=== PATIENT | female | born 1985 | race Caucasian/White ===

== ENCOUNTER 2016-11-29 19:03 | Emergency (ER) | payer BC ==
[2016-11-29] MEDS ORDERED: KETOROLAC TROMETHAMINE INJ/PF 30 MG/1 ML SDV IV ONE (20:01)
[2016-11-29] MEDS ORDERED: NORMAL SALINE 1000 ML 1,000 ML IV PRN (20:01)
[2016-11-29] MEDS ORDERED: ONDANSETRON HCL INJ/PF 4 MG/2 ML SDV IV ONE (20:01)
--- NOTE | 2016-11-29 20:02 | ER Document Report ---
ED Medical Screen (RME) - General Chief Complaint: Possible Kidney Stone Stated Complaint: BACK PAIN Time Seen by Provider: 11/29/16 20:00 Mode of Arrival: Ambulatory Information source: Patient TRAVEL OUTSIDE OF THE [place] IN LAST 30 DAYS: No - HPI Patient complains to provider of: Left flank pain Onset: Yesterday Notes: 11/29/16 20:02 Patient is a 31-year-old female who presents to the emergency room complaining of left-sided flank pain with nausea that started yesterday evening, she denies vomiting or diarrhea, she does report hematuria but no dysuria, symptoms are consistent with kidney stones which patient has had in the past - Related Data Allergies/Adverse Reactions: morphine [Morphine] Allergy (Severe, Verified 08/10/14 18:15) Hives Penicillins Allergy (Severe, Verified 08/10/14 18:15) Anaphylaxis latex [Latex] Allergy (Intermediate, Verified 08/10/14 18:15) blistering w/contact aspirin [Aspirin] Adverse Reaction (Mild, Verified 08/10/14 18:15) epigastric burning Past Medical History - Social History Family history: Reviewed & Not Pertinent - Past Medical History Cardiac Medical History: Reports: Hx Hypercholesterolemia, Hx Hypertension Denies: Hx Coronary Artery Disease, Hx Heart Attack Pulmonary Medical History: Denies: Hx Asthma, Hx Bronchitis, Hx COPD, Hx Pneumonia Neurological Medical History: Denies: Hx Cerebrovascular Accident, Hx Seizures Renal/ Medical History: Reports: Hx Kidney Stones, Hx Ovarian Cysts. Denies: Hx Peritoneal Dialysis Musculoskeltal Medical History: Reports Hx Arthritis Traumatic Medical History: Reports: Hx Fractures Infectious Medical History: Reports: Hx C-Diff Past Surgical History: Reports: Hx Kidney (Renal Surgery) - L sided stent at 4 y /o, Hx Orthopedic Surgery - Immunizations Immunizations up to date: No Hx Diphtheria, Pertussis, Tetanus Vaccination: No Physical Exam - Vital signs Vitals: Temp Pulse Resp BP Pulse Ox 98.4 F 138 H 20 149/93 H 99 11/29/16 19:27 11/29/16 19:27 11/29/16 19:27 11/29/16 19:27 11/29/16 19:27 Course - Vital Signs Vital signs: Temp Pulse Resp BP Pulse Ox 98.4 F 138 H 20 149/93 H 99 11/29/16 19:27 11/29/16 19:27 11/29/16 19:27 11/29/16 19:27 11/29/16 19:27
[2016-11-29 20:59] LABS: APPEARANCE,URINE SLIGHTLY-CLOUDY; BILIRUBIN,URINE NEGATIVE (NEGATIVE); CALCIUM OXALATE CRYSTALS,URINE TOO NUMEROUS TO CNT /HPF; GLUCOSE, URINE NEGATIVE (NEGATIVE); KETONES,URINE NEGATIVE (NEGATIVE); LEUKOCYTE ESTERASE,URINE TRACE (NEGATIVE); NITRITE,URINE NEGATIVE (NEGATIVE); PROTEIN,URINE NEGATIVE (NEGATIVE); URINE SPECIFIC GRAVITY 1.024; UROBILINOGEN,URINE NEGATIVE mg/dL (<2.0)
[2016-11-29 21:05] LABS: ABSOLUTE BASOPHILS # (AUTO) 0.1 10^3/uL (0.0-0.2); ABSOLUTE EOSINOPHILS # (AUTO) 0.2 10^3/uL (0.0-0.6); ABSOLUTE LYMPHOCYTES (AUTO) 2.4 10^3/uL (0.5-4.7); ABSOLUTE MONOCYTES (AUTO) 0.4 10^3/uL (0.1-1.4); ABSOLUTE NEUT (AUTO) 4.7 10^3/uL (1.7-8.2); BASOPHILS % (AUTO) 0.8 % (0-2); EOSINOPHILS % (AUTO) 2.6 % (0-6); HEMATOCRIT 42.1 % (36.0-47.0); HGB HCT DIFFERENCE -0.1; LYMPHOCYTES % (AUTO) 30.3 % (13-45); MEAN CORPUSCULAR HEMOGLOBIN 30.3 pg (27.0-33.4); MEAN CORPUSCULAR HGB CONC 33.2 g/dL (32.0-36.0); MEAN CORPUSCULAR VOLUME 91 fl (80-97); MONOCYTES % (AUTO) 5.7 % (3-13); RED BLOOD COUNT 4.62 10^6/uL (3.72-5.28); RED CELL DISTRIBUTION WIDTH 12.8 % (11.5-14.0); SEGMENTED NEUTROPHILS % (AUTO) 60.6 % (42-78); WHITE BLOOD COUNT 7.8 10^3/uL (4.0-10.5)
[2016-11-29 21:23] LABS: ALANINE AMINOTRANSFERASE 66 U/L (9-52); ALBUMIN 4.7 g/dL (3.5-5.0); ALKALINE PHOSPHATASE 79 U/L (38-126); ANION GAP 14 (5-19); ASPARTATE AMINO TRANSFERASE 48 U/L (14-36); BILIRUBIN,DIRECT 0.4 mg/dL (0.0-0.4); BILIRUBIN,TOTAL 0.5 mg/dL (0.2-1.3); BLOOD UREA NITROGEN 12 mg/dL (7-20); CALCIUM 10.1 mg/dL (8.4-10.2); CARBON DIOXIDE 23 mmol/L (22-30); CHLORIDE 106 mmol/L (98-107); CREATININE RESULT 0.77 mg/dL (0.52-1.25); GLUCOSE 88 mg/dL (75-110); LIPASE 57.3 U/L (23-300); POTASSIUM 4.3 mmol/L (3.6-5.0); SODIUM 142.8 mmol/L (137-145); TOTAL PROTEIN 8.7 g/dL (6.3-8.2)
[2016-11-29] MEDS ORDERED: HYDROMORPHONE HCL INJ/PF 2 MG/ML AMPULE IV ONE (22:00)
[2016-11-29] MEDS ORDERED: NORMAL SALINE 1000 ML 1,000 ML IV ONE ×2 (22:00→22:01)
--- NOTE | 2016-11-29 22:03 | ER Document Report ---
ED GI/ - General Chief Complaint: Possible Kidney Stone Stated Complaint: BACK PAIN Time Seen by Provider: 11/29/16 20:00 Mode of Arrival: Ambulatory Notes: Patient is a 31-year-old female who comes emergency department for chief complaint of left flank pain with nausea that started yesterday evening, she denies vomiting, she denies fever, she denies diarrhea. She does report some pinkish bloody urine but no pain with urination. She states that she has had kidney stones in the past, she actually had a stent previously as well. Patient denies any current daily medications. Also has a past medical history of C. difficile. TRAVEL OUTSIDE OF THE [place] IN LAST 30 DAYS: No - Related Data Allergies/Adverse Reactions: morphine [Morphine] Allergy (Severe, Verified 08/10/14 18:15) Hives Penicillins Allergy (Severe, Verified 08/10/14 18:15) Anaphylaxis latex [Latex] Allergy (Intermediate, Verified 08/10/14 18:15) blistering w/contact aspirin [Aspirin] Adverse Reaction (Mild, Verified 08/10/14 18:15) epigastric burning Past Medical History - General Information source: Patient - Social History Smoking Status: Never Smoker Frequency of alcohol use: Occasional Drug Abuse: None Lives with: Family Family History: Reviewed & Not Pertinent, Malignancy, Other - Past Medical History Cardiac Medical History: Reports: Hx Hypercholesterolemia, Hx Hypertension Denies: Hx Coronary Artery Disease, Hx Heart Attack Pulmonary Medical History: Denies: Hx Asthma, Hx Bronchitis, Hx COPD, Hx Pneumonia Neurological Medical History: Denies: Hx Cerebrovascular Accident, Hx Seizures Renal/ Medical History: Reports: Hx Kidney Stones, Hx Ovarian Cysts. Denies: Hx Peritoneal Dialysis Musculoskeltal Medical History: Reports Hx Arthritis Traumatic Medical History: Reports: Hx Fractures Infectious Medical History: Reports: Hx C-Diff Past Surgical History: Reports: Hx Kidney (Renal Surgery) - L sided stent at 4 y /o, Hx Orthopedic Surgery - Immunizations Immunizations up to date: No Hx Diphtheria, Pertussis, Tetanus Vaccination: No Review of Systems - Review of Systems Constitutional: No symptoms reported EENT: No symptoms reported Cardiovascular: No symptoms reported Respiratory: No symptoms reported Gastrointestinal: See HPI Genitourinary: See HPI Female Genitourinary: No symptoms reported Musculoskeletal: See HPI Skin: No symptoms reported Hematologic/Lymphatic: No symptoms reported Neurological/Psychological: No symptoms reported Physical Exam - Vital signs Vitals: Temp Pulse Resp BP Pulse Ox 98.4 F 138 H 20 149/93 H 99 11/29/16 19:27 11/29/16 19:27 11/29/16 19:27 11/29/16 19:27 11/29/16 19:27 Interpretation: Normal - General General appearance: Appears well, Alert In distress: None - Patient sitting on the bed, does not appear to have any distress - HEENT Head: Normocephalic, Atraumatic Eyes: Normal Conjunctiva: Normal Extraocular movements intact: Yes Eyelashes: Normal Pupils: PERRL Mouth/Lips: Normal Mucous membranes: Normal Pharynx: Normal Neck: Normal - Respiratory Respiratory status: No respiratory distress Chest status: Nontender Breath sounds: Normal. No: Decreased air movement, Wheezing Chest palpation: Normal - Cardiovascular Rhythm: Regular, Tachycardia Heart sounds: Normal auscultation, S1 appreciated, S2 appreciated Murmur: No - Abdominal Inspection: Normal Distension: No distension Bowel sounds: Normal Tenderness: Nontender. No: Tender, Guarding Organomegaly: No organomegaly - Back Back: Tender - There is tenderness in the left mid to lower flank, some paraspinal tenderness on the left, no midline tenderness, no saddle anesthesia, normal upper and lower extremity range of motion, normal distal neurovascular exam. No: Vertebra tenderness - Extremities General upper extremity: Normal inspection, Nontender, Normal color, Normal ROM , Normal temperature General lower extremity: Normal inspection, Nontender, Normal color, Normal ROM , Normal temperature, Normal weight bearing. No: Jonh's sign - Neurological Neuro grossly intact: Yes Cognition: Normal Orientation: AAOx4 [place] Coma Scale Eye Opening: Spontaneous Lee Coma Scale Verbal: Oriented [place] Coma Scale Motor: Obeys Commands Lee Coma Scale Total: 15 Speech: Normal Motor strength normal: LUE, RUE, LLE, RLE Sensory: Normal - Psychological Associated symptoms: Normal affect, Normal mood - Skin Skin Temperature: Warm Skin Moisture: Dry Skin Color: Normal Course - Re-evaluation Re-evalutation: Patient with flank and paraspinal tenderness in the left mid back, no midline tenderness, no neurovascular deficits. Abdomen soft. Reviewed CBC, chemistry, urinalysis, CAT scan from triage. No acute abnormalities. There are calcium oxalate crystals in the urine but there is no stone either in the kidney or passing. Suspect patient has musculoskeletal pain. Patient was given medications, IV fluids, after this tachycardia resolved. 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 Discussed return precautions, discussed follow-up, patient states understanding and agreement. - Vital Signs Vital signs: Temp Pulse Resp BP Pulse Ox 98.4 F 94 15 110/62 99 11/29/16 19:27 11/30/16 00:57 11/30/16 00:57 11/30/16 00:57 11/30/16 00:57 - Laboratory Result Diagrams: 11/29/16 20:35 11/29/16 20:35 Laboratory results interpreted by me: 11/29/16 11/29/16 19:38 20:35 AST 48 H ALT 66 H Total Protein 8.7 H Ur Leukocyte Esterase TRACE H Discharge - Discharge Clinical Impression: Flank pain Condition: Stable Disposition: HOME, SELF-CARE Additional Instructions: Your workup does not indicate a kidney stone. The pain you are having is most likely muscular. Continue to avoid foods with oxalate to prevent forming new stones. Take the muscle relaxer, rest, apply heat to the area. Follow up with primary care. Return to the ED for any concerning or worsening symptoms - fever, vomiting, etc. Prescriptions: Cyclobenzaprine HCl [Flexeril 5 mg Tablet] 1 - 2 tab PO TID PRN #20 tablet PRN Reason: Referrals: SOMMER SCHRADER PA-C [Primary Care Provider] - Follow up as needed
[2016-11-29 22:30] LABS: URINE BARBITURATES SCREEN NEGATIVE; URINE METHADONE SCREEN NEGATIVE; URINE OPIATES LOW NEGATIVE; URINE PHENCYCLIDINE SCREEN NEGATIVE
--- NOTE | 2016-11-29 22:53 | RADIOLOGY REPORT (SQ) ---
EXAM DESCRIPTION: CT LTD RENAL STONE PROTOCOL ON COMPLETED DATE/TIME: 11/29/2016 10:10 pm REASON FOR STUDY: flank pain COMPARISON: CT abdomen pelvis 01/12/2016, 03/26/2013, 06/14/2011 TECHNIQUE: CT scan of the abdomen and pelvis performed without intravenous or oral contrast. Images reviewed with lung, soft tissue, and bone windows. Reconstructed coronal and sagittal MPR images revi ewed. All images stored on PACS. All CT scanners at this facility use dose modulation, iterative reconstruction, and/or weight based d osing when appropriate to reduce radiation dose to as low as reasonably achievable (ALARA). [facility]: Dose Right [facility]: CareDose [facility]: Dose Right [facility]: Teradose 4D [facility]: [employer] RADIATION DOSE: Up-to-date CT equipment and radiation dose reduction techniques were employed. CTDIv ol: 17.7 mGy. DLP: 957 mGy-cm.mGy. LIMITATIONS: None. FINDINGS: LOWER CHEST: No significant findings. No nodules or infiltrates. NON-CONTRASTED LIVER, SPLEEN, ADRENALS: Hepatomegaly with diffuse fatty infiltration of the liver. S pleen, adrenal glands unremarkable PANCREAS: No masses. No peripancreatic inflammatory changes. GALLBLADDER: No identified stones by CT criteria. No inflammatory changes to suggest cholecystitis. RIGHT KIDNEY AND URETER: No suspicious masses. Assessment limited by lack of IV contrast. No signif icant calcifications. No hydronephrosis or hydroureter. LEFT KIDNEY AND URETER: No suspicious masses. Assessment limited by lack of IV contrast. No signifi cant calcifications. No hydronephrosis or hydroureter. AORTA AND RETROPERITONEUM: No aneurysm. No retroperitoneal masses or adenopathy. BOWEL AND PERITONEAL CAVITY: No obvious masses or inflammatory changes. No free fluid. APPENDIX: Normal. PELVIS, BLADDER, AND ABDOMINAL WALL:No abnormal masses. No free fluid. Bladder normal. BONES: No significant findings. OTHER: No other significant finding. IMPRESSION: NO SIGNIFICANT OR ACUTE PROCESS IN THE ABDOMEN OR PELVIS. TECHNICAL DOCUMENTATION: JOB ID: [id number] Quality ID # [id number]: Final reports with documentation of one or more dose reduction techniques (e.g., Au tomated exposure control, adjustment of the mA and/or kV according to patient size, use of iterative reconstruction technique) 2010 [email or web address] Rights Reserved
[2016-11-30 00:59] VITALS: BP 110/62
== END 2016-11-30 00:44 | disposition home or self-care (01) ==
LOC: ER 19:03
DX: M54.9 Dorsalgia, unspecified (principal); R11.0 Nausea; R31.0 Gross hematuria; R82.99 Other abnormal findings in urine; I10 Essential (primary) hypertension; Z87.442 Personal history of urinary calculi; Z98.890 Other specified postprocedural states; Z88.5 Allergy status to narcotic agent; Z91.040 Latex allergy status; Z88.6 Allergy status to analgesic agent; Z87.892 Personal history of anaphylaxis; Z88.0 Allergy status to penicillin; Z87.42 Personal history of other diseases of the female genital tract; Z86.19 Personal history of other infectious and parasitic diseases
CPT/HCPCS: 99284; 96361; 96374; 96375; 36415; 87086; 83690; 85025; 80053; 81001; 80307; 76380; J1885; J1170; J2405; J7030

== ENCOUNTER 2016-12-28 15:14 | Observation (INO) | payer BC ==
--- NOTE | 2016-12-28 16:33 | ER Document Report ---
ED Cardiac - General Mode of Arrival: Ambulatory Information source: Patient TRAVEL OUTSIDE OF THE [place] IN LAST 30 DAYS: No - HPI Patient complains to provider of: Chest pain, Palpitations Was the onset of pain: Gradual Is the pain a: New problem Chest pain location: Substernal Quality of pain: Achy, Dull Severity now: Mild Severity at worst: Moderate Chest pain precipitating factors: At Rest Cardiac risk factors: Hypertension Associated symptoms: Diaphoresis, Nausea/vomiting Exacerbated by: Denies Relieved by: Nothing <AGUILA BATES - Last Filed: 12/28/16 20:19> <PAULA TONY - Last Filed: 01/01/17 23:39> - General Chief Complaint: Chest Wall Pain Stated Complaint: CHEST PAIN Time Seen by Provider: 12/28/16 16:09 - HPI Notes: Patient is a 31-year-old female who presents to the emergency room complaining of chest pain with diaphoresis and nausea 3-4 days, she denies any abdominal pain, no vomiting or diarrhea, no fever or chills, no cough, cold or congestion , no recent long distance travel or periods of immobilization, patient denies being , she denies any calf pain or tenderness (AGUILA BATES) - Related Data Allergies/Adverse Reactions: morphine [Morphine] Allergy (Severe, Verified 12/29/16 00:45) Hives Penicillins Allergy (Severe, Verified 12/28/16 15:34) Anaphylaxis latex [Latex] Allergy (Intermediate, Verified 12/28/16 15:34) blistering w/contact aspirin [Aspirin] Adverse Reaction (Mild, Verified 12/28/16 15:34) epigastric burning Home Medications: Current Home Medications Cyclobenzaprine HCl [Flexeril 5 mg Tablet] 5 mg PO TID 12/29/16 [History] Metoprolol Succinate [Toprol Xl 25 mg Tab.sr] 25 mg PO DAILY 12/29/16 [History] Past Medical History - General Information source: Patient - Social History Smoking Status: Never Smoker Family History: Reviewed & Not Pertinent, Malignancy, Other Patient has suicidal ideation: No Patient has homicidal ideation: No - Past Medical History Cardiac Medical History: Reports: Hx Hypercholesterolemia, Hx Hypertension Denies: Hx Coronary Artery Disease, Hx Heart Attack Pulmonary Medical History: Denies: Hx Asthma, Hx Bronchitis, Hx COPD, Hx Pneumonia Neurological Medical History: Denies: Hx Cerebrovascular Accident, Hx Seizures Renal/ Medical History: Reports: Hx Kidney Stones, Hx Ovarian Cysts. Denies: Hx Peritoneal Dialysis Musculoskeltal Medical History: Reports Hx Arthritis Traumatic Medical History: Reports: Hx Fractures Infectious Medical History: Reports: Hx C-Diff Past Surgical History: Reports: Hx Kidney (Renal Surgery) - L sided stent at 4 y /o, Hx Orthopedic Surgery - Immunizations Immunizations up to date: No Hx Diphtheria, Pertussis, Tetanus Vaccination: No <AGUILA BATES - Last Filed: 12/28/16 20:19> Review of Systems - Review of Systems Constitutional: No symptoms reported. denies: Fever EENT: No symptoms reported Cardiovascular: See HPI Respiratory: No symptoms reported Gastrointestinal: See HPI Genitourinary: No symptoms reported Female Genitourinary: No symptoms reported Musculoskeletal: No symptoms reported Skin: No symptoms reported Hematologic/Lymphatic: No symptoms reported Neurological/Psychological: No symptoms reported -: Yes All other systems reviewed and negative <AGUILA BATES - Last Filed: 12/28/16 20:19> Physical Exam - Vital signs Interpretation: Tachycardic - General General appearance: Appears well, Alert - HEENT Head: Normocephalic, Atraumatic Eyes: Normal Pupils: PERRL - Respiratory Respiratory status: No respiratory distress Chest status: Nontender Breath sounds: Normal Chest palpation: Normal - Cardiovascular Rhythm: Regular Heart sounds: Normal auscultation Murmur: No - Abdominal Inspection: Normal Distension: No distension Bowel sounds: Normal Tenderness: Nontender Organomegaly: No organomegaly - Back Back: Normal, Nontender - Extremities General upper extremity: Normal inspection, Nontender, Normal color, Normal ROM , Normal temperature General lower extremity: Normal inspection, Nontender, Normal color, Normal ROM , Normal temperature, Normal weight bearing. No: Jonh's sign - Neurological Neuro grossly intact: Yes Cognition: Normal Orientation: AAOx4 [place] Coma Scale Eye Opening: Spontaneous [place] Coma Scale Verbal: Oriented Lee Coma Scale Motor: Obeys Commands [place] Coma Scale Total: 15 Speech: Normal Motor strength normal: LUE, RUE, LLE, RLE Sensory: Normal - Psychological Associated symptoms: Normal affect, Normal mood - Skin Skin Temperature: Warm Skin Moisture: Dry Skin Color: Normal <AGUILA BATES - Last Filed: 12/28/16 20:19> Course - Laboratory Result Diagrams: 12/28/16 16:25 12/28/16 16:25 - Diagnostic Test Radiology reviewed: Image reviewed, Reports reviewed - EKG Interpretation by Me EKG shows normal: Sinus rhythm Rate: Tachycardia - Transfer of Care Care transferred to following provider: Dr Tony <AGUILA BATES - Last Filed: 12/28/16 20:19> - Laboratory Result Diagrams: 12/28/16 16:25 12/28/16 16:25 <PAULA TONY - Last Filed: 01/01/17 23:39> - Re-evaluation Re-evalutation: 12/28/16 20:03 Was discussed with the hospitalist who requested a second troponin and urine drug screen prior to accepting for admission 12/28/16 20:19 Urine drug screen and repeat troponin have been ordered, this plan was discussed with patient who is resting comfortably, eating dinner at this time, patient was also discussed with Dr. Paula Tony, emergency physician who accepts patient for spinal, she will continue to follow and dispo accordingly (AGUILA BATES) - Vital Signs Vital signs: Temp Pulse Resp BP Pulse Ox 98.3 F 108 H 18 118/73 97 12/29/16 15:35 12/29/16 15:35 12/29/16 15:35 12/29/16 15:35 12/29/16 15:35 - Laboratory Laboratory results interpreted by me: 12/28/16 12/28/16 16:25 17:00 AST 58 H ALT 76 H Creatine Kinase 136 H Total Protein 8.5 H Urine Blood SMALL H Ur Leukocyte Esterase TRACE H Discharge <AGUILA BATES - Last Filed: 12/28/16 20:19> - Discharge Admitting Provider: Hospitalist Unit Admitted: Telemetry <PAULA TONY - Last Filed: 01/01/17 23:39> - Discharge Clinical Impression: chest wall pain, Sinus tachycardia Condition: Good Disposition: HOME, SELF-CARE
[2016-12-28 16:46] LABS: ABSOLUTE EOSINOPHILS # (AUTO) 0.1 10^3/uL (0.0-0.6); ABSOLUTE LYMPHOCYTES (AUTO) 1.7 10^3/uL (0.5-4.7); ABSOLUTE MONOCYTES (AUTO) 0.4 10^3/uL (0.1-1.4); ABSOLUTE NEUT (AUTO) 5.1 10^3/uL (1.7-8.2); BASOPHILS % (AUTO) 0.5 % (0-2); EOSINOPHILS % (AUTO) 1.5 % (0-6); HEMATOCRIT 42.3 % (36.0-47.0); HEMOGLOBIN 14.2 g/dL (12.0-15.5); HGB HCT DIFFERENCE 0.3; LYMPHOCYTES % (AUTO) 23.6 % (13-45); MEAN CORPUSCULAR HGB CONC 33.6 g/dL (32.0-36.0); MEAN CORPUSCULAR VOLUME 89 fl (80-97); MONOCYTES % (AUTO) 5.2 % (3-13); RED BLOOD COUNT 4.73 10^6/uL (3.72-5.28); RED CELL DISTRIBUTION WIDTH 12.8 % (11.5-14.0); SEGMENTED NEUTROPHILS % (AUTO) 69.2 % (42-78); WHITE BLOOD COUNT 7.4 10^3/uL (4.0-10.5)
[2016-12-28 17:01] LABS: ALANINE AMINOTRANSFERASE 76 U/L (9-52); ALBUMIN 4.8 g/dL (3.5-5.0); ALKALINE PHOSPHATASE 84 U/L (38-126); ANION GAP 11 (5-19); ASPARTATE AMINO TRANSFERASE 58 U/L (14-36); BILIRUBIN,DIRECT 0.4 mg/dL (0.0-0.4); BILIRUBIN,TOTAL 0.5 mg/dL (0.2-1.3); BLOOD UREA NITROGEN 10 mg/dL (7-20); CALCIUM 9.9 mg/dL (8.4-10.2); CARBON DIOXIDE 26 mmol/L (22-30); CHLORIDE 104 mmol/L (98-107); CREATINE KINASE 136 U/L (30-135); CREATININE RESULT 0.66 mg/dL (0.52-1.25); GLUCOSE 91 mg/dL (75-110); POTASSIUM 4.1 mmol/L (3.6-5.0); SODIUM 141.1 mmol/L (137-145); TOTAL PROTEIN 8.5 g/dL (6.3-8.2)
--- NOTE | 2016-12-28 17:02 | RADIOLOGY REPORT (SQ) ---
EXAM DESCRIPTION: CHEST PA/LAT COMPLETED DATE/TIME: 12/28/2016 4:53 pm REASON FOR STUDY: cp COMPARISON: 11/02/2014 EXAM PARAMETERS: NUMBER OF VIEWS: two views TECHNIQUE: Digital Frontal and Lateral radiographic views of the chest acquired. RADIATION DOSE: NA LIMITATIONS: none FINDINGS: LUNGS AND PLEURA: No opacities, masses or pneumothorax. No pleural effusion. MEDIASTINUM AND HILAR STRUCTURES: No masses or contour abnormalities. HEART AND VASCULAR STRUCTURES: Heart normal size. No evidence for failure. BONES: No acute findings. HARDWARE: None in the chest. OTHER: No other significant finding. IMPRESSION: NO SIGNIFICANT RADIOGRAPHIC FINDING IN THE CHEST. TECHNICAL DOCUMENTATION: JOB ID: [id number] [employer]- All Rights Reserved
[2016-12-28 17:14] LABS: CREATINE KINASE MB 0.77 ng/mL (<4.55)
[2016-12-28 17:16] LABS: TROPONIN I < 0.012 ng/mL
[2016-12-28] MEDS ORDERED: NORMAL SALINE 1000 ML 1,000 ML IV PRN ×2 (17:32→17:47)
[2016-12-28] MEDS ORDERED: LORAZEPAM INJ 2 MG/1 ML VIAL IV ONE (17:47)
[2016-12-28 18:17] LABS: APPEARANCE,URINE SLIGHTLY-CLOUDY; BILIRUBIN,URINE NEGATIVE (NEGATIVE); GLUCOSE, URINE NEGATIVE (NEGATIVE); KETONES,URINE NEGATIVE (NEGATIVE); LEUKOCYTE ESTERASE,URINE TRACE (NEGATIVE); NITRITE,URINE NEGATIVE (NEGATIVE); PROTEIN,URINE NEGATIVE (NEGATIVE); URINE SPECIFIC GRAVITY 1.009; UROBILINOGEN,URINE NEGATIVE mg/dL (<2.0)
--- NOTE | 2016-12-28 19:17 | RADIOLOGY REPORT (SQ) ---
EXAM DESCRIPTION: CTA CHEST COMPLETED DATE/TIME: 12/28/2016 7:07 pm REASON FOR STUDY: cp, tachy COMPARISON: None. TECHNIQUE: CT scan of the chest performed using helical scanning technique with dynamic intravenous contrast injection. Images reviewed with lung, soft tissue and bone windows. Reconstructed coronal and sagittal MPR images reviewed. Additional 3 dimensional post-processing performed to develop Maximal Intensity Projection images (DE P). All images stored on PACS. All CT scanners at this facility use dose modulation, iterative reconstruction, and/or weight based d osing when appropriate to reduce radiation dose to as low as reasonably achievable (ALARA). [facility]: Dose Right [facility]: CareDose [facility]: Dose Right [facility]: Teradose 4D [facility]: [employer] CONTRAST TYPE AND DOSE: contrast/concentration: Isovue 370.00 mg/ml; Total Contrast Delivered: 80.0 ml; Total Saline Delivered: 100.0 ml RENAL FUNCTION: None required. The patient is less than 50 years old. RADIATION DOSE: Up-to-date CT equipment and radiation dose reduction techniques were employed. CTDIv ol: 24.8 - 26.6 mGy. DLP: 932 mGy-cm. . LIMITATIONS: None. FINDINGS: LUNGS AND PLEURA: No masses, infiltrates, pneumothorax. No pleural effusions, calcificati ons. AORTA AND GREAT VESSELS: No aneurysm or dissection. HEART: No pericardial effusion. PULMONARY ARTERIES: No emboli visualized in the main pulmonary arteries or the segmental branches. HILAR AND MEDIASTINAL STRUCTURES: No identified masses or abnormal nodes. HARDWARE: None in the chest. UPPER ABDOMEN: Fatty liver. THYROID AND OTHER SOFT TISSUES: No masses. No adenopathy. BONES: No acute or significant finding. 3D MIPS: Confirm above findings. OTHER: No other significant finding. IMPRESSION: NORMAL CTA OF THE CHEST. NO PULMONARY EMBOLI. Fatty liver. TECHNICAL DOCUMENTATION: JOB ID: [id number] Quality ID # [id number]: Final reports with documentation of one or more dose reduction techniques (e.g., Au tomated exposure control, adjustment of the mA and/or kV according to patient size, use of iterative reconstruction technique) 2010 [employer]- All Rights Reserved
[2016-12-28] MEDS ORDERED: HYDROMORPHONE HCL INJ/PF 2 MG/ML AMPULE IV ONE (19:40)
[2016-12-28] MEDS ORDERED: ONDANSETRON HCL INJ/PF 4 MG/2 ML SDV ONE (21:05)
[2016-12-28 21:39] LABS: URINE BARBITURATES SCREEN NEGATIVE; URINE OPIATES LOW NEGATIVE; URINE PHENCYCLIDINE SCREEN NEGATIVE
[2016-12-28 21:47] LABS: URINE METHADONE SCREEN NEGATIVE
--- NOTE | 2016-12-28 22:50 | EKG REPORT ---
SEVERITY:- OTHERWISE NORMAL ECG - SINUS TACHYCARDIA : Confirmed by: Kameron Haq 28-Dec-2016 22:48:54
[2016-12-28] MEDS ORDERED: NORMAL SALINE 1000 ML 2,000 ML IV ONE (23:45)
[2016-12-29] MEDS ORDERED: ACETAMINOPHEN 325 MG TABLET PO PRN (00:44)
[2016-12-29] MEDS ORDERED: METOPROLOL TARTRATE PF/INJ 5 MG/5 ML SDV IV PRN (00:45)
[2016-12-29] MEDS ORDERED: MAG HYDROX/AL HYDROX/SIMETH SUSP 30 ML UDCUP PO PRN (00:49)
[2016-12-29] MEDS ORDERED: PROMETHAZINE HCL 25 MG TABLET PO PRN (00:50)
[2016-12-29] MEDS ORDERED: MAG HYDROX/AL HYDROX/SIMETH SUSP 30 ML UDCUP PO ONE (00:54)
[2016-12-29] MEDS ORDERED: CLOPIDOGREL BISULFATE 75 MG TABLET PO ONE (01:15)
--- NOTE | 2016-12-29 01:42 | PDOC H&P ---
History of Present Illness Admission Date/PCP: 12/28/16 23:21 SOMMER SCHRADER PA-C Cardiology Dr. Santos Patient complains of: Chest pain History of Present Illness: PEGGY BROWN is a 31 year old obese female with underlying hypertension, known chronic tachycardia, a "leaking valve" by transesophageal echocardiogram last year at [place], but otherwise with an unremarkable cardiac history, including negative exercise treadmill study earlier this year who presents to the emergency room for evaluation of 3-4 day history of intermittent episodes of substernal and epigastric discomfort, with associated nausea but no vomiting. No fever or chills, diarrhea or dysuria or cough. Chest discomfort decreases when she sits up. Earlier on the , she was having some mild associated shortness of breath and diaphoresis, along with radiation of the discomfort to her left upper extremity. Has had previous such episodes of the discomfort; her graphic engineer is aware of same. Has been on Toprol-XL 25 mg a day for approximately a year. No recent change in medications. She is compliant with same. Took her evening dose actually the morning of the . Received 2 L bolus of normal saline in the emergency room, with little change in her pulse rate. Receiving third and fourth liter bolus now. No previous myocardial infarction congestive heart failure atrial fibrillation or atrial flutter. No history of pulmonary embolus or DVT. No prior upper endoscopy or upper GI series. Negative colonoscopy more than 5 years ago. No use of alcohol tobacco or illicit drugs. Family history is remarkable for her mother who in her 30s of a pulmonary embolus. Patient has been discussed with emergency room physician who evaluated the patient. . Laboratory results are listed in [facility] and are reviewed. X-ray summary results are listed below, with full report(s) reviewed. . EKG's reviewed. Social history/personal habits: . 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 Personal habits as noted above. Allergies/adverse reactions are listed in [employer] and are reviewed. Home medications consist only of Toprol-XL 25 mg a day. REVIEW OF SYSTEMS: Constitutional: No fever or chills. Eyes: No vision complaints. ENT: No swallowing problems or complaints. Denies hearing loss. Pulmonary: See history and present illness. Cardiovascular: See history and present illness. Gastrointestinal: See history and present illness. Skin: No current complaints, including rashes. Hematologic: Easy bruising. Neurologic: No current complaints, including numbness or tingling. Musculoskeletal: Back pain from arthritis. Psychiatric: Denies anxiety or depression. Endocrine: No current complaints, including polyuria. Genitourinary: No current complaints, including dysuria. PHYSICAL EXAMINATION: 5 feet 4 inches tall. 99.2 kg. BMI 37.5 kg/m. Temperature 98.6. Blood pressure 113/70. Pulse 139 and regular. 97% saturation on room air. Respirations are 20 and unlabored. Obese otherwise well-developed female appearing approximately her stated age. Pleasant awake alert and cooperative. No obvious distress other than somewhat anxious. Female emergency room nurse Melyssa is present. Skin is warm and dry. No grossly obvious evidence of rash in areas of skin examined. No subcutaneous nodules palpated. ENT: Hearing grossly normal to normal conversation. Tongue midline on protrusion pink and moist. Eyes: No scleral icterus. Pupils equal and reactive to light at 4 mm. [place] conjunctivae. Neck is supple and nontender to gentle active range of motion and palpation. Midline trachea. No palpable thyroid nodule mass enlargement or tenderness. Lymphatic: No palpable cervical or clavicular nodes. Neck and lymphatic exams limited by patient body habitus. Psychiatric: Reasonable insight into acute and chronic medical issues. Oriented to time location and why here. Lungs: Auscultation reveals clear and equal breath sounds bilaterally. No use of accessory respiratory muscles. Cardiovascular: Heart regular rate and rhythm, without gallop murmur or rub. No carotid or abdominal aortic bruits. No ankle or pedal edema. Faintly palpable dorsalis pedis pulses. Abdomen:soft somewhat obese nontender with positive bowel sounds. Unable to adequately evaluate abdomen for masses or organomegaly due to body habitus. Compression of both her upper epigastrium and mid sternum increases her current chest discomfort. Extremities: Feet are warm and dry. No calf tenderness to compression. No grossly obvious visual evidence of calf swelling. Gentle manipulation of lower extremities fails to reveal any obvious evidence of injury or instability to knees hips or ankles. Neurologic: Moves upper extremities grossly normally. Patellar reflexes absent. Absent Babinski. Light touch is intact at feet. Dorsiflexion and plantarflexion of feet 5 / 5 and symmetric. Past Medical History Cardiac Medical History: Reports: Hypertension, Other - Chronic tachycardia; "leaking valve" by transesophageal echocardiogram, 2016 Denies: Atrial Fibrillation, Congestive Heart Failure, Coronary Artery Disease, DVT, Myocardial Infarction, Hyperlipidema, Pulmonary Embolism Pulmonary Medical History: Denies: Asthma, Bronchitis, Chronic Obstructive Pulmonary Disease (COPD), Pneumonia, Sleep Apnea EENT Medical History: Denies: Eyes, Ears, Throat Neurological Medical History: Denies: Hemorrhagic CVA, Ischemic CVA, Seizures Endocrine Medical History: Denies: Diabetes Mellitus Type 1, Diabetes Mellitus Type 2, Hyperthyroidism, Hypothyroidism Renal/ Medical History: Reports: Other - 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 History of C. difficile infection. Denies: Cirrhosis, Gastroesophageal Reflux Disease, Hepatitis, Peptic Ulcer Disease Musculoskeltal Medical History: Reports: Arthritis - Affecting her back primarily Skin Medical History: Reports: None Psychiatric Medical History: Denies: Alcohol Dependency, Depression, General Anxiety Disorder, Substance Abuse, Tobacco Dependency Hematology: Reports: Other - Easy bruising Denies: Anemia Infectious Medical History: Reports: Clostridium Difficile Denies: Hepatitis B, Hepatitis C, Methicillin-Resistant Staph Aureus Past Surgical History Past Surgical History: Reports: Orthopedic Surgery, Other - Left ureteral stent and other corrective surgery. Social History Information Source: Patient, Emergency Med Personnel, [facility] Records Lives with: Spouse/Significant other Smoking Status: Never Smoker Frequency of Alcohol Use: None Hx Recreational Drug Use: No Drugs: None Hx Prescription Drug Abuse: No - Advance Directive Resuscitation Status: Full Code Surrogate healthcare decision maker:: Family History Family History: Reviewed & Not Pertinent, Malignancy, Other Parental Family History Reviewed: Yes - Mother of pulmonary embolus. Father alive with heart failure Children Family History Reviewed: Yes - Healthy Sibling(s) Family History Reviewed.: Yes - Healthy Medication/Allergy Home Medications: Acetaminophen [Tylenol 325 mg Tablet] 650 mg PO Q8HP PRN tablet 12/29/16 Cyclobenzaprine HCl [Flexeril 5 mg Tablet] 5 mg PO TID 12/29/16 Esomeprazole Magnesium [Nexium] 40 mg PO DAILY #30 capsule. 12/29/16 Metoprolol Succinate [Toprol Xl 25 mg Tab.sr] 25 mg PO DAILY 12/29/16 Metoprolol Succinate [Toprol Xl 25 mg Tab.sr] 25 mg PO QHS tab.sr.24h 12/29/16 Allergies/Adverse Reactions: morphine [Morphine] Allergy (Severe, Verified 12/29/16 00:45) Hives Penicillins Allergy (Severe, Verified 12/28/16 15:34) Anaphylaxis latex [Latex] Allergy (Intermediate, Verified 12/28/16 15:34) blistering w/contact aspirin [Aspirin] Adverse Reaction (Mild, Verified 12/28/16 15:34) epigastric burning Physical Exam Vital Signs: Temp Pulse Resp BP Pulse Ox 98.6 F 128 H 23 H 109/70 96 12/28/16 15:34 12/28/16 15:34 12/29/16 01:01 12/29/16 01:01 12/29/16 01:01 Results Impressions: Chest X-Ray 12/28/16 16:30 IMPRESSION: NO SIGNIFICANT RADIOGRAPHIC FINDING IN THE CHEST. Chest/Abdomen CTA 12/28/16 18:20 IMPRESSION: NORMAL CTA OF THE CHEST. NO PULMONARY EMBOLI. Fatty liver. Assessment & Plan - Diagnosis (1) Abnormal urinalysis Is this a current diagnosis for this admission?: YesPlan: Urine culture. We will forego antibiotics at this point in time. (2) Precordial chest pain Is this a current diagnosis for this admission?: YesPlan: Unlikely this is cardiac in nature, but Patient will be placed in observation bed under chest pain protocol. Patient understands to notify staff should chest pain change in character or location. Serial troponin . Repeat EKG. lipid panel. Cardiology consult. I have strongly encouraged patient to be careful getting out of bed without notifying staff, to avoid a fall with injury. Knee high SCDs for DVT prophylaxis. Due to her young age, along with the fact that she will likely be discharged later today, we will forego Lovenox or heparin at this point in time. Impression and plans were discussed with patient who concurs. Time spent in evaluation and management of patient: 65 minutes. (3) Elevated LFTs Is this a current diagnosis for this admission?: YesPlan: Probably due to underlying fatty liver disease. Chronic mild elevation of liver functions. Denies any other underlying biliary disease. (4) Tachycardia Is this a current diagnosis for this admission?: YesPlan: As needed IV beta-ruth. (5) Fatty liver Is this a current diagnosis for this admission?: Yes (6) HTN (hypertension) Qualifiers: Hypertension type: essential hypertension Qualified Code(s): I10 - Essential (primary) hypertension Is this a current diagnosis for this admission?: Yes
[2016-12-29] MEDS: OXYCODONE HCL IR 5 MG TABLET PO PRN ×3 (01:45→16:04)
--- NOTE | 2016-12-29 07:48 | EKG REPORT ---
SEVERITY:- OTHERWISE NORMAL ECG - SINUS TACHYCARDIA : Confirmed by: Kameron Haq 29-Dec-2016 07:47:25
[2016-12-29 08:48] LABS: CHOLESTEROL 219.29 mg/dL (0-200); Direct HDL 29 mg/dL (>40); TRIGLYCERIDES 377 mg/dL (<150)
[2016-12-29 08:58] LABS: DIRECT LDL 95 mg/dL (<100)
[2016-12-29 09:02] LABS: VLDL CHOLESTEROL 75.4 mg/dL (10-31)
[2016-12-29] MEDS ORDERED: DOCUSATE SODIUM 100 MG CAPSULE PO SCH (10:00)
[2016-12-29] MEDS ORDERED: CLOPIDOGREL BISULFATE 75 MG TABLET PO SCH ×2 (10:00)
--- NOTE | 2016-12-29 12:22 | RADIOLOGY REPORT (SQ) ---
EXAM DESCRIPTION: U/S ABDOMEN LIMITED W/O DOP COMPLETED DATE/TIME: 12/29/2016 11:50 am REASON FOR STUDY: Right upper quadrant pain, elevated liver enzymes COMPARISON: CT angio chest 12/28/2016 CT abdomen pelvis 11/29/2016 Abdominal ultrasound 11/02/2014 TECHNIQUE: Dynamic and static grayscale images acquired of the abdomen and recorded on PACS. Additio nal selected color Doppler and spectral images recorded. LIMITATIONS: Midline bowel gas FINDINGS: PANCREAS: Midline pancreas unremarkable LIVER: Enlarged, 22 cm in greatest length. Liver is echogenic and difficult to penetrate with the ul trasound energy from fatty infiltration. No gross masses. LIVER VASCULATURE: Normal directional flow of the main portal vein and hepatic veins. GALLBLADDER: No stones. Normal wall thickness. No pericholecystic fluid. ULTRASOUND-DETECTED LAWRENCE'S SIGN: Negative. INTRAHEPATIC DUCTS AND COMMON DUCT: CBD and intrahepatic ducts normal caliber. No filling defects. INFERIOR VENA CAVA: Not well seen AORTA: No aneurysm. RIGHT KIDNEY: Normal size. Normal echogenicity. No solid or suspicious masses. No hydronephrosis. No calcifications. PERITONEAL AND RIGHT PLEURAL SPACE: No ascites or effusions. OTHER: No other significant findings. IMPRESSION: Enlarged fatty liver. No gallstones. TECHNICAL DOCUMENTATION: JOB ID: [id number] [employer]- All Rights Reserved
[2016-12-29] MEDS ORDERED: CYCLOBENZAPRINE HCL 10 MG TABLET PO SCH (14:00)
[2016-12-29] MEDS ORDERED: (PENDING PHARMACY ID) (Cyclobenzaprine Hcl [Flexeril 5 Mg Tablet] 5 MG) PO SCH (14:00)
[2016-12-29 15:33] VITALS: BP 118/73
--- NOTE | 2016-12-29 16:30 | PDOC DISCHARGE SUMMARY ---
General - Admit/Disc Date/PCP Admission Date/Primary Care Provider: 12/29/16 00:49 SOMMER SCHRADER PA-C Discharge Date: 12/29/16 - Discharge Diagnosis (1) Precordial chest pain Is this a current diagnosis for this admission?: YesSummary: Troponins were all negative. 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 Her pain is atypical for cardiac origin. Most likely related to GI source such as GERD. (2) Elevated LFTs Is this a current diagnosis for this admission?: YesSummary: Patient was found to have fatty liver on ultrasound of abdomen. (3) Tachycardia Is this a current diagnosis for this admission?: YesSummary: Patient has sinus tachycardia with HR no greater than 120's. Will continue toprol XL. No room with blood pressure to increase (4) DVT prophylaxis Is this a current diagnosis for this admission?: Yes (5) Fatty liver Is this a current diagnosis for this admission?: YesSummary: Patient was counseled (6) HTN (hypertension) Is this a current diagnosis for this admission?: YesSummary: Continue home medications she is normotensive - Additional Information Resuscitation Status: Full Code Discharge Diet: Regular, Other (Comments) - low fat Discharge Activity: Activity As Tolerated, Balance Activity w/Rest Home Medications: Acetaminophen [Tylenol 325 mg Tablet] 650 mg PO Q8HP PRN tablet 12/29/16 Cyclobenzaprine HCl [Flexeril 5 mg Tablet] 5 mg PO TID 12/29/16 Esomeprazole Magnesium [Nexium] 40 mg PO DAILY #30 capsule. 12/29/16 Metoprolol Succinate [Toprol Xl 25 mg Tab.sr] 25 mg PO DAILY 12/29/16 Metoprolol Succinate [Toprol Xl 25 mg Tab.sr] 25 mg PO QHS tab.sr.24h 12/29/16 History of Present Illness Patient complains of: Precordial chest pain and tachycardia History of Present Illness: PEGGY BROWN is a 31 year old obese female with underlying hypertension, known chronic tachycardia, a "leaking valve" by transesophageal echocardiogram last year it [place], but otherwise with an unremarkable cardiac history, including negative exercise treadmill study earlier this year who presents to the emergency room for evaluation of 3-4 day history of intermittent episodes of substernal and epigastric discomfort, with associated nausea but no vomiting. No fever or chills, diarrhea or dysuria or cough. Chest discomfort decreases when she sits up. Earlier on the , she was having some mild associated shortness of breath and diaphoresis, along with radiation of the discomfort to her left upper extremity. Hospital Course Hospital Course: She had serial troponins which were all negative. She had patient was admitted to the hospitalist service on IMCU. She had a stress test done which was negative. The pain is atypical for cardiac in origin. Most likely GERD. Dr. Parada, cardiology, was consulted by nocturnalist who felt she did not need a cardiology consult. Patient did have mild right upper quadrant pain as well as mildly elevated LFTs. Nam sign was negative. She underwent ultrasound of gallbladder which was negative for gallbladder disease did show fatty liver Physical Exam Vital Signs: Temp Pulse Resp BP Pulse Ox 98.3 F 108 H 18 118/73 97 12/29/16 15:35 12/29/16 15:35 12/29/16 15:35 12/29/16 15:35 12/29/16 15:35 Intake & Output 12/28/16 12/29/16 12/30/16 06:59 06:59 06:59 Intake Total 10 618 Output Total 800 Balance 10 -182 Weight 101.5 kg General appearance: PRESENT: no acute distress, morbidly obese, well-developed, well-nourished Head exam: PRESENT: atraumatic, normocephalic Eye exam: PRESENT: conjunctiva pink, EOMI, PERRLA. ABSENT: scleral icterus Ear exam: PRESENT: normal external ear exam Mouth exam: PRESENT: moist, tongue midline Neck exam: ABSENT: carotid bruit, JVD, lymphadenopathy, thyromegaly Respiratory exam: PRESENT: clear to auscultation [place]. ABSENT: rales, rhonchi, wheezes Cardiovascular exam: PRESENT: RRR. ABSENT: diastolic murmur, rubs, systolic murmur Pulses: PRESENT: normal dorsalis pedis pul Vascular exam: PRESENT: normal capillary refill GI/Abdominal exam: PRESENT: normal bowel sounds, soft. ABSENT: distended, guarding, mass, organolmegaly, rebound, tenderness Rectal exam: PRESENT: deferred Neurological exam: PRESENT: alert, awake, oriented to person, oriented to place , oriented to time, oriented to situation, CN II-XII grossly intact. ABSENT: motor sensory deficit Psychiatric exam: PRESENT: appropriate affect, normal mood. ABSENT: homicidal ideation, suicidal ideation Skin exam: PRESENT: dry, intact, warm. ABSENT: cyanosis, rash Results Laboratory Results: 12/29/16 08:18 Triglycerides 377 H Cholesterol 219.29 H LDL Cholesterol Direct 95 VLDL Cholesterol 75.4 H HDL Cholesterol 29 L 12/29/16 12/29/16 02:27 08:18 Troponin I < 0.012 < 0.012 Impressions: Chest X-Ray 12/28/16 16:30 IMPRESSION: NO SIGNIFICANT RADIOGRAPHIC FINDING IN THE CHEST. Chest/Abdomen CTA 12/28/16 18:20 IMPRESSION: NORMAL CTA OF THE CHEST. NO PULMONARY EMBOLI. Fatty liver. Abdomen Ultrasound 12/29/16 00:00 IMPRESSION: Enlarged fatty liver. No gallstones. Qualifiers PATEINT BEING DISCHARGED WITH ANY OF THE FOLLOWING DIAGNOSIS?: No Plan Discharge Plan: Home with family Time Spent: Less than 30 Minutes
[2016-12-29] MEDS ORDERED: METOPROLOL SUCCINATE 25 MG TAB.SR.24H PO SCH (22:00)
[2016-12-30] MEDS ORDERED: METOPROLOL SUCCINATE 25 MG TAB.SR.24H PO SCH (10:00)
== END 2016-12-29 16:08 | disposition home or self-care (01) ==
LOC: ER 15:14 → EH 23:21 → UNDOADMOB 23:21 → EH 12-29 00:49 → 3S 12-29 02:13 → EH 12-29 02:13
PROVIDERS: ADMIT Family Medicine; ATTEND Family Medicine
DX: R07.2 Precordial pain (principal); R79.89 Other specified abnormal findings of blood chemistry; K76.0 Fatty (change of) liver, not elsewhere classified; R00.0 Tachycardia, unspecified; I10 Essential (primary) hypertension; E66.01 Morbid (severe) obesity due to excess calories; R10.11 Right upper quadrant pain; R06.02 Shortness of breath; R61 Generalized hyperhidrosis; R82.90 Unspecified abnormal findings in urine; R11.2 Nausea with vomiting, unspecified; Z79.899 Other long term (current) drug therapy; Z82.49 Family history of ischemic heart disease and other diseases of the circulatory system; Z86.79 Personal history of other diseases of the circulatory system; Z96.0 Presence of urogenital implants; Z86.19 Personal history of other infectious and parasitic diseases; Z68.38 Body mass index [BMI] 38.0-38.9, adult
CPT/HCPCS: 93005 ×2; 99285; 96361; 96374; 36415 ×2; 87086; 82553; 82550; 84703; 85025; 87088; 80053; 81001; 84484 ×2; 80307; 85379; 80061; 71020; 76705; 71275; 93010; G0378 ×2; J1170; J2060; J3490; J7030

== ENCOUNTER 2017-08-02 15:38 | Emergency (ER) | payer BC ==
--- NOTE | 2017-08-02 17:55 | ER Document Report ---
ED Medical Screen (RME) - General Chief Complaint: Blood Pressure Problem Stated Complaint: BLOOD PRESSURE ISSUE, DIZZY, NAUSEA Time Seen by Provider: 08/02/17 17:54 Notes: pt has rlq abd pain TRAVEL OUTSIDE OF THE [place] IN LAST 30 DAYS: No - Related Data Allergies/Adverse Reactions: morphine [Morphine] Allergy (Severe, Verified 08/02/17 17:46) Hives Penicillins Allergy (Severe, Verified 08/02/17 17:46) Anaphylaxis Past Medical History - Social History Frequency of alcohol use: None Drug Abuse: None Family history: Reviewed & Not Pertinent - Past Medical History Cardiac Medical History: Reports: Hx Hypertension Denies: Hx Atrial Fibrillation, Hx Congestive Heart Failure, Hx Coronary Artery Disease, Hx DVT, Hx Heart Attack, Hx Hypercholesterolemia, Hx Pulmonary Embolism Pulmonary Medical History: Denies: Hx Asthma, Hx Bronchitis, Hx COPD, Hx Pneumonia, Hx Sleep Apnea Neurological Medical History: Denies: Hx Cerebrovascular Accident, Hx Seizures Endocrine Medical History: Denies: Hx Diabetes Mellitus Type 1, Hx Diabetes Mellitus Type 2, Hx Hyperthyroidism, Hx Hypothyroidism Renal/ Medical History: Reports: Hx Kidney Stones, Hx Ovarian Cysts. Denies: Hx Peritoneal Dialysis GI Medical History: Denies: Hx Cirrhosis, Hx Gastroesophageal Reflux Disease, Hx Hepatitis Musculoskeltal Medical History: Reports Hx Arthritis - Affecting her back primarily Psychiatric Medical History: Denies: Hx Depression Traumatic Medical History: Reports: Hx Fractures Infectious Medical History: Reports: Hx C-Diff. Denies: Hx Hepatitis, Hx MRSA Past Surgical History: Reports: Hx Kidney (Renal Surgery) - when child, Hx Orthopedic Surgery - left ankle, Other - Left ureteral stent and other corrective surgery. - Immunizations Immunizations up to date: No Hx Diphtheria, Pertussis, Tetanus Vaccination: No Physical Exam - Vital signs Vitals: Temp Pulse Resp BP Pulse Ox 98.7 F 120 H 19 138/76 H 97 08/02/17 15:48 08/02/17 15:48 08/02/17 15:48 08/02/17 15:48 08/02/17 15:48 Course - Vital Signs Vital signs: Temp Pulse Resp BP Pulse Ox 98.7 F 120 H 19 138/76 H 97 08/02/17 15:48 08/02/17 15:48 08/02/17 15:48 08/02/17 15:48 08/02/17 15:48
[2017-08-02 18:22] LABS: ABSOLUTE BASOPHILS # (AUTO) 0.1 10^3/uL (0.0-0.2); ABSOLUTE EOSINOPHILS # (AUTO) 0.2 10^3/uL (0.0-0.6); ABSOLUTE LYMPHOCYTES (AUTO) 2.2 10^3/uL (0.5-4.7); ABSOLUTE MONOCYTES (AUTO) 0.4 10^3/uL (0.1-1.4); ABSOLUTE NEUT (AUTO) 4.6 10^3/uL (1.7-8.2); BASOPHILS % (AUTO) 0.7 % (0-2); EOSINOPHILS % (AUTO) 2.3 % (0-6); HEMATOCRIT 40.5 % (36.0-47.0); HEMOGLOBIN 13.5 g/dL (12.0-15.5); MEAN CORPUSCULAR HEMOGLOBIN 29.9 pg (27.0-33.4); MEAN CORPUSCULAR HGB CONC 33.4 g/dL (32.0-36.0); MEAN CORPUSCULAR VOLUME 89 fl (80-97); PLATELET COUNT 333 10^3/uL (150-450); RED BLOOD COUNT 4.53 10^6/uL (3.72-5.28); RED CELL DISTRIBUTION WIDTH 12.7 % (11.5-14.0); TOTAL CELLS COUNTED % (AUTO) 100 %; WHITE BLOOD COUNT 7.4 10^3/uL (4.0-10.5)
[2017-08-02 18:29] LABS: APPEARANCE,URINE SLIGHTLY-CLOUDY; BILIRUBIN,URINE NEGATIVE (NEGATIVE); COLOR,URINE YELLOW; GLUCOSE, URINE NEGATIVE (NEGATIVE); KETONES,URINE NEGATIVE (NEGATIVE); LEUKOCYTE ESTERASE,URINE NEGATIVE (NEGATIVE); NITRITE,URINE NEGATIVE (NEGATIVE); PROTEIN,URINE NEGATIVE (NEGATIVE); UROBILINOGEN,URINE NEGATIVE mg/dL (<2.0)
[2017-08-02 18:39] LABS: ALANINE AMINOTRANSFERASE 63 U/L (9-52); ALBUMIN 4.9 g/dL (3.5-5.0); ALKALINE PHOSPHATASE 78 U/L (38-126); ANION GAP 14 (5-19); BILIRUBIN,DIRECT 0.2 mg/dL (0.0-0.4); BILIRUBIN,TOTAL 0.2 mg/dL (0.2-1.3); BLOOD UREA NITROGEN 12 mg/dL (7-20); CARBON DIOXIDE 25 mmol/L (22-30); CHLORIDE 106 mmol/L (98-107); GLUCOSE 97 mg/dL (75-110); SODIUM 144.9 mmol/L (137-145); TOTAL PROTEIN 7.6 g/dL (6.3-8.2)
[2017-08-02 18:40] LABS: ASPARTATE AMINO TRANSFERASE 44 U/L (14-36)
[2017-08-02] MEDS ORDERED: NORMAL SALINE 1000 ML 1,000 ML IV ONE (18:42)
[2017-08-02] MEDS ORDERED: HYDROMORPHONE HCL INJ/PF 2 MG/ML AMPULE IV ONE (18:44)
[2017-08-02] MEDS ORDERED: ONDANSETRON HCL INJ/PF 4 MG/2 ML SDV IV ONE (18:45)
--- NOTE | 2017-08-02 19:06 | ER Document Report ---
ED General - General Chief Complaint: Blood Pressure Problem Stated Complaint: BLOOD PRESSURE ISSUE, DIZZY, NAUSEA Time Seen by Provider: 08/02/17 17:54 Mode of Arrival: Ambulatory Information source: Patient TRAVEL OUTSIDE OF THE [place] IN LAST 30 DAYS: No - HPI Notes: 32-year-old lady with unknown past medical history who presented today for evaluation of lower abdominal pain associated with nausea for the past 3 days. Her pain is localized in the right lower quadrant, mild radiation towards the back, episodic, achy, severity of symptoms is 4 out of 10. Patient denies any hematuria or dysuria, no fevers but patient reported chills. Patient had nausea associated with his symptoms but no vomiting, no diarrhea, no vaginal bleeding. Patient also has mild dizziness associated with her symptoms. Patient is actively taken minocycline for treatment of acne at present time. - Related Data Allergies/Adverse Reactions: morphine [Morphine] Allergy (Severe, Verified 08/02/17 17:46) Hives Penicillins Allergy (Severe, Verified 08/02/17 17:46) Anaphylaxis Past Medical History - Social History Smoking Status: Never Smoker Frequency of alcohol use: None Drug Abuse: None Family History: Reviewed & Not Pertinent, Malignancy, Other Patient has suicidal ideation: No Patient has homicidal ideation: No - Past Medical History Cardiac Medical History: Reports: Hx Hypertension Denies: Hx Atrial Fibrillation, Hx Congestive Heart Failure, Hx Coronary Artery Disease, Hx DVT, Hx Heart Attack, Hx Hypercholesterolemia, Hx Pulmonary Embolism Pulmonary Medical History: Denies: Hx Asthma, Hx Bronchitis, Hx COPD, Hx Pneumonia, Hx Sleep Apnea Neurological Medical History: Denies: Hx Cerebrovascular Accident, Hx Seizures Endocrine Medical History: Denies: Hx Diabetes Mellitus Type 1, Hx Diabetes Mellitus Type 2, Hx Hyperthyroidism, Hx Hypothyroidism Renal/ Medical History: Reports: Hx Kidney Stones, Hx Ovarian Cysts. Denies: Hx Peritoneal Dialysis GI Medical History: Denies: Hx Cirrhosis, Hx Gastroesophageal Reflux Disease, Hx Hepatitis Musculoskeltal Medical History: Reports Hx Arthritis - Affecting her back primarily Psychiatric Medical History: Denies: Hx Depression Traumatic Medical History: Reports: Hx Fractures Infectious Medical History: Reports: Hx C-Diff. Denies: Hx Hepatitis, Hx MRSA Past Surgical History: Reports: Hx Kidney (Renal Surgery) - when child, Hx Orthopedic Surgery - left ankle, Other - Left ureteral stent and other corrective surgery. - Immunizations Immunizations up to date: No Hx Diphtheria, Pertussis, Tetanus Vaccination: No Review of Systems - Review of Systems Notes: REVIEW OF SYSTEMS: CONSTITUTIONAL: -fevers, +chills, + dizziness EENT: -eye pain, -difficulty swallowing, -nasal congestion CARDIOVASCULAR: -chest pain, -syncope. RESPIRATORY: -cough, -SOB GASTROINTESTINAL: +abdominal pain, +nausea, -vomiting, -diarrhea GENITOURINARY: -dysuria, -hematuria MUSCULOSKELETAL: -back pain, -neck pain SKIN: -rash or skin lesions. HEMATOLOGIC: -easy bruising or bleeding. LYMPHATIC: -swollen, enlarged glands. NEUROLOGICAL: -altered mental status or loss of consciousness, -headache, - neurologic symptoms PSYCHIATRIC: -anxiety, -depression. ALL OTHER SYSTEMS REVIEWED AND NEGATIVE. Physical Exam - Vital signs Vitals: Temp Pulse Resp BP Pulse Ox 98.7 F 120 H 19 138/76 H 97 08/02/17 15:48 08/02/17 15:48 08/02/17 15:48 08/02/17 15:48 08/02/17 15:48 - Notes Notes: Reviewed vital signs and nursing note as charted by RN. CONSTITUTIONAL: Alert and oriented and responds appropriately to questions HEAD: Normocephalic; atraumatic EYES: PERRL; Conjunctivae clear, sclerae non-icteric ENT: normal nose; no rhinorrhea; moist mucous membranes; pharynx without lesions noted NECK: Supple without meningismus; non-tender; no cervical lymphadenopathy, no masses CARD: Tachycardia no murmurs, no clicks, no rubs, no gallops; symmetric distal pulses RESP: Normal chest excursion without splinting or tachypnea; breath sounds clear and equal bilaterally ABD/GI: Normal bowel sounds; non-distended; soft, patient has tenderness to palpation localized to right lower quadrant as well as mild tenderness in the left lower quadrant BACK: The back appears normal and is non-tender to palpation EXT: Normal ROM in all joints; non-tender to palpation; no cyanosis, no effusions, no edema SKIN: Normal color for age and race; warm; dry; good turgor; capillary refill < 2 seconds; no acute lesions noted NEURO: .Cranial nerves 3-12 intact. Motor strength 5/5 bilaterally PSYCH: The patient's mood and manner are appropriate. Grooming and personal hygiene are appropriate. Course - Re-evaluation Re-evalutation: 08/02/17 19:05 32-year-old here with lower abdominal pain as well as nausea and dizziness Differential diagnoses includes acute appendicitis, colitis, intra-abdominal infection, kidney stone, acute cystitis, We will obtain basic lab work including CBC, CMP, urinalysis We will give patient IV fluids as well as IV hydromorphone for pain IV Zofran for nausea Will obtain CT scan of her abdomen and pelvis to rule out acute appendicitis as well as any other abdominal pathology mentioned above Reassess patient 08/02/17 21:04 Patient is feeling better after pain control as well as nausea medication control CT scan with no acute intra-abdominal infection, no evidence of acute appendicitis Her lab work also normal, patient has mild transaminitis, recommend follow-up with primary care physician for repeat of lab work No concern for acute cholecystitis given that patient has no right upper quadrant pain or elevation of her bilirubin discussed results of lab work, agree with disposition today, close follow-up with primary care physician or come back to emergency department if her symptoms are not improving or getting worse - Vital Signs Vital signs: Temp Pulse Resp BP Pulse Ox 98.7 F 120 H 22 H 127/87 H 97 08/02/17 15:48 08/02/17 15:48 08/02/17 18:31 08/02/17 18:31 08/02/17 18:31 - Laboratory Result Diagrams: 08/02/17 18:03 08/02/17 18:03 Laboratory results interpreted by me: 08/02/17 18:03 AST 44 H ALT 63 H - Diagnostic Test Radiology reviewed: Image reviewed - Diagnostic report text EXAM DESCRIPTION: CT ABD/PELVIS WITH IV ONLY COMPLETED DATE/TIME: 08/02/2017 8:03 pm REASON FOR STUDY: RLQ pain, r/o appy COMPARISON: None. TECHNIQUE: CT scan of the abdomen and pelvis performed using helical scanning technique with dynamic intravenous contrast injection. No oral contrast. Images reviewed with lung, soft tissue, and bone windows. Reconstructed coronal and sagittal MPR images reviewed. Delayed images for evaluation of the urinary system also acquired. All images stored on PACS. All CT scanners at this facility use dose modulation, iterative reconstruction, and/or weight based dosing when appropriate to reduce radiation dose to as low as reasonably achievable (ALARA) . [facility]: Dose Right [facility]: CareDose [facility]: Dose Right [facility]: Teradose 4D [facility]: [employer] CONTRAST TYPE AND DOSE: contrast/concentration: Isovue 370.00 mg/ ml; Total Contrast Delivered: 100.0 ml; Total Saline Delivered: 72.0 ml RENAL FUNCTION: GFR > 60. RADIATION DOSE: CT Rad equipment meets quality standard of care and radiation dose reduction techniques were employed. CTDIvol : 18.2 - 19.9 mGy. DLP: 2132 mGy-cm.. LIMITATIONS: None. FINDINGS: LOWER CHEST: No significant findings. No nodules or infiltrates. LIVER: Fatty infiltration. Normal size. No masses. No dilated ducts. SPLEEN: Normal size. No focal lesions. PANCREAS: No masses. No significant calcifications. No adjacent inflammation or peripancreatic fluid collections. Pancreatic duct not dilated. GALLBLADDER: No identified stones by CT criteria. No inflammatory changes to suggest cholecystitis. ADRENAL GLANDS: No significant masses or asymmetry. RIGHT KIDNEY AND URETER: No solid masses. No significant calcifications. No hydronephrosis or hydroureter. LEFT KIDNEY AND URETER: No solid masses. No significant calcifications. No hydronephrosis or hydroureter. AORTA AND VESSELS: No aneurysm. No dissection. Renal arteries, SMA, celiac without stenosis. RETROPERITONEUM: No retroperitoneal adenopathy, hemorrhage or masses. BOWEL AND PERITONEAL CAVITY: No masses or inflammatory changes. No free fluid or peritoneal masses. APPENDIX: Normal. PELVIS: No mass. No free fluid. Normal bladder. ABDOMINAL WALL: No masses. No hernias. BONES: No acute findings. OTHER: No other significant finding. IMPRESSION: NO ACUTE FINDING IN THE ABDOMEN OR PELVIS ON CT SCAN WITH IV CONTRAST. TECHNICAL DOCUMENTATION : JOB ID: [id number] [place]-72 Quality ID # 436: Final reports with documentation of one or more dose reduction techniques (e.g., Automated exposure control, adjustment of the mA and/or kV according to patient size, use of iterative reconstruction technique) 2010 [employer]- All Rights Reserved Dictated by: CHRISTIANNE ERAZO MD 21 CC: MADDISON NELSON MD Discharge - Discharge Clinical Impression: Abdominal pain Condition: Stable Disposition: HOME, SELF-CARE Instructions: Abdominal Pain ([facility]) Additional Instructions: Please come back if there worsening fevers, chills, abdominal pain, nausea vomiting Please take Tylenol Motrin for pain as needed I have noted that your liver enzymes were slightly elevated, please ask your doctor to repeat lab work Referrals: SOMMER SCHRADER PA-C [Primary Care Provider] - Follow up as needed
--- NOTE | 2017-08-02 20:30 | RADIOLOGY REPORT (SQ) ---
EXAM DESCRIPTION: CT ABD/PELVIS WITH IV ONLY COMPLETED DATE/TIME: 08/02/2017 8:03 pm REASON FOR STUDY: RLQ pain, r/o appy COMPARISON: None. TECHNIQUE: CT scan of the abdomen and pelvis performed using helical scanning technique with dynamic intravenous contrast injection. No oral contrast. Images reviewed with lung, soft tissue, and bone windows. Reconstructed coronal and sagittal MPR images reviewed. Delayed images for evaluation of the urinary system also acquired. All images stored on PACS. All CT scanners at this facility use dose modulation, iterative reconstruction, and/or weight based d osing when appropriate to reduce radiation dose to as low as reasonably achievable (ALARA). [facility]: Dose Right [facility]: CareDose [facility]: Dose Right [facility]: Teradose 4D [facility]: [employer] CONTRAST TYPE AND DOSE: contrast/concentration: Isovue 370.00 mg/ml; Total Contrast Delivered: 100.0 ml; Total Saline Delivered: 72.0 ml RENAL FUNCTION: GFR > 60. RADIATION DOSE: CT Rad equipment meets quality standard of care and radiation dose reduction techniq ues were employed. CTDIvol: 18.2 - 19.9 mGy. DLP: 2132 mGy-cm.. LIMITATIONS: None. FINDINGS: LOWER CHEST: No significant findings. No nodules or infiltrates. LIVER: Fatty infiltration. Normal size. No masses. No dilated ducts. SPLEEN: Normal size. No focal lesions. PANCREAS: No masses. No significant calcifications. No adjacent inflammation or peripancreatic fluid collections. Pancreatic duct not dilated. GALLBLADDER: No identified stones by CT criteria. No inflammatory changes to suggest cholecystitis. ADRENAL GLANDS: No significant masses or asymmetry. RIGHT KIDNEY AND URETER: No solid masses. No significant calcifications. No hydronephrosis or hyd roureter. LEFT KIDNEY AND URETER: No solid masses. No significant calcifications. No hydronephrosis or hydr oureter. AORTA AND VESSELS: No aneurysm. No dissection. Renal arteries, SMA, celiac without stenosis. RETROPERITONEUM: No retroperitoneal adenopathy, hemorrhage or masses. BOWEL AND PERITONEAL CAVITY: No masses or inflammatory changes. No free fluid or peritoneal masses. APPENDIX: Normal. PELVIS: No mass. No free fluid. Normal bladder. ABDOMINAL WALL: No masses. No hernias. BONES: No acute findings. OTHER: No other significant finding. IMPRESSION: NO ACUTE FINDING IN THE ABDOMEN OR PELVIS ON CT SCAN WITH IV CONTRAST. TECHNICAL DOCUMENTATION: JOB ID: [id number] [place]-72 Quality ID # 436: Final reports with documentation of one or more dose reduction techniques (e.g., Au tomated exposure control, adjustment of the mA and/or kV according to patient size, use of iterative reconstruction technique) 2010 [employer]- All Rights Reserved
[2017-08-02 22:55] VITALS: BP 129/88
== END 2017-08-02 22:55 | disposition home or self-care (01) ==
LOC: ER 15:38
DX: R10.30 Lower abdominal pain, unspecified (principal); R42 Dizziness and giddiness; R11.0 Nausea; I10 Essential (primary) hypertension; Z88.6 Allergy status to analgesic agent; Z88.0 Allergy status to penicillin
CPT/HCPCS: 99284; 96361; 96374; 96375; 36415; 85025; 81025; 80053; 81001; 74177; J1170; J2405; J7030

== ENCOUNTER 2017-08-11 00:14 | Inpatient (IN) | payer BC ==
[2017-08-11 01:03] LABS: ABSOLUTE EOSINOPHILS # (AUTO) 0.2 10^3/uL (0.0-0.6); ABSOLUTE LYMPHOCYTES (AUTO) 2.5 10^3/uL (0.5-4.7); ABSOLUTE MONOCYTES (AUTO) 0.4 10^3/uL (0.1-1.4); ABSOLUTE NEUT (AUTO) 4.7 10^3/uL (1.7-8.2); BASOPHILS % (AUTO) 0.6 % (0-2); EOSINOPHILS % (AUTO) 2.2 % (0-6); HEMATOCRIT 39.3 % (36.0-47.0); HEMOGLOBIN 13.4 g/dL (12.0-15.5); LYMPHOCYTES % (AUTO) 31.4 % (13-45); MEAN CORPUSCULAR HEMOGLOBIN 30.1 pg (27.0-33.4); MEAN CORPUSCULAR HGB CONC 34.1 g/dL (32.0-36.0); MEAN CORPUSCULAR VOLUME 88 fl (80-97); PLATELET COUNT 306 10^3/uL (150-450); RED BLOOD COUNT 4.45 10^6/uL (3.72-5.28); SEGMENTED NEUTROPHILS % (AUTO) 60.8 % (42-78); TOTAL CELLS COUNTED % (AUTO) 100 %; WHITE BLOOD COUNT 7.8 10^3/uL (4.0-10.5)
[2017-08-11 01:16] LABS: ALANINE AMINOTRANSFERASE 57 U/L (9-52); ALBUMIN 4.7 g/dL (3.5-5.0); ALKALINE PHOSPHATASE 72 U/L (38-126); ANION GAP 12 (5-19); ASPARTATE AMINO TRANSFERASE 33 U/L (14-36); BILIRUBIN,DIRECT 0.4 mg/dL (0.0-0.4); BILIRUBIN,TOTAL 0.4 mg/dL (0.2-1.3); BLOOD UREA NITROGEN 9 mg/dL (7-20); CALCIUM 9.4 mg/dL (8.4-10.2); CARBON DIOXIDE 24 mmol/L (22-30); CHLORIDE 108 mmol/L (98-107); GLUCOSE 100 mg/dL (75-110); SODIUM 143.7 mmol/L (137-145)
[2017-08-11 01:17] LABS: APPEARANCE,URINE SLIGHTLY-CLOUDY; BILIRUBIN,URINE NEGATIVE (NEGATIVE); COLOR,URINE YELLOW; GLUCOSE, URINE NEGATIVE (NEGATIVE); KETONES,URINE NEGATIVE (NEGATIVE); LEUKOCYTE ESTERASE,URINE NEGATIVE (NEGATIVE); NITRITE,URINE NEGATIVE (NEGATIVE); PROTEIN,URINE NEGATIVE (NEGATIVE); URINE SPECIFIC GRAVITY 1.016; UROBILINOGEN,URINE NEGATIVE mg/dL (<2.0)
[2017-08-11] MEDS ORDERED: LIDOCAINE 2% VISCOUS SOLN 20 ML UDCUP PO ONE (01:30)
[2017-08-11] MEDS ORDERED: ONDANSETRON 4 MG TAB.RAPDIS PO ONE (01:30)
[2017-08-11] MEDS ORDERED: FAMOTIDINE 20 MG TABLET PO ONE (01:30)
[2017-08-11] MEDS ORDERED: METOCLOPRAMIDE HCL ORAL SOLN 10 MG/10 ML UDCUP PO ONE (01:30)
[2017-08-11] MEDS ORDERED: MAG HYDROX/AL HYDROX/SIMETH SUSP 30 ML UDCUP PO ONE (01:30)
--- NOTE | 2017-08-11 01:31 | ER Document Report ---
ED General - General Chief Complaint: Epigastric Pain Stated Complaint: ABDOMINAL PAIN Time Seen by Provider: 08/11/17 00:44 Notes: Patient is a 32-year-old female with past medical history of hypertension, currently treated with metoprolol only who presents with 5 days of intermittent epigastric abdominal pain, nausea and vomiting. Patient states that she had a significant worsening of her upper abdominal pain this evening which became so severe she returned to the emergency department. She does describe it as a severe, constant, cramping, stabbing pain to her upper central and right upper abdomen. She is unable to identify anything that seems to improve or worsen her symptoms. She denies any history of similar symptoms in the past. She did see her primary care doctor regarding these concerns yesterday and scheduled for an outpatient ultrasound of her liver and gallbladder. She has had 2 episodes of vomiting today and states she has not been able to tolerate oral intake since the onset of the vomiting. She denies any alcohol use. No abdominal trauma. She has had one exploratory laparoscopy when there was concern of a possible ectopic but denies any additional abdominal surgeries in the past. TRAVEL OUTSIDE OF THE [place] IN LAST 30 DAYS: No - Related Data Allergies/Adverse Reactions: morphine [Morphine] Allergy (Severe, Verified 08/02/17 17:46) Hives Penicillins Allergy (Severe, Verified 08/02/17 17:46) Anaphylaxis Past Medical History - General Information source: Patient - Social History Smoking Status: Never Smoker Frequency of alcohol use: None Drug Abuse: None Lives with: Spouse/Significant other Family History: Reviewed & Not Pertinent, Malignancy, Other Patient has suicidal ideation: No Patient has homicidal ideation: No - Past Medical History Cardiac Medical History: Reports: Hx Hypertension Denies: Hx Atrial Fibrillation, Hx Congestive Heart Failure, Hx Coronary Artery Disease, Hx DVT, Hx Heart Attack, Hx Hypercholesterolemia, Hx Pulmonary Embolism Pulmonary Medical History: Denies: Hx Asthma, Hx Bronchitis, Hx COPD, Hx Pneumonia, Hx Sleep Apnea Neurological Medical History: Denies: Hx Cerebrovascular Accident, Hx Seizures Endocrine Medical History: Denies: Hx Diabetes Mellitus Type 1, Hx Diabetes Mellitus Type 2, Hx Hyperthyroidism, Hx Hypothyroidism Renal/ Medical History: Reports: Hx Kidney Stones, Hx Ovarian Cysts. Denies: Hx Peritoneal Dialysis GI Medical History: Denies: Hx Cirrhosis, Hx Gastroesophageal Reflux Disease, Hx Hepatitis Musculoskeltal Medical History: Reports Hx Arthritis - Affecting her back primarily Psychiatric Medical History: Denies: Hx Depression Traumatic Medical History: Reports: Hx Fractures Infectious Medical History: Reports: Hx C-Diff. Denies: Hx Hepatitis, Hx MRSA Past Surgical History: Reports: Hx Kidney (Renal Surgery) - when child, Hx Orthopedic Surgery - left ankle, Other - Left ureteral stent and other corrective surgery. - Immunizations Immunizations up to date: No Hx Diphtheria, Pertussis, Tetanus Vaccination: No Review of Systems - Review of Systems Notes: Constitutional: Negative for fever. HENT: Negative for sore throat. Eyes: Negative for visual changes. Cardiovascular: Negative for chest pain. Respiratory: Negative for shortness of breath. Gastrointestinal: Positive for abdominal pain and vomiting Genitourinary: Negative for dysuria. Musculoskeletal: Negative for back pain. Skin: Negative for rash. Neurological: Negative for headaches, weakness or numbness. 10 point ROS negative except as marked above and in HPI. Physical Exam - Vital signs Vitals: Temp Pulse Resp BP Pulse Ox 98.3 F 116 H 18 149/100 H 100 08/11/17 00:21 08/11/17 00:21 08/11/17 00:21 08/11/17 00:21 08/11/17 00:21 Interpretation: Tachycardic Notes: PHYSICAL EXAMINATION: GENERAL: Appears uncomfortable but in no acute distress HEAD: Atraumatic, normocephalic. EYES: Pupils equal round and reactive to light, extraocular movements intact, sclera anicteric, conjunctiva are normal. ENT: nares patent, oropharynx clear without exudates. Dry mucous membranes. NECK: Normal range of motion, supple without lymphadenopathy LUNGS: Breath sounds clear to auscultation bilaterally and equal. No wheezes rales or rhonchi. HEART: Regular rate and rhythm without murmurs ABDOMEN: Soft, focal tenderness on palpation of the epigastrium and right upper quadrant otherwise no other localized areas of tenderness, normoactive bowel sounds. No guarding, no rebound. No masses appreciated. EXTREMITIES: Normal range of motion, no pitting or edema. No cyanosis. NEUROLOGICAL: No focal neurological deficits. Moves all extremities spontaneously and on command. PSYCH: Normal mood, normal affect. SKIN: Warm, Dry, normal turgor, no rashes or lesions noted. Course - Re-evaluation Re-evalutation: 08/11/17 01:31 Patient presents with 5 days of epigastric and right upper quadrant abdominal pain with associated nausea and vomiting over the last 24 hours. Patient states that she had been doing okay on or off but the pain became much worse again today and now has become unbearable. On assessment of the patient she has focal tenderness the epigastric and right upper quadrant without rebound or guarding. She does appear clinically dehydrated. Her vitals showed tachycardia but otherwise unremarkable. Laboratory assessment does show findings consistent with an acute pancreatitis. Her lipase is greater than 3000. CT scan that was obtained 6 days ago did not demonstrate any evidence of gallstones or pericholecystic fluid to suggest a gallbladder etiology of her symptoms. She denies alcohol use in the her only medication is metoprolol. Given her ongoing pain and nausea as well as vomiting she will be hospitalized on IV fluids and pain control. I have discussed with Dr. Galeana who is accepted this patient for admission. - Vital Signs Vital signs: Temp Pulse Resp BP Pulse Ox 98.3 F 116 H 18 149/100 H 100 08/11/17 00:21 08/11/17 00:21 08/11/17 00:21 08/11/17 00:21 08/11/17 00:21 - Laboratory Result Diagrams: 08/11/17 00:55 08/11/17 00:55 Laboratory results interpreted by me: 08/11/17 00:55 Chloride 108 H ALT 57 H Lipase 3352.8 H - Diagnostic Test Radiology reviewed: Reports reviewed Discharge - Discharge Clinical Impression: Acute pancreatitis Qualifiers: Pancreatitis type: idiopathic Acute pancreatitis complication: no infection or necrosis Qualified Code(s): K85.00 - Idiopathic acute pancreatitis without necrosis or infection Nausea and vomiting Qualifiers: Vomiting type: unspecified Vomiting Intractability: non-intractable Qualified Code(s): R11.2 - Nausea with vomiting, unspecified Condition: Fair Disposition: ADMITTED OBSERVATION Admitting Provider: Abe Galeana Unit Admitted: Medical Floor
[2017-08-11 01:36] LABS: LIPASE 3352.8 U/L (23-300)
[2017-08-11] MEDS ORDERED: NORMAL SALINE 1000 ML 1,000 ML IV ONE ×2 (02:02→02:03)
[2017-08-11] MEDS ORDERED: HYDROMORPHONE HCL INJ/PF 2 MG/ML AMPULE IV PRN (02:02)
[2017-08-11] MEDS ORDERED: ONDANSETRON HCL INJ/PF 4 MG/2 ML SDV IV ONE (02:03)
[2017-08-11] MEDS ORDERED: ACETAMINOPHEN 325 MG TABLET PO PRN (02:26)
--- NOTE | 2017-08-11 02:41 | RADIOLOGY REPORT (SQ) ---
EXAM DESCRIPTION: U/S ABDOMEN LIMITED W/O DOP CLINICAL HISTORY: 32 years, Female, ruq pain COMPARISON: November 03, 2014. CT, August 02, 2017. LIMITATIONS: Body habitus. FINDINGS: Moderate hepatic steatosis. Gallbladder, negative sonographic Nam's test, 13.5 cm right kidney are otherwise unremarkable. No evidence of intrahepatic ductal dilation. Common bile duct is obscured. Pancreas and aorta are partially obscured. No significant free fluid. IMPRESSION: No acute findings. Moderate hepatic steatosis. Limitation.
[2017-08-11 03:02] LABS: CHOLESTEROL 292.51 mg/dL (0-200); TRIGLYCERIDES 353 mg/dL (<150)
[2017-08-11 03:14] LABS: DIRECT LDL 139 mg/dL (<100)
[2017-08-11 03:17] LABS: VLDL CHOLESTEROL 70.6 mg/dL (10-31)
[2017-08-11] MEDS ORDERED: PROMETHAZINE HCL 25 MG SUPP.RECT PR PRN (04:06)
[2017-08-11] MEDS: HEPARIN SOD (PORCINE) 5,000 UNIT/ML 1 ML SYRINGE SUBCUT SCH ×3 (04:33→21:33)
[2017-08-11] MEDS: NORMAL SALINE 1000 ML 1,000 ML IV SCH ×3 (04:35→12:02)
[2017-08-11] MEDS: KETOROLAC TROMETHAMINE INJ/PF 30 MG/1 ML SDV IV PRN ×2 (04:36→14:34)
[2017-08-11] MEDS: PROMETHAZINE HCL 25 MG TABLET PO PRN (04:36)
--- NOTE | 2017-08-11 06:39 | PDOC H&P ---
History of Present Illness Admission Date/PCP: 08/11/17 02:21 ELEANOR SCHRADER PA-C Patient complains of: Epigastric pain and nausea History of Present Illness: PEGGY BROWN is a 32 year old female with a past medical history of obesity, Cordero and hypertension. She presents with 2 weeks of epigastric pain worsened by p.o. intake associated with nausea and loose stools. She denies previous episode, new medication, alcohol, recent viral prodrome, fever, shortness of breath or chest pain. In the emergency room she is found to have a lipase of 3200 with unremarkable LFTs, she is referred to the hospitalist for observation. Past Medical History Cardiac Medical History: Reports: Hypertension Denies: Atrial Fibrillation, Congestive Heart Failure, Coronary Artery Disease, DVT, Myocardial Infarction, Hyperlipidema, Pulmonary Embolism Pulmonary Medical History: Denies: Asthma, Bronchitis, Chronic Obstructive Pulmonary Disease (COPD), Pneumonia, Sleep Apnea Neurological Medical History: Denies: Seizures Endocrine Medical History: Reports: Obesity Denies: Diabetes Mellitus Type 1, Diabetes Mellitus Type 2, Hyperthyroidism, Hypothyroidism GI Medical History: Reports: Other - CORDERO Denies: Cirrhosis, Gastroesophageal Reflux Disease, Hepatitis Musculoskeltal Medical History: Reports: Arthritis - Affecting her back primarily Psychiatric Medical History: Denies: Depression Hematology: Denies: Anemia Infectious Medical History: Reports: Clostridium Difficile Denies: Methicillin-Resistant Staph Aureus Past Surgical History Past Surgical History: Reports: Orthopedic Surgery - left ankle, Other - Left ureteral stent and other corrective surgery. Social History Information Source: Patient Lives with: Spouse/Significant other Smoking Status: Never Smoker Frequency of Alcohol Use: None Hx Recreational Drug Use: No Drugs: None Hx Prescription Drug Abuse: No - Advance Directive Resuscitation Status: Full Code Family History Family History: Malignancy, Other - Pulmonary emboli Parental Family History Reviewed: Yes Children Family History Reviewed: Yes Sibling(s) Family History Reviewed.: Yes Medication/Allergy Home Medications: Acetaminophen [Tylenol 325 mg Tablet] 650 mg PO Q8HP PRN tablet 12/29/16 Cyclobenzaprine HCl [Flexeril 5 mg Tablet] 5 mg PO TID 12/29/16 Esomeprazole Magnesium [Nexium] 40 mg PO DAILY #30 capsule. 12/29/16 Metoprolol Succinate [Toprol Xl 25 mg Tab.sr] 25 mg PO DAILY 12/29/16 Metoprolol Succinate [Toprol Xl 25 mg Tab.sr] 25 mg PO QHS tab.sr.24h 12/29/16 Allergies/Adverse Reactions: morphine [Morphine] Allergy (Severe, Verified 08/02/17 17:46) Hives Penicillins Allergy (Severe, Verified 08/02/17 17:46) Anaphylaxis Review of Systems Constitutional: ABSENT: chills, fever(s), headache(s), weight gain, weight loss Eyes: ABSENT: visual disturbances Ears: ABSENT: hearing changes Cardiovascular: ABSENT: chest pain, dyspnea on exertion, edema, orthropnea, palpitations Respiratory: ABSENT: cough, hemoptysis Gastrointestinal: ABSENT: abdominal pain, constipation, diarrhea, hematemesis, hematochezia, nausea, vomiting Genitourinary: ABSENT: dysuria, hematuria Musculoskeletal: ABSENT: joint swelling Integumentary: ABSENT: rash, wounds Neurological: ABSENT: abnormal gait, abnormal speech, confusion, dizziness, focal weakness, syncope Psychiatric: ABSENT: anxiety, depression, homidical ideation, suicidal ideation Endocrine: ABSENT: cold intolerance, heat intolerance, polydipsia, polyuria Hematologic/Lymphatic: ABSENT: easy bleeding, easy bruising Physical Exam Vital Signs: Temp Pulse Resp BP Pulse Ox 98.4 F 114 H 18 131/94 H 99 08/11/17 03:13 08/11/17 03:13 08/11/17 03:13 08/11/17 03:13 08/11/17 03:13 Intake & Output 08/09/17 08/10/17 08/11/17 11:59 11:59 11:59 Weight 99.5 kg General appearance: PRESENT: cooperative, mild distress, morbidly obese, well- developed, well-nourished Head exam: PRESENT: atraumatic, normocephalic Eye exam: PRESENT: conjunctiva pink, EOMI, PERRLA. ABSENT: scleral icterus Ear exam: PRESENT: normal external ear exam Mouth exam: PRESENT: moist, tongue midline Neck exam: ABSENT: carotid bruit, JVD, lymphadenopathy, thyromegaly Respiratory exam: PRESENT: clear to auscultation [place]. ABSENT: rales, rhonchi, wheezes Cardiovascular exam: PRESENT: RRR. ABSENT: diastolic murmur, rubs, systolic murmur Pulses: PRESENT: normal dorsalis pedis pul Vascular exam: PRESENT: normal capillary refill GI/Abdominal exam: PRESENT: hyperactive bowel sounds, normal bowel sounds, soft , tenderness - Epigastric tenderness without guarding. ABSENT: ascites, distended, guarding, mass, organolmegaly, rebound Rectal exam: PRESENT: deferred Extremities exam: PRESENT: full ROM. ABSENT: calf tenderness, clubbing, pedal edema Neurological exam: PRESENT: alert, awake, oriented to person, oriented to place , oriented to time, oriented to situation, CN II-XII grossly intact. ABSENT: motor sensory deficit Psychiatric exam: PRESENT: appropriate affect, normal mood. ABSENT: homicidal ideation, suicidal ideation Skin exam: PRESENT: dry, intact, warm. ABSENT: cyanosis, rash Results Laboratory Results: 08/11/17 08/11/17 02:30 02:30 Triglycerides 353 H Cholesterol 292.51 H LDL Cholesterol Direct 139 H VLDL Cholesterol 70.6 H HDL Cholesterol 39 L TSH 4.59 Impressions: Abdomen Ultrasound 08/11/17 01:04 IMPRESSION: No acute findings. Moderate hepatic steatosis. Limitation. Assessment & Plan - Diagnosis (1) Acute pancreatitis Qualifiers: Pancreatitis type: idiopathic Acute pancreatitis complication: no infection or necrosis Qualified Code(s): K85.00 - Idiopathic acute pancreatitis without necrosis or infection Is this a current diagnosis for this admission?: Yes Plan: Likely secondary to hypertriglyceridemia, follow-up lipid profile, A1c, LFTs, IV fluid, bowel rest and symptomatic management. Gemfibrozil and statin following control of nausea. (2) Nausea and vomiting Qualifiers: Vomiting type: unspecified Vomiting Intractability: non-intractable Qualified Code(s): R11.2 - Nausea with vomiting, unspecified Is this a current diagnosis for this admission?: Yes Plan: Phenergan and Zofran as needed (3) Fatty liver Is this a current diagnosis for this admission?: Yes Plan: Initiate low-dose statin and gemfibrozil with consideration of outpatient endocrinology and GI follow-up per primary care provider Eleanor Bundle - Time Time Spent: 30 to 50 Minutes
[2017-08-11 08:41] LABS: ALANINE AMINOTRANSFERASE 62 U/L (9-52); ALBUMIN 4.9 g/dL (3.5-5.0); ALKALINE PHOSPHATASE 77 U/L (38-126); ANION GAP 15 (5-19); ASPARTATE AMINO TRANSFERASE 39 U/L (14-36); BILIRUBIN,DIRECT 0.5 mg/dL (0.0-0.4); BILIRUBIN,TOTAL 0.5 mg/dL (0.2-1.3); BLOOD UREA NITROGEN 9 mg/dL (7-20); CALCIUM 10.2 mg/dL (8.4-10.2); CARBON DIOXIDE 21 mmol/L (22-30); CHLORIDE 110 mmol/L (98-107); GLUCOSE 107 mg/dL (75-110); POTASSIUM 4.1 mmol/L (3.6-5.0); SODIUM 145.6 mmol/L (137-145); TOTAL PROTEIN 8.5 g/dL (6.3-8.2)
[2017-08-11] MEDS: METOPROLOL SUCCINATE 25 MG TAB.SR.24H PO SCH (10:35)
[2017-08-11] MEDS: FENTANYL CITRATE INJ/PF 100 MCG/2 ML AMPUL IV PRN ×3 (10:35→20:04)
--- NOTE | 2017-08-11 13:13 | PDOC PROGRESS REPORT ---
Subjective Progress Note for:: 08/11/17 Subjective:: Patient seen on rounds. She is resting comfortably in bed. She denies any nausea, vomiting or abdominal pain at the present time. She denies any fevers or chills overnight. She denies any cough, chest pain or dyspnea. She denies any significant arthralgias or myalgias. Remaining review of systems are negative. Reason For Visit: ACUTE PANCREATITIS ABD PAIN Physical Exam Vital Signs: Temp Pulse Resp BP Pulse Ox 98.3 F 106 H 16 103/59 L 99 08/11/17 08:00 08/11/17 08:00 08/11/17 08:00 08/11/17 08:00 08/11/17 08:00 Intake & Output 08/10/17 08/11/17 08/12/17 06:59 06:59 06:59 Intake Total 90 Balance 90 Weight 99.5 kg General appearance: PRESENT: no acute distress, obese, well-developed, well- nourished Head exam: PRESENT: atraumatic, normocephalic Eye exam: PRESENT: conjunctiva pink, EOMI, PERRLA. ABSENT: scleral icterus Ear exam: PRESENT: normal external ear exam Mouth exam: PRESENT: moist, tongue midline Neck exam: ABSENT: carotid bruit, JVD, lymphadenopathy, thyromegaly Respiratory exam: PRESENT: clear to auscultation [place]. ABSENT: rales, rhonchi, wheezes Cardiovascular exam: PRESENT: RRR. ABSENT: diastolic murmur, rubs, systolic murmur Pulses: PRESENT: normal dorsalis pedis pul Vascular exam: PRESENT: normal capillary refill GI/Abdominal exam: PRESENT: normal bowel sounds - epigastric area to deep palpation, soft, tenderness Rectal exam: PRESENT: deferred Extremities exam: PRESENT: full ROM. ABSENT: calf tenderness, clubbing, pedal edema Musculoskeletal exam: PRESENT: ambulatory, full ROM Neurological exam: PRESENT: alert, awake, oriented to person, oriented to place , oriented to time, oriented to situation, CN II-XII grossly intact. ABSENT: motor sensory deficit Psychiatric exam: PRESENT: appropriate affect, normal mood. ABSENT: homicidal ideation, suicidal ideation Skin exam: PRESENT: dry, intact, warm. ABSENT: cyanosis, rash Results Laboratory Results: 08/11/17 02:30 08/11/17 08/11/17 08/11/17 02:30 02:30 02:30 Sodium 145.6 H Potassium 4.1 Chloride 110 H Carbon Dioxide 21 L Anion Gap 15 BUN 9 Creatinine 0.60 Est GFR ( Amer) > 60 Est GFR (Non-Af Amer) > 60 Glucose 107 Calcium 10.2 Total Bilirubin 0.5 AST 39 H ALT 62 H Alkaline Phosphatase 77 Total Protein 8.5 H Albumin 4.9 Triglycerides 353 H Cholesterol 292.51 H LDL Cholesterol Direct 139 H VLDL Cholesterol 70.6 H HDL Cholesterol 39 L TSH 4.59 Impressions: Abdomen Ultrasound 08/11/17 01:04 IMPRESSION: No acute findings. Moderate hepatic steatosis. Limitation. Assessment & Plan - Diagnosis (1) Acute pancreatitis Qualifiers: Pancreatitis type: idiopathic Acute pancreatitis complication: no infection or necrosis Qualified Code(s): K85.00 - Idiopathic acute pancreatitis without necrosis or infection Is this a current diagnosis for this admission?: Yes Plan: Continue with bowel rest and IV hydration. Add famotidine 20 mg IV every 12 epigastric discomfort. As needed fentanyl was added. She states she is feeling better than when she came in. Will recheck lipase in the morning. (2) Nausea and vomiting Qualifiers: Vomiting type: unspecified Vomiting Intractability: non-intractable Qualified Code(s): R11.2 - Nausea with vomiting, unspecified Is this a current diagnosis for this admission?: Yes (3) Elevated LFTs Is this a current diagnosis for this admission?: Yes Plan: Likely secondary to fatty liver disease (4) Fatty liver Is this a current diagnosis for this admission?: Yes Plan: Secondary to fatty liver disease (5) HTN (hypertension) Qualifiers: Hypertension type: essential hypertension Qualified Code(s): I10 - Essential (primary) hypertension Is this a current diagnosis for this admission?: Yes Plan: Continue current medications she is normotensive - Time Time Spent with patient: 25-34 minutes Total Critical Time (Minutes): 15 Medications reviewed and adjusted accordingly: Yes Anticipated discharge: Home
[2017-08-11] MEDS: ONDANSETRON HCL INJ/PF 4 MG/2 ML SDV IV PRN ×2 (16:08→20:04)
[2017-08-11] MEDS ORDERED: MINOCYCLINE HCL 100 MG PO SCH (18:00)
[2017-08-11] MEDS: FAMOTIDINE INJ/PF 20 MG/2 ML SDV IV SCH (21:33)
[2017-08-12] MEDS: FENTANYL CITRATE INJ/PF 100 MCG/2 ML AMPUL IV PRN ×4 (03:56→23:21)
[2017-08-12] MEDS: ONDANSETRON HCL INJ/PF 4 MG/2 ML SDV IV PRN (03:57)
[2017-08-12] MEDS: HEPARIN SOD (PORCINE) 5,000 UNIT/ML 1 ML SYRINGE SUBCUT SCH ×3 (05:04→20:45)
[2017-08-12 07:21] LABS: ABSOLUTE EOSINOPHILS # (AUTO) 0.1 10^3/uL (0.0-0.6); ABSOLUTE LYMPHOCYTES (AUTO) 1.8 10^3/uL (0.5-4.7); ABSOLUTE MONOCYTES (AUTO) 0.3 10^3/uL (0.1-1.4); ABSOLUTE NEUT (AUTO) 3.1 10^3/uL (1.7-8.2); BASOPHILS % (AUTO) 0.5 % (0-2); EOSINOPHILS % (AUTO) 2.6 % (0-6); HEMATOCRIT 36.5 % (36.0-47.0); HEMOGLOBIN 12.7 g/dL (12.0-15.5); LYMPHOCYTES % (AUTO) 32.8 % (13-45); MEAN CORPUSCULAR HEMOGLOBIN 30.6 pg (27.0-33.4); MEAN CORPUSCULAR HGB CONC 34.7 g/dL (32.0-36.0); MEAN CORPUSCULAR VOLUME 88 fl (80-97); MONOCYTES % (AUTO) 6.4 % (3-13); PLATELET COUNT 262 10^3/uL (150-450); RED BLOOD COUNT 4.14 10^6/uL (3.72-5.28); RED CELL DISTRIBUTION WIDTH 12.9 % (11.5-14.0); SEGMENTED NEUTROPHILS % (AUTO) 57.7 % (42-78); TOTAL CELLS COUNTED % (AUTO) 100 %; WHITE BLOOD COUNT 5.4 10^3/uL (4.0-10.5)
[2017-08-12 07:40] LABS: ALANINE AMINOTRANSFERASE 60 U/L (9-52); ALKALINE PHOSPHATASE 71 U/L (38-126); ANION GAP 13 (5-19); ASPARTATE AMINO TRANSFERASE 43 U/L (14-36); BILIRUBIN,DIRECT 0.1 mg/dL (0.0-0.4); BILIRUBIN,TOTAL 0.4 mg/dL (0.2-1.3); BLOOD UREA NITROGEN 8 mg/dL (7-20); CARBON DIOXIDE 22 mmol/L (22-30); CHLORIDE 106 mmol/L (98-107); GLUCOSE 70 mg/dL (75-110); LIPASE 88.1 U/L (23-300); POTASSIUM 4.1 mmol/L (3.6-5.0); SODIUM 141.1 mmol/L (137-145); TOTAL PROTEIN 6.4 g/dL (6.3-8.2)
[2017-08-12] MEDS: KETOROLAC TROMETHAMINE INJ/PF 30 MG/1 ML SDV IV PRN ×2 (08:37→20:45)
[2017-08-12] MEDS: TAMSULOSIN HCL 0.4 MG CAP.SR.24H PO SCH (10:06)
[2017-08-12] MEDS: FAMOTIDINE INJ/PF 20 MG/2 ML SDV IV SCH ×2 (10:06→20:44)
[2017-08-12] MEDS: METOPROLOL SUCCINATE 25 MG TAB.SR.24H PO SCH (10:06)
--- NOTE | 2017-08-12 16:20 | PDOC PROGRESS REPORT ---
Subjective Progress Note for:: 08/12/17 Subjective:: The patient is resting in her bed. She states she continues to have some abdominal pain but it is located more in the middle of her abdomen and over to the right. She has had no fever chills overnight. No nausea or vomiting. No chest pain or heart palpitations. She has not had a bowel movement today. She states she has had a bowel movement during this hospitalization and it was normal. No black or bloody stools noted. No dysuria, frequency or hematuria Reason For Visit: ACUTE PANCREATITIS ABD PAIN Physical Exam Vital Signs: Temp Pulse Resp BP Pulse Ox 97.4 F 94 20 101/89 H 100 08/12/17 12:00 08/12/17 12:00 08/12/17 12:00 08/12/17 12:00 08/12/17 12:00 Intake & Output 08/11/17 08/12/17 08/13/17 06:59 06:59 06:59 Intake Total 90 115 Balance 90 115 Weight 99.5 kg 99.5 kg General appearance: PRESENT: no acute distress, obese, well-developed, well- nourished Head exam: PRESENT: atraumatic, normocephalic Mouth exam: PRESENT: moist, tongue midline Respiratory exam: PRESENT: clear to auscultation [place]. ABSENT: rales, rhonchi, wheezes Cardiovascular exam: PRESENT: RRR. ABSENT: diastolic murmur, rubs, systolic murmur GI/Abdominal exam: PRESENT: tenderness - She is tender to palpation across the upper abdomen and in the right flank. She has positive bowel sounds. No rebound guarding or rigidity. Rectal exam: PRESENT: deferred Extremities exam: PRESENT: full ROM. ABSENT: calf tenderness, clubbing, pedal edema Musculoskeletal exam: PRESENT: ambulatory Neurological exam: PRESENT: alert, awake, oriented to person, oriented to place , oriented to time, oriented to situation, CN II-XII grossly intact. ABSENT: motor sensory deficit Skin exam: PRESENT: dry, intact, warm. ABSENT: cyanosis, rash Results Laboratory Results: 08/12/17 06:40 08/12/17 06:40 08/12/17 08/12/17 06:40 06:40 WBC 5.4 RBC 4.14 Hgb 12.7 Hct 36.5 MCV 88 MCH 30.6 MCHC 34.7 RDW 12.9 Plt Count 262 Seg Neutrophils % 57.7 Lymphocytes % 32.8 Monocytes % 6.4 Eosinophils % 2.6 Basophils % 0.5 Absolute Neutrophils 3.1 Absolute Lymphocytes 1.8 Absolute Monocytes 0.3 Absolute Eosinophils 0.1 Absolute Basophils 0.0 Sodium 141.1 Potassium 4.1 Chloride 106 Carbon Dioxide 22 Anion Gap 13 BUN 8 Creatinine 0.67 Est GFR ( Amer) > 60 Est GFR (Non-Af Amer) > 60 Glucose 70 L Calcium 9.0 Total Bilirubin 0.4 AST 43 H ALT 60 H Alkaline Phosphatase 71 Total Protein 6.4 Albumin 4.0 Lipase 88.1 Impressions: Abdomen Ultrasound 08/11/17 01:04 IMPRESSION: No acute findings. Moderate hepatic steatosis. Limitation. Assessment & Plan - Diagnosis (1) Acute pancreatitis Qualifiers: Pancreatitis type: idiopathic Acute pancreatitis complication: no infection or necrosis Qualified Code(s): K85.00 - Idiopathic acute pancreatitis without necrosis or infection Is this a current diagnosis for this admission?: Yes Plan: Her lipase level is totally normalized. Abdominal ultrasound did not reveal any definitive evidence. Now her pain is more located on the right side of the abdomen in the middle of her abdomen. I am going to get a CT scan of the abdomen and pelvis for further evaluation. We will get this with IV and oral contrast. (2) Nausea and vomiting Qualifiers: Vomiting type: unspecified Vomiting Intractability: non-intractable Qualified Code(s): R11.2 - Nausea with vomiting, unspecified Is this a current diagnosis for this admission?: Yes Plan: Resolved at this point (3) Fatty liver Is this a current diagnosis for this admission?: Yes Plan: Her elevated liver function test are due to fatty liver noted on abdominal ultrasound. We will get a CT scan of the abdomen and pelvis for further evaluation. This will give us a better look at the liver. (4) Elevated LFTs Is this a current diagnosis for this admission?: Yes Plan: Likely due to fatty liver disease. (5) HTN (hypertension) Qualifiers: Hypertension type: essential hypertension Qualified Code(s): I10 - Essential (primary) hypertension Is this a current diagnosis for this admission?: Yes Plan: Stable (6) Obesity (BMI 30-39.9) Is this a current diagnosis for this admission?: Yes Plan: Overall dietary discretion is advised. We are going to place her back on a clear liquid diet tonight. (7) Full code status Is this a current diagnosis for this admission?: Yes - Time Time Spent with patient: 25-34 minutes - Inpatient Certification Medical Necessity: Need For IV Fluids, Other - Inpatient hospitalization remains necessary. The patient is still having a significant amount of abdominal pain in spite of the fact that her lipase is normalized. I believe she needs a CT scan of the abdomen and pelvis for further evaluation. I am going to start her back on a clear liquid diet and we will advance as tolerated. Timing of disposition will be determined by her clinical course
--- NOTE | 2017-08-12 19:44 | RADIOLOGY REPORT (SQ) ---
EXAM DESCRIPTION: CT ABD/PELVIS WITH IV ORAL COMPLETED DATE/TIME: 08/12/2017 7:24 pm REASON FOR STUDY: abdominal pain, ? pancreatitis or other issues COMPARISON: 05/10/2013 TECHNIQUE: CT scan of the abdomen and pelvis performed using helical scanning technique with dynamic intravenous contrast injection. No oral contrast. Images reviewed with lung, soft tissue, and bone windows. Reconstructed coronal and sagittal MPR images reviewed. Delayed images for evaluation of the urinary system also acquired. All images stored on PACS. All CT scanners at this facility use dose modulation, iterative reconstruction, and/or weight based d osing when appropriate to reduce radiation dose to as low as reasonably achievable (ALARA). [facility]: Dose Right [facility]: CareDose [facility]: Dose Right [facility]: Teradose 4D [facility]: RazorGator CONTRAST TYPE AND DOSE: contrast/concentration: Isovue 370.00 mg/ml; Total Contrast Delivered: 100.0 ml; Total Saline Delivered: 19.2 ml RENAL FUNCTION: GFR > 60. RADIATION DOSE: CT Rad equipment meets quality standard of care and radiation dose reduction techniq ues were employed. CTDIvol: 18.1 - 19.5 mGy. DLP: 2804 mGy-cm.. LIMITATIONS: None. FINDINGS: LOWER CHEST: There are two new right lower lobe 4 mm nodules. LIVER: Diffuse fatty infiltration. Normal size. No masses. No dilated ducts. SPLEEN: Normal size. No focal lesions. PANCREAS: No masses. No significant calcifications. No adjacent inflammation or peripancreatic fluid collections. Pancreatic duct not dilated. GALLBLADDER: No identified stones by CT criteria. No inflammatory changes to suggest cholecystitis. ADRENAL GLANDS: No significant masses or asymmetry. RIGHT KIDNEY AND URETER: No solid masses. No significant calcifications. No hydronephrosis or hyd roureter. LEFT KIDNEY AND URETER: No solid masses. No significant calcifications. No hydronephrosis or hydr oureter. AORTA AND VESSELS: No aneurysm. No dissection. Renal arteries, SMA, celiac without stenosis. RETROPERITONEUM: No retroperitoneal adenopathy, hemorrhage or masses. BOWEL AND PERITONEAL CAVITY: No masses or inflammatory changes. No free fluid or peritoneal masses. APPENDIX: Normal. PELVIS: No mass. No free fluid. Normal bladder. ABDOMINAL WALL: No masses. No hernias. BONES: No significant or acute findings. OTHER: No other significant finding. IMPRESSION: NO ACUTE FINDING IN THE ABDOMEN OR PELVIS ON CT SCAN WITH IV CONTRAST. Diffuse fatty in filtration of the liver. There are two new right lower lobe 4 mm nodules. TECHNICAL DOCUMENTATION: JOB ID: [id number] [place]-72 Quality ID # [id number]: Final reports with documentation of one or more dose reduction techniques (e.g., Au tomated exposure control, adjustment of the mA and/or kV according to patient size, use of iterative reconstruction technique) 2010 [employer]- All Rights Reserved Reading location - IP/workstation name: [email or web address]
[2017-08-13 04:46] LABS: ABSOLUTE EOSINOPHILS # (AUTO) 0.1 10^3/uL (0.0-0.6); ABSOLUTE LYMPHOCYTES (AUTO) 1.7 10^3/uL (0.5-4.7); ABSOLUTE MONOCYTES (AUTO) 0.4 10^3/uL (0.1-1.4); ABSOLUTE NEUT (AUTO) 4.2 10^3/uL (1.7-8.2); BASOPHILS % (AUTO) 0.4 % (0-2); EOSINOPHILS % (AUTO) 2.2 % (0-6); HEMATOCRIT 36.4 % (36.0-47.0); HEMOGLOBIN 12.5 g/dL (12.0-15.5); LYMPHOCYTES % (AUTO) 26.5 % (13-45); MEAN CORPUSCULAR HEMOGLOBIN 30.3 pg (27.0-33.4); MEAN CORPUSCULAR HGB CONC 34.3 g/dL (32.0-36.0); MEAN CORPUSCULAR VOLUME 88 fl (80-97); MONOCYTES % (AUTO) 5.9 % (3-13); PLATELET COUNT 265 10^3/uL (150-450); RED BLOOD COUNT 4.13 10^6/uL (3.72-5.28); RED CELL DISTRIBUTION WIDTH 12.5 % (11.5-14.0); TOTAL CELLS COUNTED % (AUTO) 100 %; WHITE BLOOD COUNT 6.5 10^3/uL (4.0-10.5)
[2017-08-13 05:22] LABS: ALANINE AMINOTRANSFERASE 65 U/L (9-52); ALBUMIN 4.2 g/dL (3.5-5.0); ALKALINE PHOSPHATASE 67 U/L (38-126); ANION GAP 12 (5-19); ASPARTATE AMINO TRANSFERASE 45 U/L (14-36); BILIRUBIN,DIRECT 0.2 mg/dL (0.0-0.4); BILIRUBIN,TOTAL 0.4 mg/dL (0.2-1.3); BLOOD UREA NITROGEN 9 mg/dL (7-20); CALCIUM 9.4 mg/dL (8.4-10.2); CARBON DIOXIDE 23 mmol/L (22-30); CHLORIDE 105 mmol/L (98-107); GLUCOSE 84 mg/dL (75-110); LIPASE 92.9 U/L (23-300); SODIUM 139.5 mmol/L (137-145); TOTAL PROTEIN 6.7 g/dL (6.3-8.2)
[2017-08-13] MEDS: HEPARIN SOD (PORCINE) 5,000 UNIT/ML 1 ML SYRINGE SUBCUT SCH ×3 (05:56→21:49)
[2017-08-13] MEDS: KETOROLAC TROMETHAMINE INJ/PF 30 MG/1 ML SDV IV PRN (06:49)
[2017-08-13] MEDS: FENTANYL CITRATE INJ/PF 100 MCG/2 ML AMPUL IV PRN ×2 (08:21→11:42)
[2017-08-13] MEDS: ONDANSETRON HCL INJ/PF 4 MG/2 ML SDV IV PRN (08:21)
[2017-08-13] MEDS ORDERED: NORMAL SALINE 1000 ML 1,000 ML IV PRN (09:06)
[2017-08-13] MEDS: METOPROLOL SUCCINATE 25 MG TAB.SR.24H PO SCH (09:20)
[2017-08-13] MEDS: TAMSULOSIN HCL 0.4 MG CAP.SR.24H PO SCH (09:21)
[2017-08-13] MEDS: FAMOTIDINE INJ/PF 20 MG/2 ML SDV IV SCH (09:21)
[2017-08-13] MEDS: PROMETHAZINE HCL 25 MG TABLET PO PRN ×2 (11:41→18:38)
[2017-08-13] MEDS ORDERED: TRAMADOL HCL 50 MG TABLET PO PRN (15:43)
[2017-08-13] MEDS ORDERED: HYOSCYAMINE SULFATE 0.125 MG TABLET PO PRN (15:47)
--- NOTE | 2017-08-13 15:52 | PDOC PROGRESS REPORT ---
Subjective Progress Note for:: 08/13/17 Subjective:: The patient is a 32-year-old female with a past medical history significant for obesity, hypertension and fatty liver disease. She presented to the emergency room with a 2 week history of epigastric pain worsened by p.o. intake. She had been having nausea and loose stools. In the emergency room she was found to have an elevated lipase of 3200 with unremarkable liver function tests. She was referred for admission. She underwent an abdominal ultrasound which really did not reveal any evidence of pancreatitis. She was made n.p.o. and started on IV fluids. Over the next couple of days the patient' s abdominal pain improved. When I saw the patient yesterday the pain that she had had in the left upper quadrant had resolved however she was having crampy abdominal pain located in the periumbilical area and right flank. She was quite tender on exam. She subsequently underwent a CT scan of the abdomen and pelvis which revealed evidence of fatty liver disease but otherwise was unremarkable. Her lab work is totally normalized. Her diet has been advanced to a low residue diet. Initially this morning the patient was having diffuse diarrhea. She tested negative for Clostridium difficile and at this point it is felt that her diarrhea was due to her oral contrast yesterday. She continues to have some crampy abdominal pain. She has been reluctant to advance her diet today because of the abdominal pain. She denies fever or chills. No chest pain, shortness of breath or cough. She has had no further episodes of nausea. No vomiting. She continues to have some crampy abdominal pain but states her diarrhea is improving. No dysuria, frequency or hematuria. Reason For Visit: ACUTE PANCREATITIS ABD PAIN Physical Exam Vital Signs: Temp Pulse Resp BP Pulse Ox 98.4 F 98 17 120/79 96 08/13/17 12:04 08/13/17 12:04 08/13/17 12:04 08/13/17 12:04 08/13/17 12:04 Intake & Output 08/12/17 08/13/17 08/14/17 06:59 06:59 06:59 Intake Total 725 848 5344 Balance 078 123 5398 Weight 99.5 kg 97.2 kg General appearance: PRESENT: no acute distress, obese, well-developed, well- nourished Head exam: PRESENT: atraumatic, normocephalic Mouth exam: PRESENT: moist, tongue midline Respiratory exam: PRESENT: clear to auscultation [place]. ABSENT: rales, rhonchi, wheezes Cardiovascular exam: PRESENT: RRR. ABSENT: diastolic murmur, rubs, systolic murmur GI/Abdominal exam: PRESENT: hyperactive bowel sounds, soft, tenderness - Mildly tender to palpation across the right. ABSENT: guarding, rebound, rigid Rectal exam: PRESENT: deferred Extremities exam: PRESENT: full ROM. ABSENT: calf tenderness, clubbing, pedal edema Musculoskeletal exam: PRESENT: ambulatory Neurological exam: PRESENT: alert, awake, oriented to person, oriented to place , oriented to time, oriented to situation, CN II-XII grossly intact. ABSENT: motor sensory deficit Psychiatric exam: PRESENT: appropriate affect, normal mood. ABSENT: homicidal ideation, suicidal ideation Skin exam: PRESENT: dry, intact, warm. ABSENT: cyanosis, rash Results Laboratory Results: 08/13/17 04:21 08/13/17 04:21 08/13/17 08/13/17 04:21 04:21 WBC 6.5 RBC 4.13 Hgb 12.5 Hct 36.4 MCV 88 MCH 30.3 MCHC 34.3 RDW 12.5 Plt Count 265 Seg Neutrophils % 65.0 Lymphocytes % 26.5 Monocytes % 5.9 Eosinophils % 2.2 Basophils % 0.4 Absolute Neutrophils 4.2 Absolute Lymphocytes 1.7 Absolute Monocytes 0.4 Absolute Eosinophils 0.1 Absolute Basophils 0.0 Sodium 139.5 Potassium 4.0 Chloride 105 Carbon Dioxide 23 Anion Gap 12 BUN 9 Creatinine 0.67 Est GFR ( Amer) > 60 Est GFR (Non-Af Amer) > 60 Glucose 84 Calcium 9.4 Magnesium 2.2 Total Bilirubin 0.4 AST 45 H ALT 65 H Alkaline Phosphatase 67 Total Protein 6.7 Albumin 4.2 Lipase 92.9 Impressions: Abdomen Ultrasound 08/11/17 01:04 IMPRESSION: No acute findings. Moderate hepatic steatosis. Limitation. Abdomen/Pelvis CT 08/12/17 00:00 IMPRESSION: NO ACUTE FINDING IN THE ABDOMEN OR PELVIS ON CT SCAN WITH IV CONTRAST. Diffuse fatty infiltration of the liver. There are two new right lower lobe 4 mm nodules. Assessment & Plan - Diagnosis (1) Acute pancreatitis Qualifiers: Pancreatitis type: idiopathic Acute pancreatitis complication: no infection or necrosis Qualified Code(s): K85.00 - Idiopathic acute pancreatitis without necrosis or infection Is this a current diagnosis for this admission?: Yes Plan: Her lipase level is totally normalized. Abdominal ultrasound did not reveal any definitive evidence. She is no longer having left upper quadrant abdominal pain. Continue to advance diet as tolerated. (2) Nausea and vomiting Qualifiers: Vomiting type: unspecified Vomiting Intractability: non-intractable Qualified Code(s): R11.2 - Nausea with vomiting, unspecified Is this a current diagnosis for this admission?: Yes Plan: Resolved at this point. She may have had some mild pancreatitis or even a viral gastroenteritis. (3) Fatty liver Is this a current diagnosis for this admission?: Yes Plan: Her elevated liver function test are due to fatty liver noted on abdominal ultrasound. CT scan of the liver just revealed evidence of her fatty liver disease. No other acute abnormalities noted. (4) Elevated LFTs Is this a current diagnosis for this admission?: Yes Plan: Likely due to fatty liver disease. (5) Dyslipidemia Is this a current diagnosis for this admission?: Yes Plan: I am going to start the patient on Lipitor. (6) HTN (hypertension) Qualifiers: Hypertension type: essential hypertension Qualified Code(s): I10 - Essential (primary) hypertension Is this a current diagnosis for this admission?: Yes Plan: Stable. Continue metoprolol (7) Diarrhea Is this a current diagnosis for this admission?: Yes Plan: The patient developed diarrhea this morning likely due to her oral contrast yesterday. She tested negative for Clostridium difficile. She continues to have crampy abdominal pain and states that she has this often at home. I have started her on some Levsin as needed to see if this will help. She also is going to keep a food diary at home to see what triggers her abdominal discomfort. She will need to follow-up with her outpatient provider and may require a GI referral as an outpatient. (8) Obesity (BMI 30-39.9) Is this a current diagnosis for this admission?: Yes Plan: Overall dietary discretion is advised. I did spend quite some time discussing her diet with her. She very well may have some issues with lactose or gluten. I have discussed with her keeping a diary to see what triggers for abdominal pain. She is going to do this and follow-up with her primary care provider. (9) Full code status Is this a current diagnosis for this admission?: Yes - Time Time Spent with patient: 25-34 minutes - Inpatient Certification Medical Necessity: Other - Inpatient hospitalization remains necessary. I am stopping all of the patient's IV medications today. We will place her on an oral regimen and make sure that she can tolerate her diet. She likely can be discharged in the morning.
[2017-08-13] MEDS: LANSOPRAZOLE 30 MG TAB.RAP.DR PO SCH (16:20)
[2017-08-13] MEDS: ATORVASTATIN CALCIUM 40 MG TABLET PO SCH (21:49)
[2017-08-14] MEDS: HEPARIN SOD (PORCINE) 5,000 UNIT/ML 1 ML SYRINGE SUBCUT SCH ×3 (06:00→21:45)
[2017-08-14] MEDS: LANSOPRAZOLE 30 MG TAB.RAP.DR PO SCH ×2 (06:00→16:57)
[2017-08-14] MEDS: METOPROLOL SUCCINATE 25 MG TAB.SR.24H PO SCH (11:22)
[2017-08-14] MEDS: TAMSULOSIN HCL 0.4 MG CAP.SR.24H PO SCH (11:23)
--- NOTE | 2017-08-14 15:53 | PDOC PROGRESS REPORT ---
Subjective Progress Note for:: 08/14/17 Subjective:: 32-year-old female admitted for suspected acute pancreatitis. Still with abdominal pain but mostly epigastric to right upper quadrant. She reports slowly improving. Reported vomiting last night, still with mild nausea, but no current vomiting. Tolerates her food this morning. No fever or chills, no chest pain or shortness of breath or palpitations. Reason For Visit: ACUTE PANCREATITIS ABD PAIN Physical Exam Vital Signs: Temp Pulse Resp BP Pulse Ox 98.4 F 125 15 108/61 98 08/13/17 23:27 08/13/17 23:27 08/13/17 23:27 08/13/17 23:27 08/13/17 23:27 Intake & Output 08/13/17 08/14/17 08/15/17 06:59 06:59 06:59 Intake Total 756 1706 570 Balance 756 1706 570 Weight 97.2 kg 98.6 kg GEN: NAD, well-developed, well-nourished, obese HEENT: Normocephalic/atraumatic, sclerae anicteric, oral mucosa clear CV: Tachycardic, NL S1S2 LUNGS: CTA bilaterally ABDOMEN Soft, mild epigastric tenderness, no rebound no guarding, +BS EXTERMITIES: No e/c/c NEURO: Alert, oriented 3, nonfocal Results Laboratory Results: 08/13/17 04:21 08/13/17 04:21 Impressions: Abdomen Ultrasound 08/11/17 01:04 IMPRESSION: No acute findings. Moderate hepatic steatosis. Limitation. Abdomen/Pelvis CT 08/12/17 00:00 IMPRESSION: NO ACUTE FINDING IN THE ABDOMEN OR PELVIS ON CT SCAN WITH IV CONTRAST. Diffuse fatty infiltration of the liver. There are two new right lower lobe 4 mm nodules. Assessment & Plan - Diagnosis (1) Abdominal pain Qualifiers: Abdominal location: epigastric Qualified Code(s): R10.13 - Epigastric pain Is this a current diagnosis for this admission?: Yes Plan: Patient may very well have a viral gastroenteritis. She is slowly improving. She is currently no longer on IV fluids, but is tachycardic. Will resume IV fluid at 100 mL/h for 1.3 L. -Zofran as needed, Tylenol as needed for pain. (2) Acute pancreatitis Qualifiers: Pancreatitis type: idiopathic Acute pancreatitis complication: no infection or necrosis Qualified Code(s): K85.00 - Idiopathic acute pancreatitis without necrosis or infection Is this a current diagnosis for this admission?: Yes Plan: Suspected, in the setting of increased lipids when admitted. However, abdominal CT did not reveal pancreatitis except for fatty liver. Abdominal ultrasound have also not been unremarkable except for steatosis. -Continue IV fluids and symptomatic care for now. -N.p.o. if patient worsens again or if recurrent nausea or vomiting. (3) Diarrhea Is this a current diagnosis for this admission?: Yes Plan: Improved. There have been secondary to viral gastroenteritis. (4) Dyslipidemia Is this a current diagnosis for this admission?: Yes Plan: Continue on Lipitor. (5) Nausea and vomiting Qualifiers: Vomiting type: unspecified Vomiting Intractability: non-intractable Qualified Code(s): R11.2 - Nausea with vomiting, unspecified Is this a current diagnosis for this admission?: Yes Plan: Zofran as needed. (6) Obesity (BMI 30-39.9) Is this a current diagnosis for this admission?: Yes Plan: Dietary and weight loss education given. (7) Fatty liver Is this a current diagnosis for this admission?: Yes Plan: Weight loss, follow-up with PCP. PCP to consider GI referral. (8) Tachycardia Is this a current diagnosis for this admission?: Yes Plan: IV fluids, patient on metoprolol XL 25 mg daily, will continue dose for now.
[2017-08-14] MEDS ORDERED: NORMAL SALINE 1000 ML 1,000 ML IV PRN (15:59)
[2017-08-14] MEDS: ATORVASTATIN CALCIUM 40 MG TABLET PO SCH (21:45)
[2017-08-15 04:37] LABS: ABSOLUTE EOSINOPHILS # (AUTO) 0.2 10^3/uL (0.0-0.6); ABSOLUTE LYMPHOCYTES (AUTO) 2.9 10^3/uL (0.5-4.7); ABSOLUTE MONOCYTES (AUTO) 0.4 10^3/uL (0.1-1.4); ABSOLUTE NEUT (AUTO) 3.1 10^3/uL (1.7-8.2); BASOPHILS % (AUTO) 0.5 % (0-2); EOSINOPHILS % (AUTO) 3.6 % (0-6); HEMATOCRIT 39.1 % (36.0-47.0); HEMOGLOBIN 13.5 g/dL (12.0-15.5); LYMPHOCYTES % (AUTO) 43.5 % (13-45); MEAN CORPUSCULAR HEMOGLOBIN 30.7 pg (27.0-33.4); MEAN CORPUSCULAR HGB CONC 34.6 g/dL (32.0-36.0); MEAN CORPUSCULAR VOLUME 89 fl (80-97); MONOCYTES % (AUTO) 6.3 % (3-13); PLATELET COUNT 317 10^3/uL (150-450); RED CELL DISTRIBUTION WIDTH 13.1 % (11.5-14.0); SEGMENTED NEUTROPHILS % (AUTO) 46.1 % (42-78); TOTAL CELLS COUNTED % (AUTO) 100 %; WHITE BLOOD COUNT 6.8 10^3/uL (4.0-10.5)
[2017-08-15 05:11] LABS: ANION GAP 13 (5-19); BLOOD UREA NITROGEN 8 mg/dL (7-20); CALCIUM 9.8 mg/dL (8.4-10.2); CARBON DIOXIDE 23 mmol/L (22-30); CHLORIDE 107 mmol/L (98-107); GLUCOSE 105 mg/dL (75-110); POTASSIUM 3.8 mmol/L (3.6-5.0); SODIUM 142.5 mmol/L (137-145)
[2017-08-15] MEDS: LANSOPRAZOLE 30 MG TAB.RAP.DR PO SCH (05:43)
[2017-08-15] MEDS: HEPARIN SOD (PORCINE) 5,000 UNIT/ML 1 ML SYRINGE SUBCUT SCH (05:44)
[2017-08-15] MEDS: METOPROLOL SUCCINATE 25 MG TAB.SR.24H PO SCH (09:57)
[2017-08-15] MEDS: TAMSULOSIN HCL 0.4 MG CAP.SR.24H PO SCH (09:58)
--- NOTE | 2017-08-15 13:07 | PDOC DISCHARGE SUMMARY ---
General - Admit/Disc Date/PCP Admission Date/Primary Care Provider: 08/15/17 10:08 ELEANOR DALY PA-C Discharge Date: 08/15/17 - Discharge Diagnosis (1) Abdominal pain Is this a current diagnosis for this admission?: Yes (2) Acute pancreatitis Is this a current diagnosis for this admission?: Yes (3) Dyslipidemia Is this a current diagnosis for this admission?: Yes (4) Full code status Is this a current diagnosis for this admission?: Yes (5) Nausea and vomiting Is this a current diagnosis for this admission?: Yes (6) Obesity (BMI 30-39.9) Is this a current diagnosis for this admission?: Yes - Additional Information Resuscitation Status: Full Code Prescriptions: Rosuvastatin Calcium [Crestor] 40 mg PO QHS 30 Days #30 tablet Daisy-3 Fatty Acids/Fish Oil [Daisy 3 Fish Oil Softgel] 1 each PO BID 30 Days # 60 capsule. [place] Medications: Metoprolol Succinate [Toprol Xl 25 mg Tab.sr] 25 mg PO DAILY 08/11/17 Tamsulosin HCl [Flomax 0.4 mg Cap.sr] 0.4 mg PO DAILY 08/11/17 Metoprolol Succinate [Toprol Xl 25 mg Tab.sr] 25 mg PO DAILY tab.sr.24h Daisy-3 Fatty Acids/Fish Oil [Daisy 3 Fish Oil Softgel] 1 each PO BID 30 Days # 60 capsule. 08/15/17 Rosuvastatin Calcium [Crestor] 40 mg PO QHS 30 Days #30 tablet 08/15/17 History of Present Illness Patient complains of: abdominal pain History of Present Illness: PEGGY BROWN is a 32 year old female with a past medical history of obesity, Live and hypertension. She presents with 2 weeks of epigastric pain worsened by p.o. intake associated with nausea and loose stools. She denies previous episode, new medication, alcohol, recent viral prodrome, fever, shortness of breath or chest pain. In the emergency room she is found to have a lipase of 3200 with unremarkable LFTs, she is referred to the hospitalist for observation. Hospital Course Hospital Course: 1) Abdominal pain secondary to acute pancreatitis resolved (2) Acute pancreatitis Pancreatitis was uncomplicated Likely secondary to hyperlipidemia Patient did not have gallbladder disease 3) Dyslipidemia Lipids are extremely elevated with triglycerides of 315 and cholesterol of 292 We will switch to Crestor 40 mg p.o. daily and added omega-3 fatty acid (4) Fatty liver With mildly elevated LFTs Recommended low-fat diet and weight loss 5 chest pain Patient had EKG and troponins that were essentially normal Pain likely secondary to anxiety Physical Exam Vital Signs: Temp Pulse Resp BP Pulse Ox 98.4 F 101 H 12 110/66 97 08/15/17 11:25 08/15/17 11:25 08/15/17 11:25 08/15/17 11:25 08/15/17 11:25 General appearance: PRESENT: no acute distress, cooperative Head exam: PRESENT: atraumatic, normocephalic Eye exam: PRESENT: conjunctiva pink, EOMI, PERRLA. ABSENT: scleral icterus Respiratory exam: PRESENT: clear to auscultation [place]. ABSENT: rales, rhonchi, wheezes Cardiovascular exam: PRESENT: RRR, tachycardia. ABSENT: diastolic murmur, rubs , systolic murmur Vascular exam: PRESENT: normal capillary refill GI/Abdominal exam: PRESENT: normal bowel sounds, soft. ABSENT: distended, guarding, mass, organolmegaly, rebound, tenderness Musculoskeletal exam: PRESENT: ambulatory, full ROM Neurological exam: PRESENT: alert, awake, oriented to person, oriented to place , oriented to time, oriented to situation, CN II-XII grossly intact. ABSENT: motor sensory deficit Psychiatric exam: PRESENT: appropriate affect, normal mood. ABSENT: homicidal ideation, suicidal ideation Results Laboratory Results: 08/15/17 12:02 Troponin I < 0.012 Impressions: Abdomen Ultrasound 08/11/17 01:04 IMPRESSION: No acute findings. Moderate hepatic steatosis. Limitation. Abdomen/Pelvis CT 08/12/17 00:00 IMPRESSION: NO ACUTE FINDING IN THE ABDOMEN OR PELVIS ON CT SCAN WITH IV CONTRAST. Diffuse fatty infiltration of the liver. There are two new right lower lobe 4 mm nodules. Qualifiers - * PATEINT BEING DISCHARGED WITH ANY OF THE FOLLOWING DIAGNOSIS?: No Plan Discharge Plan: Follow-up with Dr. Eleanor daly in a week time Discontinue minocycline Strict low-fat diet Time Spent: Greater than 30 Minutes
[2017-08-15 14:01] VITALS: BP 110/55
--- NOTE | 2017-08-15 15:37 | EKG REPORT ---
SEVERITY:- BORDERLINE ECG - SINUS TACHYCARDIA BORDERLINE T ABNORMALITIES, INFERIOR LEADS BORDERLINE PROLONGED QT INTERVAL : Confirmed by: Carlos Finley MD 15-Aug-2017 15:37:11
== END 2017-08-15 14:21 | disposition home or self-care (01) | DRG 440 ==
LOC: ER 00:14 → EH 02:21 → 5 03:15 → OBSVTOIN 08-15 10:08
PROVIDERS: ADMIT Internal Medicine; ATTEND Internal Medicine
DX: K85.00 Idiopathic acute pancreatitis without necrosis or infection (principal); I10 Essential (primary) hypertension; F41.9 Anxiety disorder, unspecified; K76.0 Fatty (change of) liver, not elsewhere classified; E66.9 Obesity, unspecified; Z68.36 Body mass index [BMI] 36.0-36.9, adult; M19.90 Unspecified osteoarthritis, unspecified site; Z88.0 Allergy status to penicillin; Z88.6 Allergy status to analgesic agent; E78.5 Hyperlipidemia, unspecified; T50.8X5A Adverse effect of diagnostic agents, initial encounter; R00.0 Tachycardia, unspecified
CPT/HCPCS: 36415; 74177; 76705; 80048; 80053; 80061; 81001; 83036; 83690; 83735; 84443; 84484; 84703; 85025; 87493; 93005; 93010; 96361; 96374; 96375; 99285; G0378; G0379; J1170; J1644; J1885; J2405; J3010; J3490; J7030; S0028; S0119

== ENCOUNTER 2017-08-31 11:13 | Emergency (ER) | payer BC ==
[2017-08-31] MEDS ORDERED: RINGERS SOLUTION,LACTATED 1,000 ML IV ONE (11:40)
[2017-08-31] MEDS ORDERED: ONDANSETRON HCL INJ/PF 4 MG/2 ML SDV IV ONE (11:40)
[2017-08-31 12:17] LABS: ABSOLUTE EOSINOPHILS # (AUTO) 0.1 10^3/uL (0.0-0.6); ABSOLUTE LYMPHOCYTES (AUTO) 1.7 10^3/uL (0.5-4.7); ABSOLUTE MONOCYTES (AUTO) 0.3 10^3/uL (0.1-1.4); ABSOLUTE NEUT (AUTO) 4.8 10^3/uL (1.7-8.2); BASOPHILS % (AUTO) 0.3 % (0-2); EOSINOPHILS % (AUTO) 1.7 % (0-6); HEMATOCRIT 41.2 % (36.0-47.0); HEMOGLOBIN 14.2 g/dL (12.0-15.5); LYMPHOCYTES % (AUTO) 24.1 % (13-45); MEAN CORPUSCULAR HEMOGLOBIN 30.9 pg (27.0-33.4); MEAN CORPUSCULAR HGB CONC 34.6 g/dL (32.0-36.0); MEAN CORPUSCULAR VOLUME 89 fl (80-97); MONOCYTES % (AUTO) 4.1 % (3-13); PLATELET COUNT 352 10^3/uL (150-450); RED BLOOD COUNT 4.61 10^6/uL (3.72-5.28); SEGMENTED NEUTROPHILS % (AUTO) 69.8 % (42-78); TOTAL CELLS COUNTED % (AUTO) 100 %; WHITE BLOOD COUNT 6.9 10^3/uL (4.0-10.5)
[2017-08-31 12:38] LABS: ALANINE AMINOTRANSFERASE 57 U/L (9-52); ALKALINE PHOSPHATASE 81 U/L (38-126); ANION GAP 14 (5-19); ASPARTATE AMINO TRANSFERASE 33 U/L (14-36); BILIRUBIN,DIRECT 0.2 mg/dL (0.0-0.4); BILIRUBIN,TOTAL 0.3 mg/dL (0.2-1.3); BLOOD UREA NITROGEN 12 mg/dL (7-20); CALCIUM 10.4 mg/dL (8.4-10.2); CARBON DIOXIDE 25 mmol/L (22-30); CHLORIDE 105 mmol/L (98-107); GLUCOSE 93 mg/dL (75-110); LIPASE 69.3 U/L (23-300); POTASSIUM 4.7 mmol/L (3.6-5.0); SODIUM 144.2 mmol/L (137-145)
[2017-08-31] MEDS ORDERED: HYDROMORPHONE HCL INJ/PF 2 MG/ML AMPULE IV ONE ×2 (14:06→18:47)
--- NOTE | 2017-08-31 14:07 | ER Document Report ---
ED General - General Chief Complaint: Abdominal Pain Stated Complaint: ABDOMINAL PAIN Time Seen by Provider: 08/31/17 11:39 Mode of Arrival: Ambulatory Information source: Patient TRAVEL OUTSIDE OF THE [place] IN LAST 30 DAYS: No - HPI Notes: 32-year-old female with a history of pancreatiti, hypertension is currently being treated with metoprolol presents today with complaints of epigastric, right upper quadrant and left upper quadrant pain that woke her out of sleep 4 hours ago. Denies any new medications. Denies any new foods or travel. Patient denies any alcohol use. Denies any abdominal trauma, denies . Patient has not been seen by sequins slinger for her previous episode of pancreatitis as well as steatohepatitis. Reports nausea denies any vomiting or diarrhea. Not tried any [id number] medications for this pain. Denies fevers, chills, chest pain,palpitations, shortness of breath, dyspnea, nausea , vomiting, diarrhea, abdominal pain, hematuria,blurred vision, double vision, loss of vision, speech changes, LH, dizziness, syncope, headaches, wheezing, ST , URI, neck pain, weakness, bowel or bladder dysfunction, saddle anesthesia, numbness or tingling in bilateral upper or lower extremities equally, muscle paralysis, weakness in bilateral upper or lower extremities equally or rash. Denies IV drug use. - Related Data Allergies/Adverse Reactions: morphine [Morphine] Allergy (Severe, Verified 08/31/17 11:16) Hives Penicillins Allergy (Severe, Verified 08/31/17 11:16) Anaphylaxis Past Medical History - General Information source: Patient - Social History Smoking Status: Never Smoker Frequency of alcohol use: None Drug Abuse: None Family History: Malignancy, Other - Pulmonary emboli Patient has suicidal ideation: No Patient has homicidal ideation: No - Past Medical History Cardiac Medical History: Reports: Hx Hypertension Denies: Hx Atrial Fibrillation, Hx Congestive Heart Failure, Hx Coronary Artery Disease, Hx DVT, Hx Heart Attack, Hx Hypercholesterolemia, Hx Pulmonary Embolism Pulmonary Medical History: Denies: Hx Asthma, Hx Bronchitis, Hx COPD, Hx Pneumonia, Hx Sleep Apnea Neurological Medical History: Denies: Hx Cerebrovascular Accident, Hx Seizures Endocrine Medical History: Denies: Hx Diabetes Mellitus Type 1, Hx Diabetes Mellitus Type 2, Hx Hyperthyroidism, Hx Hypothyroidism Renal/ Medical History: Reports: Hx Kidney Stones, Hx Ovarian Cysts. Denies: Hx Peritoneal Dialysis GI Medical History: Denies: Hx Cirrhosis, Hx Gastroesophageal Reflux Disease, Hx Hepatitis Musculoskeltal Medical History: Reports Hx Arthritis - Affecting her back primarily Psychiatric Medical History: Denies: Hx Depression Traumatic Medical History: Reports: Hx Fractures Infectious Medical History: Reports: Hx C-Diff. Denies: Hx Hepatitis, Hx MRSA Past Surgical History: Reports: Hx Kidney (Renal Surgery) - when child, Hx Orthopedic Surgery - left ankle, Other - Left ureteral stent and other corrective surgery. - Immunizations Immunizations up to date: No Hx Diphtheria, Pertussis, Tetanus Vaccination: No Review of Systems - Review of Systems Notes: REVIEW OF SYSTEMS: CONSTITUTIONAL : Denies fever, chills, or sweats. Denies recent illness. EENT: Denies eye, ear, throat, or mouth pain or symptoms. Denies nasal or sinus congestion or discharge. Denies throat, tongue, or mouth swelling or difficulty swallowing. CARDIOVASCULAR: Denies chest pain. Denies palpitations or racing or irregular heart beat. Denies ankle edema. RESPIRATORY: Denies cough, cold, or chest congestion. Denies shortness of breath, difficulty breathing, or wheezing. GASTROINTESTINAL: reports abdominal pain. Denies abdominal distention. reports nausea. Denies vomiting, or diarrhea. Denies blood in vomitus, stools, or per rectum. Denies black, tarry stools. Denies constipation. GENITOURINARY: Denies difficulty urinating, painful urination, burning, frequency, blood in urine, or discharge. FEMALE GENITOURINARY: Denies vaginal bleeding, heavy or abnormal periods, irregular periods. Denies vaginal discharge or odor. MUSCULOSKELETAL: Denies back or neck pain or stiffness. Denies joint pain or swelling. SKIN: Denies rash, lesions or sores. HEMATOLOGIC : Denies easy bruising or bleeding. LYMPHATIC: Denies swollen, enlarged glands. NEUROLOGICAL: Denies confusion or altered mental status. Denies passing out or loss of consciousness. Denies dizziness or lightheadedness. Denies headache. Denies weakness or paralysis or loss of use of either side. Denies problems with gait or speech. Denies sensory loss, numbness, or tingling. Denies seizures. PSYCHIATRIC: Denies anxiety or stress. Denies depression, suicidal ideation, or homicidal ideation. ALL OTHER SYSTEMS REVIEWED AND NEGATIVE. PHYSICAL EXAMINATION: GENERAL: Well-appearing, well-nourished and in no acute distress. HEAD: Atraumatic, normocephalic. EYES: Pupils equal round and reactive to light, extraocular movements intact, conjunctiva are normal. ENT: Nares patent, oropharynx clear without exudates. Moist mucous membranes. NECK: Normal range of motion, supple without lymphadenopathy LUNGS: Breath sounds clear to auscultation bilaterally and equal. No wheezes rales or rhonchi. HEART: Regular rate and rhythm without murmurs ABDOMEN: Soft, nondistended abdomen. Right upper quadrant, epigastric and left upper quadrant pain on palpation. No rebound tenderness noted. No guarding, no rebound. No masses appreciated. No CVA tenderness bilaterally Female : deferred Musculoskeletal: Normal range of motion, no pitting or edema. No cyanosis. NEUROLOGICAL: Cranial nerves grossly intact. Normal speech, normal gait. Normal sensory, motor exams PSYCH: Normal mood, normal affect. SKIN: Warm, Dry, normal turgor, no rashes or lesions noted. Dictation was performed using [employer] voice recognition software Physical Exam - Vital signs Vitals: Temp Pulse Resp BP Pulse Ox 98.7 F 132 H 14 136/74 H 99 08/31/17 11:17 08/31/17 11:17 08/31/17 11:17 08/31/17 11:17 08/31/17 11:17 Course - Re-evaluation Re-evalutation: 08/31/17 18:58 Healthy 32-year-old female with a history of pancreatitis and hypertension presents today with sudden onset epigastric, right upper quadrant left upper quadrant pain on palpation. Lipase negative for any acute pancreatitis, CBC negative for leukocytosis or anemia. cmp shows slightly elevated ALT, electrolyte dysfunction. CT abdomen pelvis with oral and IV contrast shows that patient has steatohepatitis. Urine hCG negative. Patient's pain remained 8 out of 10, will give another milligram of Dilaudid. Discussed with patient that she should follow-up with a sequins slinger, take a PPI to reduce gastric protection. Patient given Zofran as well for antiemetic discussed with patient to return to the emergency room pain becomes worse, she experiences any worsening nausea, vomiting, diarrhea fever chills, etc. patient verbalized understanding this plan of care and agreed with plan of care. Patient discharged home. 08/31/17 19:14 After performing a Medical Screening Examination, I estimate there is LOW risk for ACUTE APPENDICITIS, BOWEL OBSTRUCTION, ACUTE CHOLECYSTITIS, PERFORATED DIVERTICULITIS, INCARCERATED HERNIA, PANCREATITIS, PELVIC INFLAMMATORY DISEASE, PERFORATED ULCER, ECTOPIC , or TUBO-OVARIAN ABSCESS, thus I consider the discharge disposition reasonable. Also, there is no evidence or peritonitis , sepsis, or toxicity. I have reevaluated this patient multiple times and no significant life threatening changes are noted. The patient and I have discussed the diagnosis and risks, and we agree with discharging home with close follow-up with the understanding that symptoms and presentations can change. We also discussed returning to the Emergency Department immediately if new or worsening symptoms occur. We have discussed the symptoms which are most concerning (e.g., bloody stool, fever, changing or worsening pain, vomiting) that necessitate immediate return. - Vital Signs Vital signs: Temp Pulse Resp BP Pulse Ox 98.4 F 108 H 18 108/61 98 08/31/17 15:35 08/31/17 15:35 08/31/17 15:35 08/31/17 15:35 08/31/17 15:35 - Laboratory Result Diagrams: 08/31/17 11:53 08/31/17 11:53 Laboratory results interpreted by me: 08/31/17 11:53 Calcium 10.4 H ALT 57 H Discharge - Discharge Clinical Impression: Steatohepatitis, nonalcoholic Abdominal pain Qualifiers: Abdominal location: upper abdomen, unspecified Qualified Code(s): R10.10 - Upper abdominal pain, unspecified Disposition: HOME, SELF-CARE Instructions: Abdominal Pain ([facility]), Pain Medication Injection ([facility]), Low-Fat Diet ([facility]), Antinausea Medication ([facility]) Additional Instructions: Abdominal Pain There are many causes of abdominal pain. Pain can mean a serious problem requiring surgery (such as appendicitis). It can also be an innocent problem that goes away on its own (such as a viral infection). Often, time must pass to determine the cause of pain. The physician does not feel that hospitalization is necessary, at present. Things may change within the next 24 hours. Call the doctor or come back for re- examination if any problems occur, such as: (1) Pain that becomes more severe, steady, or becomes concentrated in one specific area. Also, pain that is more severe with movement or coughing. (2) Vomiting that persists or becomes more frequent. (3) Blood in the vomitus, urine, or bowel movements. Blood in the stool may have a tarry or black appearance. (4) Shaking chills or fever greater than 100 degrees F. (5) The abdomen becomes more distended or swollen. (6) Bowel movements cease. (7) Failure to improve as expected. ABDOMINAL PAIN: There are many causes of abdominal pain. Pain can mean a serious problem requiring surgery (such as appendicitis). It can also be an innocent problem that goes away on its own (such as a viral infection). Often, time must pass to determine the cause of pain. The physician does not feel that hospitalization is necessary, at present. Things may change within the next 24 hours. Call the doctor or come back for re- examination if any problems occur, such as: (1) Pain that becomes more severe, steady, or becomes concentrated in one specific area. Also, pain that is more severe with movement or coughing. (2) Vomiting that persists or becomes more frequent. (3) Blood in the vomitus, urine, or bowel movements. Blood in the stool may have a tarry or black appearance. (4) Shaking chills or fever greater than 100 degrees F. (5) The abdomen becomes more distended or swollen. (6) Bowel movements cease. (7) Failure to improve as expected. NORMAL EXAM AND WORKUP: At this time, your examination and workup show no significant abnormality. No significant abnormal physical findings are noted. All laboratory, EKG, and imaging (x-ray, CT scans, ultrasound) studies that were ordered show no significant abnormality. Although your examination and all studies that were ordered showed no significant abnormal finding, there are no examinations and no studies that are 100% accurate. There is always the possibility that some abnormality could exist and not be detected with physical examination or within the limits and capabilities of laboratory and other studies. You should return or follow up as you were instructed on your visit today for further evaluation if your symptoms do not resolve. PAIN MEDICATION INJECTION: You have received an injection of a pain medication. You should experience significant pain relief within 45 minutes. This drug is a narcotic - - it will impair your judgement, slow your reaction time and make you sleepy ( as well as relieve your pain). Narcotics also can cause nausea. You should not drive, work with machinery, or perform any task requiring mental alertness until all effects of the medication are gone -- six to eight hours. Do not take any alcohol, or sedatives, and do not take any other medication without checking with your physician. ANTINAUSEA MEDICATION: You have been given a medication to suppress nausea and vomiting. This type of medication can be given as a shot, pill, or suppository. It will usually last for many hours. Pills and shots usually last six to eight hours, suppositories last about 12 hours. For the typical illness, only one or two doses of the medication may be necessary. Mild lightheadedness may occur. This type of medicine can cause drowsiness. Do not drive or operate dangerous machinery while under its influence. Do not mix with alcohol. See your doctor at once if you have muscle spasms or tightness, or uncontrollable motions (particularly of the neck, mouth, or jaw). Persistent vomiting or severe lightheadedness should also be evaluated by the physician. ANTISPASMODICS: You have been given a prescription for an antispasmodic medicine. This type of drug is used to decrease cramping and pain in the intestines. It is also used to decrease secretion of internal fluids (such as stomach acid in ulcer disease or pancreatic juice in pancreas disease). This medicine may cause drowsiness, especially with the first dose. Do not operate machinery or drive until all side effects have resolved. Do not combine with alcohol. Other common side effects include dry mouth and eyes. In older persons, antispasmodics can occasionally cause urinary retention, constipation, or trouble focusing the eyes. Glaucoma may be worsened by this medicine. ORAL NARCOTIC MEDICATION: You have been given a prescription for pain control. This medication is a narcotic. It's best taken with food, as nausea can result if taken on an empty stomach. Don't operate machinery or drive within six hours of taking this medication. Do not combine this medicine with alcohol, or with any medication which can cause sedation (such as cold tablets or sleeping pills) unless you get permission from the physician. Narcotics tend to cause constipation. If possible, drink plenty of fluids and eat a diet high in fiber and fruits. Please be aware that prescription narcotics also have the potential for abuse. People become addicted to these medications because of the general sense of wellbeing that they induce. This feeling along with a significant reduction in tension, anxiety, and aggression provides a stimulating seductive quality to these drugs. Once your pain is under control, we encourage you to discard your unused narcotics. FOLLOW-UP CARE: If you have been referred to a physician for follow-up care, call the physician s office for an appointment as you were instructed or within the next two days. If you experience worsening or a significant change in your symptoms, notify the physician immediately or return to the Emergency Department at any time for re-evaluation. FOLLOW-UP CARE: You should return for re-evaluation in 12 hours. This follow-up visit is important. If you are unable to return, or feel that the return visit is unnecessary, please call us. A sequins slinger within 2-3 days. Follow-up with PCP within 2-3 days. Take omeprazole as directed daily. Take Zofran as needed. Laboratory findings show that he did not have pancreatitis. Forms: Return to Work Referrals: CHAPINCITO WILKERSON MD [ACTIVE STAFF] - Follow up in 3-5 days GABRIELLE SERNA MD [ACTIVE STAFF] - Follow up in 3-5 days
--- NOTE | 2017-08-31 17:10 | RADIOLOGY REPORT (SQ) ---
EXAM DESCRIPTION: CT ABD/PELVIS WITH IV ORAL COMPLETED DATE/TIME: 08/31/2017 4:54 pm REASON FOR STUDY: severe RUQ, LUQ, epigastric pain, +nausea COMPARISON: 08/12/2017 TECHNIQUE: CT scan of the abdomen and pelvis performed using helical scanning technique with dynamic intravenous contrast injection and oral contrast. Images reviewed with lung, soft tissue, and bone w indows. Reconstructed coronal and sagittal MPR images reviewed. Delayed images for evaluation of the urinary system also acquired. All images stored on PACS. All CT scanners at this facility use dose modulation, iterative reconstruction, and/or weight based d osing when appropriate to reduce radiation dose to as low as reasonably achievable (ALARA). [facility]: Dose Right [facility]: CareDose [facility]: Dose Right [facility]: Teradose 4D [facility]: [place] CONTRAST TYPE AND DOSE: contrast/concentration: Isovue 370.00 mg/ml; Total Contrast Delivered: 99.0 ml; Total Saline Delivered: 67.0 ml RENAL FUNCTION: None required. The patient is less than 50 years old. RADIATION DOSE: CT Rad equipment meets quality standard of care and radiation dose reduction techniq ues were employed. CTDIvol: 17.9 - 19.6 mGy. DLP: 2021 mGy-cm.. LIMITATIONS: None. FINDINGS: LOWER CHEST: No significant findings. No nodules or infiltrates. LIVER: Normal size. No masses. No dilated ducts. There is diffuse fatty infiltration of the liver w hich was present on the previous study. SPLEEN: Normal size. No focal lesions. PANCREAS: No masses. No significant calcifications. No adjacent inflammation or peripancreatic fluid collections. Pancreatic duct not dilated. GALLBLADDER: No identified stones by CT criteria. No inflammatory changes to suggest cholecystitis. ADRENAL GLANDS: No significant masses or asymmetry. RIGHT KIDNEY AND URETER: No solid masses. No significant calcifications. No hydronephrosis or hyd roureter. LEFT KIDNEY AND URETER: No solid masses. No significant calcifications. No hydronephrosis or hydr oureter. AORTA AND VESSELS: No aneurysm. No dissection. Renal arteries, SMA, celiac without stenosis. RETROPERITONEUM: No retroperitoneal adenopathy, hemorrhage or masses. BOWEL AND PERITONEAL CAVITY: No masses or inflammatory changes. No free fluid or peritoneal masses. APPENDIX: Normal. PELVIS: No mass. No free fluid. Normal bladder. ABDOMINAL WALL: No masses. No hernias. BONES: No significant or acute findings. OTHER: There are couple subcutaneous nodules in the right abdomen which may represent injection sites . IMPRESSION: No significant interval changes compared to the previous study. Again there is diffuse fatty infiltration of the liver. No other significant intra-abdominopelvic abnormalities were identi fied. Other findings as noted above TECHNICAL DOCUMENTATION: JOB ID: [id number] Quality ID # [id number]: Final reports with documentation of one or more dose reduction techniques (e.g., Au tomated exposure control, adjustment of the mA and/or kV according to patient size, use of iterative reconstruction technique) 2010 [employer]- All Rights Reserved Reading location - IP/workstation name: [email or web address]
[2017-08-31 19:33] VITALS: BP 114/63
== END 2017-08-31 19:33 | disposition home or self-care (01) ==
LOC: ER 11:13
DX: K75.81 Nonalcoholic steatohepatitis (NASH) (principal); R10.13 Epigastric pain; R10.11 Right upper quadrant pain; R10.12 Left upper quadrant pain; R74.0 Nonspecific elevation of levels of transaminase and lactic acid dehydrogenase [LDH]; I10 Essential (primary) hypertension; Z79.899 Other long term (current) drug therapy; Z87.19 Personal history of other diseases of the digestive system; Z88.5 Allergy status to narcotic agent; Z87.892 Personal history of anaphylaxis; Z88.0 Allergy status to penicillin
CPT/HCPCS: 96376; 99284; 96361; 96374; 96375; 36415; 83690; 84703; 85025; 80053; 74177; J1170; J2405; J7120

== ENCOUNTER 2017-09-03 12:34 | Emergency (ER) | payer BC ==
--- NOTE | 2017-09-03 13:50 | ER Document Report ---
ED Medical Screen (RME) - General Chief Complaint: Abdominal Pain Stated Complaint: ABDOMINAL PAIN, NAUSEA, VOMITING Time Seen by Provider: 09/03/17 13:33 Mode of Arrival: Ambulatory Information source: Patient Notes: 32-year-old female history of pancreatitis due to triglyceride elevation presents with complaints of abdominal pain nausea vomiting I have greeted and performed a rapid initial assessment of this patient. A comprehensive ED assessment and evaluation of the patient, analysis of test results and completion of the medical decision making process will be conducted by additional ED providers. PHYSICAL EXAMINATION: GENERAL: Obese female HEAD: Atraumatic, normocephalic. EYES: Pupils equal round extraocular movements intact, conjunctiva are normal. ENT: Nares patent NECK: Normal range of motion LUNGS: No respiratory distress Musculoskeletal: Normal range of motion NEUROLOGICAL: Normal speech, normal gait. PSYCH: Normal mood, normal affect. SKIN: Warm, Dry, normal turgor, no rashes or lesions noted. TRAVEL OUTSIDE OF THE [place] IN LAST 30 DAYS: No - Related Data Allergies/Adverse Reactions: morphine [Morphine] Allergy (Severe, Verified 08/31/17 11:16) Hives Penicillins Allergy (Severe, Verified 08/31/17 11:16) Anaphylaxis Past Medical History - Social History Chew tobacco use (# tins/day): No Frequency of alcohol use: None Drug Abuse: None Family history: Reviewed & Not Pertinent - Past Medical History Cardiac Medical History: Reports: Hx Hypertension Denies: Hx Atrial Fibrillation, Hx Congestive Heart Failure, Hx Coronary Artery Disease, Hx DVT, Hx Heart Attack, Hx Hypercholesterolemia, Hx Pulmonary Embolism Pulmonary Medical History: Denies: Hx Asthma, Hx Bronchitis, Hx COPD, Hx Pneumonia, Hx Sleep Apnea Neurological Medical History: Denies: Hx Cerebrovascular Accident, Hx Seizures Endocrine Medical History: Denies: Hx Diabetes Mellitus Type 1, Hx Diabetes Mellitus Type 2, Hx Hyperthyroidism, Hx Hypothyroidism Renal/ Medical History: Reports: Hx Kidney Stones, Hx Ovarian Cysts. Denies: Hx Peritoneal Dialysis GI Medical History: Denies: Hx Cirrhosis, Hx Gastroesophageal Reflux Disease, Hx Hepatitis Musculoskeltal Medical History: Reports Hx Arthritis - Affecting her back primarily Psychiatric Medical History: Denies: Hx Depression Traumatic Medical History: Reports: Hx Fractures Infectious Medical History: Reports: Hx C-Diff. Denies: Hx Hepatitis, Hx MRSA Past Surgical History: Reports: Hx Kidney (Renal Surgery) - when child, Hx Orthopedic Surgery - left ankle, Other - Left ureteral stent and other corrective surgery. - Immunizations Immunizations up to date: No Hx Diphtheria, Pertussis, Tetanus Vaccination: No History of Influenza Vaccine for 03/2017 - 08/2017 Season: Refused Physical Exam - Vital signs Vitals: Temp Pulse Resp BP Pulse Ox 98.1 F 100 14 129/67 H 97 09/03/17 12:46 09/03/17 12:46 09/03/17 12:46 09/03/17 12:46 09/03/17 12:46 Course - Vital Signs Vital signs: Temp Pulse Resp BP Pulse Ox 98.1 F 100 14 129/67 H 97 09/03/17 12:46 09/03/17 12:46 09/03/17 12:46 09/03/17 12:46 09/03/17 12:46
[2017-09-03] MEDS ORDERED: FENTANYL CITRATE INJ/PF 100 MCG/2 ML AMPUL IV ONE (13:51)
[2017-09-03] MEDS ORDERED: METOCLOPRAMIDE HCL INJ/PF 10 MG/2 ML SDV IV ONE (13:51)
[2017-09-03] MEDS: NORMAL SALINE 1000 ML 1,000 ML IV PRN ×2 (14:29→15:38)
--- NOTE | 2017-09-03 14:38 | ER Document Report ---
ED GI/ - General Mode of Arrival: Ambulatory Information source: Patient TRAVEL OUTSIDE OF THE [place] IN LAST 30 DAYS: No - HPI Patient complains to provider of: Abdominal pain, Diarrhea, Vomiting Onset: Other - 3 weeks ago Location: Other - see notes above Associated symptoms: Other - see notes above Exacerbated by: Food <AKILA BLANCO - Last Filed: 09/03/17 15:54> <CHELITA ALVAREZ - Last Filed: 09/03/17 19:39> - General Chief Complaint: Abdominal Pain Stated Complaint: ABDOMINAL PAIN, NAUSEA, VOMITING Time Seen by Provider: 09/03/17 13:33 Notes: 32 year old female with history of acute pancreatitis presents to the ED complaining of abdominal pain and intermittent nausea, vomiting, and diarrhea that started 3 weeks ago. Patient was seen in the ED on 08/11/2017 and was diagnosed with acute pancreatitis. Patient has been having these symptoms since the diagnosis. Patient reports that eating exacerbates her abdominal pain. Patient has had nothing to eat or drink today. Patient additionally complains of chills, and 1 episode of blood in her diarrhea this morning. Patient denies any hematemesis. Patient called Dr. Wilkerson today concerning her symptoms and was told to come to the ED. PCP: Dr. Manzo (AKILA BLANCO) - Related Data Allergies/Adverse Reactions: morphine [Morphine] Allergy (Severe, Verified 08/31/17 11:16) Hives Penicillins Allergy (Severe, Verified 08/31/17 11:16) Anaphylaxis Past Medical History - General Information source: Patient - Social History Smoking Status: Never Smoker Chew tobacco use (# tins/day): No Frequency of alcohol use: None Drug Abuse: None Family History: Malignancy, Other - Pulmonary emboli Patient has suicidal ideation: No Patient has homicidal ideation: No - Past Medical History Cardiac Medical History: Reports: Hx Hypercholesterolemia, Hx Hypertension Denies: Hx Atrial Fibrillation, Hx Congestive Heart Failure, Hx Coronary Artery Disease, Hx DVT, Hx Heart Attack, Hx Pulmonary Embolism Pulmonary Medical History: Denies: Hx Asthma, Hx Bronchitis, Hx COPD, Hx Pneumonia, Hx Sleep Apnea Neurological Medical History: Denies: Hx Cerebrovascular Accident, Hx Seizures Endocrine Medical History: Denies: Hx Diabetes Mellitus Type 1, Hx Diabetes Mellitus Type 2, Hx Hyperthyroidism, Hx Hypothyroidism Renal/ Medical History: Reports: Hx Kidney Stones, Hx Ovarian Cysts. Denies: Hx Peritoneal Dialysis GI Medical History: Reports: Hx Pancreatitis - acute (08/11/2017). Denies: Hx Cirrhosis, Hx Gastroesophageal Reflux Disease, Hx Hepatitis Musculoskeltal Medical History: Reports Hx Arthritis - Affecting her back primarily Psychiatric Medical History: Denies: Hx Depression Traumatic Medical History: Reports: Hx Fractures Infectious Medical History: Reports: Hx C-Diff. Denies: Hx Hepatitis, Hx MRSA Past Surgical History: Reports: Hx Kidney (Renal Surgery) - when child, Hx Orthopedic Surgery - left ankle, Other - Left ureteral stent and other corrective surgery.. Denies: Hx Cholecystectomy - Immunizations Immunizations up to date: No Hx Diphtheria, Pertussis, Tetanus Vaccination: No <AKILA BLANCO - Last Filed: 09/03/17 15:54> Review of Systems - Review of Systems Constitutional: See HPI, Chills EENT: No symptoms reported Cardiovascular: No symptoms reported Respiratory: No symptoms reported Gastrointestinal: See HPI, Abdominal pain, Diarrhea, Nausea, Vomiting, Poor appetite, Poor fluid intake, Other - Blood in stool. Genitourinary: No symptoms reported Female Genitourinary: No symptoms reported Musculoskeletal: No symptoms reported Skin: No symptoms reported Hematologic/Lymphatic: No symptoms reported Neurological/Psychological: No symptoms reported -: Yes All other systems reviewed and negative <AKILA BLANCO - Last Filed: 09/03/17 15:54> Physical Exam <AKILA BLANCO - Last Filed: 09/03/17 15:54> <CHELITA ALVAREZ - Last Filed: 09/03/17 19:39> - Vital signs Vitals: Temp Pulse Resp BP Pulse Ox 98.1 F 100 14 129/67 H 97 09/03/17 12:46 09/03/17 12:46 09/03/17 12:46 09/03/17 12:46 09/03/17 12:46 - Notes Notes: GENERAL: Alert, interacts well. No acute distress. HEAD: Normocephalic, atraumatic. EYES: Pupils equal, round, and reactive to light. Extraocular movements intact. ENT: Oral mucosa moist, tongue midline. NECK: Full range of motion. Supple. Trachea midline. LUNGS: Clear to auscultation bilaterally, no wheezes, rales, or rhonchi. No respiratory distress. HEART: Mild tachycardia with regular rhythm. No murmurs, gallops, or rubs. ABDOMEN: Soft. Non-distended. Bowel sounds present in all 4 quadrants. No Vasiliy 's sign. Tenderness to palpation that is worse to the epigastrium, but also present to the bilateral mid abdomen. No dede-umbilical tenderness to palpation. EXTREMITIES: Moves all 4 extremities spontaneously. No edema, radial pulses 2/4 bilaterally. No cyanosis. RECTAL: Firm stool. No impaction or obstruction. No melena or active bleeding visualized. Chaperoned by: Padma Bustillo RN NEUROLOGICAL: Alert and oriented x3. Normal speech. PSYCH: Normal affect, normal mood. SKIN: Warm, dry, and normal turgor. No rashes or lesions noted. (AKILA BLANCO) Course - Laboratory Result Diagrams: 09/03/17 14:20 09/03/17 14:20 <AKILA BLANCO - Last Filed: 09/03/17 15:54> - Laboratory Result Diagrams: 09/03/17 14:20 09/03/17 14:20 <CHELITA ALVAREZ - Last Filed: 09/03/17 19:39> - Re-evaluation Re-evalutation: 09/03/17 17:02 CBC unremarkable, CMP grossly unremarkable, minimal elevations in the AST and ALT quite possibly related to her recent cholesterol medications, no evidence of fulminant hepatitis, lipase normal at 98.5, occult blood is negative despite reports of rectal bleeding. No evidence of dehydration despite stating that she has been having vomiting and diarrhea and unable to eat for several days. Patient was given GI cocktail, states that it made her pain worse, makes it feel like she has a squeezing spasming pain in her chest and at the top of her stomach. Discussed with patient that the fact that she has not had much to eat for the past several days may be causing increased acid production in her stomach and may be causing esophageal spasm from reflux as well, encouraged patient to take Carafate for symptomatic relief as well as Zantac twice a day. Patient will also be given Phenergan to help with the nausea as she states that the Zofran is helping with vomiting but not with nausea. Patient will be discharged to home, encouraged to follow-up with GI as an outpatient. Patient inquired as to why she could not have narcotic pain medication to go home with. Discussed with patient that narcotic pain medication is not an appropriate treatment for epigastric abdominal pain which is suspected to be from gastritis. Discussed with patient that it is absolutely possible we could be missing something so if she has any hematemesis, further episodes of rectal bleeding, fevers or any new or concerning symptoms she should absolutely return to the emergency department. Patient will be discharged to home. 09/03/17 17:06 Elevated LFTs are quite similar to prior encounters. (CHELITA ALVAREZ) - Vital Signs Vital signs: Temp Pulse Resp BP Pulse Ox 97.2 F 82 18 110/65 99 09/03/17 17:39 09/03/17 17:39 09/03/17 17:39 09/03/17 17:39 09/03/17 17:39 - Laboratory Laboratory results interpreted by me: 09/03/17 14:20 Calcium 10.4 H AST 43 H ALT 62 H Discharge <AKILA BLANCO - Last Filed: 09/03/17 15:54> <CHELITA ALVAREZ - Last Filed: 09/03/17 19:39> - Discharge Clinical Impression: Epigastric abdominal pain of unknown etiology, Elevated LFTs Nausea and vomiting Qualifiers: Vomiting type: unspecified Vomiting Intractability: non-intractable Qualified Code(s): R11.2 - Nausea with vomiting, unspecified Diarrhea Qualifiers: Diarrhea type: unspecified type Qualified Code(s): R19.7 - Diarrhea, unspecified HTN (hypertension) Qualifiers: Hypertension type: essential hypertension Qualified Code(s): I10 - Essential ( primary) hypertension Condition: Stable Disposition: HOME, SELF-CARE Additional Instructions: Today there was no evidence of pancreatitis. Some of your pain may be coming from gastritis or reflux and your esophagus causing esophagitis and esophageal spasm. Please continue to take the other medications that you are prescribed however please start taking Zantac 75 mg twice a day, this will decrease acid production. Please also consider taking the Carafate tablets that you have been given, this is a coating agent that will help to decrease any pain in your stomach that may be coming from gastritis. It is important that you take this medication at least an hour after your other medications or ulcer other medications will not be absorbed. I have also prescribed you Phenergan, this is an additional medication for nausea and vomiting that she can take in addition to the Zofran. Today there is no sign of life-threatening rectal bleeding. Should you develop more rectal bleeding particularly if it does not happen while you are having a bowel movement please return to the emergency department. Please also return she should you develop large amounts of blood in her vomit, vomit that looks like chewed up coffee grounds or dark black tarry stools. Please follow-up with Dr. Wilkerson as an outpatient for further investigation. Prescriptions: Promethazine HCl [Phenergan 25 mg Tablet] 1 - 2 tab PO Q6H PRN #15 tablet PRN Reason: Ranitidine HCl [Zantac 75 mg Tablet] 75 mg PO BID #30 tablet Sucralfate [Carafate 1 gm Tablet] 1 gm PO ACHS #60 tablet Forms: Elevated Blood Pressure Referrals: CHAPINCITO WILKERSON MD [ACTIVE STAFF] - Follow up as needed Scribe Attestation: 09/03/17 19:39 I personally performed the services described in the documentation, reviewed and edited the documentation which was dictated to the scribe in my presence, and it accurately records my words and actions. (CHELITA ALVAREZ) Scribe Documentation - Scribe Written by Nirmala:: Nirmala Archuleta, 09/03/2017 1514 acting as scribe for :: Sarbjit <AKILA BLANCO - Last Filed: 09/03/17 15:54>
[2017-09-03 14:46] LABS: ABSOLUTE BASOPHILS # (AUTO) 0.1 10^3/uL (0.0-0.2); ABSOLUTE EOSINOPHILS # (AUTO) 0.1 10^3/uL (0.0-0.6); ABSOLUTE LYMPHOCYTES (AUTO) 1.8 10^3/uL (0.5-4.7); ABSOLUTE MONOCYTES (AUTO) 0.3 10^3/uL (0.1-1.4); ABSOLUTE NEUT (AUTO) 5.5 10^3/uL (1.7-8.2); BASOPHILS % (AUTO) 0.7 % (0-2); EOSINOPHILS % (AUTO) 1.3 % (0-6); HEMATOCRIT 40.9 % (36.0-47.0); HEMOGLOBIN 13.9 g/dL (12.0-15.5); LYMPHOCYTES % (AUTO) 23.4 % (13-45); MEAN CORPUSCULAR HGB CONC 33.9 g/dL (32.0-36.0); MEAN CORPUSCULAR VOLUME 88 fl (80-97); MONOCYTES % (AUTO) 4.3 % (3-13); PLATELET COUNT 333 10^3/uL (150-450); RED BLOOD COUNT 4.63 10^6/uL (3.72-5.28); RED CELL DISTRIBUTION WIDTH 13.1 % (11.5-14.0); SEGMENTED NEUTROPHILS % (AUTO) 70.3 % (42-78); TOTAL CELLS COUNTED % (AUTO) 100 %; WHITE BLOOD COUNT 7.9 10^3/uL (4.0-10.5)
[2017-09-03 15:04] LABS: ALANINE AMINOTRANSFERASE 62 U/L (9-52); ALKALINE PHOSPHATASE 84 U/L (38-126); ANION GAP 16 (5-19); ASPARTATE AMINO TRANSFERASE 43 U/L (14-36); BILIRUBIN,DIRECT 0.2 mg/dL (0.0-0.4); BILIRUBIN,TOTAL 0.4 mg/dL (0.2-1.3); BLOOD UREA NITROGEN 11 mg/dL (7-20); CALCIUM 10.4 mg/dL (8.4-10.2); CARBON DIOXIDE 26 mmol/L (22-30); CHLORIDE 102 mmol/L (98-107); GLUCOSE 96 mg/dL (75-110); LIPASE 98.5 U/L (23-300); POTASSIUM 4.4 mmol/L (3.6-5.0); SODIUM 143.6 mmol/L (137-145); TOTAL PROTEIN 8.2 g/dL (6.3-8.2)
[2017-09-03] MEDS ORDERED: METOCLOPRAMIDE HCL ORAL SOLN 10 MG/10 ML UDCUP PO ONE (15:23)
[2017-09-03] MEDS ORDERED: MAG HYDROX/AL HYDROX/SIMETH SUSP 30 ML UDCUP PO ONE (15:23)
[2017-09-03] MEDS ORDERED: LIDOCAINE 2% VISCOUS SOLN 20 ML UDCUP PO ONE (15:23)
[2017-09-03] MEDS ORDERED: SUCRALFATE SUSP 1 GM/10 ML UDCUP PO ONE (16:23)
[2017-09-03 17:48] VITALS: BP 110/65
== END 2017-09-03 17:48 | disposition home or self-care (01) ==
LOC: ER 12:34
DX: R11.2 Nausea with vomiting, unspecified (principal); R19.7 Diarrhea, unspecified; R74.0 Nonspecific elevation of levels of transaminase and lactic acid dehydrogenase [LDH]; R10.13 Epigastric pain; K62.5 Hemorrhage of anus and rectum; R68.83 Chills (without fever); E78.00 Pure hypercholesterolemia, unspecified; R63.0 Anorexia; R00.0 Tachycardia, unspecified; I10 Essential (primary) hypertension; Z87.19 Personal history of other diseases of the digestive system; Z87.442 Personal history of urinary calculi; Z88.5 Allergy status to narcotic agent
CPT/HCPCS: 99284; 96361; 96374; 36415; 83690; 85025; 82272; 80053; J3010; J3490; J2765; J7030

== ENCOUNTER 2017-10-15 12:25 | Observation (INO) | payer BC ==
[2017-10-15] MEDS ORDERED: ACETAMINOPHEN 325 MG TABLET PO PRN (13:39)
[2017-10-15 14:45] LABS: ABSOLUTE EOSINOPHILS # (AUTO) 0.1 10^3/uL (0.0-0.6); ABSOLUTE LYMPHOCYTES (AUTO) 1.7 10^3/uL (0.5-4.7); ABSOLUTE MONOCYTES (AUTO) 0.4 10^3/uL (0.1-1.4); ABSOLUTE NEUT (AUTO) 5.4 10^3/uL (1.7-8.2); BASOPHILS % (AUTO) 0.5 % (0-2); EOSINOPHILS % (AUTO) 1.1 % (0-6); HEMATOCRIT 40.2 % (36.0-47.0); HEMOGLOBIN 13.7 g/dL (12.0-15.5); LYMPHOCYTES % (AUTO) 21.9 % (13-45); MEAN CORPUSCULAR HEMOGLOBIN 30.2 pg (27.0-33.4); MEAN CORPUSCULAR HGB CONC 34.1 g/dL (32.0-36.0); MEAN CORPUSCULAR VOLUME 89 fl (80-97); MONOCYTES % (AUTO) 5.8 % (3-13); PLATELET COUNT 339 10^3/uL (150-450); RED BLOOD COUNT 4.53 10^6/uL (3.72-5.28); RED CELL DISTRIBUTION WIDTH 13.1 % (11.5-14.0); SEGMENTED NEUTROPHILS % (AUTO) 70.7 % (42-78); TOTAL CELLS COUNTED % (AUTO) 100 %; WHITE BLOOD COUNT 7.6 10^3/uL (4.0-10.5)
[2017-10-15 15:08] LABS: ALANINE AMINOTRANSFERASE 52 U/L (9-52); ALBUMIN 5.1 g/dL (3.5-5.0); ALKALINE PHOSPHATASE 66 U/L (38-126); AMYLASE 40 U/L (30-110); ANION GAP 15 (5-19); ASPARTATE AMINO TRANSFERASE 42 U/L (14-36); BILIRUBIN,DIRECT 0.3 mg/dL (0.0-0.4); BILIRUBIN,TOTAL 0.3 mg/dL (0.2-1.3); BLOOD UREA NITROGEN 11 mg/dL (7-20); CALCIUM 10.1 mg/dL (8.4-10.2); CARBON DIOXIDE 24 mmol/L (22-30); CHLORIDE 108 mmol/L (98-107); GLUCOSE 81 mg/dL (75-110); LIPASE 87.4 U/L (23-300); POTASSIUM 4.5 mmol/L (3.6-5.0); SODIUM 146.9 mmol/L (137-145); TOTAL PROTEIN 8.6 g/dL (6.3-8.2)
--- NOTE | 2017-10-15 15:32 | PDOC H&P ---
History of Present Illness Admission Date/PCP: 10/15/17 12:25 SONIA ANTONYPavel Patient complains of: Abdominal pain History of Present Illness: PEGGY BROWN is a 32 year old female who presented to the office earlier today with complain of abdominal pain described as stabbing, graded9/10, intermittent in occurrence and progressive worse in intensity. Patient reported associated nausea, decrease appetite, fever, shortness of breath, and night sweats. she claimed episodes of chest pain, palpitation, and light headedness with standing. She reported shortness of breath with exertion this morning, associated fatigue, weakness and dizziness. Her evaluation in the office was significant for tachycardia and acutely ill looking. Past Medical History Cardiac Medical History: Reports: Hyperlipidema, Hypertension Denies: Atrial Fibrillation, Congestive Heart Failure, Coronary Artery Disease, DVT, Myocardial Infarction, Pulmonary Embolism Pulmonary Medical History: Denies: Asthma, Bronchitis, Chronic Obstructive Pulmonary Disease (COPD), Pneumonia, Sleep Apnea, Tuberculosis Neurological Medical History: Denies: Seizures Endocrine Medical History: Denies: Diabetes Mellitus Type 1, Diabetes Mellitus Type 2, Hyperthyroidism, Hypothyroidism Renal/ Medical History: Denies: End Stage Renal Disease GI Medical History: Denies: Cirrhosis, Gastroesophageal Reflux Disease, Hepatitis Musculoskeltal Medical History: Reports: Arthritis Psychiatric Medical History: Denies: Bipolar Disorder, Depression Hematology: Denies: Anemia Infectious Medical History: Reports: Clostridium Difficile Denies: Methicillin-Resistant Staph Aureus Past Surgical History Past Surgical History: Reports: Orthopedic Surgery - left ankle, Other - Left ureteral stent and other corrective surgery. Denies: Cholecystectomy Social History Information Source: Patient Smoking Status: Never Smoker Frequency of Alcohol Use: None Hx Recreational Drug Use: No Drugs: None Hx Prescription Drug Abuse: No - Advance Directive Resuscitation Status: Full Code Family History Family History: Malignancy, Other - Pulmonary emboli Parental Family History Reviewed: Yes Children Family History Reviewed: Yes Sibling(s) Family History Reviewed.: Yes Medication/Allergy Home Medications: Metoprolol Succinate [Toprol Xl 25 mg Tab.sr] 25 mg PO DAILY 08/11/17 Tamsulosin HCl [Flomax 0.4 mg Cap.sr] 0.4 mg PO DAILY 08/11/17 Metoprolol Succinate [Toprol Xl 25 mg Tab.sr] 25 mg PO DAILY tab.sr.24h [place]-3 Fatty Acids/Fish Oil [[place] 3 Fish Oil Softgel] 1 each PO BID 30 Days # 60 capsule. 08/15/17 Rosuvastatin Calcium [Crestor] 40 mg PO QHS 30 Days #30 tablet 08/15/17 Omeprazole 20 mg PO DAILY #30 tablet. 08/31/17 Ondansetron [Zofran Odt 4 mg Tablet] 1 - 2 tab PO Q4HP PRN #10 tab.rapdis Promethazine HCl [Phenergan 25 mg Tablet] 1 - 2 tab PO Q6H PRN #15 tablet Ranitidine HCl [Zantac 75 mg Tablet] 75 mg PO BID #30 tablet 09/03/17 Sucralfate [Carafate 1 gm Tablet] 1 gm PO ACHS #60 tablet 09/03/17 Allergies/Adverse Reactions: morphine [Morphine] Allergy (Severe, Verified 08/31/17 11:16) Hives Penicillins Allergy (Severe, Verified 08/31/17 11:16) Anaphylaxis Review of Systems Constitutional: PRESENT: anorexia, fatigue, fever(s), night sweats, weakness Nose, Mouth, and Throat: ABSENT: as per HPI, headache(s), mouth pain, sore throat, vertigo, other Cardiovascular: PRESENT: chest pain, dyspnea on exertion, palpitations Respiratory: PRESENT: dyspnea. ABSENT: as per HPI, cough, hemoptysis, sputum, other Gastrointestinal: PRESENT: abdominal pain, nausea. ABSENT: as per HPI, bloating , coffee ground emesis, constipation, diarrhea, dysphagia, heartburn, hematemesis, hematochezia, melena, vomiting, other Genitourinary: ABSENT: dysuria, hematuria Musculoskeletal: ABSENT: joint swelling Integumentary: ABSENT: rash, wounds Neurological: PRESENT: dizziness, weakness - generalized. ABSENT: as per HPI, abnormal gait, abnormal movements, abnormal speech, confusion, convulsions, focal weakness, frequent falls, lack of coordination, memory loss, numbness, paresthesias, restless legs, syncope, tingling, tremor(s), vertigo, other Psychiatric: ABSENT: anxiety, depression, homidical ideation, suicidal ideation Endocrine: ABSENT: cold intolerance, heat intolerance, menstrual abnormalities, polydipsia, polyuria Physical Exam Vital Signs: Temp Pulse Resp BP Pulse Ox 99.5 F 124 H 16 114/82 99 05/04/18 13:28 10/15/17 13:28 10/15/17 13:28 10/15/17 13:28 10/15/17 13:28 Intake & Output 10/14/17 10/15/17 10/16/17 06:59 06:59 06:59 Weight 94.3 kg General appearance: PRESENT: obese - acutely ill looking Head exam: PRESENT: atraumatic, normocephalic Eye exam: PRESENT: conjunctiva pink, EOMI, PERRLA. ABSENT: scleral icterus Ear exam: PRESENT: normal external ear exam Mouth exam: PRESENT: moist, tongue midline Neck exam: PRESENT: full ROM. ABSENT: carotid bruit, JVD, lymphadenopathy, thyromegaly Respiratory exam: PRESENT: clear to auscultation [place] Cardiovascular exam: PRESENT: +S1, +S2, tachycardia. ABSENT: diastolic murmur, gallop, systolic murmur Pulses: PRESENT: normal dorsalis pedis pul, +2 pedal pulses bilateral Vascular exam: PRESENT: normal capillary refill. ABSENT: pallor GI/Abdominal exam: PRESENT: normal bowel sounds, tenderness - Left upper quadrant expressed tenderness to palpation. ABSENT: ascites, guarding, mass, Nam's sign, organolmegaly, rebound, rigid Rectal exam: PRESENT: deferred Extremities exam: ABSENT: pedal edema Musculoskeletal exam: PRESENT: ambulatory Neurological exam: PRESENT: alert, awake, oriented to person, oriented to place , oriented to time, oriented to situation, CN II-XII grossly intact. ABSENT: motor sensory deficit Psychiatric exam: PRESENT: appropriate affect, normal mood. ABSENT: homicidal ideation, suicidal ideation Skin exam: PRESENT: dry, intact, warm. ABSENT: cyanosis, rash Results Laboratory Results: 10/15/17 14:25 10/15/17 14:25 WBC 7.6 RBC 4.53 Hgb 13.7 Hct 40.2 MCV 89 MCH 30.2 MCHC 34.1 RDW 13.1 Plt Count 339 Seg Neutrophils % 70.7 Lymphocytes % 21.9 Monocytes % 5.8 Eosinophils % 1.1 Basophils % 0.5 Absolute Neutrophils 5.4 Absolute Lymphocytes 1.7 Absolute Monocytes 0.4 Absolute Eosinophils 0.1 Absolute Basophils 0.0 Assessment & Plan - Diagnosis (1) Abdominal pain, acute, left lower quadrant Is this a current diagnosis for this admission?: Yes Plan: See admitting physician order. Her presenting symptoms constellation is worrisome for possible recurrent pancreatitis. Other possible cause of her abdominal pain include kidney stone or tract infection in view of her left CVA tenderness on examination. In view of this concern she will be admitted to observation bed for further evaluation ad management. Patient is fully aware and agreeable to this care plan. (2) History of acute pancreatitis Is this a current diagnosis for this admission?: Yes Plan: See admitting attending physician orders. (3) Tachycardia Is this a current diagnosis for this admission?: Yes Plan: See admitting attending physician orders. This may be a consequence of volume depletion or infectious process. he claimed compliance with her medication management. (4) Nausea Is this a current diagnosis for this admission?: Yes Plan: See admitting attending physician orders. It may be related to ongoing inflammatory or infectious process. (5) Fever Qualifiers: Fever type: unspecified Qualified Code(s): R50.9 - Fever, unspecified Is this a current diagnosis for this admission?: Yes Plan: See admitting attending physician orders. - Time Time Spent: 50 to 70 Minutes Medications reviewed and adjusted accordingly: Yes Anticipated discharge: Home Within: within 48 hours - Plan Summary Plan Summary: See admitting attending physician orders.
[2017-10-15] MEDS ORDERED: ONDANSETRON 4 MG TAB.RAPDIS PO PRN (15:36)
[2017-10-15 16:00] LABS: APPEARANCE,URINE CLEAR; BILIRUBIN,URINE NEGATIVE (NEGATIVE); COLOR,URINE STRAW; GLUCOSE, URINE NEGATIVE (NEGATIVE); KETONES,URINE NEGATIVE (NEGATIVE); LEUKOCYTE ESTERASE,URINE NEGATIVE (NEGATIVE); NITRITE,URINE NEGATIVE (NEGATIVE); PROTEIN,URINE NEGATIVE (NEGATIVE); URINE SPECIFIC GRAVITY 1.008; UROBILINOGEN,URINE NEGATIVE mg/dL (<2.0)
[2017-10-15] MEDS: NORMAL SALINE 1000 ML 1,000 ML IV PRN (16:20)
--- NOTE | 2017-10-15 21:41 | EKG REPORT ---
SEVERITY:- OTHERWISE NORMAL ECG - SINUS TACHYCARDIA : Confirmed by: Kameron Haq 15-Oct-2017 21:40:27
[2017-10-15] MEDS ORDERED: ATORVASTATIN CALCIUM 80 MG TABLET PO SCH (22:00)
[2017-10-16] MEDS: NORMAL SALINE 1000 ML 1,000 ML IV PRN (02:31)
[2017-10-16] MEDS ORDERED: LANSOPRAZOLE 30 MG TAB.RAP.DR PO SCH (06:00)
[2017-10-16 07:53] LABS: ANION GAP 12 (5-19); BLOOD UREA NITROGEN 9 mg/dL (7-20); CARBON DIOXIDE 23 mmol/L (22-30); CHLORIDE 110 mmol/L (98-107); GLUCOSE 96 mg/dL (75-110); POTASSIUM 3.8 mmol/L (3.6-5.0); SODIUM 144.7 mmol/L (137-145)
[2017-10-16] MEDS ORDERED: METOPROLOL SUCCINATE 25 MG TAB.SR.24H PO SCH (10:00)
[2017-10-16] MEDS ORDERED: ENOXAPARIN SODIUM INJ 40 MG/0.4 ML DISP.SYRIN SUBCUT SCH (10:00)
[2017-10-16] MEDS ORDERED: LISINOPRIL 10 MG TABLET PO SCH (10:00)
--- NOTE | 2017-10-16 13:10 | PDOC DISCHARGE SUMMARY ---
General - Admit/Disc Date/PCP Admission Date/Primary Care Provider: 10/15/17 12:25 SONIA CAYLA Discharge Date: 10/16/17 - Discharge Diagnosis (1) Abdominal pain, acute, left lower quadrant Is this a current diagnosis for this admission?: Yes (2) History of acute pancreatitis Is this a current diagnosis for this admission?: Yes (3) Tachycardia Is this a current diagnosis for this admission?: Yes (4) Nausea Is this a current diagnosis for this admission?: Yes (5) Fever Is this a current diagnosis for this admission?: Yes - Additional Information Resuscitation Status: Full Code Home Medications: Rosuvastatin Calcium [Crestor] 40 mg PO QHS 30 Days #30 tablet 08/15/17 Cetirizine HCl [Zyrtec 10 mg Tablet] 1 tab PO DAILYP PRN 10/15/17 Metoprolol Succinate [Toprol Xl] 25 mg PO DAILY 10/15/17 [place]-3 Fatty Acids/Fish Oil [Fish Oil 1,000 mg Capsule] 1 cap PO DAILY History of Present Illness Patient complains of: Abdominal pain History of Present Illness: PEGGY BROWN is a 32 year old female who presented to the office earlier today with complain of abdominal pain described as stabbing, graded9/10, intermittent in occurrence and progressive worse in intensity. Patient reported associated nausea, decrease appetite, fever, shortness of breath, and night sweats. she claimed episodes of chest pain, palpitation, and light headedness with standing. She reported shortness of breath with exertion this morning, associated fatigue, weakness and dizziness. Her evaluation in the office was significant for tachycardia and acutely ill looking. Hospital Course Hospital Course: She was managed with IV fluid infusion and Tylenol for her pain. Her tachycardia did improved. She demonstrated low blood pressure most of her stay in the hospital to a point that her Lisinopril was on hold this morning. She denied any chest pain, difficulty with breathing or palpitation. No dysuria, hematuria or flank pain. Her laboratory evaluation has been within acceptable limits. She is agreeable to discharge home today with instruction to discontinue Lisinopril usage and monitor blood pressure until office follow up appointment. Physical Exam Vital Signs: Temp Pulse Resp BP Pulse Ox 98.7 F 86 16 100/55 L 100 10/16/17 07:17 10/16/17 07:17 10/16/17 07:17 10/16/17 07:17 10/16/17 07:17 Intake & Output 10/15/17 10/16/17 10/17/17 06:59 06:59 06:59 Intake Total 488 Output Total 300 Balance 188 Weight 94.3 kg General appearance: PRESENT: no acute distress, well-developed, well-nourished Head exam: PRESENT: atraumatic, normocephalic Eye exam: PRESENT: conjunctiva pink, EOMI, PERRLA. ABSENT: scleral icterus Mouth exam: PRESENT: moist Respiratory exam: PRESENT: clear to auscultation [place] Cardiovascular exam: PRESENT: RRR, +S1, +S2. ABSENT: diastolic murmur, rubs, systolic murmur Pulses: PRESENT: normal dorsalis pedis pul, +2 pedal pulses bilateral Vascular exam: PRESENT: normal capillary refill. ABSENT: pallor GI/Abdominal exam: PRESENT: normal bowel sounds, soft Extremities exam: ABSENT: pedal edema Musculoskeletal exam: PRESENT: ambulatory, normal inspection Neurological exam: PRESENT: alert, awake, oriented to person, oriented to place , oriented to time, oriented to situation, CN II-XII grossly intact. ABSENT: motor sensory deficit Psychiatric exam: PRESENT: appropriate affect, normal mood. ABSENT: homicidal ideation, suicidal ideation Skin exam: PRESENT: dry, intact, warm. ABSENT: cyanosis, rash Results Laboratory Results: 10/15/17 14:25 10/16/17 06:24 10/15/17 10/15/17 10/15/17 14:25 14:25 15:42 WBC 7.6 RBC 4.53 Hgb 13.7 Hct 40.2 MCV 89 MCH 30.2 MCHC 34.1 RDW 13.1 Plt Count 339 Seg Neutrophils % 70.7 Lymphocytes % 21.9 Monocytes % 5.8 Eosinophils % 1.1 Basophils % 0.5 Absolute Neutrophils 5.4 Absolute Lymphocytes 1.7 Absolute Monocytes 0.4 Absolute Eosinophils 0.1 Absolute Basophils 0.0 Sodium 146.9 H Potassium 4.5 Chloride 108 H Carbon Dioxide 24 Anion Gap 15 BUN 11 Creatinine 0.59 Est GFR ( Amer) > 60 Est GFR (Non-Af Amer) > 60 Glucose 81 Calcium 10.1 Total Bilirubin 0.3 AST 42 H ALT 52 Alkaline Phosphatase 66 Total Protein 8.6 H Albumin 5.1 H Amylase 40 Lipase 87.4 Urine Color STRAW Urine Appearance CLEAR Urine pH 7.0 Ur Specific [place] 1.008 Urine Protein NEGATIVE Urine Glucose (UA) NEGATIVE Urine Ketones NEGATIVE Urine Blood NEGATIVE Urine Nitrite NEGATIVE Ur Leukocyte Esterase NEGATIVE Urine WBC (Auto) 1 Urine RBC (Auto) 0 10/16/17 06:24 WBC RBC Hgb Hct MCV MCH MCHC RDW Plt Count Seg Neutrophils % Lymphocytes % Monocytes % Eosinophils % Basophils % Absolute Neutrophils Absolute Lymphocytes Absolute Monocytes Absolute Eosinophils Absolute Basophils Sodium 144.7 Potassium 3.8 Chloride 110 H Carbon Dioxide 23 Anion Gap 12 BUN 9 Creatinine 0.65 Est GFR ( Amer) > 60 Est GFR (Non-Af Amer) > 60 Glucose 96 Calcium 9.0 Total Bilirubin AST ALT Alkaline Phosphatase Total Protein Albumin Amylase Lipase Urine Color Urine Appearance Urine pH Ur Specific [place] Urine Protein Urine Glucose (UA) Urine Ketones Urine Blood Urine Nitrite Ur Leukocyte Esterase Urine WBC (Auto) Urine RBC (Auto) Qualifiers - * PATIENT BEING DISCHARGED WITH ANY OF THE FOLLOWING DIAGNOSIS: No Plan Discharge Plan: Discharge home today. Follow up in the office as instructed upon discharge.
[2017-10-16 13:32] VITALS: BP 114/62
== END 2017-10-16 14:23 | disposition home or self-care (01) ==
LOC: 4S 12:25 → 4W 12:25 → UNDOADMOB 12:25
PROVIDERS: ADMIT Internal Medicine Geriatric Medicine; ATTEND Internal Medicine Geriatric Medicine
DX: R10.32 Left lower quadrant pain (principal); Z87.19 Personal history of other diseases of the digestive system; R00.0 Tachycardia, unspecified; R11.0 Nausea; R50.9 Fever, unspecified; R63.0 Anorexia; R61 Generalized hyperhidrosis; R07.9 Chest pain, unspecified; R00.2 Palpitations; R53.83 Other fatigue; R06.02 Shortness of breath; R42 Dizziness and giddiness; I95.9 Hypotension, unspecified; R53.1 Weakness; E78.5 Hyperlipidemia, unspecified; I10 Essential (primary) hypertension; E66.9 Obesity, unspecified; Z79.899 Other long term (current) drug therapy; Z68.36 Body mass index [BMI] 36.0-36.9, adult; Z86.19 Personal history of other infectious and parasitic diseases; Z96.0 Presence of urogenital implants; Z80.9 Family history of malignant neoplasm, unspecified; Z82.49 Family history of ischemic heart disease and other diseases of the circulatory system; Z80.0 Family history of malignant neoplasm of digestive organs
CPT/HCPCS: 36415 ×2; 87086; 82150; 83690; 85025; 80048; 80053; 81001; 93005; 93010; G0378 ×2; G0379; S0119; J1650; J7030 ×2

== ENCOUNTER 2018-01-12 15:55 | Emergency (ER) | payer BC ==
[2018-01-12] MEDS ORDERED: MAG HYDROX/AL HYDROX/SIMETH SUSP 30 ML UDCUP PO ONE (16:20)
[2018-01-12] MEDS ORDERED: METOCLOPRAMIDE HCL ORAL SOLN 10 MG/10 ML UDCUP PO ONE (16:20)
[2018-01-12] MEDS ORDERED: LIDOCAINE 2% VISCOUS SOLN 20 ML UDCUP PO ONE (16:20)
--- NOTE | 2018-01-12 16:21 | ER Document Report ---
ED Medical Screen (RME) - General Chief Complaint: Abdominal Pain Stated Complaint: ABDOMINAL PAIN Time Seen by Provider: 01/12/18 16:19 TRAVEL OUTSIDE OF THE [place] IN LAST 30 DAYS: No - HPI Patient complains to provider of: Abdominal pain left upper quadrant similar to pancreatitis Onset: Last week Onset/Duration: Persistent Quality of pain: No pain Severity: Moderate Associated Symptoms: None Exacerbated by: Food Relieved by: Denies Similar symptoms previously: Yes - Similar to previous episode of pancreatitis - Related Data Smoking: Non-smoker Frequency of alcohol use: None Drug Abuse: None Allergies/Adverse Reactions: morphine [Morphine] Allergy (Severe, Verified 08/31/17 11:16) Hives Penicillins Allergy (Severe, Verified 08/31/17 11:16) Anaphylaxis Past Medical History - Social History Cigarette use (# per day): No Chew tobacco use (# tins/day): No Frequency of alcohol use: None Drug Abuse: None Family history: Reviewed & Not Pertinent - Past Medical History Cardiac Medical History: Reports: Hx Hypercholesterolemia, Hx Hypertension Denies: Hx Atrial Fibrillation, Hx Congestive Heart Failure, Hx Coronary Artery Disease, Hx DVT, Hx Heart Attack, Hx Pulmonary Embolism Pulmonary Medical History: Denies: Hx Asthma, Hx Bronchitis, Hx COPD, Hx Pneumonia, Hx Sleep Apnea, Hx Tuberculosis Neurological Medical History: Denies: Hx Cerebrovascular Accident, Hx Seizures Endocrine Medical History: Denies: Hx Diabetes Mellitus Type 1, Hx Diabetes Mellitus Type 2, Hx Hyperthyroidism, Hx Hypothyroidism Renal/ Medical History: Reports: Hx Kidney Stones, Hx Ovarian Cysts. Denies: Hx End Stage Renal Disease, Hx Peritoneal Dialysis GI Medical History: Reports: Hx Pancreatitis - acute (08/11/2017). Denies: Hx Cirrhosis, Hx Gastroesophageal Reflux Disease, Hx Hepatitis, Hx Ulcer Musculoskeltal Medical History: Reports Hx Arthritis, Denies Hx Multiple Sclerosis Psychiatric Medical History: Denies: Hx Bipolar Disorder, Hx Depression, Hx Schizophrenia Traumatic Medical History: Reports: Hx Fractures Infectious Medical History: Reports: Hx C-Diff. Denies: Hx Hepatitis, Hx MRSA Past Surgical History: Reports: Hx Kidney (Renal Surgery) - when child, Hx Orthopedic Surgery - left ankle, Other - Left ureteral stent and other corrective surgery.. Denies: Hx Cholecystectomy - Immunizations Immunizations up to date: No Hx Diphtheria, Pertussis, Tetanus Vaccination: No History of Influenza Vaccine for 03/2017 - 08/2017 Season: Refused Review of Systems - Review of Systems Gastrointestinal: See HPI -: Yes All other systems reviewed and negative Physical Exam - Vital signs Vitals: Temp Pulse Resp BP Pulse Ox 99.3 F 100 16 133/77 H 100 01/12/18 15:59 01/12/18 15:59 01/12/18 15:59 01/12/18 15:59 01/12/18 15:59 - General General appearance: Appears well In distress: None - HEENT Head: Normocephalic Eyes: Normal Conjunctiva: Normal - Respiratory Respiratory status: No respiratory distress Chest status: Nontender Breath sounds: Normal Chest palpation: Normal - Cardiovascular Rhythm: Regular Heart sounds: Normal auscultation Murmur: No - Abdominal Inspection: Normal Tenderness: Other - Tender to palpation in the left upper quadrant without any appreciable rebound or guarding no organomegaly negative Nam sign, negative Rovsing sign - Back Back: Normal - Extremities General upper extremity: Normal inspection General lower extremity: Normal inspection - Neurological Neuro grossly intact: Yes Cognition: Normal Course - Re-evaluation Re-evalutation: 01/12/18 17:35 Patient with a normal lipase at this time, overall well appearing, will attempt p.o. challenge given her reassuring laboratory evaluation as I do not believe this is related to a gallbladder surgical abdomen. 01/12/18 20:55 This patient underwent a p.o. challenge and was able to tolerate fluids, she ambulated without assistance the emergency department, she had a urinalysis which did not demonstrate an obvious infection, she had reassuring labs. She noted that she felt a little bit better and thought that she could go home and she did not want to stay in the hospital. Counseled her about the importance of returning for any worsening symptoms and inability to eat or drink. She is given a brief prescription for narcotic medication to help her tolerate p.o. as this may represent a recurrence of pancreatitis despite the normal lipase that she has had pancreatitis in the past. At the time of discharge she was well-appearing, able to ambulate and in agreement with current plan. - Vital Signs Vital signs: Temp Pulse Resp BP Pulse Ox 98.9 F 90 18 129/70 H 99 01/12/18 20:28 01/12/18 20:28 01/12/18 20:28 01/12/18 20:28 01/12/18 20:28 - Laboratory Result Diagrams: 01/12/18 16:30 01/12/18 16:30 Laboratory results interpreted by me: 01/12/18 01/12/18 16:30 18:38 Sodium 147.8 H Chloride 110 H Glucose 116 H Total Protein 8.3 H Ur Leukocyte Esterase SMALL H Doctor's Discharge - Discharge Clinical Impression: Abdominal pain Condition: Stable Disposition: HOME, SELF-CARE Instructions: Abdominal Pain ([facility]) Prescriptions: Hydrocodone/Acetaminophen [Scalf 5-325 mg Tablet] 1 tab PO BID #8 tablet Referrals: SONIA KULKARNI MD [Primary Care Provider] - Follow up as needed
[2018-01-12 16:38] LABS: ABSOLUTE EOSINOPHILS # (AUTO) 0.1 10^3/uL (0.0-0.6); ABSOLUTE LYMPHOCYTES (AUTO) 1.9 10^3/uL (0.5-4.7); ABSOLUTE MONOCYTES (AUTO) 0.5 10^3/uL (0.1-1.4); ABSOLUTE NEUT (AUTO) 3.4 10^3/uL (1.7-8.2); BASOPHILS % (AUTO) 0.5 % (0-2); EOSINOPHILS % (AUTO) 2.1 % (0-6); HEMATOCRIT 43.8 % (36.0-47.0); HEMOGLOBIN 14.6 g/dL (12.0-15.5); LYMPHOCYTES % (AUTO) 31.4 % (13-45); MEAN CORPUSCULAR HEMOGLOBIN 29.5 pg (27.0-33.4); MEAN CORPUSCULAR HGB CONC 33.3 g/dL (32.0-36.0); MEAN CORPUSCULAR VOLUME 89 fl (80-97); MONOCYTES % (AUTO) 8.2 % (3-13); PLATELET COUNT 301 10^3/uL (150-450); RED BLOOD COUNT 4.93 10^6/uL (3.72-5.28); RED CELL DISTRIBUTION WIDTH 12.8 % (11.5-14.0); SEGMENTED NEUTROPHILS % (AUTO) 57.8 % (42-78); TOTAL CELLS COUNTED % (AUTO) 100 %; WHITE BLOOD COUNT 5.9 10^3/uL (4.0-10.5)
[2018-01-12 17:05] LABS: ALANINE AMINOTRANSFERASE 33 U/L (9-52); ALBUMIN 4.8 g/dL (3.5-5.0); ALKALINE PHOSPHATASE 63 U/L (38-126); ANION GAP 14 (5-19); ASPARTATE AMINO TRANSFERASE 25 U/L (14-36); BILIRUBIN,DIRECT 0.3 mg/dL (0.0-0.4); BILIRUBIN,TOTAL 0.3 mg/dL (0.2-1.3); BLOOD UREA NITROGEN 7 mg/dL (7-20); CALCIUM 10.1 mg/dL (8.4-10.2); CARBON DIOXIDE 24 mmol/L (22-30); CHLORIDE 110 mmol/L (98-107); GLUCOSE 116 mg/dL (75-110); LIPASE 63.3 U/L (23-300); POTASSIUM 4.8 mmol/L (3.6-5.0); SODIUM 147.8 mmol/L (137-145); TOTAL PROTEIN 8.3 g/dL (6.3-8.2)
[2018-01-12 18:58] LABS: APPEARANCE,URINE SLIGHTLY-CLOUDY; BILIRUBIN,URINE NEGATIVE (NEGATIVE); COLOR,URINE YELLOW; GLUCOSE, URINE NEGATIVE (NEGATIVE); KETONES,URINE NEGATIVE (NEGATIVE); LEUKOCYTE ESTERASE,URINE SMALL (NEGATIVE); NITRITE,URINE NEGATIVE (NEGATIVE); PROTEIN,URINE NEGATIVE (NEGATIVE); URINE SPECIFIC GRAVITY 1.011; UROBILINOGEN,URINE NEGATIVE mg/dL (<2.0)
[2018-01-12 20:32] VITALS: BP 129/70
== END 2018-01-12 20:25 | disposition home or self-care (01) ==
LOC: ER 15:55
DX: R10.12 Left upper quadrant pain (principal); I10 Essential (primary) hypertension; Z87.19 Personal history of other diseases of the digestive system; Z87.442 Personal history of urinary calculi; Z87.892 Personal history of anaphylaxis; Z88.5 Allergy status to narcotic agent
CPT/HCPCS: 99284; 36415; 83690; 85025; 81025; 80053; 81001; J3490

== ENCOUNTER → 2018-01-29 | Outpatient (CLI) | payer BC ==
[2018-01-29 11:52] LABS: CHOLESTEROL 145.87 mg/dL (0-200); TRIGLYCERIDES 227 mg/dL (<150)
[2018-01-29 12:03] LABS: DIRECT LDL 59 mg/dL (<100)
[2018-01-29 12:19] LABS: VLDL CHOLESTEROL 45.4 mg/dL (10-31)
== END ==
LOC: OD 10:06
PROVIDERS: ATTEND Internal Medicine Geriatric Medicine
DX: E78.00 Pure hypercholesterolemia, unspecified (principal)
CPT/HCPCS: 36415; 80061

== ENCOUNTER 2018-04-28 14:56 | Emergency (ER) | payer BC, MEDICAID ==
--- NOTE | 2018-04-28 15:34 | ER Document Report ---
ED Medical Screen (RME) - General Chief Complaint: Abdominal Pain Stated Complaint: ABDOMINAL PAIN Time Seen by Provider: 04/28/18 15:28 Notes: 32 years old female with a history of high LDL induced pancreatitis, presents today with epigastric to mid abdominal pain across the abdomen since this morning. Nauseous no vomiting no fever chills or other constitutional symptoms. Examination-obese, mild mid abdominal tenderness TRAVEL OUTSIDE OF THE [place] IN LAST 30 DAYS: No - Related Data Allergies/Adverse Reactions: morphine [Morphine] Allergy (Severe, Verified 04/28/18 15:08) Hives Penicillins Allergy (Severe, Verified 04/28/18 15:08) Anaphylaxis Past Medical History - Social History Chew tobacco use (# tins/day): No Frequency of alcohol use: None Drug Abuse: None Family history: Reviewed & Not Pertinent - Past Medical History Cardiac Medical History: Reports: Hx Hypercholesterolemia, Hx Hypertension Denies: Hx Atrial Fibrillation, Hx Congestive Heart Failure, Hx Coronary Artery Disease, Hx DVT, Hx Heart Attack, Hx Pulmonary Embolism Pulmonary Medical History: Denies: Hx Asthma, Hx Bronchitis, Hx COPD, Hx Pneumonia, Hx Sleep Apnea, Hx Tuberculosis Neurological Medical History: Denies: Hx Cerebrovascular Accident, Hx Seizures Endocrine Medical History: Denies: Hx Diabetes Mellitus Type 1, Hx Diabetes Mellitus Type 2, Hx Hyperthyroidism, Hx Hypothyroidism Renal/ Medical History: Reports: Hx Kidney Stones, Hx Ovarian Cysts. Denies: Hx End Stage Renal Disease, Hx Peritoneal Dialysis GI Medical History: Reports: Hx Pancreatitis - acute (08/11/2017). Denies: Hx Cirrhosis, Hx Gastroesophageal Reflux Disease, Hx Hepatitis, Hx Ulcer Musculoskeltal Medical History: Reports Hx Arthritis, Denies Hx Multiple Sclerosis Psychiatric Medical History: Denies: Hx Bipolar Disorder, Hx Depression, Hx Schizophrenia Traumatic Medical History: Reports: Hx Fractures Infectious Medical History: Reports: Hx C-Diff. Denies: Hx Hepatitis, Hx MRSA Past Surgical History: Reports: Hx Kidney (Renal Surgery) - when child, Hx Orthopedic Surgery - left ankle, Other - Left ureteral stent and other corrective surgery.. Denies: Hx Cholecystectomy - Immunizations Immunizations up to date: No Hx Diphtheria, Pertussis, Tetanus Vaccination: No History of Influenza Vaccine for 03/2017 - 08/2017 Season: Refused Physical Exam - Vital signs Vitals: Temp Pulse Resp BP Pulse Ox 99.2 F 113 H 17 125/79 98 04/28/18 15:14 04/28/18 15:14 04/28/18 15:14 04/28/18 15:14 04/28/18 15:14 Course - Vital Signs Vital signs: Temp Pulse Resp BP Pulse Ox 99.2 F 113 H 17 125/79 98 04/28/18 15:14 04/28/18 15:14 04/28/18 15:14 04/28/18 15:14 04/28/18 15:14 Doctor's Discharge - Discharge Referrals: SONIA KULKARNI MD [Primary Care Provider] - Follow up as needed
[2018-04-28 16:13] LABS: HEMATOCRIT 43.6 % (36.0-47.0); MEAN CORPUSCULAR HEMOGLOBIN 30.7 pg (27.0-33.4); MEAN CORPUSCULAR HGB CONC 34.5 g/dL (32.0-36.0); MEAN CORPUSCULAR VOLUME 89 fl (80-97); PLATELET COUNT 216 10^3/uL (150-450); RED BLOOD COUNT 4.89 10^6/uL (3.72-5.28); RED CELL DISTRIBUTION WIDTH 12.9 % (11.5-14.0)
[2018-04-28 16:30] LABS: ABSOLUTE LYMPHOCYTES# (MANUAL) 3.4 10^3/uL (0.5-4.7); ABSOLUTE MONOCYTES # (MANUAL) 0.8 10^3/uL (0.1-1.4); ABSOLUTE NEUTROPHILS# (MANUAL) 7.6 10^3/uL (1.7-8.2); BASOPHILS % (MANUAL) 0 % (0-2); EOSINOPHILS % (MANUAL) 2 % (0-6); LYMPHOCYTES % (MANUAL) 28 % (13-45); MONOCYTES % (MANUAL) 7 % (3-13); SEGMENTED NEUTROPHILS % (MAN) 63 % (42-78); TOTAL CELLS COUNTED 100
[2018-04-28 16:31] LABS: PLATELET COMMENT ADEQUATE; TOXIC GRANULATION SLIGHT
--- NOTE | 2018-04-28 18:15 | ER Document Report ---
ED General - General Chief Complaint: Abdominal Pain Stated Complaint: ABDOMINAL PAIN Time Seen by Provider: 04/28/18 15:28 TRAVEL OUTSIDE OF THE [place] IN LAST 30 DAYS: No - HPI Notes: Patient is a 32-year-old female with a history of hypertension, hypercholesteremia, gastritis who presents to the ED complaining of epigastric abdominal pain that will occasionally radiate across her abdomen that began last evening. Patient states that she had symptoms like this previously when she had pancreatitis in July and was admitted to the hospital for it. Pt has been seen on several other occasions for similar pain with unremarkable work ups. Patient states that she was able to drink some water, and tried to eat something this morning but made her symptoms worse. Patient states that she has had associated nausea without vomiting. She is urinating normally and having normal bowel movements. She has not have any other vaginal discharge, odor, or bleeding. No other surgical history to her abdomen other than a renal surgery when she was a child. Denies any headache, fever, neck pain, URI, sore throat, chest pain, palpitations, syncope, cough, shortness of breath, wheeze, dyspnea, vomiting/diarrhea, urinary retention, dysuria, hematuria, back pain, or rash. - Related Data Allergies/Adverse Reactions: morphine [Morphine] Allergy (Severe, Verified 04/28/18 15:08) Hives Penicillins Allergy (Severe, Verified 04/28/18 15:08) Anaphylaxis Past Medical History - Social History Smoking Status: Never Smoker Chew tobacco use (# tins/day): No Frequency of alcohol use: None Drug Abuse: None Family History: Malignancy, Other - Pulmonary emboli Patient has suicidal ideation: No Patient has homicidal ideation: No - Past Medical History Cardiac Medical History: Reports: Hx Hypercholesterolemia, Hx Hypertension Denies: Hx Atrial Fibrillation, Hx Congestive Heart Failure, Hx Coronary Artery Disease, Hx DVT, Hx Heart Attack, Hx Pulmonary Embolism Pulmonary Medical History: Denies: Hx Asthma, Hx Bronchitis, Hx COPD, Hx Pneumonia, Hx Sleep Apnea, Hx Tuberculosis Neurological Medical History: Denies: Hx Cerebrovascular Accident, Hx Seizures Endocrine Medical History: Denies: Hx Diabetes Mellitus Type 1, Hx Diabetes Mellitus Type 2, Hx Hyperthyroidism, Hx Hypothyroidism Renal/ Medical History: Reports: Hx Kidney Stones, Hx Ovarian Cysts. Denies: Hx End Stage Renal Disease, Hx Peritoneal Dialysis GI Medical History: Reports: Hx Pancreatitis - acute (08/11/2017). Denies: Hx Cirrhosis, Hx Gastroesophageal Reflux Disease, Hx Hepatitis, Hx Ulcer Musculoskeletal Medical History: Reports Hx Arthritis, Denies Hx Multiple Sclerosis Psychiatric Medical History: Denies: Hx Bipolar Disorder, Hx Depression, Hx Schizophrenia Traumatic Medical History: Reports: Hx Fractures Infectious Medical History: Reports: Hx C-Diff. Denies: Hx Hepatitis, Hx MRSA Past Surgical History: Reports: Hx Kidney (Renal Surgery) - when child, Hx Orthopedic Surgery - left ankle, Other - Left ureteral stent and other corrective surgery.. Denies: Hx Cholecystectomy - Immunizations Immunizations up to date: No Hx Diphtheria, Pertussis, Tetanus Vaccination: No Review of Systems - Review of Systems -: Yes All other systems reviewed and negative Physical Exam - Vital signs Vitals: Temp Pulse Resp BP Pulse Ox 99.2 F 113 H 17 125/79 98 04/28/18 15:14 04/28/18 15:14 04/28/18 15:14 04/28/18 15:14 04/28/18 15:14 - Notes Notes: PHYSICAL EXAMINATION: GENERAL: Well-appearing, well-nourished and in no acute distress. HEAD: Atraumatic, normocephalic. EYES: Pupils equal round and reactive to light, extraocular movements intact, sclera anicteric, conjunctiva are normal. ENT: Nares patent and without discharge. oropharynx clear without exudates. No tonsilar hypertrophy or erythema. Moist mucous membranes. NECK: Normal range of motion, supple without lymphadenopathy LUNGS: Breath sounds clear to auscultation bilaterally and equal. No wheezes rales or rhonchi. HEART: Regular rate and rhythm without murmurs, rubs, gallops. ABDOMEN: Soft, nondistended abdomen. No guarding, no rebound. No masses appreciated. Normal bowel sounds present. No CVA tenderness bilaterally. + tenderness to the epigastrum. Nam neg. No tenderness at [place]. Musculoskeletal: FROM to passive/active. Strength 5+/5. Extremities: No cyanosis, clubbing, or edema b/l. Peripheral pulses 2+. Capillary refill less than 3 seconds. NEUROLOGICAL: Normal speech, normal gait. Normal sensory, motor exams PSYCH: Normal mood, normal affect. SKIN: Warm, Dry, normal turgor, no rashes or lesions noted. Course - Re-evaluation Re-evalutation: 04/28/18 19:30 Patient is an afebrile, well-hydrated with 32-year-old female who presents to the ED with epigastric pain, suspect gastritis. Vitals are acceptable without significant tachycardia, tachypnea, or hypoxia. PE is otherwise unremarkable. CBC, CMP, lipase, hCG were unremarkable for any acute pathology. Patient was given fluids, pain medicine, and nausea medication. She is also given a GI cocktail which greatly improved symptoms. Patient states that she is feeling much better and is able to tolerate p.o. without difficulty. She is nontoxic- appearing. Patient has had multiple visits for similar complaints in the past. Her abdomen is currently soft and nontender. No further labs or imaging warranted at this time. Low suspicion/risk for acute appendicitis, bowel obstruction, acute cholecystitis, acute cholangitis, perforated diverticulitis, incarcerated hernia, pancreatitis, perforated ulcer, peritonitis, sepsis, pelvic inflammatory disease, ectopic , tubo-ovarian abscess, ovarian torsion, or other systemic emergent condition at this time. Patient is aware that her condition can change from initial presentation and she needs to monitor symptoms closely and seek medical attention if any acute changes. I will send her home with a prescription for Zofran, Carafate, omeprazole. Conservative measures otherwise for symptoms. Recheck with your PCM in 2-3 days. Consider consult with a senior scientist. Return to the ED with any worsening/concerning symptoms otherwise as reviewed in discharge. Patient is in agreement. - Vital Signs Vital signs: Temp Pulse Resp BP Pulse Ox 98.1 F 102 H 17 113/67 98 04/28/18 19:19 04/28/18 19:19 04/28/18 15:14 04/28/18 19:19 04/28/18 19:19 - Laboratory Result Diagrams: 04/28/18 15:33 04/28/18 18:10 Laboratory results interpreted by me: 04/28/18 04/28/18 15:33 18:10 WBC 12.0 H Triglycerides 568 H Discharge - Discharge Clinical Impression: Epigastric abdominal pain Condition: Stable Disposition: HOME, SELF-CARE Instructions: Abdominal Pain ([facility]), Antinausea Medication ([facility]) Additional Instructions: Maintain adequate fluid and food intake Musella diet (B.R.A.T.) Bananas, rice, apples, toast, etc. Avoid spices and caffeine. Zofran as needed tylenol if needed Monitor for any worsening symptoms Make sure you are staying hydrated enough to urinate and have normal BM's Recheck with your PCM in 2-3 days Consider consult with Gastroenterology for ongoing/worsening symptoms Return to the ED with any worsening symptoms and/or development of fever, headache, chest pain, palpitations, syncope, shortness of breath, trouble breathing, abdominal pain, n/v/d, blood in stool/urine, weakness, or other worsening symptoms that are concerning to you. Prescriptions: Omeprazole 20 mg PO DAILY #30 tablet. Ondansetron [Zofran Odt 4 mg Tablet] 1 - 2 tab PO Q4H PRN #15 tab.rapdis PRN Reason: For Nausea/Vomiting Sucralfate [Carafate] 1 gm PO BID #100 ml Referrals: SONIA KULKARNI MD [Primary Care Provider] - 04/30/18 EMLIEE WEAVER MD [ACTIVE STAFF] - Follow up as needed
[2018-04-28] MEDS ORDERED: FENTANYL CITRATE INJ/PF 100 MCG/2 ML AMPUL IV ONE (18:16)
[2018-04-28] MEDS ORDERED: NORMAL SALINE 1000 ML 1,000 ML IV PRN (18:16)
[2018-04-28] MEDS ORDERED: ONDANSETRON HCL INJ/PF 4 MG/2 ML SDV IV ONE (18:16)
[2018-04-28 18:40] LABS: ALANINE AMINOTRANSFERASE 43 U/L (9-52); ALBUMIN 4.9 g/dL (3.5-5.0); ALKALINE PHOSPHATASE 85 U/L (38-126); ANION GAP 14 (5-19); ASPARTATE AMINO TRANSFERASE 35 U/L (14-36); BILIRUBIN,DIRECT 0.3 mg/dL (0.0-0.4); BILIRUBIN,TOTAL 0.5 mg/dL (0.2-1.3); BLOOD UREA NITROGEN 11 mg/dL (7-20); CALCIUM 10.1 mg/dL (8.4-10.2); CARBON DIOXIDE 24 mmol/L (22-30); CHLORIDE 106 mmol/L (98-107); GLUCOSE 99 mg/dL (75-110); LIPASE 58.3 U/L (23-300); POTASSIUM 4.3 mmol/L (3.6-5.0); SODIUM 144.4 mmol/L (137-145); TOTAL PROTEIN 8.2 g/dL (6.3-8.2)
[2018-04-28] MEDS ORDERED: METOCLOPRAMIDE HCL ORAL SOLN 10 MG/10 ML UDCUP PO ONE (18:44)
[2018-04-28] MEDS ORDERED: MAG HYDROX/AL HYDROX/SIMETH SUSP 30 ML UDCUP PO ONE (18:44)
[2018-04-28] MEDS ORDERED: LIDOCAINE 2% VISCOUS SOLN 20 ML UDCUP PO ONE (18:44)
[2018-04-28 18:49] LABS: TRIGLYCERIDES 568 mg/dL (<150)
[2018-04-28 20:54] VITALS: BP 123/76
== END 2018-04-28 20:54 | disposition home or self-care (01) ==
LOC: ER 14:56
DX: R10.13 Epigastric pain (principal); E78.00 Pure hypercholesterolemia, unspecified; I10 Essential (primary) hypertension; Z87.442 Personal history of urinary calculi; Z86.14 Personal history of Methicillin resistant Staphylococcus aureus infection; Z88.6 Allergy status to analgesic agent; Z88.0 Allergy status to penicillin
CPT/HCPCS: 99284; 96361; 96374; 96375; 36415; 83690; 84478; 84703; 85025; 80053; J3010; J3490; J2405; J7030

== ENCOUNTER 2018-06-15 22:06 | Emergency (ER) | payer BC ==
--- NOTE | 2018-06-16 00:25 | RADIOLOGY REPORT (SQ) ---
EXAM DESCRIPTION: XR SHOULDER 2 OR MORE VIEWS COMPLETED DATE/TME: 06/15/2018 00:00 CLINICAL HISTORY: 33 years, Female, pain in shoulder x 2 weeks COMPARISON: None. NUMBER OF VIEWS: Three TECHNIQUE: Three views of the left shoulder LIMITATIONS: None. FINDINGS: There is no acute fracture or dislocation. The glenohumeral and AC joints appear intact. IMPRESSION: No acute fracture or dislocation copyright 2010 [employer]- All Rights Reserved
[2018-06-16] MEDS ORDERED: KETOROLAC TROMETHAMINE 60 MG/2 ML SDV IM ONE (01:25)
[2018-06-16] MEDS ORDERED: ACETAMINOPHEN SOLN 325 MG/10.15 ML UDCUP PO ONE (01:29)
--- NOTE | 2018-06-16 01:29 | ER Document Report ---
HPI - HPI Time Seen by Provider: 06/16/18 01:12 Pain Level: 2 - CONSTITUTIONAL Constitutional: DENIES: Fever, Chills - NEURO Neurology: DENIES: Headache - REPRODUCTIVE Reproductive: DENIES: : - MUSCULOSKELETAL Musculoskeletal: REPORTS: Extremity pain - pain in arm when moving Past Medical History - Social History Smoking Status: Never Smoker Frequency of alcohol use: None Drug Abuse: None Family History: Malignancy, Other - Pulmonary emboli Patient has suicidal ideation: No Patient has homicidal ideation: No - Past Medical History Cardiac Medical History: Reports: Hx Hypercholesterolemia, Hx Hypertension Denies: Hx Atrial Fibrillation, Hx Congestive Heart Failure, Hx Coronary Artery Disease, Hx DVT, Hx Heart Attack, Hx Pulmonary Embolism Pulmonary Medical History: Denies: Hx Asthma, Hx Bronchitis, Hx COPD, Hx Pneumonia, Hx Sleep Apnea, Hx Tuberculosis Neurological Medical History: Denies: Hx Cerebrovascular Accident, Hx Seizures Endocrine Medical History: Denies: Hx Diabetes Mellitus Type 1, Hx Diabetes Mellitus Type 2, Hx Hyperthyroidism, Hx Hypothyroidism Renal/ Medical History: Reports: Hx Kidney Stones, Hx Ovarian Cysts. Denies: Hx End Stage Renal Disease, Hx Peritoneal Dialysis GI Medical History: Reports: Hx Pancreatitis - acute (08/11/2017). Denies: Hx Cirrhosis, Hx Gastroesophageal Reflux Disease, Hx Hepatitis, Hx Ulcer Musculoskeletal Medical History: Reports Hx Arthritis, Denies Hx Multiple Sclerosis Psychiatric Medical History: Denies: Hx Bipolar Disorder, Hx Depression, Hx Schizophrenia Traumatic Medical History: Reports: Hx Fractures Infectious Medical History: Reports: Hx C-Diff. Denies: Hx Hepatitis, Hx MRSA Past Surgical History: Reports: Hx Kidney (Renal Surgery) - when child, Hx Orthopedic Surgery - left ankle, Other - Left ureteral stent and other corrective surgery.. Denies: Hx Cholecystectomy - Immunizations Immunizations up to date: No Hx Diphtheria, Pertussis, Tetanus Vaccination: No Vertical Provider Document - INFECTION CONTROL TRAVEL OUTSIDE OF THE [place] IN LAST 30 DAYS: No Course - Vital Signs Vital signs: Temp Pulse Resp BP Pulse Ox 98.8 F 111 H 20 131/85 H 98 06/15/18 22:17 06/15/18 22:17 06/15/18 22:17 06/15/18 22:17 06/15/18 22:17 Discharge - Discharge Clinical Impression: Shoulder pain, left Qualifiers: Chronicity: acute Qualified Code(s): M25.512 - Pain in left shoulder Condition: Good Disposition: HOME, SELF-CARE Additional Instructions: You were seen in the emergency department this evening for left shoulder pain. Your pain most likely stems from a strained muscle beneath your left shoulder blade and next to it that is causing nerve impingement that is shooting of pain up to your neck. The x-ray of your shoulder was negative for any fracture or dislocation. The best treatment for this is a moist hot compresses, Motrin 600 mg every 6 hours taken for the next 3-5 days, and you can take Tylenol 1000 mill grams every 6 hours as well. If you develop excruciating pain, lose function of your left arm, develop acute short of breath, or have any other concerning symptoms please immediately return to the emergency department. I have given you information for orthopedics he can arrange to make an appointment with them and possibly get set up with physical therapy. Prescriptions: Methocarbamol [Robaxin 750 mg Tablet] 750 mg PO Q6 #20 tablet Referrals: SONIA KULKARNI MD [Primary Care Provider] - Follow up as needed STEPHANIE TANG MD [ACTIVE STAFF] - Follow up as needed
[2018-06-16 02:20] VITALS: BP 126/85
== END 2018-06-16 02:24 | disposition home or self-care (01) ==
LOC: ER 22:06
DX: M25.512 Pain in left shoulder (principal); M79.602 Pain in left arm; I10 Essential (primary) hypertension
CPT/HCPCS: 99283; 96372; 73030; J1885; J3490

== ENCOUNTER → 2018-06-29 | Outpatient (CLI) | payer BC ==
[2018-06-29 17:32] LABS: ABSOLUTE EOSINOPHILS # (AUTO) 0.1 10^3/uL (0.0-0.6); ABSOLUTE LYMPHOCYTES (AUTO) 2.6 10^3/uL (0.5-4.7); ABSOLUTE MONOCYTES (AUTO) 0.5 10^3/uL (0.1-1.4); ABSOLUTE NEUT (AUTO) 4.7 10^3/uL (1.7-8.2); BASOPHILS % (AUTO) 0.6 % (0-2); EOSINOPHILS % (AUTO) 1.9 % (0-6); HEMATOCRIT 41.3 % (36.0-47.0); HEMOGLOBIN 14.4 g/dL (12.0-15.5); LYMPHOCYTES % (AUTO) 32.2 % (13-45); MEAN CORPUSCULAR HEMOGLOBIN 30.9 pg (27.0-33.4); MEAN CORPUSCULAR HGB CONC 34.8 g/dL (32.0-36.0); MEAN CORPUSCULAR VOLUME 89 fl (80-97); PLATELET COUNT 344 10^3/uL (150-450); RED BLOOD COUNT 4.65 10^6/uL (3.72-5.28); RED CELL DISTRIBUTION WIDTH 12.8 % (11.5-14.0); SEGMENTED NEUTROPHILS % (AUTO) 59.3 % (42-78); TOTAL CELLS COUNTED % (AUTO) 100 %; WHITE BLOOD COUNT 7.9 10^3/uL (4.0-10.5)
[2018-06-29 17:35] LABS: APPEARANCE,URINE SLIGHTLY-CLOUDY; BILIRUBIN,URINE NEGATIVE (NEGATIVE); COLOR,URINE YELLOW; GLUCOSE, URINE NEGATIVE (NEGATIVE); KETONES,URINE NEGATIVE (NEGATIVE); LEUKOCYTE ESTERASE,URINE LARGE (NEGATIVE); NITRITE,URINE NEGATIVE (NEGATIVE); PROTEIN,URINE NEGATIVE (NEGATIVE); URINE SPECIFIC GRAVITY 1.016; UROBILINOGEN,URINE NEGATIVE mg/dL (<2.0)
[2018-06-29 17:55] LABS: ALANINE AMINOTRANSFERASE 43 U/L (9-52); ALBUMIN 5.1 g/dL (3.5-5.0); ALKALINE PHOSPHATASE 73 U/L (38-126); ANION GAP 10 (5-19); ASPARTATE AMINO TRANSFERASE 33 U/L (14-36); BILIRUBIN,DIRECT 0.2 mg/dL (0.0-0.4); BILIRUBIN,TOTAL 0.3 mg/dL (0.2-1.3); BLOOD UREA NITROGEN 10 mg/dL (7-20); CARBON DIOXIDE 25 mmol/L (22-30); CHLORIDE 108 mmol/L (98-107); GLUCOSE 90 mg/dL (75-110); POTASSIUM 4.4 mmol/L (3.6-5.0); SODIUM 142.9 mmol/L (137-145); TOTAL PROTEIN 7.9 g/dL (6.3-8.2)
[2018-06-29 18:17] LABS: ERYTHROCYTE SEDIMENTATION RATE 31 mm/hr (0-20)
== END ==
LOC: DACC 16:41
PROVIDERS: ATTEND Physician Assistant
DX: L70.8 Other acne (principal)
CPT/HCPCS: 36415; 80053; 81001; 85025; 85652; 86038

== ENCOUNTER → 2019-05-17 | Outpatient (CLI) | payer BC ==
[2019-05-17 18:31] LABS: ALBUMIN 5.1 g/dL (3.5-5.0); ALKALINE PHOSPHATASE 73 U/L (38-126); AMYLASE 42 U/L (30-110); ANION GAP 13 (5-19); ASPARTATE AMINO TRANSFERASE 29 U/L (14-36); BILIRUBIN,DIRECT 0.1 mg/dL (0.0-0.4); BILIRUBIN,TOTAL 0.4 mg/dL (0.2-1.3); BLOOD UREA NITROGEN 11 mg/dL (7-20); CALCIUM 10.3 mg/dL (8.4-10.2); CARBON DIOXIDE 25 mmol/L (22-30); CHLORIDE 106 mmol/L (98-107); GLUCOSE 94 mg/dL (75-110); POTASSIUM 4.3 mmol/L (3.6-5.0); TOTAL PROTEIN 8.5 g/dL (6.3-8.2)
== END ==
LOC: OD 16:51
PROVIDERS: ATTEND Internal Medicine Geriatric Medicine
DX: R10.9 Unspecified abdominal pain (principal)
CPT/HCPCS: 36415; 80053; 82150; 83690

== ENCOUNTER 2019-05-19 21:47 | Emergency (ER) | payer BC ==
[2019-05-19 22:33] LABS: ABSOLUTE EOSINOPHILS # (AUTO) 0.2 10^3/uL (0.0-0.6); ABSOLUTE LYMPHOCYTES (AUTO) 2.8 10^3/uL (0.5-4.7); ABSOLUTE MONOCYTES (AUTO) 0.4 10^3/uL (0.1-1.4); ABSOLUTE NEUT (AUTO) 3.8 10^3/uL (1.7-8.2); BASOPHILS % (AUTO) 0.5 % (0-2); EOSINOPHILS % (AUTO) 2.1 % (0-6); HEMATOCRIT 43.3 % (36.0-47.0); HEMOGLOBIN 14.9 g/dL (12.0-15.5); LYMPHOCYTES % (AUTO) 39.1 % (13-45); MEAN CORPUSCULAR HEMOGLOBIN 30.8 pg (27.0-33.4); MEAN CORPUSCULAR HGB CONC 34.5 g/dL (32.0-36.0); MEAN CORPUSCULAR VOLUME 89 fl (80-97); MONOCYTES % (AUTO) 5.6 % (3-13); PLATELET COUNT 318 10^3/uL (150-450); RED BLOOD COUNT 4.85 10^6/uL (3.72-5.28); RED CELL DISTRIBUTION WIDTH 12.9 % (11.5-14.0); SEGMENTED NEUTROPHILS % (AUTO) 52.7 % (42-78); TOTAL CELLS COUNTED % (AUTO) 100 %; WHITE BLOOD COUNT 7.2 10^3/uL (4.0-10.5)
[2019-05-19 22:50] LABS: ALBUMIN 5.1 g/dL (3.5-5.0); ALKALINE PHOSPHATASE 66 U/L (38-126); ANION GAP 12 (5-19); ASPARTATE AMINO TRANSFERASE 42 U/L (14-36); BILIRUBIN,DIRECT 0.1 mg/dL (0.0-0.4); BILIRUBIN,TOTAL 0.3 mg/dL (0.2-1.3); BLOOD UREA NITROGEN 10 mg/dL (7-20); CARBON DIOXIDE 27 mmol/L (22-30); CHLORIDE 104 mmol/L (98-107); GLUCOSE 181 mg/dL (75-110); POTASSIUM 3.5 mmol/L (3.6-5.0); TOTAL PROTEIN 8.5 g/dL (6.3-8.2)
[2019-05-19 22:57] LABS: APPEARANCE,URINE CLEAR; BILIRUBIN,URINE NEGATIVE (NEGATIVE); COLOR,URINE STRAW; GLUCOSE, URINE 150 mg/dL (NEGATIVE); KETONES,URINE NEGATIVE (NEGATIVE); LEUKOCYTE ESTERASE,URINE TRACE (NEGATIVE); NITRITE,URINE NEGATIVE (NEGATIVE); PROTEIN,URINE NEGATIVE (NEGATIVE); URINE SPECIFIC GRAVITY 1.006; UROBILINOGEN,URINE NEGATIVE mg/dL (<2.0)
[2019-05-19] MEDS ORDERED: PHENAZOPYRIDINE HCL 200 MG TABLET PO ONE (23:48)
[2019-05-19] MEDS ORDERED: NITROFURANTOIN MONOHYD/M-CRYST 100 MG CAPSULE PO ONE (23:48)
[2019-05-19] MEDS ORDERED: ONDANSETRON ODT 4 MG TAB (6 TAB/ER DISP) PO PRN (23:49)
--- NOTE | 2019-05-19 23:53 | ER Document Report ---
ED GI/ - General Chief Complaint: Flank Pain Stated Complaint: FLANK PAIN Time Seen by Provider: 05/19/19 23:36 Primary Care Provider: SONIA KULKARNI MD [Primary Care Provider] - Follow up as needed Notes: Patient is a 34-year-old female that comes emergency department for chief complaint of several days of worsening painful urination, she also states that she saw some blood in her urine. She has some mild lower abdominal cramping at times, she is starting to feel some mild cramping in her back but she denies severe pain in her back, nausea/vomiting, fever/chills. She states she does have a history of kidney stones but this does not feel the same. She also has a history including hypertension, hyperlipidemia, and previous C. difficile. She states she has no diarrhea and normal bowel movements. TRAVEL OUTSIDE OF THE [place] IN LAST 30 DAYS: No - Related Data Allergies/Adverse Reactions: morphine [Morphine] Allergy (Severe, Verified 05/19/19 21:50) Hives Penicillins Allergy (Severe, Verified 05/19/19 21:50) Anaphylaxis Past Medical History - General Information source: Patient - Social History Smoking Status: Never Smoker Frequency of alcohol use: None Drug Abuse: None Lives with: Family Family History: Malignancy, Other - Pulmonary emboli Patient has suicidal ideation: No Patient has homicidal ideation: No - Past Medical History Cardiac Medical History: Reports: Hx Hypercholesterolemia, Hx Hypertension Denies: Hx Atrial Fibrillation, Hx Congestive Heart Failure, Hx Coronary Artery Disease, Hx DVT, Hx Heart Attack, Hx Pulmonary Embolism Pulmonary Medical History: Denies: Hx Asthma, Hx Bronchitis, Hx COPD, Hx Pneumonia, Hx Sleep Apnea, Hx Tuberculosis Neurological Medical History: Denies: Hx Cerebrovascular Accident, Hx Seizures, Hx Parkinson's Disease Endocrine Medical History: Denies: Hx Diabetes Mellitus Type 1, Hx Diabetes Mellitus Type 2, Hx Hyperthyroidism, Hx Hypothyroidism Renal/ Medical History: Reports: Hx Kidney Stones, Hx Ovarian Cysts. Denies: Hx End Stage Renal Disease, Hx Peritoneal Dialysis GI Medical History: Reports: Hx Pancreatitis - acute (08/11/2017). Denies: Hx Cirrhosis, Hx Gastroesophageal Reflux Disease, Hx Hepatitis, Hx Ulcer Musculoskeletal Medical History: Reports Hx Arthritis, Denies Hx Multiple Sclerosis Psychiatric Medical History: Denies: Hx Bipolar Disorder, Hx Depression, Hx Schizophrenia Traumatic Medical History: Reports: Hx Fractures Infectious Medical History: Reports: Hx C-Diff. Denies: Hx Hepatitis, Hx MRSA Past Surgical History: Reports: Hx Kidney (Renal Surgery) - when child, Hx Orthopedic Surgery - left ankle, Other - Left ureteral stent and other corrective surgery.. Denies: Hx Cholecystectomy - Immunizations Immunizations up to date: No Hx Diphtheria, Pertussis, Tetanus Vaccination: No Review of Systems - Review of Systems Constitutional: No symptoms reported EENT: No symptoms reported Cardiovascular: No symptoms reported Respiratory: No symptoms reported Gastrointestinal: See HPI Genitourinary: See HPI Female Genitourinary: No symptoms reported Musculoskeletal: No symptoms reported Skin: No symptoms reported Hematologic/Lymphatic: No symptoms reported Neurological/Psychological: No symptoms reported Physical Exam - Vital signs Vitals: Temp Pulse Resp BP Pulse Ox 98.7 F 91 18 141/87 H 98 05/19/19 22:10 05/19/19 22:10 05/19/19 22:10 05/19/19 22:10 05/19/19 22:10 - Notes Notes: GENERAL: Alert, interacts well. No acute distress. HEAD: Normocephalic, atraumatic. EYES: Pupils equal, round, and reactive to light. Extraocular movements intact. ENT: Oral mucosa moist, tongue midline. Oropharynx unremarkable. Airway patent. LUNGS: Clear to auscultation bilaterally, no wheezes, rales, or rhonchi. No respiratory distress. HEART: Regular rate and rhythm. No murmur ABDOMEN: Soft, non-tender. Non-distended. Bowel sounds present in all 4 quadrants. GENITOURINARY: Deferred EXTREMITIES: No CVA tenderness. Moves all 4 extremities spontaneously. No edema, normal radial and dorsalis pedis pulses bilaterally. No cyanosis. BACK: no cervical, thoracic, lumbar midline tenderness. No saddle anesthesia, normal distal neurovascular exam. Moves all extremities in full range of motion. NEUROLOGICAL: Alert and oriented x3. Normal speech. Cranial nerves II through XII grossly intact. PSYCH: Normal affect, normal mood. SKIN: Warm, dry, normal turgor. No rashes or lesions noted. Course - Re-evaluation Re-evalutation: Patient is very well-appearing. Her abdomen is soft benign, no CVA tenderness, she is talkative and alert. CBC unremarkable, chemistry shows mildly elevated glucose without acidosis, nonspecific otherwise. Urinalysis shows some white blood cells and some red blood cells. I discussed with patient different options. I did offer ultrasound to rule out possible ureterolithiasis, however based on patient's lack of symptoms and overall appearance I do feel like this is unlikely, patient did decline. Her symptoms are most suggestive of cystitis with her dysuria and hematuria along with cramping in the lower abdomen. I have a very low suspicion of acute abdomen based on her exam. Culture placed. Patient has a history of C. difficile and has had this several times in the past, as a result we will try Macrobid and we will try the lowest time possible. Giving Pyridium for dysuria symptoms. Discussed follow-up and return precautions. Patient states appreciation and agreement. - Vital Signs Vital signs: Temp Pulse Resp BP Pulse Ox 98 F 92 16 126/77 H 98 05/20/19 00:34 05/20/19 00:34 05/20/19 00:34 05/20/19 00:34 05/20/19 00:34 - Laboratory Result Diagrams: 05/19/19 22:15 05/19/19 22:15 Laboratory results interpreted by me: 05/19/19 05/19/19 22:15 22:15 Potassium 3.5 L Glucose 181 H AST 42 H Total Protein 8.5 H Albumin 5.1 H Urine Glucose (UA) 150 H Urine Blood LARGE H Ur Leukocyte Esterase TRACE H Discharge - Discharge Clinical Impression: Dysuria, Lower abdominal pain Condition: Stable Disposition: HOME, SELF-CARE Additional Instructions: We are treating you for suspected urinary tract infection, take the Macrobid as prescribed to completion. Take the Pyridium for your urinary symptoms. Follow-up with primary care for additional management. Come back if you are worse including developing abdominal pain, severe pain in your back, fever, vomiting, or any other concerning or worsening symptoms. Prescriptions: Nitrofurantoin/Nitrofuran Mac [Macrobid 100 mg Capsule] 1 tab PO BID 3 Days #6 capsule Phenazopyridine HCl [Pyridium 200 mg Tablet] 200 mg PO TID #9 tablet Referrals: SONIA KULKARNI MD [Primary Care Provider] - Follow up as needed
[2019-05-20 00:14] VITALS: BP 126/77
[2019-05-20] MEDS ORDERED: ACETAMINOPHEN 325 MG TABLET PO ONE (00:22)
== END 2019-05-20 00:34 | disposition home or self-care (01) ==
LOC: ER 21:47
DX: R30.0 Dysuria (principal); R10.30 Lower abdominal pain, unspecified; R06.00 Dyspnea, unspecified; E78.00 Pure hypercholesterolemia, unspecified; I10 Essential (primary) hypertension; Z88.6 Allergy status to analgesic agent; Z88.0 Allergy status to penicillin; Z87.442 Personal history of urinary calculi
CPT/HCPCS: 99284; 36415; 84703; 85025; 80053; 81001; J3490; J8499

== ENCOUNTER 2019-08-08 16:44 | Emergency (ER) | payer BC ==
--- NOTE | 2019-08-08 18:04 | ER Document Report ---
ED Medical Screen (RME) - General Chief Complaint: Vaginal Bleeding Stated Complaint: VAGINAL BLEEDING,BLOOD IN URINE Time Seen by Provider: 08/08/19 17:56 Primary Care Provider: SONIA KULKARNI MD [Primary Care Provider] - Follow up as needed Mode of Arrival: Ambulatory Notes: 34-year-old female presented to ED for complaint of vaginal bleeding. She states around 24 July she had her. She lasted for about a week and then went off. She states that then she started bleeding again today. She states this is very unusual for her. She is alert oriented respirations regular nonlabored speaking in full sentences. Patient states she is passing blood clots at this time and she is having some significant pelvic cramping. I have ordered blood urine and a pelvic ultrasound. She states she has soaked 3 pads since this morning when she started bleeding. She is accompanied by her . She states she took a test at home and it was negative. I have greeted and performed a rapid initial assessment of this patient. A comprehensive ED assessment and evaluation of the patient, analysis of test results and completion of medical decision making process will be conducted by an additional ED providers. TRAVEL OUTSIDE OF THE [place] IN LAST 30 DAYS: No - Related Data Allergies/Adverse Reactions: morphine [Morphine] Allergy (Severe, Verified 05/19/19 21:50) Hives Penicillins Allergy (Severe, Verified 05/19/19 21:50) Anaphylaxis Past Medical History - Social History Family history: Reviewed & Not Pertinent - Past Medical History Cardiac Medical History: Reports: Hx Hypercholesterolemia, Hx Hypertension Denies: Hx Atrial Fibrillation, Hx Congestive Heart Failure, Hx Coronary Artery Disease, Hx DVT, Hx Heart Attack, Hx Pulmonary Embolism Pulmonary Medical History: Denies: Hx Asthma, Hx Bronchitis, Hx COPD, Hx Pneumonia, Hx Sleep Apnea, Hx Tuberculosis Neurological Medical History: Denies: Hx Cerebrovascular Accident, Hx Seizures, Hx Parkinson's Disease Endocrine Medical History: Denies: Hx Diabetes Mellitus Type 1, Hx Diabetes Mellitus Type 2, Hx Hyperthyroidism, Hx Hypothyroidism Renal/ Medical History: Reports: Hx Kidney Stones, Hx Ovarian Cysts. Denies: Hx End Stage Renal Disease, Hx Peritoneal Dialysis GI Medical History: Reports: Hx Pancreatitis - acute (08/11/2017). Denies: Hx Cirrhosis, Hx Gastroesophageal Reflux Disease, Hx Hepatitis, Hx Ulcer Musculoskeltal Medical History: Reports Hx Arthritis, Denies Hx Multiple Sclerosis Psychiatric Medical History: Denies: Hx Bipolar Disorder, Hx Depression, Hx Schizophrenia Traumatic Medical History: Reports: Hx Fractures Infectious Medical History: Reports: Hx C-Diff. Denies: Hx Hepatitis, Hx MRSA Past Surgical History: Reports: Hx Kidney (Renal Surgery) - when child, Hx Orthopedic Surgery - left ankle, Other - Left ureteral stent and other corrective surgery.. Denies: Hx Cholecystectomy - Immunizations Immunizations up to date: No Hx Diphtheria, Pertussis, Tetanus Vaccination: No Physical Exam - Vital signs Vitals: Temp Pulse Resp BP Pulse Ox 98.4 F 107 H 18 155/86 H 97 08/08/19 17:26 08/08/19 17:26 08/08/19 17:26 08/08/19 17:26 08/08/19 17:26 Course - Vital Signs Vital signs: Temp Pulse Resp BP Pulse Ox 98.4 F 107 H 18 155/86 H 97 08/08/19 17:26 08/08/19 17:26 08/08/19 17:26 08/08/19 17:26 08/08/19 17:26 Doctor's Discharge - Discharge Referrals: SONIA KULKARNI MD [Primary Care Provider] - Follow up as needed
--- NOTE | 2019-08-08 19:31 | RADIOLOGY REPORT (SQ) ---
EXAM DESCRIPTION: U/S NON-OB PELVIS TV W/O DOP COMPLETED DATE/TIME: 08/08/2019 6:38 pm REASON FOR STUDY: Pelvic pain vaginal bleeding LMP 07/24/2019 COMPARISON: 07/10/2014 TECHNIQUE: Dynamic and static grayscale images acquired of the pelvis via transvaginal approach and recorded on PACS. Additional selected color Doppler and spectral images recorded. LIMITATIONS: None. FINDINGS: UTERUS: Contour normal. No mass. ENDOMETRIAL STRIPE: No focal or generalized thickening. No masses. CERVIX: No nabothian cysts. RIGHT OVARY AND DOPPLER: Normal size. No worrisome masses. Normal arterial vascular flow without evid ence for torsion. LEFT OVARY AND DOPPLER: Ovary not seen. FREE FLUID: None noted. OTHER: No other significant finding. MEASUREMENTS: UTERUS: 7.3 x 3.7 x 5.2 cm. ENDOMETRIAL STRIPE: 3 mm. RIGHT OVARY: 2.9 x 2.9 x 2.1 cm. LEFT OVARY: Not seen. IMPRESSION: NORMAL TRANSVAGINAL PELVIC ULTRASOUND. TECHNICAL DOCUMENTATION: JOB ID: [id number] [employer]- All Rights Reserved Rev-10/29 Reading location - IP/workstation name: [email or web address]
[2019-08-08 19:53] LABS: ABSOLUTE EOSINOPHILS # (AUTO) 0.2 10^3/uL (0.0-0.6); ABSOLUTE MONOCYTES (AUTO) 0.4 10^3/uL (0.1-1.4); ABSOLUTE NEUT (AUTO) 3.8 10^3/uL (1.7-8.2); BASOPHILS % (AUTO) 0.3 % (0-2); EOSINOPHILS % (AUTO) 2.4 % (0-6); HEMATOCRIT 47.6 % (36.0-47.0); HEMOGLOBIN 16.1 g/dL (12.0-15.5); LYMPHOCYTES % (AUTO) 40.6 % (13-45); MEAN CORPUSCULAR HEMOGLOBIN 30.7 pg (27.0-33.4); MEAN CORPUSCULAR HGB CONC 33.9 g/dL (32.0-36.0); MEAN CORPUSCULAR VOLUME 91 fl (80-97); MONOCYTES % (AUTO) 4.9 % (3-13); PLATELET COUNT 326 10^3/uL (150-450); RED BLOOD COUNT 5.25 10^6/uL (3.72-5.28); RED CELL DISTRIBUTION WIDTH 12.7 % (11.5-14.0); SEGMENTED NEUTROPHILS % (AUTO) 51.8 % (42-78); TOTAL CELLS COUNTED % (AUTO) 100 %; WHITE BLOOD COUNT 7.4 10^3/uL (4.0-10.5)
[2019-08-08 20:08] LABS: APPEARANCE,URINE SLIGHTLY-CLOUDY; BILIRUBIN,URINE NEGATIVE (NEGATIVE); COLOR,URINE YELLOW; GLUCOSE, URINE NEGATIVE (NEGATIVE); KETONES,URINE NEGATIVE (NEGATIVE); PROTEIN,URINE NEGATIVE (NEGATIVE); UROBILINOGEN,URINE NEGATIVE mg/dL (<2.0)
[2019-08-08 20:09] LABS: ALKALINE PHOSPHATASE 81 U/L (38-126); ANION GAP 11 (5-19); ASPARTATE AMINO TRANSFERASE 72 U/L (14-36); BILIRUBIN,DIRECT 0.3 mg/dL (0.0-0.4); BILIRUBIN,TOTAL 0.4 mg/dL (0.2-1.3); BLOOD UREA NITROGEN 10 mg/dL (7-20); CALCIUM 10.5 mg/dL (8.4-10.2); CARBON DIOXIDE 27 mmol/L (22-30); CHLORIDE 104 mmol/L (98-107); GLUCOSE 92 mg/dL (75-110); POTASSIUM 4.9 mmol/L (3.6-5.0); TOTAL PROTEIN 8.6 g/dL (6.3-8.2)
--- NOTE | 2019-08-08 21:33 | ER Document Report ---
ED GI/ - General Chief Complaint: Vaginal Bleeding Stated Complaint: VAGINAL BLEEDING,BLOOD IN URINE Time Seen by Provider: 08/08/19 17:56 Primary Care Provider: SONIA KULKARNI MD [Primary Care Provider] - Follow up as needed Mode of Arrival: Ambulatory Notes: Patient is a 34-year-old female that comes emergency department for chief complaint of abdominal cramping and vaginal bleeding. She states that her last menstrual cycle was July 24, however she started again today bleeding heavily, she states she soaked through 3 large pads since this morning. She had a negative home test. She reports having normally regular menstrual cycles. She denies vaginal bleeding, dysuria, fever, flank pain, dizziness, passing out. She is not on any control. Past medical history includes hypertension, hyperlipidemia, previous C. difficile. She reports normal bowel movements. TRAVEL OUTSIDE OF THE [place] IN LAST 30 DAYS: No - Related Data Allergies/Adverse Reactions: morphine [Morphine] Allergy (Severe, Verified 05/19/19 21:50) Hives Penicillins Allergy (Severe, Verified 05/19/19 21:50) Anaphylaxis Past Medical History - General Information source: Patient Last Menstrual Period: 07/25/19 - Social History Smoking Status: Never Smoker Frequency of alcohol use: None Drug Abuse: None Lives with: Family Family History: Malignancy, Other - Pulmonary emboli Patient has suicidal ideation: No Patient has homicidal ideation: No - Past Medical History Cardiac Medical History: Reports: Hx Hypercholesterolemia, Hx Hypertension Denies: Hx Atrial Fibrillation, Hx Congestive Heart Failure, Hx Coronary Artery Disease, Hx DVT, Hx Heart Attack, Hx Pulmonary Embolism Pulmonary Medical History: Denies: Hx Asthma, Hx Bronchitis, Hx COPD, Hx Pneumonia, Hx Sleep Apnea, Hx Tuberculosis Neurological Medical History: Denies: Hx Cerebrovascular Accident, Hx Seizures, Hx Parkinson's Disease Endocrine Medical History: Denies: Hx Diabetes Mellitus Type 1, Hx Diabetes Mellitus Type 2, Hx Hyperthyroidism, Hx Hypothyroidism Renal/ Medical History: Reports: Hx Kidney Stones, Hx Ovarian Cysts. Denies: Hx End Stage Renal Disease, Hx Peritoneal Dialysis GI Medical History: Reports: Hx Pancreatitis - acute (08/11/2017). Denies: Hx Cirrhosis, Hx Gastroesophageal Reflux Disease, Hx Hepatitis, Hx Ulcer Musculoskeletal Medical History: Reports Hx Arthritis, Denies Hx Multiple Sclerosis Psychiatric Medical History: Denies: Hx Bipolar Disorder, Hx Depression, Hx Schizophrenia Traumatic Medical History: Reports: Hx Fractures Infectious Medical History: Reports: Hx C-Diff. Denies: Hx Hepatitis, Hx MRSA Past Surgical History: Reports: Hx Gynecologic Surgery, Hx Kidney (Renal Surgery) - when child, Hx Orthopedic Surgery - left ankle, Other - Left ureteral stent and other corrective surgery.. Denies: Hx Cholecystectomy - Immunizations Immunizations up to date: No Hx Diphtheria, Pertussis, Tetanus Vaccination: No Review of Systems - Review of Systems Constitutional: No symptoms reported EENT: No symptoms reported Cardiovascular: No symptoms reported Respiratory: No symptoms reported Gastrointestinal: See HPI Genitourinary: No symptoms reported Female Genitourinary: See HPI Musculoskeletal: No symptoms reported Skin: No symptoms reported Hematologic/Lymphatic: No symptoms reported Neurological/Psychological: No symptoms reported Physical Exam - Vital signs Vitals: Temp Pulse Resp BP Pulse Ox 98.4 F 107 H 18 155/86 H 97 08/08/19 17:26 08/08/19 17:26 08/08/19 17:26 08/08/19 17:26 08/08/19 17:26 - Notes Notes: GENERAL: Alert, interacts well. No acute distress. HEAD: Normocephalic, atraumatic. EYES: Pupils equal, round, and reactive to light. Extraocular movements intact. ENT: Oral mucosa moist, tongue midline. Oropharynx unremarkable. Airway patent. LUNGS: Clear to auscultation bilaterally, no wheezes, rales, or rhonchi. No respiratory distress. HEART: Regular rate and rhythm. No murmur ABDOMEN: Soft, non-tender. Non-distended. EXTREMITIES: Moves all 4 extremities spontaneously. No edema, normal radial and dorsalis pedis pulses bilaterally. No cyanosis. BACK: no cervical, thoracic, lumbar midline tenderness. No saddle anesthesia, normal distal neurovascular exam. Moves all extremities in full range of motion. NEUROLOGICAL: Alert and oriented x3. Normal speech. Cranial nerves II through XII grossly intact. PSYCH: Normal affect, normal mood. SKIN: Warm, dry, normal turgor. No rashes or lesions noted. Course - Re-evaluation Re-evalutation: Patient with a soft benign abdomen. She is currently having some bleeding but no heavy bleeding, denies dizziness. She is well-appearing. Vital signs unremarkable on repeat. CBC nonspecific with slightly elevated hemoglobin and no leukocytosis. Chemistry unremarkable with approximately baseline LFTs. Urine appears contaminated. Discussed with patient. Ultrasound negative for any acute findings. She denies any concerns of pelvic infection or vaginal discharge. Based on her overall work-up, negative test, I suspect patient has hormonal cause of her dysfunctional uterine bleeding. Discuss symptomatic treatment and ANIMAL THERAPIST follow-up, patient is requesting treatment for the bleeding as well, discussed options, after discussing pros and cons decision was made to provide patient with control for her acute bleeding. Discussed importance of close ANIMAL THERAPIST follow-up, she states she is seen in [place] and she will call them tomorrow. Discussed return precautions. Patient states understanding and agreement. Stable and well-appearing at time of discharge. - Vital Signs Vital signs: Temp Pulse Resp BP Pulse Ox 99.0 F 99 18 125/84 99 08/08/19 21:54 08/08/19 21:54 08/08/19 17:26 08/08/19 21:54 08/08/19 21:54 - Laboratory Result Diagrams: 08/08/19 19:31 08/08/19 19:31 Laboratory results interpreted by me: 08/08/19 08/08/19 08/08/19 19:31 19:31 19:31 Hgb 16.1 H Hct 47.6 H Calcium 10.5 H AST 72 H ALT 75 H Total Protein 8.6 H Urine Blood LARGE H Leukocyte Esterase Rfl TRACE H Discharge - Discharge Clinical Impression: Abdominal cramping, Menometrorrhagia Condition: Stable Disposition: HOME, SELF-CARE Additional Instructions: Your ultrasound is normal, your lab work does not show any concerning findings, your test is negative. As result I suspect the cause of your bleeding is hormonal. You have been provided with medication to take for pain and cramping, remember to drink plenty of fluids to reduce cramping. You have also been prescribed control to take if needed for persistent heavy bleeding, we have discussed pros and cons of this. Please follow-up closely with your ANIMAL THERAPIST for additional management. Return if you worsen including severe worsening pain or bleeding, dizziness, pas sing out, fever, vomiting, or any other concerning symptoms. Prescriptions: Ketorolac Tromethamine [Toradol 10 mg Tablet] 10 mg PO Q8HP PRN #24 tablet PRN Reason: Norgestimate-Ethinyl Estradiol [Sprintec 28 Day Tablet] 1 each PO ASDIR PRN #56 tablet PRN Reason: Forms: Elevated Blood Pressure Referrals: SONIA KULKARNI MD [Primary Care Provider] - Follow up as needed
[2019-08-08] MEDS ORDERED: HYDROCODONE/ACETAMINOPHEN 5-325 MG TABLET PO ONE (21:47)
[2019-08-08] MEDS ORDERED: KETOROLAC TROMETHAMINE 60 MG/2 ML SDV IM ONE (21:47)
[2019-08-08 21:58] VITALS: BP 125/84
== END 2019-08-08 22:15 | disposition home or self-care (01) ==
LOC: ER 16:44
DX: N92.1 Excessive and frequent menstruation with irregular cycle (principal); R10.9 Unspecified abdominal pain; R31.9 Hematuria, unspecified; Z88.0 Allergy status to penicillin; Z88.8 Allergy status to other drugs, medicaments and biological substances; I10 Essential (primary) hypertension
CPT/HCPCS: 99284; 96372; 36415; 84702; 85025; 80053; 81001; 76830; J1885

== ENCOUNTER 2019-10-31 05:49 | Day surgery (SDC) | payer BC ==
[2019-08-22 10:39] LABS: ANION GAP 12 (5-19); BLOOD UREA NITROGEN 12 mg/dL (7-20); CALCIUM 10.2 mg/dL (8.4-10.2); CARBON DIOXIDE 26 mmol/L (22-30); CHLORIDE 103 mmol/L (98-107); GLUCOSE 131 mg/dL (75-110); POTASSIUM 3.9 mmol/L (3.6-5.0)
--- NOTE | 2019-08-22 12:04 | EKG REPORT ---
SEVERITY:- OTHERWISE NORMAL ECG - SINUS TACHYCARDIA : Confirmed by: Kameron Haq 22-Aug-2019 12:03:17
[2019-10-26 10:12] LABS: HEMATOCRIT 41.9 % (36.0-47.0); HEMOGLOBIN 14.6 g/dL (12.0-15.5); MEAN CORPUSCULAR HEMOGLOBIN 31.5 pg (27.0-33.4); MEAN CORPUSCULAR HGB CONC 34.9 g/dL (32.0-36.0); MEAN CORPUSCULAR VOLUME 90 fl (80-97); PLATELET COUNT 259 10^3/uL (150-450); RED BLOOD COUNT 4.65 10^6/uL (3.72-5.28); RED CELL DISTRIBUTION WIDTH 12.7 % (11.5-14.0); WHITE BLOOD COUNT 6.9 10^3/uL (4.0-10.5)
[~2019-10-31 05:49] MED LIST: CEFAZOLIN 1 GM/D5W RTU 1 GM/50 ML RTUPB IV PRN; CLINDAMYCIN 600 MG/D5W RTU 600 MG/50 ML RTUPB IV PRN; LACTATED RINGERS 1000 ML IV PRN; LIDOCAINE 0.5% INJ-PF (5 MG/ML) 50 ML SDV SUBCUT PRN; METRONIDAZOLE 500 MG/NS RTU 500 MG/100 ML RTUPB IV PRN
[2019-10-31] MEDS ORDERED: CEFAZOLIN 1 GM/D5W RTU 1 GM/50 ML RTUPB IV ONE (06:15)
[2019-10-31] MEDS ORDERED: METRONIDAZOLE 500 MG/NS RTU 500 MG/100 ML RTUPB IV ONE (06:16)
[2019-10-31] MEDS ORDERED: DEXAMETHASONE SOD PHOSPHATE INJ 4 MG/1 ML VIAL ONE (06:56)
[2019-10-31] MEDS ORDERED: FENTANYL CITRATE INJ/PF 100 MCG/2 ML AMPUL ONE ×2 (06:56→09:03)
[2019-10-31] MEDS ORDERED: MIDAZOLAM 2 MG/2 ML INJ ONE (06:56)
[2019-10-31] MEDS ORDERED: ONDANSETRON HCL INJ/PF 4 MG/2 ML SDV ONE ×2 (06:56→09:04)
[2019-10-31] MEDS ORDERED: PROPOFOL INJ 200 MG/20 ML VIAL IV ONE (06:57)
[2019-10-31] MEDS ORDERED: BUPIVACAINE HCL 0.5%-EPI 1:200000 INJ/PF 30 ML VIAL ONE (07:10)
[2019-10-31] MEDS ORDERED: METHYLENE BLUE 50 MG/10 ML AMPULE ONE (07:10)
[2019-10-31] MEDS ORDERED: PROMETHAZINE HCL INJ 25 MG/1 ML VIAL IV PRN (08:34)
[2019-10-31] MEDS ORDERED: DIPHENHYDRAMINE HCL 50 MG/ML VIAL IV PRN (08:34)
[2019-10-31] MEDS ORDERED: MEPERIDINE HCL/PF INJ 25 MG/1 ML DISP.SYRIN IV PRN (08:34)
[2019-10-31] MEDS ORDERED: FENTANYL CITRATE INJ/PF 100 MCG/2 ML AMPUL IV PRN ×3 (08:34)
--- NOTE | 2019-10-31 08:55 | Operative Report ---
Nonrecallable Operative Report DATE OF SURGERY: 10/31/19 PREOPERATIVE DIAGNOSIS: perirectal fistula POSTOPERATIVE DIAGNOSIS: perirectal abscess OPERATION: excision of perirectal abscess SURGEON: CASPER ONEAL INTERPRETER AND TRANSLATOR: DARIEL RAMOS ANESTHESIA: GA TISSUE REMOVED OR ALTERED: perirectal fat COMPLICATIONS: none ESTIMATED BLOOD LOSS: 5cc INTRAOPERATIVE FINDINGS: no communication between pore and rectum PROCEDURE: Patient was brought to the operating room awake alert in stable condition she was placed on the operating table in a supine position just under general anesthesia intubated and placed in a high lithotomy position. After appropriate timeout site verification the procedure commenced. The patient had a small pore opening about 2 cm from the anal verge at the 7 o'clock position when looking at the patient in the lithotomy position. Upon palpation of this small pore there was a small amount of pus that exuded from the nodule on the on the perineum just 2 cm from anal verge. I used a catheter tip syringe filled with methylene blue dyed saline and injected into the tract. The tract appeared to fill inferiorly with about 10 cc of methylene blue dyed saline. We then used a lacrimal mobile probe and probed the tract and it did not seem to enter the rectum itself. No matter which possible direction the lacrimal probe turned to I could not identify a specific tract into the rectum itself. Using the anoscope we then examined examined all 4 quadrants of the rectum and there was no evidence of methylene blue dye that migrated into the rectum which would make a consistent with a fistula in anal. I therefore I therefore made an incision directly over the small abscess and dissected down through subcutaneous tissue with Bovie cautery into the perirectal fat and a completely excised a approximately 3 cm diameter section of tissue which included some granulation tissue but no obvious tract could be identified into the rectum. After excision of the granulation tissue I irrigated the wound and closed simply with 2-0 chromic sutures. The patient tolerated the procedure well and was returned recovery in stable condition.
--- NOTE | 2019-10-31 09:00 | Discharge Summary ---
Discharge Summary (SDC) - Discharge Final Diagnosis: perectal abscess Date of Surgery: 10/31/19 Discharge Date: 10/31/19 Condition: Good Prescriptions: Hydrocodone/Acetaminophen [[place]ow 10-325 mg Tablet] 1 tab PO Q6HP PRN #15 tablet PRN Reason: Referrals: SONIA KULKARNI MD [Primary Care Provider] - Discharge Diet: As Tolerated Discharge Activity: Activity As Tolerated Report the Following to Your Physician Immediately: Shortness of Breath, Fever over 101 Degrees, Unusual Bleeding
[2019-10-31] MEDS ORDERED: HYDROCODONE/ACETAMINOPHEN 10-325 MG TABLET ONE (10:32)
[2019-10-31] MEDS ORDERED: HYDROCODONE/ACETAMINOPHEN 10-325 MG TABLET PO ONE (10:45)
[2019-10-31 12:10] VITALS: BP 136/90
== END 2019-10-31 11:45 | disposition home or self-care (01) ==
LOC: OROUT 05:49
PROVIDERS: ATTEND Surgery
DX: K61.1 Rectal abscess (principal); I10 Essential (primary) hypertension; M19.90 Unspecified osteoarthritis, unspecified site; Z79.899 Other long term (current) drug therapy; E66.9 Obesity, unspecified; Z68.36 Body mass index [BMI] 36.0-36.9, adult
CPT/HCPCS: 93005; 36415 ×2; 85027; 87635; 81025; 80048; 93010; 45999; J2250; J3490 ×2; J0690; J1100; J3010; J2405; J2704; Q9968; 902

== ENCOUNTER 2019-12-25 00:06 | Emergency (ER) | payer BC ==
--- NOTE | 2019-12-25 00:30 | ER Document Report ---
ED Medical Screen (RME) - General Chief Complaint: Syncope Stated Complaint: POSSIBLE SYNCOPE Primary Care Provider: SONIA KULKARNI MD [Primary Care Provider] - Follow up as needed Notes: Patient is a 34-year-old white female history of hyperlipidemia, hypertension obesity who presents the emergency department the chief complaint of syncopal episode. reports he just got home from work got a shower but close on for bed, she was standing in their bedroom and she suddenly collapsed after stating she did not feel right. He states she collapsed on the carpet, not striking her head on any hard objects. States that when she came to that she was complaining of chest pain. EMS came, did EKGs and evaluated her and reported she was okay. transported her here for further evaluation. I have treated and performed a rapid initial assessment of this patient. A comprehensive ED assessment and evaluation of the patient, analysis of test results and completion of medical decision making process will be conducted by additional ED providers. PHYSICAL EXAMINATION: GENERAL: Well-appearing, well-nourished and in no acute distress. A&Ox4. Answers questions appropriately. TRAVEL OUTSIDE OF THE [place] IN LAST 30 DAYS: No - Related Data Allergies/Adverse Reactions: morphine [Morphine] Allergy (Intermediate, Verified 10/31/19 06:04) Hives Penicillins Allergy (Intermediate, Verified 10/31/19 06:04) Hives Past Medical History - Social History Family history: Reviewed & Not Pertinent - Past Medical History Cardiac Medical History: Reports: Hx Hypercholesterolemia, Hx Hypertension Denies: Hx Atrial Fibrillation, Hx Congestive Heart Failure, Hx Coronary Artery Disease, Hx DVT, Hx Heart Attack, Hx Pulmonary Embolism Pulmonary Medical History: Denies: Hx Asthma, Hx Bronchitis, Hx COPD, Hx Pneumonia, Hx Sleep Apnea, Hx Tuberculosis Neurological Medical History: Denies: Hx Cerebrovascular Accident, Hx Seizures, Hx Parkinson's Disease Endocrine Medical History: Denies: Hx Diabetes Mellitus Type 1, Hx Diabetes Mellitus Type 2, Hx Hyperthyroidism, Hx Hypothyroidism Renal/ Medical History: Reports: Hx Kidney Stones, Hx Ovarian Cysts. Denies: Hx End Stage Renal Disease, Hx Peritoneal Dialysis GI Medical History: Reports: Hx Pancreatitis - acute (08/11/2017). Denies: Hx Cirrhosis, Hx Gastroesophageal Reflux Disease, Hx Hepatitis, Hx Ulcer Musculoskeltal Medical History: Reports Hx Arthritis - BACK, Denies Hx Multiple Sclerosis Psychiatric Medical History: Denies: Hx Bipolar Disorder, Hx Depression, Hx Schizophrenia Traumatic Medical History: Reports: Hx Fractures Infectious Medical History: Reports: Hx C-Diff. Denies: Hx Hepatitis, Hx MRSA Past Surgical History: Reports: Hx Gynecologic Surgery, Hx Kidney (Renal Surgery) - when child, Hx Orthopedic Surgery - left ankle, Other - Left ureteral stent and other corrective surgery.. Denies: Hx Cholecystectomy - Immunizations Immunizations up to date: No Hx Diphtheria, Pertussis, Tetanus Vaccination: No Physical Exam - Vital signs Vitals: Temp Pulse BP Pulse Ox 98.5 F 85 134/82 H 98 12/25/19 00:12 12/25/19 00:12 12/25/19 00:12 12/25/19 00:12 Course - Vital Signs Vital signs: Temp Pulse Resp BP Pulse Ox 98.5 F 85 134/82 H 98 12/25/19 00:12 12/25/19 00:12 12/25/19 00:12 12/25/19 00:12 Doctor's Discharge - Discharge Referrals: SONIA KULKARNI MD [Primary Care Provider] - Follow up as needed
--- NOTE | 2019-12-25 01:36 | RADIOLOGY REPORT (SQ) ---
CT of the head: 12/25/2019 12:33 AM CDT HISTORY: 34-year-old patient with syncope. COMPARISON: None available TECHNIQUE: Multiple axial contiguous images were obtained through the head without intravenous contrast administered. This exam was performed according to our departmental dose-optimization program, which includes automated exposure control, adjustment of the mA and/or KV according to the patient's size and/or use of iterative reconstruction technique. FINDINGS: The ventricles are within normal limits for size. Both orbits appear unremarkable. The mastoid air cells appear clear. The visualized paranasal sinuses appear clear. The calvarium is intact. There are extensive bilateral basal ganglia calcifications noted. The velazquez-white matter differentiation is within normal limits. No midline shift is seen. There are subcentimeter areas of increased density at the bilateral frontal lobes concerning for subarachnoid hemorrhage. These are most pronounced on the right side. The largest discrete area measures at least 4 to 5 mm. IMPRESSION: There are subcentimeter areas of increased density at the bilateral frontal lobes concerning for hemorrhage. No midline shift or mass effect is seen.
--- NOTE | 2019-12-25 01:37 | RADIOLOGY REPORT (SQ) ---
AP Portable chest: 12/25/2019 12:35 AM CDT History: 34-year old patient with syncope. Comparison: None available Findings: The cardiomediastinal silhouette is normal in size. No pneumothorax is seen. No acute airspace opacities are seen. No discrete pleural effusion is apparent. Impression: No acute airspace opacities are seen.
--- NOTE | 2019-12-25 01:44 | ER Document Report ---
ED Syncope and Near Syncope - General Chief Complaint: Syncope Stated Complaint: POSSIBLE SYNCOPE Time Seen by Provider: 12/25/19 01:31 Primary Care Provider: SONIA KULKARNI MD [Primary Care Provider] - Follow up as needed Notes: Patient is a 34-year-old female that comes emergency department for chief complaint of an episode just prior to arrival where she was standing in her bedroom and then she suddenly collapsed onto the floor apparently having passed out. Patient states she does not remember the episode. at bedside states that she stated "I do not feel good" and then fell face forward onto the ground on the carpet. Patient denies headache, she reports mild nausea currently, she denies visual changes, focal numbness or weakness, incontinence. She states she has never passed out before. Patient does state that she has felt "a funny sensation and little bit of shortness of breath" across her chest over the past couple of days intermittently. She denies specific chest pain. She is currently on her menstrual cycle. She also reports occasional upper abdominal discomfort but not currently. She denies alcohol, recreational drugs. Past medical history of hypertension and tachycardia on metoprolol, hyperlipidemia on atorvastatin, and acne on minocycline. TRAVEL OUTSIDE OF THE [place] IN LAST 30 DAYS: No - Related Data Allergies/Adverse Reactions: morphine [Morphine] Allergy (Intermediate, Verified 10/31/19 06:04) Hives Penicillins Allergy (Intermediate, Verified 10/31/19 06:04) Hives Past Medical History - General Information source: Patient - Social History Smoking Status: Never Smoker Frequency of alcohol use: None Drug Abuse: None Lives with: Family Family History: Malignancy, Other - Pulmonary emboli - Past Medical History Cardiac Medical History: Reports: Hx Hypercholesterolemia, Hx Hypertension Denies: Hx Atrial Fibrillation, Hx Congestive Heart Failure, Hx Coronary Artery Disease, Hx DVT, Hx Heart Attack, Hx Pulmonary Embolism Pulmonary Medical History: Denies: Hx Asthma, Hx Bronchitis, Hx COPD, Hx Pneumonia, Hx Sleep Apnea, Hx Tuberculosis Neurological Medical History: Denies: Hx Cerebrovascular Accident, Hx Seizures, Hx Parkinson's Disease Endocrine Medical History: Denies: Hx Diabetes Mellitus Type 1, Hx Diabetes Mellitus Type 2, Hx Hyperthyroidism, Hx Hypothyroidism Renal/ Medical History: Reports: Hx Kidney Stones, Hx Ovarian Cysts. Denies: Hx End Stage Renal Disease, Hx Peritoneal Dialysis GI Medical History: Reports: Hx Pancreatitis - acute (08/11/2017). Denies: Hx Cirrhosis, Hx Gastroesophageal Reflux Disease, Hx Hepatitis, Hx Ulcer Musculoskeletal Medical History: Reports Hx Arthritis - BACK, Denies Hx Multiple Sclerosis Psychiatric Medical History: Denies: Hx Bipolar Disorder, Hx Depression, Hx Schizophrenia Traumatic Medical History: Reports: Hx Fractures Infectious Medical History: Reports: Hx C-Diff. Denies: Hx Hepatitis, Hx MRSA Past Surgical History: Reports: Hx Gynecologic Surgery, Hx Kidney (Renal Surgery) - when child, Hx Orthopedic Surgery - left ankle, Other - Left ureteral stent and other corrective surgery.. Denies: Hx Cholecystectomy - Immunizations Immunizations up to date: No Hx Diphtheria, Pertussis, Tetanus Vaccination: No Review of Systems - Review of Systems Constitutional: See HPI EENT: No symptoms reported Cardiovascular: See HPI Respiratory: No symptoms reported Gastrointestinal: See HPI Genitourinary: No symptoms reported Female Genitourinary: No symptoms reported Musculoskeletal: No symptoms reported Skin: No symptoms reported Hematologic/Lymphatic: No symptoms reported Neurological/Psychological: See HPI Physical Exam - Vital signs Vitals: Temp Pulse BP Pulse Ox 98.5 F 85 134/82 H 98 12/25/19 00:12 12/25/19 00:12 12/25/19 00:12 12/25/19 00:12 - Notes Notes: GENERAL: Alert, interacts well. No acute distress. HEAD: Normocephalic, atraumatic. EYES: Pupils equal, round, and reactive to light. Extraocular movements intact. ENT: Oral mucosa moist, tongue midline. Oropharynx unremarkable. Airway patent. Nares patent NECK: Full range of motion. Supple. Trachea midline. No lymphadenopathy. LUNGS: Clear to auscultation bilaterally, no wheezes, rales, or rhonchi. No respiratory distress. Non-tender chest wall. HEART: Regular rate and rhythm. No murmur ABDOMEN: Soft, non-tender. Non-distended. EXTREMITIES: Moves all 4 extremities spontaneously. No edema, normal radial and dorsalis pedis pulses bilaterally. No cyanosis. BACK: no cervical, thoracic, lumbar midline tenderness. No saddle anesthesia, normal distal neurovascular exam. Moves all extremities in full range of motion. NEUROLOGICAL: Alert and oriented x3. Normal speech. Cranial nerves II through XII grossly intact. Strength 5/5 in all extremities. PSYCH: Normal affect, normal mood. SKIN: Warm, dry, normal turgor. No rashes or lesions noted. Course - Re-evaluation Re-evalutation: Vital signs unremarkable, patient is alert, oriented, well-appearing, no signs of trauma, unremarkable physical exam, unremarkable neurologic exam. Chest x-ray appears unremarkable, read is pending, CT read by radiologist with concern of subcentimeter bilateral frontal intracranial hemorrhage. No shift. On reevaluation patient unchanged. No current headache. Discussed with Dr. Rojas, [facility] I discussed this with patient, she states understanding and agreement. 12/25/19 02:25 Call placed to divided trauma, they referred me to the direct transfer line to hopefully speak to neurosurgery first. Direct transfer line had a delay but when I spoke to them they referred me back to the trauma line. After this patient was accepted for transfer ED to ED by Dr. Bose trauma surgery. Patient became very anxious, she was given 0.5 mg of Ativan, after this she felt much better, she remains alert, cooperative, GCS of 15. 12/25/19 02:59 EMS crew is here, patient was reevaluated again at bedside, no change mental status, she states she is vaguely nauseated and request something for nausea, otherwise her exam is unremarkable. Vital signs unremarkable. Patient is stable for transport. - Vital Signs Vital signs: Temp Pulse Resp BP Pulse Ox 98.5 F 85 15 134/81 H 100 12/25/19 00:12 12/25/19 00:12 12/25/19 02:01 12/25/19 02:01 12/25/19 02:01 - Laboratory Result Diagrams: 12/25/19 01:32 12/25/19 01:32 Laboratory results interpreted by me: 12/25/19 01:32 Chloride 109 H Glucose 136 H AST 74 H ALT 89 H Creatine Kinase 281 H Discharge - Discharge Clinical Impression: Intracranial hemorrhage Episode of syncope Qualifiers: Syncope type: unspecified Qualified Code(s): R55 - Syncope and collapse Head injury Qualifiers: Encounter type: initial encounter Qualified Code(s): S09.90XA - Unspecified injury of head, initial encounter Condition: Stable Disposition: [facility] Referrals: SONIA KULKARNI MD [Primary Care Provider] - Follow up as needed
[2019-12-25] MEDS ORDERED: NORMAL SALINE 1000 ML 1,000 ML IV ONE (01:45)
[2019-12-25 01:54] LABS: ABSOLUTE EOSINOPHILS # (AUTO) 0.1 10^3/uL (0.0-0.6); ABSOLUTE LYMPHOCYTES (AUTO) 2.2 10^3/uL (0.5-4.7); ABSOLUTE MONOCYTES (AUTO) 0.3 10^3/uL (0.1-1.4); ABSOLUTE NEUT (AUTO) 4.3 10^3/uL (1.7-8.2); BASOPHILS % (AUTO) 0.6 % (0-2); EOSINOPHILS % (AUTO) 2.1 % (0-6); HEMOGLOBIN 15.1 g/dL (12.0-15.5); LYMPHOCYTES % (AUTO) 31.5 % (13-45); MEAN CORPUSCULAR HEMOGLOBIN 31.1 pg (27.0-33.4); MEAN CORPUSCULAR HGB CONC 34.2 g/dL (32.0-36.0); MEAN CORPUSCULAR VOLUME 91 fl (80-97); MONOCYTES % (AUTO) 4.8 % (3-13); PLATELET COUNT 286 10^3/uL (150-450); RED BLOOD COUNT 4.85 10^6/uL (3.72-5.28); RED CELL DISTRIBUTION WIDTH 12.5 % (11.5-14.0); TOTAL CELLS COUNTED % (AUTO) 100 %
[2019-12-25 01:58] LABS: INTERNATIONAL RATION (INR) 0.91; PROTHROMBIN TIME 12.2 SEC (11.4-15.4)
[2019-12-25 01:59] LABS: PARTIAL THROMBOPLASTIN TIME 31.3 SEC (23.5-35.8)
[2019-12-25 02:11] LABS: D-DIMER < 0.27 ug/mL (0.00-0.50)
[2019-12-25 02:20] LABS: ALBUMIN 4.8 g/dL (3.5-5.0); ALKALINE PHOSPHATASE 63 U/L (38-126); ANION GAP 8 (5-19); ASPARTATE AMINO TRANSFERASE 74 U/L (14-36); BILIRUBIN,TOTAL 0.4 mg/dL (0.2-1.3); BLOOD UREA NITROGEN 10 mg/dL (7-20); CALCIUM 9.7 mg/dL (8.4-10.2); CARBON DIOXIDE 25 mmol/L (22-30); CHLORIDE 109 mmol/L (98-107); CREATINE KINASE 281 U/L (30-135); GLUCOSE 136 mg/dL (75-110); POTASSIUM 3.9 mmol/L (3.6-5.0); TOTAL PROTEIN 7.9 g/dL (6.3-8.2)
[2019-12-25 02:22] LABS: ALCOHOL < 10 mg/dL (NONE DETECTED)
[2019-12-25] MEDS ORDERED: LORAZEPAM INJ 2 MG/1 ML VIAL IV ONE (02:24)
--- NOTE | 2019-12-25 02:57 | ER Document Report ---
Doctor's Note Notes: 12/25/19 02:56 This MD was made aware that transportation is here to transport patient to [facility]. This MD went to the bedside the patient. The patient has a GCS of 15. She appears mildly anxious. However she is alert and oriented x3 and is speaking in full sentences. Patient appears stable for transfer at this time.
[2019-12-25 02:59] LABS: APPEARANCE,URINE CLOUDY; BILIRUBIN,URINE NEGATIVE (NEGATIVE); CALCIUM OXALATE CRYSTALS,URINE MANY /HPF; COLOR,URINE YELLOW; GLUCOSE, URINE NEGATIVE (NEGATIVE); KETONES,URINE NEGATIVE (NEGATIVE); PROTEIN,URINE 30 mg/dL (NEGATIVE); UROBILINOGEN,URINE NEGATIVE mg/dL (<2.0)
[2019-12-25] MEDS ORDERED: ONDANSETRON HCL INJ/PF 4 MG/2 ML SDV IV ONE (03:00)
[2019-12-25 03:17] LABS: URINE AMPHETAMINES SCREEN NEGATIVE; URINE BARBITURATES SCREEN NEGATIVE; URINE BENZODIAZEPINES SCREEN NEGATIVE; URINE COCAINE SCREEN NEGATIVE; URINE MARIJUANA (THC) SCREEN NEGATIVE; URINE METHADONE SCREEN NEGATIVE; URINE PHENCYCLIDINE SCREEN NEGATIVE
[2019-12-25 03:26] VITALS: BP 139/93
--- NOTE | 2019-12-25 06:23 | EKG REPORT ---
SEVERITY:- NORMAL ECG - SINUS RHYTHM : Confirmed by: Carlos Finley MD 25-Dec-2019 06:22:04
== END 2019-12-25 03:25 | disposition short-term general hospital (02) ==
LOC: ER 00:06
DX: S09.90XA Unspecified injury of head, initial encounter (principal); R55 Syncope and collapse; I62.9 Nontraumatic intracranial hemorrhage, unspecified; W19.XXXA Unspecified fall, initial encounter; E78.5 Hyperlipidemia, unspecified; I10 Essential (primary) hypertension; E66.9 Obesity, unspecified; Z88.6 Allergy status to analgesic agent; Z88.0 Allergy status to penicillin
CPT/HCPCS: 93005; 99285; 96361; 96374; 96375; 36415; 80307 ×2; 82550; 84703; 85025; 85610; 85730; 80053; 81001; 84484; 85379; 71045; 70450; 93010; J2060; J2405; J7030

== ENCOUNTER 2020-02-07 15:43 | Observation (INO) | payer BC ==
[2020-02-07] MEDS ORDERED: HYDROMORPHONE HCL INJ/PF 2 MG/ML AMPULE IV ONE (16:51)
[2020-02-07] MEDS ORDERED: METOCLOPRAMIDE HCL INJ/PF 10 MG/2 ML SDV IV ONE (16:51)
--- NOTE | 2020-02-07 17:04 | ER Document Report ---
ED General - General Chief Complaint: Direct Admit/Private MD Stated Complaint: DIRECT ADMIT Notes: Patient is a 34-year-old white female with a history of hypertension, hyperlipidemia, prior ectopic and obesity who presents to the emergency department with a chief complaint of abdominal pain. She states it began 2 days ago. Localizes it primarily to the right upper quadrant. States pain is worse with eating and palliated by nothing. Denies any specific radiation of pain. Pain is been constant since onset. Admits to some associated nausea but denies vomiting. Denies any diarrhea. She admits to some subjective fevers. Was seen by her primary doctor prior to arrival who sent her here for direct admission. She was placed in the emergency department for COVID-19 testing before being sent to a floor bed. Patient denies any recent travel or known sick contacts. TRAVEL OUTSIDE OF THE [place] IN LAST 30 DAYS: No - Related Data Allergies/Adverse Reactions: morphine [Morphine] Allergy (Intermediate, Verified 02/07/20 17:36) Hives Penicillins Allergy (Intermediate, Verified 02/07/20 17:36) Hives Past Medical History - Social History Smoking Status: Unknown if Ever Smoked Family History: Malignancy, Other - Pulmonary emboli - Past Medical History Cardiac Medical History: Reports: Hx Hypercholesterolemia, Hx Hypertension Denies: Hx Atrial Fibrillation, Hx Congestive Heart Failure, Hx Coronary Artery Disease, Hx DVT, Hx Heart Attack, Hx Pulmonary Embolism Pulmonary Medical History: Denies: Hx Asthma, Hx Bronchitis, Hx COPD, Hx Pneumonia, Hx Sleep Apnea, Hx Tuberculosis Neurological Medical History: Denies: Hx Cerebrovascular Accident, Hx Seizures, Hx Parkinson's Disease Endocrine Medical History: Denies: Hx Diabetes Mellitus Type 1, Hx Diabetes Mellitus Type 2, Hx Hyperthyroidism, Hx Hypothyroidism Renal/ Medical History: Reports: Hx Kidney Stones, Hx Ovarian Cysts. Denies: Hx End Stage Renal Disease, Hx Peritoneal Dialysis GI Medical History: Reports: Hx Pancreatitis - acute (08/11/2017). Denies: Hx Cirrhosis, Hx Gastroesophageal Reflux Disease, Hx Hepatitis, Hx Ulcer Musculoskeletal Medical History: Reports Hx Arthritis - BACK, Denies Hx Multiple Sclerosis Psychiatric Medical History: Denies: Hx Bipolar Disorder, Hx Depression, Hx Schizophrenia Traumatic Medical History: Reports: Hx Fractures Infectious Medical History: Reports: Hx C-Diff. Denies: Hx Hepatitis, Hx MRSA Past Surgical History: Reports: Hx Gynecologic Surgery, Hx Kidney (Renal Surgery) - when child, Hx Orthopedic Surgery - left ankle, Other - Left ureteral stent and other corrective surgery.. Denies: Hx Cholecystectomy - Immunizations Immunizations up to date: No Hx Diphtheria, Pertussis, Tetanus Vaccination: No Review of Systems - Review of Systems Constitutional: Fever EENT: denies: Throat pain Cardiovascular: denies: Chest pain Respiratory: denies: Short of breath Gastrointestinal: Abdominal pain, Nausea Genitourinary: denies: Pain Female Genitourinary: denies: Vaginal discharge Musculoskeletal: denies: Deformity Hematologic/Lymphatic: denies: Easy bruising Neurological/Psychological: denies: Headaches Physical Exam - Vital signs Vitals: Temp 98.4 F 02/07/20 16:20 - General General appearance: Appears well, Alert In distress: None - HEENT Head: Normocephalic, Atraumatic Eyes: Normal Pupils: PERRL - Respiratory Respiratory status: No respiratory distress Chest status: Nontender Breath sounds: Normal Chest palpation: Normal - Cardiovascular Rhythm: Regular Heart sounds: Normal auscultation - Abdominal Inspection: Normal Distension: No distension Bowel sounds: Normal Tenderness: Tender - Right upper quadrant Organomegaly: No organomegaly - Neurological Neuro grossly intact: Yes Cognition: Normal Orientation: AAOx4 - Psychological Associated symptoms: Normal affect, Normal mood - Skin Skin Temperature: Warm Skin Moisture: Dry Skin Color: Normal Course - Re-evaluation Re-evalutation: 02/07/20 17:03 Patient is stable at this time. She is requesting medications for pain. We will add Dilaudid and Reglan for nausea. Remainder of orders have been placed as ordered per the admitting provider, her primary doctor, Dr. Manzo. He is requested a surgical consult which has been placed by nursing staff as well. Patient will have a COVID-19 test prior to entering the operating room and/or before being placed on the floor. We will continue to monitor her during her st ay here in the emergency department. 02/07/20 18:11 Patient stable at this time, resting comfortably in the room upon reevaluation. She has a clean bed on the medical floor, 305, she will be transported there and the on-call surgeon, Dr. Castillo will consult on her there. - Vital Signs Vital signs: Temp Pulse Resp BP Pulse Ox 98.4 F 121 H 18 139/86 H 99 02/07/20 16:36 02/07/20 16:36 02/07/20 16:36 02/07/20 16:36 02/07/20 16:36 Discharge - Discharge Clinical Impression: Nausea Abdominal pain Qualifiers: Abdominal location: right upper quadrant Qualified Code(s): R10.11 - Right upper quadrant pain Fever Qualifiers: Fever type: unspecified Qualified Code(s): R50.9 - Fever, unspecified Condition: Stable Disposition: ADMITTED INPATIENT Admitting Provider: Jovany Unit Admitted: Medical Floor
[2020-02-07] MEDS: NORMAL SALINE 1000 ML 1,000 ML IV PRN (17:22)
--- NOTE | 2020-02-07 18:08 | RADIOLOGY REPORT (SQ) ---
EXAM DESCRIPTION: U/S ABDOMEN LIMITED W/O DOP IMAGES COMPLETED DATE/TIME: 02/07/2020 5:55 pm REASON FOR STUDY: RUQ pain, Nausea,fever COMPARISON: None. TECHNIQUE: Dynamic and static grayscale images acquired of the abdomen and recorded on PACS. Additio nal selected color Doppler and spectral images recorded. LIMITATIONS: Limited visualization. Poor acoustical window FINDINGS: PANCREAS: No masses. Visualized pancreatic duct normal caliber. LIVER: Normal size Moderate to marked fatty infiltration. No focal masses. LIVER VASCULATURE: Normal directional flow of the main portal vein and hepatic veins. GALLBLADDER: No stones. Normal wall thickness. No pericholecystic fluid. ULTRASOUND-DETECTED LAWRENCE'S SIGN: Negative. INTRAHEPATIC DUCTS AND COMMON DUCT: CBD and intrahepatic ducts normal caliber. No filling defects. INFERIOR VENA CAVA: Normal flow. AORTA: No aneurysm. RIGHT KIDNEY: Normal size. Normal echogenicity. No solid or suspicious masses. No hydronephros is. No calcifications. PERITONEAL AND RIGHT PLEURAL SPACE: No ascites or effusions. OTHER: No other significant findings. IMPRESSION: FATTY LIVER. OTHERWISE NORMAL RUQ US VISUALIZED TECHNICAL DOCUMENTATION: JOB ID: [id number] [employer]- All Rights Reserved Reading location - IP/workstation name: [email or web address]
[2020-02-07] MEDS: METRONIDAZOLE 500 MG/NS RTU 500 MG/100 ML RTUPB IV SCH (18:26)
[2020-02-07 18:51] LABS: ALBUMIN 5.1 g/dL (3.5-5.0); ALKALINE PHOSPHATASE 70 U/L (38-126); AMYLASE 48 U/L (30-110); ANION GAP 12 (5-19); ASPARTATE AMINO TRANSFERASE 105 U/L (14-36); BILIRUBIN,DIRECT 0.3 mg/dL (0.0-0.4); BILIRUBIN,TOTAL 0.5 mg/dL (0.2-1.3); BLOOD UREA NITROGEN 7 mg/dL (7-20); CALCIUM 10.1 mg/dL (8.4-10.2); CARBON DIOXIDE 25 mmol/L (22-30); CHLORIDE 107 mmol/L (98-107); GLUCOSE 90 mg/dL (75-110); POTASSIUM 4.2 mmol/L (3.6-5.0); TOTAL PROTEIN 8.5 g/dL (6.3-8.2)
[2020-02-07 20:44] LABS: ABSOLUTE EOSINOPHILS # (AUTO) 0.1 10^3/uL (0.0-0.6); ABSOLUTE LYMPHOCYTES (AUTO) 2.6 10^3/uL (0.5-4.7); ABSOLUTE MONOCYTES (AUTO) 0.4 10^3/uL (0.1-1.4); ABSOLUTE NEUT (AUTO) 4.1 10^3/uL (1.7-8.2); BASOPHILS % (AUTO) 0.4 % (0-2); EOSINOPHILS % (AUTO) 1.1 % (0-6); HEMATOCRIT 45.7 % (36.0-47.0); HEMOGLOBIN 15.3 g/dL (12.0-15.5); LYMPHOCYTES % (AUTO) 36.2 % (13-45); MEAN CORPUSCULAR HEMOGLOBIN 30.5 pg (27.0-33.4); MEAN CORPUSCULAR HGB CONC 33.5 g/dL (32.0-36.0); MEAN CORPUSCULAR VOLUME 91 fl (80-97); MONOCYTES % (AUTO) 5.2 % (3-13); PLATELET COUNT 314 10^3/uL (150-450); RED BLOOD COUNT 5.02 10^6/uL (3.72-5.28); RED CELL DISTRIBUTION WIDTH 12.6 % (11.5-14.0); SEGMENTED NEUTROPHILS % (AUTO) 57.1 % (42-78); TOTAL CELLS COUNTED % (AUTO) 100 %; WHITE BLOOD COUNT 7.1 10^3/uL (4.0-10.5)
[2020-02-07] MEDS: CIPROFLOXACIN 400 MG/D5W RTU 400 MG/200 ML RTUPB IV SCH (22:27)
--- NOTE | 2020-02-07 22:33 | PDOC H&P ---
History of Present Illness Admission Date/PCP: 02/07/20 17:49 [facility] Patient complains of: Abdominal Pain, Nausea History of Present Illness: PEGGY BROWN is a 34 year old female patient known to my practice who presented to the office earlier today with complain about worsening abdominal pain over the last 3 days with worsening intensity this morning. She localized pain to upper right quadrant of the abdomen, cramping in character, constant s clif[place] this morning, and rated at 10/10 in intensity. She reported associated fever and nausea. She reported fever of 101.1F and described her pain as too hot to touch her RUQ region. She reported associated decrease appetite. She denied any relieving factor. She denied associated chills, diarrhea, chest pain or shortness of breath. She denied diarrhea but reported loose stool. She denied alcohol usage or use of contraceptive pills. She was evaluated in the ED due to unavailable bed at the time of her office visit. Her evaluation was remarkable for persistence of her presenting symptoms and need for IV Reglan and Morphine administration. Her limited abdominal US revealed fatty liver without any significant acute gallbladder pathologic process. She was advised hospitalization for further evaluation and management. Her morbidities are listed below. Past Medical History Cardiac Medical History: Reports: Hyperlipidema, Hypertension Denies: Atrial Fibrillation, Congestive Heart Failure, Coronary Artery Disease, DVT, Myocardial Infarction, Pulmonary Embolism Pulmonary Medical History: Denies: Asthma, Bronchitis, Chronic Obstructive Pulmonary Disease (COPD), Pneumonia, Sleep Apnea, Tuberculosis Neurological Medical History: Denies: Seizures Endocrine Medical History: Denies: Diabetes Mellitus Type 1, Diabetes Mellitus Type 2, Hyperthyroidism, Hypothyroidism Renal/ Medical History: Denies: End Stage Renal Disease GI Medical History: Denies: Cirrhosis, Gastroesophageal Reflux Disease, Hepatitis Musculoskeltal Medical History: Reports: Arthritis - BACK Psychiatric Medical History: Denies: Bipolar Disorder, Depression Hematology: Denies: Anemia Infectious Medical History: Reports: Clostridium Difficile Denies: Methicillin-Resistant Staph Aureus Past Surgical History Past Surgical History: Reports: Orthopedic Surgery - left ankle, Other - Left ureteral stent and other corrective surgery. Denies: Cholecystectomy Social History Smoking Status: Unknown if Ever Smoked Frequency of Alcohol Use: None Hx Recreational Drug Use: No Drugs: None Hx Prescription Drug Abuse: No - Advance Directive Resuscitation Status: Full Code Family History Family History: Malignancy, Other - Pulmonary emboli Parental Family History Reviewed: Yes Children Family History Reviewed: Yes Sibling(s) Family History Reviewed.: Yes Medication/Allergy Home Medications: Rosuvastatin Calcium [Crestor] 40 mg PO QHS 30 Days #30 tablet 08/15/17 Cetirizine HCl [Zyrtec 10 mg Tablet] 1 tab PO DAILYP PRN 10/15/17 Metoprolol Succinate [Toprol Xl] 100 mg PO DAILY 10/15/17 [place]-3 Fatty Acids/Fish Oil [Fish Oil 1,000 mg Capsule] 1 cap PO BID 10/15/17 Adalimumab [Humira] 10 mg SQ ASDIR PRN 10/26/19 Minocycline HCl 100 mg PO ASDIR PRN 10/26/19 Hydrocodone/Acetaminophen [[place] 10-325 mg Tablet] 1 tab PO Q6HP PRN #15 tablet 10/31/19 Allergies/Adverse Reactions: morphine [Morphine] Allergy (Intermediate, Verified 02/07/20 17:36) Hives Penicillins Allergy (Intermediate, Verified 02/07/20 17:36) Hives Review of Systems Constitutional: PRESENT: anorexia, fever(s). ABSENT: chills, headache(s) Eyes: ABSENT: visual disturbances Ears: ABSENT: hearing changes Cardiovascular: ABSENT: chest pain, dyspnea on exertion, edema, orthropnea, palpitations Respiratory: ABSENT: cough, hemoptysis Gastrointestinal: PRESENT: abdominal pain, nausea. ABSENT: constipation, diarrhea, hematemesis, hematochezia, vomiting Genitourinary: ABSENT: dysuria, hematuria Musculoskeletal: ABSENT: joint swelling Integumentary: ABSENT: rash, wounds Neurological: ABSENT: abnormal gait, abnormal speech, confusion, dizziness, focal weakness, syncope Psychiatric: ABSENT: anxiety, depression, homidical ideation, suicidal ideation Endocrine: ABSENT: cold intolerance, heat intolerance, menstrual abnormalities, polydipsia, polyuria Hematologic/Lymphatic: ABSENT: easy bleeding, easy bruising, lymphadenopathy Allergic/Immunologic: ABSENT: seasonal rhinorrhea Physical Exam Vital Signs: Temp Pulse Resp BP Pulse Ox 98.0 F 107 H 17 123/83 98 02/07/20 19:23 02/07/20 19:23 02/07/20 19:23 02/07/20 19:23 02/07/20 19:23 Intake & Output 02/06/20 02/07/20 02/08/20 06:59 06:59 06:59 Intake Total 178 Balance 178 Weight 97.522 kg General appearance: PRESENT: obese, severe distress - due to reported RUQ pain upon presentation Head exam: PRESENT: atraumatic, normocephalic Eye exam: PRESENT: conjunctiva pink, EOMI, PERRLA. ABSENT: scleral icterus Ear exam: PRESENT: normal external ear exam Mouth exam: PRESENT: moist, tongue midline Neck exam: PRESENT: full ROM. ABSENT: carotid bruit, JVD, lymphadenopathy, th yromegaly Respiratory exam: PRESENT: clear to auscultation fr[place], decreased breath sounds - at lung bases Cardiovascular exam: PRESENT: RRR, +S1, +S2. ABSENT: diastolic murmur, rubs, systolic murmur Pulses: PRESENT: normal dorsalis pedis pul, +2 pedal pulses bilateral Vascular exam: PRESENT: normal capillary refill. ABSENT: pallor GI/Abdominal exam: PRESENT: normal bowel sounds, soft, tenderness - RUQ. ABSENT: distended, guarding, mass, organolmegaly, rebound Rectal exam: PRESENT: deferred Extremities exam: ABSENT: pedal edema Neurological exam: PRESENT: alert, awake, oriented to person, oriented to place, oriented to time, oriented to situation, CN II-XII grossly intact. ABSENT: motor sensory deficit Psychiatric exam: PRESENT: appropriate affect, normal mood. ABSENT: homicidal ideation, suicidal ideation Skin exam: PRESENT: dry, intact, warm. ABSENT: cyanosis, rash Results Laboratory Results: 02/07/20 17:20 02/07/20 17:20 02/07/20 02/07/20 17:20 17:20 WBC 7.1 RBC 5.02 Hgb 15.3 Hct 45.7 MCV 91 MCH 30.5 MCHC 33.5 RDW 12.6 Plt Count 314 Seg Neutrophils % 57.1 Sodium 143.6 Potassium 4.2 Chloride 107 Carbon Dioxide 25 Anion Gap 12 BUN 7 Creatinine 0.62 Est GFR ( Amer) > 60 Glucose 90 Calcium 10.1 Total Bilirubin 0.5 AST 105 H Alkaline Phosphatase 70 Total Protein 8.5 H Albumin 5.1 H Amylase 48 Lipase 58.0 Impressions: Abdomen Ultrasound 02/07/20 00:00 IMPRESSION: FATTY LIVER. OTHERWISE NORMAL RUQ US VISUALIZED Assessment & Plan - Diagnosis (1) Abdominal pain Qualifiers: Abdominal location: right upper quadrant Qualified Code(s): R10.11 - Right upper quadrant pain Is this a current diagnosis for this admission?: Yes Plan: See admitting attending physician orders for details about care plan. (2) Fever Qualifiers: Fever type: unspecified Qualified Code(s): R50.9 - Fever, unspecified Is this a current diagnosis for this admission?: Yes Plan: See admitting attending physician orders for details about care plan. (3) Nausea Is this a current diagnosis for this admission?: Yes Plan: See admitting attending physician orders for details about care plan. (4) Nonalcoholic fatty liver disease Is this a current diagnosis for this admission?: Yes Plan: See admitting attending physician orders for details about care plan. (5) HTN (hypertension) Is this a current diagnosis for this admission?: Yes Plan: See admitting attending physician orders for details about care plan. (6) HLD (hyperlipidemia) Qualifiers: Hyperlipidemia type: unspecified Qualified Code(s): E78.5 - Hyperlipidemia, unspecified Is this a current diagnosis for this admission?: Yes Plan: See admitting attending physician orders for details about care plan. (7) Obesity (BMI 30-39.9) Is this a current diagnosis for this admission?: Yes Plan: See admitting attending physician orders for details about care plan. - Time Time Spent: 50 to 70 Minutes Medications reviewed and adjusted accordingly: Yes Anticipated Discharge Disposition: Home, Self Care Anticipated Discharge Timeframe: within 72 hours - Inpatient Certification Based on my medical assessment, after consideration of the patient's comorbidities, presenting symptoms, or acuity I expect that the services needed warrant INPATIENT care.: Yes I certify that my determination is in accordance with my understanding of Medicare's requirements for reasonable and necessary INPATIENT services [42 CFR 412.3e].: Yes Medical Necessity: Significant Comorbidiites Make Outpatient Treatment Too Risky, Need Close Monitoring Due to Risk of Patient Decompensation, Need For IV Fluids, Need For Continuous Telemetry Monitoring, Need for IV Antibiotics, Risk of Complication if Not Cared For in Hospital, Risk of Diagnosis Which Will Require Inpatient Eval/Care/Monitoring Post Hospital Care: D/C Tunneller Documentation - Plan Summary Plan Summary: See admitting attending physician orders for details about care plan.
--- NOTE | 2020-02-07 23:31 | RADIOLOGY REPORT (SQ) ---
EXAM DESCRIPTION: XR CHEST 1 VIEW COMPLETED DATE/TME: 02/07/2020 00:00 CLINICAL HISTORY: 34 years, Female, RUQ Abdominal pain COMPARISON: Multiple priors, most recent from 12/25/2019 NUMBER OF VIEWS: One TECHNIQUE: Single frontal view of the chest was obtained portably LIMITATIONS: None. FINDINGS: Cardiac and mediastinal contours are stable. Lungs are clear. No pleural effusion or pneumothorax. IMPRESSION: No acute disease. copyright 2010 [employer]- All Rights Reserved
[2020-02-08] MEDS: HYDROMORPHONE HCL INJ/PF 2 MG/ML AMPULE IV PRN ×2 (00:06→08:04)
[2020-02-08] MEDS: METRONIDAZOLE 500 MG/NS RTU 500 MG/100 ML RTUPB IV SCH ×2 (01:04→09:29)
[2020-02-08] MEDS: NORMAL SALINE 1000 ML 1,000 ML IV PRN ×2 (05:46→21:32)
--- NOTE | 2020-02-08 06:39 | PDOC CONSULTATION ---
Consultation Consult Date: 02/08/20 Provider Consulted: SURGICAL SURGICALIST MD Consult reason:: Nausea and abdominal pain History of Present Illness Admission Date/PCP: 02/07/20 17:49 SONIA KULKARNI Patient complains of: Nausea, diarrhea, abdominal pain History of Present Illness: PEGGY BROWN is a 34 year old female seen in consultation at the request of Dr. Kulkarni. Patient reports a 2-day history of periumbilical abdominal pain that radiates into her right upper quadrant. It is dull and cramping in nature. It is moderate in severity. It is constant, however it does wax and wane in its intensity. The patient reports diarrhea and nausea. She denies any vomiting, hematochezia, hematemesis, or melena. She reports fevers and chills at home, however she has been afebrile since admission. She denies headache, dizziness, orthostasis, blurry vision, sore throat, cough, shortness of breath, chest pain. Past Medical History Cardiac Medical History: Reports: Hyperlipidema, Hypertension Denies: Atrial Fibrillation, Congestive Heart Failure, Coronary Artery Disease, DVT, Myocardial Infarction, Pulmonary Embolism Pulmonary Medical History: Denies: Asthma, Bronchitis, Chronic Obstructive Pulmonary Disease (COPD), Pneumonia, Sleep Apnea, Tuberculosis Neurological Medical History: Denies: Seizures Endocrine Medical History: Denies: Diabetes Mellitus Type 1, Diabetes Mellitus Type 2, Hyperthyroidism, Hypothyroidism Renal/ Medical History: Denies: End Stage Renal Disease GI Medical History: Denies: Cirrhosis, Gastroesophageal Reflux Disease, Hepatitis Musculoskeltal Medical History: Reports: Arthritis - BACK Psychiatric Medical History: Denies: Bipolar Disorder, Depression Hematology: Denies: Anemia Infectious Medical History: Reports: Clostridium Difficile Denies: Methicillin-Resistant Staph Aureus Past Surgical History Past Surgical History: Reports: Orthopedic Surgery - left ankle, Other - Left ureteral stent and other corrective surgery. Denies: Cholecystectomy Social History Smoking Status: Unknown if Ever Smoked Frequency of Alcohol Use: None Hx Recreational Drug Use: No Drugs: None Hx Prescription Drug Abuse: No - Advance Directive Resuscitation Status: Full Code Family History Family History: Malignancy, Other - Pulmonary emboli Parental Family History Reviewed: Yes Children Family History Reviewed: Yes Sibling(s) Family History Reviewed.: Yes Medication/Allergy Home Medications: Rosuvastatin Calcium [Crestor] 40 mg PO QHS 30 Days #30 tablet 03/04/18 Cetirizine HCl [Zyrtec 10 mg Tablet] 1 tab PO DAILYP PRN 10/15/17 Metoprolol Succinate [Toprol Xl] 100 mg PO DAILY 10/15/17 [place]-3 Fatty Acids/Fish Oil [Fish Oil 1,000 mg Capsule] 1 cap PO BID 10/15/17 Adalimumab [Humira] 10 mg SQ ASDIR PRN 10/26/19 Minocycline HCl 100 mg PO ASDIR PRN 10/26/19 Hydrocodone/Acetaminophen [[place] 10-325 mg Tablet] 1 tab PO Q6HP PRN #15 tablet 10/31/19 Allergies/Adverse Reactions: morphine [Morphine] Allergy (Intermediate, Verified 02/07/20 17:36) Hives Penicillins Allergy (Intermediate, Verified 02/07/20 17:36) Hives Review of Systems Constitutional: PRESENT: chills, fever(s). ABSENT: fatigue, headache(s), weakness Eyes: ABSENT: visual disturbances Ears: ABSENT: hearing changes Nose, Mouth, and Throat: ABSENT: sore throat Cardiovascular: ABSENT: chest pain Respiratory: ABSENT: cough, dyspnea Gastrointestinal: PRESENT: abdominal pain, bloating, diarrhea, nausea. ABSENT: hematemesis, hematochezia, melena, vomiting Genitourinary: ABSENT: difficulty urinating Musculoskeletal: ABSENT: back pain Integumentary: ABSENT: pruritus, rash Neurological: ABSENT: confusion, convulsions, dizziness Psychiatric: ABSENT: anxiety, depression Endocrine: ABSENT: cold intolerance, heat intolerance Hematologic/Lymphatic: ABSENT: easy bleeding, easy bruising Physical Exam Vital Signs: Temp Pulse Resp BP Pulse Ox 97.6 F 95 16 113/66 98 02/08/20 03:30 02/08/20 03:30 02/08/20 03:30 02/08/20 03:30 02/08/20 03:30 Intake & Output 02/06/20 02/07/20 02/08/20 06:59 06:59 06:59 Intake Total 1400 Balance 1400 Weight 97.522 kg General appearance: PRESENT: obese Head exam: PRESENT: atraumatic, normocephalic Eye exam: PRESENT: EOMI, PERRLA. ABSENT: scleral icterus Mouth exam: PRESENT: moist, neck supple Neck exam: ABSENT: meningismus, tenderness, thyromegaly, tracheal deviation Respiratory exam: PRESENT: unlabored. ABSENT: tachypnea, wheezes Cardiovascular exam: ABSENT: tachycardia GI/Abdominal exam: PRESENT: soft, tenderness - Mild right sided tenderness. ABSENT: distended, guarding Rectal exam: PRESENT: deferred Extremities exam: ABSENT: clubbing Musculoskeletal exam: ABSENT: deformity Neurological exam: PRESENT: alert, awake, oriented to person, oriented to place, oriented to time, oriented to situation Psychiatric exam: ABSENT: agitated, anxious, depressed Focused psych exam: ABSENT: delusional Skin exam: ABSENT: erythema, jaundice Results Laboratory Results: 02/07/20 17:20 02/07/20 17:20 02/07/20 02/07/20 17:20 17:20 WBC 7.1 RBC 5.02 Hgb 15.3 Hct 45.7 MCV 91 MCH 30.5 MCHC 33.5 RDW 12.6 Plt Count 314 Seg Neutrophils % 57.1 Sodium 143.6 Potassium 4.2 Chloride 107 Carbon Dioxide 25 Anion Gap 12 BUN 7 Creatinine 0.62 Est GFR ( Amer) > 60 Glucose 90 Calcium 10.1 Total Bilirubin 0.5 AST 105 H Alkaline Phosphatase 70 Total Protein 8.5 H Albumin 5.1 H Amylase 48 Lipase 58.0 Impressions: Abdomen Ultrasound 02/07/20 00:00 IMPRESSION: FATTY LIVER. OTHERWISE NORMAL RUQ US VISUALIZED Chest X-Ray 02/07/20 00:00 IMPRESSION: No acute disease. copyright 2010 [employer]- All Rights Reserved Assessment & Plan - Diagnosis (1) Abdominal pain Qualifiers: Abdominal location: right upper quadrant Qualified Code(s): R10.11 - Right upper quadrant pain Is this a current diagnosis for this admission?: Yes - Plan Summary Plan Summary: 34-year-old female with abdominal pain. She reports nausea and diarrhea. Her right upper quadrant ultrasound is normal. Her lab work is completely normal. At this time I cannot identify any obvious surgical problems. I will continue her work-up with a urinalysis and abdominal x-rays. I will repeat her CBC this morning. Differential includes gastroenteritis, gastritis, functional abdominal pain, UTI.
[2020-02-08] MEDS: PANTOPRAZOLE SODIUM 40 MG TABLET.DR PO SCH (07:58)
[2020-02-08] MEDS: ENOXAPARIN SODIUM INJ 40 MG/0.4 ML DISP.SYRIN SUBCUT SCH (09:29)
[2020-02-08] MEDS: CIPROFLOXACIN 400 MG/D5W RTU 400 MG/200 ML RTUPB IV SCH (09:29)
[2020-02-08 09:32] LABS: APPEARANCE,URINE SLIGHTLY-CLOUDY; BILIRUBIN,URINE NEGATIVE (NEGATIVE); GLUCOSE, URINE NEGATIVE (NEGATIVE); KETONES,URINE TRACE mg/dL (NEGATIVE); LEUKOCYTE ESTERASE,URINE TRACE (NEGATIVE); NITRITE,URINE NEGATIVE (NEGATIVE); PROTEIN,URINE NEGATIVE (NEGATIVE); URINE SPECIFIC GRAVITY 1.027; UROBILINOGEN,URINE NEGATIVE mg/dL (<2.0)
[2020-02-08] MEDS: ONDANSETRON HCL INJ/PF 4 MG/2 ML SDV IV PRN ×2 (09:42→14:10)
[2020-02-08 09:43] LABS: ADD MANUAL MICROSCOPIC YES; COLOR,URINE YELLOW
[2020-02-08 09:46] LABS: BACTERIA,URINE 1+ /HPF
[2020-02-08 10:23] LABS: ABSOLUTE EOSINOPHILS # (AUTO) 0.1 10^3/uL (0.0-0.6); ABSOLUTE LYMPHOCYTES (AUTO) 2.3 10^3/uL (0.5-4.7); ABSOLUTE MONOCYTES (AUTO) 0.4 10^3/uL (0.1-1.4); ABSOLUTE NEUT (AUTO) 3.3 10^3/uL (1.7-8.2); BASOPHILS % (AUTO) 0.2 % (0-2); HEMATOCRIT 41.5 % (36.0-47.0); HEMOGLOBIN 14.2 g/dL (12.0-15.5); LYMPHOCYTES % (AUTO) 37.4 % (13-45); MEAN CORPUSCULAR HEMOGLOBIN 31.1 pg (27.0-33.4); MEAN CORPUSCULAR HGB CONC 34.2 g/dL (32.0-36.0); MEAN CORPUSCULAR VOLUME 91 fl (80-97); MONOCYTES % (AUTO) 6.2 % (3-13); PLATELET COUNT 267 10^3/uL (150-450); RED BLOOD COUNT 4.57 10^6/uL (3.72-5.28); RED CELL DISTRIBUTION WIDTH 12.6 % (11.5-14.0); SEGMENTED NEUTROPHILS % (AUTO) 54.2 % (42-78); TOTAL CELLS COUNTED % (AUTO) 100 %; WHITE BLOOD COUNT 6.1 10^3/uL (4.0-10.5)
--- NOTE | 2020-02-08 11:00 | RADIOLOGY REPORT (SQ) ---
EXAM DESCRIPTION: ABDOMEN 2 VIEWS IMAGES COMPLETED DATE/TIME: 02/08/2020 9:19 am REASON FOR STUDY: flat and upright, abd pain COMPARISON: 2012 NUMBER OF VIEWS: Two views. TECHNIQUE: Supine and erect/decubitus radiographic images of the abdomen acquired. LIMITATIONS: None. FINDINGS: FREE AIR: None. No abnormal gas collections. LUNG BASES: Clear. BOWEL GAS PATTERN: Nonobstructive pattern. No dilated loops or air fluid levels. CALCIFICATIONS: No suspicious calcifications. SOFT TISSUES: No gross mass or suggestion of organomegaly. HARDWARE: None in the abdomen. BONES: No acute fracture. No worrisome bone lesions. OTHER: No other significant finding. IMPRESSION: NO RADIOGRAPHIC EVIDENCE FOR ACUTE ABDOMINAL DISEASE. TECHNICAL DOCUMENTATION: JOB ID: [id number] 2010 [employer]- All Rights Reserved Reading location - IP/workstation name: [email or web address]
--- NOTE | 2020-02-08 12:20 | RADIOLOGY REPORT (SQ) ---
EXAM DESCRIPTION: CT ABD/PELVIS WITH IV ORAL IMAGES COMPLETED DATE/TIME: 02/08/2020 12:09 pm REASON FOR STUDY: abdominal / RUQ pain unknown cause COMPARISON: Several priors, most recent 10/08/2018. TECHNIQUE: CT scan of the abdomen and pelvis performed with intravenous and oral contrast using marian kim scanning technique with dynamic intravenous contrast injection. Images reviewed with lung, soft t issue, and bone windows. Reconstructed coronal and sagittal MPR images reviewed. Delayed images for e valuation of the urinary system also acquired. All images stored on PACS. All CT scanners at this facility use dose modulation, iterative reconstruction, and/or weight based d osing when appropriate to reduce radiation dose to as low as reasonably achievable (ALARA). [facility]: Dose Right [facility]: CareDose [facility]: Dose Right [facility]: Teradose 4D [facility]: Value [employer] Systems CONTRAST TYPE AND DOSE: contrast/concentration: Isovue 350.00 mmol/ml; Total Contrast Delivered: 99. 0 ml; Total Saline Delivered: 51.0 ml RENAL FUNCTION: None required. The patient is less than 50 years old. RADIATION DOSE: CT Rad equipment meets quality standard of care and radiation dose reduction techniq ues were employed. CTDIvol: 17.8 - 20.2 mGy. DLP: 2073 mGy-cm. . LIMITATIONS: None. FINDINGS: LOWER CHEST: No significant findings. No nodules or infiltrates. LIVER: Normal size. Fatty change. No masses. No dilated ducts. SPLEEN: Normal size. No focal lesions. PANCREAS: No masses. No significant calcifications. No adjacent inflammation or peripancreatic fluid collections. Pancreatic duct not dilated. GALLBLADDER: No identified stones by CT criteria. No inflammatory changes to suggest cholecystitis. ADRENAL GLANDS: No significant masses or asymmetry. RIGHT KIDNEY AND URETER: No solid masses. No significant calcifications. No hydronephrosis or hyd roureter. LEFT KIDNEY AND URETER: No solid masses. No significant calcifications. No hydronephrosis or hydr oureter. AORTA AND VESSELS: No aneurysm. No dissection. Renal arteries, SMA, celiac without stenosis. RETROPERITONEUM: No retroperitoneal adenopathy, hemorrhage or masses. BOWEL AND PERITONEAL CAVITY: No obstruction. No visualized masses. No free fluid. No inflammatory ch anges or thickening of bowel wall. APPENDIX: Normal. PELVIS: No significant masses. Normal bladder. No free fluid. ABDOMINAL WALL: No masses. No hernias. BONES: No significant or acute findings. OTHER: No other significant finding. IMPRESSION: No acute findings. TECHNICAL DOCUMENTATION: JOB ID: [id number] Quality ID # [id number]: Final reports with documentation of one or more dose reduction techniques (e.g., Au tomated exposure control, adjustment of the mA and/or kV according to patient size, use of iterative reconstruction technique) 2010 [employer]- All Rights Reserved Reading location - IP/workstation name: [email or web address]
--- NOTE | 2020-02-08 13:08 | PDOC PROGRESS REPORT ---
Subjective Progress Note for:: 02/08/20 Subjective:: Patient is complaining of mild nausea, she denies abdominal pain and other symptoms Reason For Visit: ABDOMINAL PAIN,NAUSEA,FEVER Physical Exam Vital Signs: Temp Pulse Resp BP Pulse Ox 98.2 F 115 H 18 135/82 H 100 02/08/20 12:44 02/08/20 12:44 02/08/20 12:44 02/08/20 12:44 02/08/20 12:44 Intake & Output 02/07/20 02/08/20 02/09/20 06:59 06:59 06:59 Intake Total 1400 300 Output Total 100 Balance 1300 300 Weight 97.8 kg General appearance: PRESENT: no acute distress, obese Eye exam: PRESENT: EOMI Mouth exam: PRESENT: moist, neck supple Neck exam: PRESENT: full ROM Respiratory exam: PRESENT: clear to auscultation [place] Cardiovascular exam: PRESENT: RRR GI/Abdominal exam: PRESENT: hypoactive bowel sounds, soft, tenderness - Slight tenderness in the right lower quadrant of the abdomen Rectal exam: PRESENT: deferred Extremities exam: PRESENT: full ROM Musculoskeletal exam: PRESENT: full ROM Neurological exam: PRESENT: alert, awake, oriented to person, oriented to time, oriented to situation, motor sensory deficit Psychiatric exam: PRESENT: appropriate affect Results Laboratory Results: 02/08/20 09:25 02/07/20 17:20 02/07/20 02/07/20 02/08/20 17:20 17:20 09:05 WBC 7.1 RBC 5.02 Hgb 15.3 Hct 45.7 MCV 91 MCH 30.5 MCHC 33.5 RDW 12.6 Plt Count 314 Seg Neutrophils % 57.1 Sodium 143.6 Potassium 4.2 Chloride 107 Carbon Dioxide 25 Anion Gap 12 BUN 7 Creatinine 0.62 Est GFR ( Amer) > 60 Glucose 90 Calcium 10.1 Total Bilirubin 0.5 AST 105 H Alkaline Phosphatase 70 Total Protein 8.5 H Albumin 5.1 H Amylase 48 Lipase 58.0 Urine Color YELLOW Urine Appearance SLIGHTLY-CLOUDY Urine pH 5.0 Ur Specific Drake 1.027 Urine Protein NEGATIVE Urine Glucose (UA) NEGATIVE Urine Ketones TRACE H Urine Blood NEGATIVE Urine Nitrite NEGATIVE Ur Leukocyte Esterase TRACE H Ur Squamous Epith Cells MODERATE 02/08/20 09:25 WBC 6.1 RBC 4.57 Hgb 14.2 Hct 41.5 MCV 91 MCH 31.1 MCHC 34.2 RDW 12.6 Plt Count 267 Seg Neutrophils % 54.2 Sodium Potassium Chloride Carbon Dioxide Anion Gap BUN Creatinine Est GFR ( Amer) Glucose Calcium Total Bilirubin AST Alkaline Phosphatase Total Protein Albumin Amylase Lipase Urine Color Urine Appearance Urine pH Ur Specific Drake Urine Protein Urine Glucose (UA) Urine Ketones Urine Blood Urine Nitrite Ur Leukocyte Esterase Ur Squamous Epith Cells Impressions: Abdomen Ultrasound 02/07/20 00:00 IMPRESSION: FATTY LIVER. OTHERWISE NORMAL RUQ US VISUALIZED Chest X-Ray 02/07/20 00:00 IMPRESSION: No acute disease. copyright 2010 [employer]- All Rights Reserved Abdomen X-Ray 02/08/20 00:00 IMPRESSION: NO RADIOGRAPHIC EVIDENCE FOR ACUTE ABDOMINAL DISEASE. Abdomen/Pelvis CT 02/08/20 00:00 IMPRESSION: No acute findings. Assessment & Plan - Diagnosis (1) Abdominal pain Qualifiers: Abdominal location: right upper quadrant Qualified Code(s): R10.11 - Right upper quadrant pain - Time Anticipated Discharge Disposition: Home, Self Care Anticipated Discharge Timeframe: within 24 hours - Plan Summary Plan Summary: Assessment: Nausea improved since admission Right lateral abdominal discomfort improved since admission Blood work negative Urinalysis significant for possible UTI X-ray of the abdomen negative CT scan abdomen pelvis with IV or contrast negative Plan: No acute general surgery issues identified in this patient The cause of her pain could not be identified; however, it is not due to surgical condition time I am recommending to further evaluate this patient for possible UTI Patient diet can be advanced to regular I will sign off. Please call me with questions
--- NOTE | 2020-02-08 13:15 | PDOC PROGRESS REPORT ---
Subjective Progress Note for:: 02/08/20 Subjective:: Patient continue to request for IV Dilaudid for pain management. So far there is no investigative source to account for her reported pain. No nausea or vomiting. No chest pain or difficulty with breathing. Reason For Visit: ABDOMINAL PAIN,NAUSEA,FEVER Physical Exam Vital Signs: Temp Pulse Resp BP Pulse Ox 97.6 F 61 16 113/66 98 02/08/20 03:30 02/08/20 07:00 02/08/20 03:30 02/08/20 03:30 02/08/20 03:30 Intake & Output 02/07/20 02/08/20 02/09/20 06:59 06:59 06:59 Intake Total 1400 Output Total 100 Balance 1300 Weight 97.8 kg General appearance: PRESENT: no acute distress, obese Eye exam: PRESENT: conjunctiva pink. ABSENT: scleral icterus Mouth exam: PRESENT: moist Respiratory exam: PRESENT: clear to auscultation [place] Cardiovascular exam: PRESENT: RRR, +S1, +S2. ABSENT: diastolic murmur, rubs, systolic murmur Vascular exam: ABSENT: pallor GI/Abdominal exam: PRESENT: normal bowel sounds, soft. ABSENT: distended, guarding, mass, organolmegaly, rebound, tenderness Extremities exam: ABSENT: pedal edema Neurological exam: PRESENT: alert, awake, oriented to person, oriented to place, oriented to time, oriented to situation, CN II-XII grossly intact. ABSENT: motor sensory deficit Psychiatric exam: PRESENT: appropriate affect, normal mood. ABSENT: homicidal i deation, suicidal ideation Skin exam: PRESENT: dry, intact, warm. ABSENT: cyanosis, rash Results Laboratory Results: 02/07/20 17:20 02/07/20 17:20 02/07/20 02/07/20 17:20 17:20 WBC 7.1 RBC 5.02 Hgb 15.3 Hct 45.7 MCV 91 MCH 30.5 MCHC 33.5 RDW 12.6 Plt Count 314 Seg Neutrophils % 57.1 Sodium 143.6 Potassium 4.2 Chloride 107 Carbon Dioxide 25 Anion Gap 12 BUN 7 Creatinine 0.62 Est GFR ( Amer) > 60 Glucose 90 Calcium 10.1 Total Bilirubin 0.5 AST 105 H Alkaline Phosphatase 70 Total Protein 8.5 H Albumin 5.1 H Amylase 48 Lipase 58.0 Impressions: Abdomen Ultrasound 02/07/20 00:00 IMPRESSION: FATTY LIVER. OTHERWISE NORMAL RUQ US VISUALIZED Chest X-Ray 02/07/20 00:00 IMPRESSION: No acute disease. copyright 2010 [employer]- All Rights Reserved Assessment & Plan - Diagnosis (1) Abdominal pain Qualifiers: Abdominal location: right upper quadrant Qualified Code(s): R10.11 - Right upper quadrant pain Is this a current diagnosis for this admission?: Yes (2) Fever Qualifiers: Fever type: unspecified Qualified Code(s): R50.9 - Fever, unspecified Is this a current diagnosis for this admission?: Yes (3) Nausea Is this a current diagnosis for this admission?: Yes (4) Abnormal urinalysis Is this a current diagnosis for this admission?: Yes Plan: Obtain urine culture. Start on Ciprofloxacin 250 mg po bid. Follow up on culture findings. (5) Nonalcoholic fatty liver disease Is this a current diagnosis for this admission?: Yes (6) HTN (hypertension) Is this a current diagnosis for this admission?: Yes (7) HLD (hyperlipidemia) Qualifiers: Hyperlipidemia type: unspecified Qualified Code(s): E78.5 - Hyperlipidemia, unspecified Is this a current diagnosis for this admission?: Yes (8) Obesity (BMI 30-39.9) Is this a current diagnosis for this admission?: Yes - Time Time Spent with patient: 25-34 minutes Level of Care: IMCU Medications reviewed and adjusted accordingly: Yes Anticipated discharge: Home - Inpatient Certification Based on my medical assessment, after consideration of the patient's comorbidities, presenting symptoms, or acuity I expect that the services needed warrant INPATIENT care.: Yes I certify that my determination is in accordance with my understanding of Medicare's requirements for reasonable and necessary INPATIENT services [42 CFR 412.3e].: Yes Medical Necessity: Significant Comorbidiites Make Outpatient Treatment Too Risky, Need Close Monitoring Due to Risk of Patient Decompensation, Need For IV Fluids, Need For Continuous Telemetry Monitoring, Need for IV Antibiotics, Risk of Complication if Not Cared For in Hospital, Risk of Diagnosis Which Will Require Inpatient Eval/Care/Monitoring Post Hospital Care: D/C Eap Specialist Documentation - Plan Summary Plan Summary: D/C IV Ciprofloxacin, Flagyl, and Dilaudid. Start on Ciprofloxacin 250 mg p.o bid. Follow up on COVID-19 test result.
[2020-02-08] MEDS ORDERED: TRAMADOL HCL 50 MG TABLET PO PRN (14:32)
[2020-02-08] MEDS ORDERED: (PENDING PHARMACY ID) (Icosapent Ethyl [Vascepa] 2 GM) PO SCH (18:00)
[2020-02-08] MEDS ORDERED: (PENDING PHARMACY ID) (Rosuvastatin Calcium [Crestor] 40 MG) PO SCH (22:00)
[2020-02-08] MEDS ORDERED: ATORVASTATIN CALCIUM 80 MG TABLET PO SCH (22:00)
[2020-02-09] MEDS: NORMAL SALINE 1000 ML 1,000 ML IV PRN (06:27)
[2020-02-09] MEDS: PANTOPRAZOLE SODIUM 40 MG TABLET.DR PO SCH (08:39)
[2020-02-09] MEDS: ENOXAPARIN SODIUM INJ 40 MG/0.4 ML DISP.SYRIN SUBCUT SCH ×2 (09:02→09:15)
[2020-02-09] MEDS ORDERED: METOPROLOL SUCCINATE 25 MG TAB.SR.24H PO SCH (10:00)
[2020-02-09 13:46] VITALS: BP 131/74
--- NOTE | 2020-02-09 19:47 | PDOC DISCHARGE SUMMARY ---
Impression - Admit/DC Date/PCP Admission Date/Primary Care Provider: 02/07/20 17:49 SONIA KULKARNI Discharge Date: 02/09/20 - Discharge Diagnosis (1) Abdominal pain Is this a current diagnosis for this admission?: Yes (2) Fever Is this a current diagnosis for this admission?: Yes (3) Morbid (severe) obesity due to excess calories Is this a current diagnosis for this admission?: Yes - Additional Information Resuscitation Status: Full Code Discharge Diet: As Tolerated, Cardiac Discharge Activity: Activity As Tolerated Referrals: SONIA KULKARNI MD [Primary Care Provider] - Follow up as needed Home Medications: Rosuvastatin Calcium [Crestor] 40 mg PO QHS 30 Days #30 tablet 08/15/17 Metoprolol Succinate [Toprol Xl] 25 mg PO DAILY 10/15/17 Minocycline HCl 100 mg PO DAILY 10/26/19 Icosapent Ethyl [Vascepa] 2 gm PO BID 02/08/20 Omeprazole 40 mg PO DAILY 02/08/20 History of Present Illiness History of Present Illness: PEGGY BROWN is a 34 year old female patient known to DR Jovany miranda,she presented to the office with complain about worsening abdominal pain over the last 3 days with worsening intensity , She localized pain to upper right quadrant of the abdomen, cramping in character, constant since this morning, and rated at 10/10 in intensity. She reported associated fever and nausea. She reported fever of 101.1F and described her pain as too hot to touch her RUQ region. She reported associated decrease appetite. She denied any relieving factor. She denied associated chills, diarrhea, chest pain or shortness of breath. She denied diarrhea but reported loose stool. She denied alcohol usage or use of contraceptive pills. She was evaluated in the ED due to unavailable bed at the time of her office visit. Her evaluation was remarkable for persistence of her presenting symptoms and need for IV Reglan and Morphine administration. Her limited abdominal US revealed fatty liver without any significant acute gallbladder pathologic process. She was advised hospitalization for further evaluation and management. Hospital Course Hospital Course: Patient was admitted by Dr. Kulkarni for evaluation of abdominal pain, CAT scan of the abdomen and pelvis with contrast was negative, she was seen by the surgeon, she was treated symptomatically no cause was found. She was treated with IV fluid, pain control with opioid Physical Exam Vital Signs: Temp Pulse Resp BP Pulse Ox 98.2 F 89 16 131/74 H 98 02/09/20 14:33 02/09/20 14:33 02/09/20 14:33 02/09/20 14:33 02/09/20 14:33 Intake & Output 02/08/20 02/09/20 02/10/20 06:59 06:59 06:59 Intake Total 1400 3914 Output Total 100 1250 Balance 1300 2664 Weight 97.8 kg 97.8 kg General appearance: PRESENT: no acute distress Eye exam: PRESENT: PERRLA Respiratory exam: PRESENT: clear to auscultation [place] Cardiovascular exam: PRESENT: +S1, +S2 GI/Abdominal exam: PRESENT: soft Neurological exam: PRESENT: alert, CN II-XII grossly intact Results Laboratory Results: WBC 6.1 10^3/uL (4.0-10.5) 02/08/20 09:25 RBC 4.57 10^6/uL (3.72-5.28) 02/08/20 09:25 Hgb 14.2 g/dL (12.0-15.5) 02/08/20 09:25 Hct 41.5 % (36.0-47.0) 02/08/20 09:25 MCV 91 fl (80-97) 02/08/20 09:25 MCH 31.1 pg (27.0-33.4) 02/08/20 09:25 MCHC 34.2 g/dL (32.0-36.0) 02/08/20 09:25 RDW 12.6 % (11.5-14.0) 02/08/20 09:25 Plt Count 267 10^3/uL (150-450) 02/08/20 09:25 Lymph % (Auto) 37.4 % (13-45) 02/08/20 09:25 [place] % (Auto) 6.2 % (3-13) 02/08/20 09:25 Eos % (Auto) 2.0 % (0-6) 02/08/20 09:25 Baso % (Auto) 0.2 % (0-2) 02/08/20 09:25 Absolute Neuts (auto) 3.3 10^3/uL (1.7-8.2) 02/08/20 09:25 Absolute Lymphs (auto) 2.3 10^3/uL (0.5-4.7) 02/08/20 09:25 Absolute Monos (auto) 0.4 10^3/uL (0.1-1.4) 02/08/20 09:25 Absolute Eos (auto) 0.1 10^3/uL (0.0-0.6) 02/08/20 09:25 Absolute Basos (auto) 0.0 10^3/uL (0.0-0.2) 02/08/20 09:25 Seg Neutrophils % 54.2 % (42-78) 02/08/20 09:25 Sodium 143.6 mmol/L (137-145) 02/07/20 17:20 Potassium 4.2 mmol/L (3.6-5.0) 02/07/20 17:20 Chloride 107 mmol/L (98-107) 02/07/20 17:20 Carbon Dioxide 25 mmol/L (22-30) 02/07/20 17:20 Anion Gap 12 (5-19) 02/07/20 17:20 BUN 7 mg/dL (7-20) 02/07/20 17:20 Creatinine 0.62 mg/dL (0.52-1.25) 02/07/20 17:20 Est GFR ( Amer) > 60 (>60) 02/07/20 17:20 Est GFR (MDRD) Non-Af > 60 (>60) 02/07/20 17:20 Glucose 90 mg/dL (75-110) 02/07/20 17:20 Calcium 10.1 mg/dL (8.4-10.2) 02/07/20 17:20 Total Bilirubin 0.5 mg/dL (0.2-1.3) 02/07/20 17:20 Direct Bilirubin 0.3 mg/dL (0.0-0.4) 02/07/20 17:20 Neonat Total Bilirubin Not Reportable 02/07/20 17:20 Neonat Direct Bilirubin Not Reportable 02/07/20 17:20 Neonat Indirect Bili Not Reportable 02/07/20 17:20 AST 105 U/L (14-36) H 02/07/20 17:20 ALT 113 U/L (<35) H 02/07/20 17:20 Alkaline Phosphatase 70 U/L (38-126) 02/07/20 17:20 Total Protein 8.5 g/dL (6.3-8.2) H 02/07/20 17:20 Albumin 5.1 g/dL (3.5-5.0) H 02/07/20 17:20 Amylase 48 U/L (30-110) 02/07/20 17:20 Lipase 58.0 U/L (23-300) 02/07/20 17:20 Urine Color YELLOW 02/08/20 09:05 Urine Appearance SLIGHTLY-CLOUDY 02/08/20 09:05 Urine pH 5.0 (5.0-9.0) 02/08/20 09:05 Ur Specific [place] 1.027 02/08/20 09:05 Urine Protein NEGATIVE mg/dL (NEGATIVE) 02/08/20 09:05 Urine Glucose (UA) NEGATIVE mg/dL (NEGATIVE) 02/08/20 09:05 Urine Ketones TRACE mg/dL (NEGATIVE) H 02/08/20 09:05 Urine Blood NEGATIVE (NEGATIVE) 02/08/20 09:05 Urine Nitrite NEGATIVE (NEGATIVE) 02/08/20 09:05 Urine Bilirubin NEGATIVE (NEGATIVE) 02/08/20 09:05 Urine Urobilinogen NEGATIVE mg/dL (<2.0) 02/08/20 09:05 Ur Leukocyte Esterase TRACE (NEGATIVE) H 02/08/20 09:05 Urine WBC 5-10 /HPF 02/08/20 09:05 Ur Squamous Epith Cells MODERATE /HPF 02/08/20 09:05 Urine Bacteria 1+ /HPF 02/08/20 09:05 Urine Mucus 4+ 02/08/20 09:05 Urine Ascorbic Acid NEGATIVE (NEGATIVE) 02/08/20 09:05 Urine HCG, Qual NEGATIVE (NEGATIVE) 02/08/20 09:05 COVID-19 Source NASOPHARYNGEAL 02/07/20 18:45 COVID-19 ([place]) NOT DETECTED 02/07/20 18:45 Impressions: Abdomen Ultrasound 02/07/20 00:00 IMPRESSION: FATTY LIVER. OTHERWISE NORMAL RUQ US VISUALIZED Chest X-Ray 02/07/20 00:00 IMPRESSION: No acute disease. copyright 2011 [employer]- All Rights Reserved Abdomen X-Ray 02/08/20 00:00 IMPRESSION: NO RADIOGRAPHIC EVIDENCE FOR ACUTE ABDOMINAL DISEASE. Abdomen/Pelvis CT 02/08/20 00:00 IMPRESSION: No acute findings. Stroke Is this a Stroke Patient?: No Acute Heart Failure - Is this a Heart Failure Patient?: No
== END 2020-02-09 15:15 | disposition home or self-care (01) ==
LOC: ER 15:43 → INTOOBSV 17:49 → EH 17:49 → 3N 19:09
PROVIDERS: ADMIT Internal Medicine Geriatric Medicine; ATTEND Internal Medicine Geriatric Medicine
DX: R10.11 Right upper quadrant pain (principal); R50.9 Fever, unspecified; E66.01 Morbid (severe) obesity due to excess calories; R63.0 Anorexia; R11.0 Nausea; K76.0 Fatty (change of) liver, not elsewhere classified; R19.7 Diarrhea, unspecified; E78.5 Hyperlipidemia, unspecified; R82.90 Unspecified abnormal findings in urine; R14.0 Abdominal distension (gaseous); I10 Essential (primary) hypertension; M13.88 Other specified arthritis, other site; E66.9 Obesity, unspecified; Z87.442 Personal history of urinary calculi; Z79.899 Other long term (current) drug therapy; Z86.19 Personal history of other infectious and parasitic diseases; Z96.0 Presence of urogenital implants; Z20.828 Contact with and (suspected) exposure to other viral communicable diseases; Z68.39 Body mass index [BMI] 39.0-39.9, adult; Z87.59 Personal history of other complications of pregnancy, childbirth and the puerperium; Z87.42 Personal history of other diseases of the female genital tract
CPT/HCPCS: 99285; 96375; 96365; 36415 ×2; 87040; 87086; 82150; 83690; 85025 ×2; 81025; 80053; 81001; 74019; 71045; 76705; 74177; G0378 ×2; U0003; J2765; J3490 ×4; J1650; J1170 ×2; J2405; J7030 ×3; J0744 ×2; C9803; 87635

== ENCOUNTER 2020-05-01 01:43 | Emergency (ER) | payer BC ==
[2020-05-01 03:32] LABS: ABSOLUTE EOSINOPHILS # (AUTO) 0.1 10^3/uL (0.0-0.6); ABSOLUTE LYMPHOCYTES (AUTO) 2.3 10^3/uL (0.5-4.7); ABSOLUTE MONOCYTES (AUTO) 0.4 10^3/uL (0.1-1.4); MEAN CORPUSCULAR HEMOGLOBIN 30.7 pg (27.0-33.4); TOTAL CELLS COUNTED % (AUTO) 100 %
[2020-05-01 03:39] LABS: ABSOLUTE NEUT (AUTO) 4.3 10^3/uL (1.7-8.2); BASOPHILS % (AUTO) 0.5 % (0-2); EOSINOPHILS % (AUTO) 2.1 % (0-6); HEMOGLOBIN 14.4 g/dL (12.0-15.5); LYMPHOCYTES % (AUTO) 31.9 % (13-45); MEAN CORPUSCULAR HGB CONC 34.3 g/dL (32.0-36.0); MEAN CORPUSCULAR VOLUME 90 fl (80-97); MONOCYTES % (AUTO) 5.5 % (3-13); PLATELET COUNT 309 10^3/uL (150-450); RED BLOOD COUNT 4.68 10^6/uL (3.72-5.28); RED CELL DISTRIBUTION WIDTH 12.6 % (11.5-14.0); WHITE BLOOD COUNT 7.2 10^3/uL (4.0-10.5)
[2020-05-01 03:40] LABS: APPEARANCE,URINE CLOUDY; BILIRUBIN,URINE NEGATIVE (NEGATIVE); COLOR,URINE AMBER; GLUCOSE, URINE NEGATIVE (NEGATIVE); KETONES,URINE NEGATIVE (NEGATIVE); LEUKOCYTE ESTERASE,URINE TRACE (NEGATIVE); NITRITE,URINE NEGATIVE (NEGATIVE); PROTEIN,URINE 30 mg/dL (NEGATIVE); URINE SPECIFIC GRAVITY 1.033; UROBILINOGEN,URINE NEGATIVE mg/dL (<2.0)
[2020-05-01 03:59] LABS: ALKALINE PHOSPHATASE 76 U/L (38-126); ANION GAP 13 (5-19); ASPARTATE AMINO TRANSFERASE 76 U/L (14-36); BILIRUBIN,DIRECT 0.1 mg/dL (0.0-0.4); BILIRUBIN,TOTAL 0.6 mg/dL (0.2-1.3); BLOOD UREA NITROGEN 9 mg/dL (7-20); CALCIUM 10.2 mg/dL (8.4-10.2); CARBON DIOXIDE 24 mmol/L (22-30); CHLORIDE 104 mmol/L (98-107); GLUCOSE 108 mg/dL (75-110); POTASSIUM 3.9 mmol/L (3.6-5.0); TOTAL PROTEIN 8.6 g/dL (6.3-8.2)
[2020-05-01] MEDS ORDERED: NORMAL SALINE 1000 ML 1,000 ML IV ONE (05:05)
[2020-05-01] MEDS ORDERED: KETOROLAC TROMETHAMINE INJ/PF 30 MG/1 ML SDV IV ONE (05:05)
[2020-05-01] MEDS ORDERED: ONDANSETRON HCL INJ/PF 4 MG/2 ML SDV IV ONE (05:05)
--- NOTE | 2020-05-01 05:51 | ER Document Report ---
ED GI/ - General Chief Complaint: Flank Pain Stated Complaint: RIGHT SIDE PAIN Time Seen by Provider: 05/01/20 04:57 Primary Care Provider: SONIA KULKARNI MD [Primary Care Provider] - Follow up in 3-5 days TRAVEL OUTSIDE OF THE [place] IN LAST 30 DAYS: No - HPI Notes: 05/01/20 05:51 Patient is a 34-year-old female who presents with abdominal pain. Patient states she has had symptoms for several days. She describes pain in the lower quadrants that radiates to the top of her stomach. She denies any dysuria. She states she has had frequent urinary infections and has been on 3 different antibiotics since February. She states all that is resolved and she no longer has any dysuria. Patient states that she has hard stool and has some pain with going to the bathroom. She denies any diarrhea. No vomiting but does have nausea. She states she did not take her temperature. Denies any abdominal surgeries. - Related Data Allergies/Adverse Reactions: morphine [Morphine] Allergy (Intermediate, Verified 05/02/20 12:07) Hives Penicillins Allergy (Intermediate, Verified 05/02/20 12:07) Hives Home Medications: metoprolol, rouvastatin, fish oil Past Medical History - General Information source: Patient - Social History Smoking Status: Never Smoker Frequency of alcohol use: None Drug Abuse: None Family History: Malignancy, Other - Pulmonary emboli - Past Medical History Cardiac Medical History: Reports: Hx Hypercholesterolemia, Hx Hypertension Denies: Hx Atrial Fibrillation, Hx Congestive Heart Failure, Hx Coronary Artery Disease, Hx DVT, Hx Heart Attack, Hx Pulmonary Embolism Pulmonary Medical History: Denies: Hx Asthma, Hx Bronchitis, Hx COPD, Hx Pneumonia, Hx Sleep Apnea, Hx Tuberculosis Neurological Medical History: Denies: Hx Cerebrovascular Accident, Hx Seizures, Hx Parkinson's Disease Endocrine Medical History: Denies: Hx Diabetes Mellitus Type 1, Hx Diabetes Mellitus Type 2, Hx Hyperthyroidism, Hx Hypothyroidism Renal/ Medical History: Reports: Hx Kidney Stones, Hx Ovarian Cysts. Denies: Hx End Stage Renal Disease, Hx Peritoneal Dialysis GI Medical History: Reports: Hx Pancreatitis - acute (08/11/2017). Denies: Hx Cirrhosis, Hx Gastroesophageal Reflux Disease, Hx Hepatitis, Hx Ulcer Musculoskeletal Medical History: Reports Hx Arthritis - BACK, Denies Hx Multiple Sclerosis Psychiatric Medical History: Denies: Hx Bipolar Disorder, Hx Depression, Hx Schizophrenia Traumatic Medical History: Reports: Hx Fractures Infectious Medical History: Reports: Hx C-Diff. Denies: Hx Hepatitis, Hx MRSA Past Surgical History: Reports: Hx Gynecologic Surgery, Hx Kidney (Renal Surgery) - when child, Hx Orthopedic Surgery - left ankle, Other - Left ureteral stent and other corrective surgery.. Denies: Hx Cholecystectomy - Immunizations Immunizations up to date: No Hx Diphtheria, Pertussis, Tetanus Vaccination: No Review of Systems - Review of Systems Notes: CONSTITUTIONAL: No fever, fatigue or weight loss. SKIN: No rash. HENT: No congestion, ear pain, or sore throat. EYES: No recent vision problems or eye pain. ENDOCRINE: No thyroid problems. No polyuria or polydipsia. CARDIOVASCULAR: No chest pain or edema. RESPIRATORY: No cough, shortness of breath, congestion, or wheezing. GASTROINTESTINAL: Positive for abdominal pain, constipation, nausea. No vomiting. GENITOURINARY: No dysuria. MUSCULOSKELETAL: No joint pain or swelling. LYMPHATIC: No swollen glands. NEUROLOGIC: No seizures. No headache, focal weakness or sensory changes. HEMATOLOGIC: No unusual bruising or bleeding. PSYCHIATRIC: No depression or anxiety. Physical Exam - Vital signs Vitals: Temp Pulse Resp BP Pulse Ox 98.9 F 126 H 18 155/91 H 100 05/01/20 02:01 05/01/20 02:01 05/01/20 02:01 05/01/20 02:01 05/01/20 02:01 - General General appearance: Appears well Notes: VITAL SIGNS: Within normal limits. GENERAL: No acute distress, non-toxic appearance. HEAD: Normal with no signs of head trauma. EYES: EOMI, conjunctiva normal, no discharge. EARS: Hearing grossly intact. NOSE: Normal. NECK: Normal range of motion, no tenderness, supple, no lymphadenopathy, No adenopathy, no JVD. CHEST: Clear breath sounds bilaterally. No wheezes, rales, or rhonchi. CARDIAC: Regular rate and rhythm. S1 and S2, without murmurs, gallops, or rubs. VASCULAR: No Edema. ABDOMEN: Discomfort to palpation of right lower quadrant. No rebound or guarding. GASTROINTESTINAL: Bowel sounds normal MUSCULOSKELETAL: Good range of motion of all major joints. Extremities without clubbing, cyanosis or edema. NEUROLOGICAL: Alert and oriented x 3. No focal sensory or strength deficits. Speech normal. Follows commands appropriately. PSYCHIATRIC: Normal Affect, judgement and mood. SKIN: Normal appearance with no rashes or lesions. Course - Re-evaluation Re-evalutation: 05/01/20 05:53 Patient appears well on exam. Her lab work is unremarkable. Patient's urinalysis does not show obvious infection and she states she is not having any symptoms and has been treated. I will send it for culture. CT scan is pending. She has been treated with pain and nausea medication. Patient states she feels much better. She is sleeping on reassessment. I discussed all results with the patient. She states that she is probably dehydrated. She states her symptoms have resolved. Her heart rate has normalized after fluids. I instr ucted her to stay hydrated. Patient was told to follow-up with her PCP. She was given strict return precautions. I did discuss with her the finding of the fatty liver and she states that is not new and she has already known about that. 05/01/20 06:11 05/02/20 21:05 - Vital Signs Vital signs: Temp Pulse Resp BP Pulse Ox 97.9 F 98 16 114/68 99 05/01/20 06:23 05/01/20 06:23 05/01/20 06:23 05/01/20 06:23 05/01/20 06:23 - Laboratory Result Diagrams: 05/01/20 02:50 05/01/20 02:50 Laboratory results interpreted by me: 05/01/20 05/01/20 02:50 02:50 AST 76 H ALT 101 H Total Protein 8.6 H Urine Protein 30 H Ur Leukocyte Esterase TRACE H - Diagnostic Test Radiology reviewed: Image reviewed, Reports reviewed Discharge - Discharge Clinical Impression: Dehydration Abdominal pain Qualifiers: Abdominal location: right lower quadrant Qualified Code(s): R10.31 - Right lower quadrant pain Condition: Stable Disposition: HOME, SELF-CARE Additional Instructions: Your work-up today is reassuring. Your CAT scan does not show any acute changes. Please make sure you are staying hydrated. Please follow-up with your family doctor. Return to the ER for any fevers, worsening pain, any other concerning symptoms. Referrals: SONIA KULKARNI MD [Primary Care Provider] - Follow up in 3-5 days
--- NOTE | 2020-05-01 05:58 | RADIOLOGY REPORT (SQ) ---
CT abdomen and pelvis with contrast on 05/01/2020 at 5:31 AM CLINICAL INDICATION: Right lower quadrant pain TECHNIQUE: Multiple axial images are obtained throughout the abdomen and pelvis following the administration of IV contrast, 100 mL of Omnipaque 350contrast was administered intravenously without complication. This exam was performed according to our departmental dose-optimization program, which includes automated exposure control, adjustment of the mA and/or kV according to patient size and/or use of iterative reconstruction technique. Total DLP is 1808.84 mGy*cm. COMPARISON: 02/08/2020 FINDINGS: Abdomen: The lung bases are clear. There is fatty infiltration of the liver. The solid abdominal organs are otherwise unremarkable. There is no abdominal adenopathy. There is no free fluid or free air within the abdomen. The abdominal portion of the GI tract is unremarkable. Pelvis: Pelvic organs appear unremarkable by CT. No free fluid is noted in the pelvis. There is no pelvic adenopathy. Pelvic portion of the GI tract including the appendix is unremarkable. No bony abnormality is noted. IMPRESSION: 1. Fatty infiltration of the liver. 2. No acute abnormality.
[2020-05-01 06:29] VITALS: BP 114/68
== END 2020-05-01 06:29 | disposition home or self-care (01) ==
LOC: ER 01:43
DX: K59.00 Constipation, unspecified (principal); E86.0 Dehydration; R10.31 Right lower quadrant pain; K76.0 Fatty (change of) liver, not elsewhere classified; R11.0 Nausea; E78.00 Pure hypercholesterolemia, unspecified; I10 Essential (primary) hypertension; Z79.899 Other long term (current) drug therapy; Z87.440 Personal history of urinary (tract) infections; Z87.442 Personal history of urinary calculi; Z87.19 Personal history of other diseases of the digestive system; Z87.42 Personal history of other diseases of the female genital tract; Z88.6 Allergy status to analgesic agent; Z88.5 Allergy status to narcotic agent; Z88.0 Allergy status to penicillin
CPT/HCPCS: 99285; 96361; 96374; 96375; 36415; 87086; 83690; 85025; 81025; 87088; 80053; 81001; 74177; J1885; J2405; J7030

== ENCOUNTER 2020-05-02 12:01 | Emergency (ER) | payer BC ==
--- NOTE | 2020-05-02 12:33 | ER Document Report ---
ED Medical Screen (RME) - General Chief Complaint: Abdominal Pain Stated Complaint: REVISIT/ABDOMINAL PAIN/FLANK PAIN Time Seen by Provider: 05/02/20 12:08 Primary Care Provider: SONIA KULKARNI MD [Primary Care Provider] - Follow up as needed Mode of Arrival: Ambulatory Information source: Patient Notes: 34-year-old female patient presented to the emergency department with chronic abdominal pain. Patient reports she has immediate pain across her entire abdomen anytime she eats or has a bowel movement. She reports associated nausea. According to [facility] records she was here in this emergency department with similar complaints and had a normal work-up including CT abdomen pelvis. Patient denies being here yesterday. She does report being admitted here appr oximately 2 months ago for a similar work-up. Upon the review of records she was direct admitted by her primary care provider and again had a normal work-up, Soft mildly tender abdomen. I have greeted and performed a rapid initial assessment of this patient. A comprehensive ED assessment and evaluation of the patient, analysis of test results and completion of the medical decision making process will be conducted by additional ED providers. I have specifically instructed the patient or family members with the patient to immediately return to any nursing staff should anything change in the patient's condition or with their chief complaint. TRAVEL OUTSIDE OF THE [place] IN LAST 30 DAYS: No - Related Data Allergies/Adverse Reactions: morphine [Morphine] Allergy (Intermediate, Verified 05/02/20 12:07) Hives Penicillins Allergy (Intermediate, Verified 05/02/20 12:07) Hives Past Medical History - Social History Family history: Reviewed & Not Pertinent - Past Medical History Cardiac Medical History: Reports: Hx Hypercholesterolemia, Hx Hypertension Denies: Hx Atrial Fibrillation, Hx Congestive Heart Failure, Hx Coronary Artery Disease, Hx DVT, Hx Heart Attack, Hx Pulmonary Embolism Pulmonary Medical History: Denies: Hx Asthma, Hx Bronchitis, Hx COPD, Hx Pneumonia, Hx Sleep Apnea, Hx Tuberculosis Neurological Medical History: Denies: Hx Cerebrovascular Accident, Hx Seizures, Hx Parkinson's Disease Endocrine Medical History: Denies: Hx Diabetes Mellitus Type 1, Hx Diabetes Mellitus Type 2, Hx Hyperthyroidism, Hx Hypothyroidism Renal/ Medical History: Reports: Hx Kidney Stones, Hx Ovarian Cysts. Denies: Hx End Stage Renal Disease, Hx Peritoneal Dialysis GI Medical History: Reports: Hx Pancreatitis - acute (08/11/2017). Denies: Hx Cirrhosis, Hx Gastroesophageal Reflux Disease, Hx Hepatitis, Hx Ulcer Musculoskeltal Medical History: Reports Hx Arthritis - BACK, Denies Hx Multiple Sclerosis Psychiatric Medical History: Denies: Hx Bipolar Disorder, Hx Depression, Hx Schizophrenia Traumatic Medical History: Reports: Hx Fractures Infectious Medical History: Reports: Hx C-Diff. Denies: Hx Hepatitis, Hx MRSA Past Surgical History: Reports: Hx Gynecologic Surgery, Hx Kidney (Renal Surgery) - when child, Hx Orthopedic Surgery - left ankle, Other - Left ureteral stent and other corrective surgery.. Denies: Hx Cholecystectomy - Immunizations Immunizations up to date: No Hx Diphtheria, Pertussis, Tetanus Vaccination: No Physical Exam - Vital signs Vitals: Temp Pulse Resp BP Pulse Ox 98.1 F 125 H 20 147/88 H 99 05/02/20 12:06 05/02/20 12:06 05/02/20 12:06 05/02/20 12:06 05/02/20 12:06 Course - Vital Signs Vital signs: Temp Pulse Resp BP Pulse Ox 98.1 F 125 H 20 147/88 H 99 05/02/20 12:06 05/02/20 12:06 05/02/20 12:06 05/02/20 12:06 05/02/20 12:06 Doctor's Discharge - Discharge Referrals: SONIA KULKARNI MD [Primary Care Provider] - Follow up as needed
[2020-05-02 13:17] LABS: ABSOLUTE EOSINOPHILS # (AUTO) 0.1 10^3/uL (0.0-0.6); ABSOLUTE LYMPHOCYTES (AUTO) 2.2 10^3/uL (0.5-4.7); ABSOLUTE MONOCYTES (AUTO) 0.3 10^3/uL (0.1-1.4); ABSOLUTE NEUT (AUTO) 4.5 10^3/uL (1.7-8.2); BASOPHILS % (AUTO) 0.3 % (0-2); EOSINOPHILS % (AUTO) 1.5 % (0-6); HEMATOCRIT 41.6 % (36.0-47.0); HEMOGLOBIN 14.1 g/dL (12.0-15.5); MEAN CORPUSCULAR HEMOGLOBIN 30.5 pg (27.0-33.4); MEAN CORPUSCULAR HGB CONC 33.8 g/dL (32.0-36.0); MEAN CORPUSCULAR VOLUME 90 fl (80-97); MONOCYTES % (AUTO) 4.8 % (3-13); PLATELET COUNT 291 10^3/uL (150-450); RED BLOOD COUNT 4.62 10^6/uL (3.72-5.28); RED CELL DISTRIBUTION WIDTH 12.3 % (11.5-14.0); SEGMENTED NEUTROPHILS % (AUTO) 63.4 % (42-78); TOTAL CELLS COUNTED % (AUTO) 100 %; WHITE BLOOD COUNT 7.2 10^3/uL (4.0-10.5)
[2020-05-02 13:23] LABS: APPEARANCE,URINE SLIGHTLY-CLOUDY; BILIRUBIN,URINE NEGATIVE (NEGATIVE); COLOR,URINE STRAW; GLUCOSE, URINE NEGATIVE (NEGATIVE); KETONES,URINE NEGATIVE (NEGATIVE); LEUKOCYTE ESTERASE,URINE MODERATE (NEGATIVE); NITRITE,URINE NEGATIVE (NEGATIVE); PROTEIN,URINE NEGATIVE (NEGATIVE); UROBILINOGEN,URINE NEGATIVE mg/dL (<2.0)
[2020-05-02 13:39] LABS: ALBUMIN 4.9 g/dL (3.5-5.0); ALKALINE PHOSPHATASE 65 U/L (38-126); ANION GAP 10 (5-19); ASPARTATE AMINO TRANSFERASE 63 U/L (14-36); BILIRUBIN,DIRECT 0.2 mg/dL (0.0-0.4); BILIRUBIN,TOTAL 0.4 mg/dL (0.2-1.3); BLOOD UREA NITROGEN 9 mg/dL (7-20); CARBON DIOXIDE 26 mmol/L (22-30); CHLORIDE 106 mmol/L (98-107); GLUCOSE 101 mg/dL (75-110); POTASSIUM 4.1 mmol/L (3.6-5.0); TOTAL PROTEIN 8.1 g/dL (6.3-8.2)
[2020-05-02] MEDS ORDERED: NORMAL SALINE 1000 ML 1,000 ML IV ONE (15:25)
[2020-05-02] MEDS ORDERED: KETOROLAC TROMETHAMINE INJ/PF 30 MG/1 ML SDV IV ONE (16:36)
--- NOTE | 2020-05-02 16:36 | ER Document Report ---
ED GI/ - General Chief Complaint: Abdominal Pain Stated Complaint: REVISIT/ABDOMINAL PAIN/FLANK PAIN Time Seen by Provider: 05/02/20 12:08 Primary Care Provider: SONIA KULKARNI MD [Primary Care Provider] - Follow up in 3-5 days Mode of Arrival: Ambulatory Notes: Patient is a 34-year-old female presents emergency department with a chief complaint of abdominal pain. Patient was seen here 2 nights ago and was sent home with follow-up, but continues to have abdominal pain. States the pain comes and goes. She had a CT scan, which was normal. Urine shows beta- hemolytic strep noted on her culture. States that she has right upper quadrant abdominal pain. Denies any vaginal discharge. 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 She is inquiring about also being tested for COVID-19. TRAVEL OUTSIDE OF THE [place] IN LAST 30 DAYS: No - Related Data Allergies/Adverse Reactions: morphine [Morphine] Allergy (Intermediate, Verified 05/02/20 12:07) Hives Penicillins Allergy (Intermediate, Verified 05/02/20 12:07) Hives Past Medical History - General Information source: Patient - Social History Smoking Status: Never Smoker Chew tobacco use (# tins/day): Yes Frequency of alcohol use: None Drug Abuse: None Family History: Malignancy, Other - Pulmonary emboli - Past Medical History Cardiac Medical History: Reports: Hx Hypercholesterolemia, Hx Hypertension Denies: Hx Atrial Fibrillation, Hx Congestive Heart Failure, Hx Coronary Artery Disease, Hx DVT, Hx Heart Attack, Hx Pulmonary Embolism Pulmonary Medical History: Denies: Hx Asthma, Hx Bronchitis, Hx COPD, Hx Pneumonia, Hx Sleep Apnea, Hx Tuberculosis Neurological Medical History: Denies: Hx Cerebrovascular Accident, Hx Seizures, Hx Parkinson's Disease Endocrine Medical History: Denies: Hx Diabetes Mellitus Type 1, Hx Diabetes Mellitus Type 2, Hx Hyperthyroidism, Hx Hypothyroidism Renal/ Medical History: Reports: Hx Kidney Stones, Hx Ovarian Cysts. Denies: Hx End Stage Renal Disease, Hx Peritoneal Dialysis GI Medical History: Reports: Hx Pancreatitis - acute (08/11/2017). Denies: Hx Cirrhosis, Hx Gastroesophageal Reflux Disease, Hx Hepatitis, Hx Ulcer Musculoskeletal Medical History: Reports Hx Arthritis - BACK, Denies Hx Multiple Sclerosis Psychiatric Medical History: Denies: Hx Bipolar Disorder, Hx Depression, Hx Schizophrenia Traumatic Medical History: Reports: Hx Fractures Infectious Medical History: Reports: Hx C-Diff. Denies: Hx Hepatitis, Hx MRSA Past Surgical History: Reports: Hx Gynecologic Surgery, Hx Kidney (Renal Surgery) - when child, Hx Orthopedic Surgery - left ankle, Other - Left ureteral stent and other corrective surgery.. Denies: Hx Cholecystectomy - Immunizations Immunizations up to date: No Hx Diphtheria, Pertussis, Tetanus Vaccination: No Review of Systems - Review of Systems Notes: REVIEW OF SYSTEMS: CONSTITUTIONAL : Denies recent illness. Denies recent unintentional weight loss. Denies fever, chills, or sweats. EENT: Denies eye, ear, throat, or mouth pain, discharge, or symptoms. Denies nasal or sinus congestion. CARDIOVASCULAR: Denies chest pain. RESPIRATORY: Denies shortness of breath, cough, congestion, difficulty breathing, or wheezing. GASTROINTESTINAL: See HPI. GENITOURINARY: Denies difficulty urinating, burning, blood in urine, urgency or frequency. MUSCULOSKELETAL: Denies neck and back pain. Denies joint pain or swelling. SKIN: Denies rash, itchiness, or lesions HEMATOLOGIC : Denies easy bruising or bleeding. LYMPHATIC: Denies swollen, painful, enlarged glands. NEUROLOGICAL: Denies no numbness or tingling denies weakness. Denies headache. Denies altered mental status. Denies alteration in speech. PSYCHIATRIC: Denies stress, anxiety, alteration in sleep patterns, or depression. All other systems reviewed and negative. Physical Exam - Vital signs Vitals: Temp Pulse Resp BP Pulse Ox 98.1 F 125 H 20 147/88 H 99 05/02/20 12:06 05/02/20 12:06 05/02/20 12:06 05/02/20 12:06 05/02/20 12:06 - Notes Notes: PHYSICAL EXAMINATION: GENERAL: Appears well, healthy, well-nourished, no acute distress. HEAD: Normocephalic, atraumatic. EYES: PERRL, conjunctiva normal, all extraocular movements intact, sclera nonicteric ENT: Moist mucous membranes. NECK: Supple, no noticeable swelling, redness, rash. Normal range of motion. LUNGS: Equal breath sounds bilaterally and clear to auscultation. No wheezes rales or rhonchi. CARDIOVASCULAR: S1-S2, regular rate, regular rhythm. Radial pulses 2+, normal. ABDOMEN: Normoactive bowel sounds. Soft, tender right upper quadrant abdomen, no guarding, no rebound tenderness, and no masses palpated. EXTREMITIES: Normal strength and range of motion, no pitting or edema. No cyanosis. NEUROLOGICAL: Moves all extremities upon command. Strength 5/5 in all extremities. PSYCH: Normal mood, normal affect. SKIN: Warm, dry. No rash, lesions, ulcerations noted. Normal skin turgor. Course - Re-evaluation Re-evalutation: 05/02/20 18:17 Right upper quadrant ultrasound shows fatty liver disease. Patient is aware of this already. Advised patient to eat healthy. The patient was evaluated during the global COVID-19 pandemic and that diagnosis was suspected/considered upon their initial presentation. Their evaluation, treatment and testing was consistent with current guidelines for patients who present with complaints or symptoms that may be related to COVID-19. We will also treat the patient with Keflex for a urinary tract infection. She is in agreement with this plan. Follow-up precautions were given. Verbal discharge instructions were given to the patient. They verbalized understanding. They are stable for discharge. - Vital Signs Vital signs: Temp Pulse Resp BP Pulse Ox 98.1 F 125 H 20 147/88 H 99 05/02/20 12:06 05/02/20 12:06 05/02/20 12:06 05/02/20 12:06 05/02/20 12:06 - Laboratory Result Diagrams: 05/02/20 12:55 05/02/20 12:55 Laboratory results interpreted by me: 05/02/20 05/02/20 12:55 12:55 AST 63 H ALT 87 H Ur Leukocyte Esterase MODERATE H Discharge - Discharge Clinical Impression: Nonalcoholic fatty liver disease, Suspected COVID-19 virus infection Urinary tract infection Qualifiers: Urinary tract infection type: site unspecified Hematuria presence: without hematuria Qualified Code(s): N39.0 - Urinary tract infection, site not specified Condition: Stable Disposition: HOME, SELF-CARE Additional Instructions: Your urine shows findings consistent with a urinary tract infection. Please take all the antibiotics as directed even if your symptoms have improved. Please follow-up with your primary care physician as needed. Return to emergency room if you develop fever >101F, persistent vomiting, become lethar gic, have severe pain in your sides, or any other symptoms that are concerning to you. You also have fatty liver disease. Please start to eat healthy to help you lose weight and help with your fatty liver. As a person under investigation for COVID-19, the [place] Department of Health and Human Services (division on public health) advises you to adhere to the following guidance until your test results are reported to you. If your test result is positive, you will receive additional information from your provider and your local health department at that time. Remain at home until you are cleared by the health provider or public health authorities. Keep a log of visitors to your home, notify any visitors to your home of your isolation status. If you plan to move to a new address or leave the critical access hospital, notify the local health department in your County. Call your Doctor or seek care if you have an urgent medical need. Before seeking medical care, call him to get instructions from the provider before arriving at the medical office, clinic, or hospital. Notify them that you are being tested for the virus (COVID-19) so that arrangements can be made, as necessary, to prevent transmission to others in the healthcare setting. Next, notify the local health department in your county. Prescriptions: Cephalexin [Keflex] 500 mg PO BID #14 capsule Referrals: SONIA KULKARNI MD [Primary Care Provider] - Follow up in 3-5 days
--- NOTE | 2020-05-02 17:46 | RADIOLOGY REPORT (SQ) ---
EXAM DESCRIPTION: U/S ABDOMEN LIMITED W/O DOP IMAGES COMPLETED DATE/TIME: 05/02/2020 4:55 pm REASON FOR STUDY: RUQ abd pain COMPARISON: 02/07/2020 TECHNIQUE: Dynamic and static grayscale images acquired of the abdomen and recorded on PACS. Additio kirsten selected color Doppler and spectral images recorded. LIMITATIONS: None. FINDINGS: PANCREAS: No masses. The tail was poorly seen. LIVER: Increased echogenicity. No masses. LIVER VASCULATURE: Normal directional flow of the main portal vein and hepatic veins. GALLBLADDER: No stones. Normal wall thickness. No pericholecystic fluid. ULTRASOUND-DETECTED LAWRENCE'S SIGN: Negative. INTRAHEPATIC DUCTS AND COMMON DUCT: CBD and intrahepatic ducts normal caliber. No filling defects. AORTA: No aneurysm. RIGHT KIDNEY: Normal size, 10.2 cm. Normal echogenicity. No solid or suspicious masses. No hydroneph rosis. No calcifications. PERITONEAL AND RIGHT PLEURAL SPACE: No ascites or effusions. OTHER: No other significant findings. IMPRESSION: Hepatic steatosis. TECHNICAL DOCUMENTATION: JOB ID: [id number] [employer]- All Rights Reserved Reading location - IP/workstation name: [email or web address]
[2020-05-02] MEDS ORDERED: HYDROCODONE/ACETAMINOPHEN 5-325 MG (6 TAB/ER DISP) PO PRN (18:09)
[2020-05-02] MEDS ORDERED: CEPHALEXIN 500 MG CAPSULE PO ONE (18:11)
[2020-05-02 18:41] VITALS: BP 132/81
== END 2020-05-02 18:40 | disposition home or self-care (01) ==
LOC: ER 12:01
DX: K76.0 Fatty (change of) liver, not elsewhere classified (principal); N39.0 Urinary tract infection, site not specified; R10.9 Unspecified abdominal pain; R10.11 Right upper quadrant pain; Z20.828 Contact with and (suspected) exposure to other viral communicable diseases; Z88.0 Allergy status to penicillin; Z88.8 Allergy status to other drugs, medicaments and biological substances; I10 Essential (primary) hypertension
CPT/HCPCS: 99285; 96361; 96374; 36415; 83690; 85025; 80053; 81001; 76705; U0003; J1885; J7030; C9803; 87635

== ENCOUNTER → 2020-05-29 | Outpatient (CLI) | payer BC ==
[2020-05-29 13:47] VITALS: BP 139/83
--- NOTE | 2020-05-29 13:47 | ER RDC ASSESSMENT REPORT ---
Intake - In the Last 14 days Have you traveled outside [place]?: No Have you been in close contact with someone CONFIRMED: Yes Worked in Healthcare?: No - Symptoms Subjective Fever([place] feverish): No Chills: No Muscule Aches: No Runny Nose: No Sore Throat: No Cough (New or worsening chronic cough): No Shortness of breath: No Nausea or Vomiting: No Headache: No Abdominal Pain: No Diarrhea(3 or more loose stools in last 24 hours): No - Do you have any of the following Chronic lung disease: Asthma or emphysema or COPD: No Cystic Fibrosis: No Diabetes: No High Blood Pressure: Yes Cardiovascular Disease: Yes Chronic Kidney Disease: No Chronic Liver Disease: No Chronic blood disorder like Sickle Cell Disease: No Weak immune system due to disease or medication: No Neurologic condition that limits movement: No Developmental delay - Moderate to Severe: No Recent (within past 2 weeks) or current : No Morbid Obesity (>100 pounds over ideal weight): No - Objective Temperature: 98.6 F Pulse Rate: 126 Respiratory Rate: 18 Blood Pressure: 139/83 O2 Sat by Pulse Oximetry: 99 Objective: Given above, testing performed: covid Disposition: Home; Selfcare General - General Stated Complaint: Asymptomatic Covid screen Mode of Arrival: Ambulatory Information source: Patient - HPI Notes: Patient presents to clinic for COVID-19 testing after coming in close contact with another COVID 19 positive individual. Patient is asymptomatic. They deny any cough, shortness of breath, fever, chills, muscle aches, rhinorrhea, sore throat, nausea or vomiting, headache, abdominal pain or diarrhea. Patient is currently receiving treatment for UTI. - Related Data Allergies/Adverse Reactions: morphine [Morphine] Allergy (Intermediate, Verified 05/02/20 12:07) Hives Penicillins Allergy (Intermediate, Verified 05/02/20 12:07) Hives Past Medical History - General Information source: Patient - Social History Smoking Status: Never Smoker Family History: Malignancy, Other - Pulmonary emboli - Past Medical History Cardiac Medical History: Reports: Hx Hypercholesterolemia, Hx Hypertension Denies: Hx Atrial Fibrillation, Hx Congestive Heart Failure, Hx Coronary Artery Disease, Hx DVT, Hx Heart Attack, Hx Pulmonary Embolism Pulmonary Medical History: Reports: None Denies: Hx Asthma, Hx Bronchitis, Hx COPD, Hx Pneumonia, Hx Sleep Apnea, Hx Tuberculosis EENT Medical History: Reports: None Neurological Medical History: Reports: None. Denies: Hx Cerebrovascular Accident, Hx Seizures, Hx Parkinson's Disease Endocrine Medical History: Reports: None. Denies: Hx Diabetes Mellitus Type 1, Hx Diabetes Mellitus Type 2, Hx Hyperthyroidism, Hx Hypothyroidism Renal/ Medical History: Reports: Hx Kidney Stones, Hx Ovarian Cysts. Denies: Hx End Stage Renal Disease, Hx Peritoneal Dialysis Malignancy Medical History: Reports: None GI Medical History: Reports: Hx Pancreatitis - acute (08/11/2017). Denies: Hx Cirrhosis, Hx Gastroesophageal Reflux Disease, Hx Hepatitis, Hx Ulcer Musculoskeletal Medical History: Reports Hx Arthritis - BACK, Denies Hx Multiple Sclerosis Skin Medical History: Reports None Psychiatric Medical History: Reports: None Denies: Hx Bipolar Disorder, Hx Depression, Hx Schizophrenia Traumatic Medical History: Reports: Hx Fractures Infectious Medical History: Reports: Hx C-Diff. Denies: Hx Hepatitis, Hx MRSA Past Surgical History: Reports: Hx Gynecologic Surgery, Hx Kidney (Renal Surgery) - when child, Hx Orthopedic Surgery - left ankle, Other - Left ureteral stent and other corrective surgery.. Denies: Hx Cholecystectomy Physical Exam - General General appearance: Appears well, Alert In distress: None Notes: PHYSICAL EXAMINATION: GENERAL: Well-appearing and in no acute distress. HEAD: Atraumatic, normocephalic. EYES: sclera anicteric, conjunctiva are normal. ENT: nares patent. Moist mucous membranes. NECK: Normal range of motion, supple without lymphadenopathy. LUNGS: No increased work of breathing. Lung sounds CTAB and equal. No wheezes rales or rhonchi. HEART: Regular rate and rhythm without murmurs. ABDOMEN: Soft, nontender, normal bowel sounds, no guarding. EXTREMITIES: Normal range of motion, no pitting edema. No cyanosis. NEUROLOGICAL: A&O x 3. Normal speech. PSYCH: Normal mood, normal affect. SKIN: Warm, Dry, normal turgor, no rashes or lesions noted Patient Education/Counseling Counseling/Education: Patient presents for COVID 19 testing after close exposure to another person who has tested positive for COVID 19. Patient is asymptomatic at this time. Patient does not have emergency worrying symptoms such as difficulty breathing, shortness of breath, chest pain, pressure, confusion or cyanosis. Patient appears suitable for discharge as vital signs are stable and patient is nontoxic in appearance. Good return precautions have been discussed with patient, patient verbalized understanding and is agreeable with discharge plan of care at this time. Guidance for worsening S/SX: As a person under investigation for Covid 19, the [facility] of Health and Human Services, division of public health advises you to adhere to the following guidance until your test results are reported to you. If your test result is positive, you will receive additional information from your provider and your local health department at that time. Remain at home until you are cleared by the health provider or public health authorities. Keep a log of visitors to your home, notify any visitors to your home of your isolation status. If you plan to move to a new address or leave the county, notify the local health department in your County. Call your doctor or seek care if you have an urgent medical need. Before seeking medical care, call ahead to get instructions from the provider before arriving at the medical office clinic or hospital. Notify them that you are being tested for the virus that causes Covid 19 so that arrangements can be made, as necessary, to prevent transmission to others in the healthcare setting. Next, notify the local health department in your county. If a medical emergency arises and you need to call 911, inform the first re sponders that you are being tested for the virus that causes Covid 19. Next, notify the local health department in your county. RDC Discharge - Discharge Clinical Impression: Encounter for screening laboratory testing for COVID-19 virus in asymptomatic patient Condition: Good Disposition: Home; Selfcare
== END ==
LOC: RDC 11:39
PROVIDERS: ATTEND Registered Nurse
DX: Z20.828 Contact with and (suspected) exposure to other viral communicable diseases (principal); I10 Essential (primary) hypertension; E78.00 Pure hypercholesterolemia, unspecified; N39.0 Urinary tract infection, site not specified; Z88.0 Allergy status to penicillin; Z88.6 Allergy status to analgesic agent
CPT/HCPCS: 99201; 99211; U0003; C9803; 87635

== ENCOUNTER 2020-06-11 12:54 | Emergency (ER) | payer BC ==
--- NOTE | 2020-06-11 13:12 | EKG REPORT ---
SEVERITY:- OTHERWISE NORMAL ECG - SINUS TACHYCARDIA : Confirmed by: Anthony Ku MD 11-Jun-2020 13:11:58
--- NOTE | 2020-06-11 13:47 | ER Document Report ---
ED Medical Screen (RME) - General Stated Complaint: CHEST PAINS Time Seen by Provider: 06/11/20 13:38 Primary Care Provider: SONIA KULKARNI MD [Primary Care Provider] - Follow up as needed TRAVEL OUTSIDE OF THE [place] IN LAST 30 DAYS: No - HPI Notes: 06/11/20 13:45 35-year-old female with a history of sinus tachycardia and hypertension presents to the emergency room today for evaluation of substernal chest pain that started around 1025 this morning while she was eating [id number]. Denies any radiation of pain to arm neck or back. Does report some nausea but denies any vomiting. Patient does endorse some shortness of breath. Patient does take Lopressor 50 mg which she did take this morning. Reports that her father did have a quadruple bypass done 2 years ago, she does not smoke. Last menstrual cycle was 05/15/2020. Denies being on any blood thinners. P I have greeted and performed a rapid initial assessment of this patient. A comprehensive ED assessment and evaluation of the patient, analysis of test results and completion of the medical decision making process will be conducted by additional ED providers. PHYSICAL EXAMINATION: GENERAL: Well-appearing, well-nourished and in no acute distress. HEAD: Atraumatic, normocephalic. CV: Sinus tachycardia LUNGS: No respiratory distress Musculoskeletal: Normal range of motion NEUROLOGICAL: Normal speech, normal gait. SKIN: Warm, Dry, normal turgor, no rashes or lesions noted. The patient was evaluated during a global COVID-19 pandemic and that diagnosis was suspected/considered upon their initial presentation. Their evaluation, treatment and testing was consistent with current guidelines for patients who present with complaints or symptoms and may be related to COVID-19. - Related Data Allergies/Adverse Reactions: morphine [Morphine] Allergy (Intermediate, Verified 05/02/20 12:07) Hives Penicillins Allergy (Intermediate, Verified 05/02/20 12:07) Hives Past Medical History - Social History Family history: Reviewed & Not Pertinent - Past Medical History Cardiac Medical History: Reports: Hx Hypercholesterolemia, Hx Hypertension Denies: Hx Atrial Fibrillation, Hx Congestive Heart Failure, Hx Coronary Artery Disease, Hx DVT, Hx Heart Attack, Hx Pulmonary Embolism Pulmonary Medical History: Denies: Hx Asthma, Hx Bronchitis, Hx COPD, Hx Pneumonia, Hx Sleep Apnea, Hx Tuberculosis Neurological Medical History: Denies: Hx Cerebrovascular Accident, Hx Seizures, Hx Parkinson's Disease Endocrine Medical History: Denies: Hx Diabetes Mellitus Type 1, Hx Diabetes Mellitus Type 2, Hx Hyperthyroidism, Hx Hypothyroidism Renal/ Medical History: Reports: Hx Kidney Stones, Hx Ovarian Cysts. Denies: Hx End Stage Renal Disease, Hx Peritoneal Dialysis GI Medical History: Reports: Hx Pancreatitis - acute (08/11/2017). Denies: Hx Cirrhosis, Hx Gastroesophageal Reflux Disease, Hx Hepatitis, Hx Ulcer Musculoskeltal Medical History: Reports Hx Arthritis - BACK, Denies Hx Multiple Sclerosis Psychiatric Medical History: Denies: Hx Bipolar Disorder, Hx Depression, Hx Schizophrenia Traumatic Medical History: Reports: Hx Fractures Infectious Medical History: Reports: Hx C-Diff. Denies: Hx Hepatitis, Hx MRSA Past Surgical History: Reports: Hx Gynecologic Surgery, Hx Kidney (Renal Surgery) - when child, Hx Orthopedic Surgery - left ankle, Other - Left ureteral stent and other corrective surgery.. Denies: Hx Cholecystectomy - Immunizations Immunizations up to date: No Hx Diphtheria, Pertussis, Tetanus Vaccination: No Physical Exam - Vital signs Vitals: Temp Pulse Resp BP Pulse Ox 98.4 F 126 H 16 141/86 H 97 06/11/20 13:20 06/11/20 13:20 06/11/20 13:20 06/11/20 13:20 06/11/20 13:20 Course - Vital Signs Vital signs: Temp Pulse Resp BP Pulse Ox 98.4 F 126 H 16 141/86 H 97 06/11/20 13:20 06/11/20 13:20 06/11/20 13:20 06/11/20 13:20 06/11/20 13:20 Doctor's Discharge - Discharge Referrals: SONIA KULKARNI MD [Primary Care Provider] - Follow up as needed
[2020-06-11 14:33] LABS: ABSOLUTE EOSINOPHILS # (AUTO) 0.1 10^3/uL (0.0-0.6); ABSOLUTE MONOCYTES (AUTO) 0.4 10^3/uL (0.1-1.4); ABSOLUTE NEUT (AUTO) 4.5 10^3/uL (1.7-8.2); BASOPHILS % (AUTO) 0.4 % (0-2); EOSINOPHILS % (AUTO) 1.3 % (0-6); HEMATOCRIT 40.7 % (36.0-47.0); HEMOGLOBIN 14.2 g/dL (12.0-15.5); LYMPHOCYTES % (AUTO) 28.3 % (13-45); MEAN CORPUSCULAR HEMOGLOBIN 30.8 pg (27.0-33.4); MEAN CORPUSCULAR VOLUME 88 fl (80-97); MONOCYTES % (AUTO) 5.8 % (3-13); PLATELET COUNT 281 10^3/uL (150-450); RED BLOOD COUNT 4.62 10^6/uL (3.72-5.28); RED CELL DISTRIBUTION WIDTH 12.4 % (11.5-14.0); SEGMENTED NEUTROPHILS % (AUTO) 64.2 % (42-78); TOTAL CELLS COUNTED % (AUTO) 100 %
--- NOTE | 2020-06-11 14:41 | RADIOLOGY REPORT (SQ) ---
EXAM DESCRIPTION: CHEST SINGLE VIEW IMAGES COMPLETED DATE/TIME: 06/11/2020 2:26 pm REASON FOR STUDY: chest pain COMPARISON: None. NUMBER OF VIEWS: One view. TECHNIQUE: Single frontal radiographic view of the chest acquired. LIMITATIONS: None. FINDINGS: LUNGS AND PLEURA: No opacities, masses or pneumothorax. No pleural effusion. MEDIASTINUM AND HILAR STRUCTURES: No masses. Contour normal. HEART AND VASCULAR STRUCTURES: Heart normal in size. Normal vasculature. BONES: No acute findings. HARDWARE: None in the chest. OTHER: No other significant finding. IMPRESSION: NO SIGNIFICANT RADIOGRAPHIC FINDING IN THE CHEST. TECHNICAL DOCUMENTATION: JOB ID: [id number] 2010 [employer]- All Rights Reserved Reading location - IP/workstation name: [email or web address]
[2020-06-11 14:53] LABS: ALBUMIN 4.9 g/dL (3.5-5.0); ALKALINE PHOSPHATASE 65 U/L (38-126); ANION GAP 9 (5-19); ASPARTATE AMINO TRANSFERASE 58 U/L (14-36); BILIRUBIN,DIRECT 0.2 mg/dL (0.0-0.4); BILIRUBIN,TOTAL 0.6 mg/dL (0.2-1.3); BLOOD UREA NITROGEN 9 mg/dL (7-20); CALCIUM 9.8 mg/dL (8.4-10.2); CARBON DIOXIDE 24 mmol/L (22-30); CHLORIDE 108 mmol/L (98-107); CREATINE KINASE 183 U/L (30-135); GLUCOSE 129 mg/dL (75-110); POTASSIUM 4.6 mmol/L (3.6-5.0); TOTAL PROTEIN 8.3 g/dL (6.3-8.2)
[2020-06-11 15:07] LABS: CREATINE KINASE MB 0.97 ng/mL (<4.55)
[2020-06-11 15:09] LABS: TROPONIN I < 0.012 ng/mL
[2020-06-11] MEDS ORDERED: ACETAMINOPHEN 325 MG TABLET PO ONE (19:31)
[2020-06-11] MEDS ORDERED: NORMAL SALINE 1000 ML 1,000 ML IV ONE (19:32)
--- NOTE | 2020-06-11 19:45 | ER Document Report ---
ED General - General Chief Complaint: Chest Pain Stated Complaint: CHEST PAINS Time Seen by Provider: 06/11/20 13:38 Primary Care Provider: SONIA KULKARNI MD [Primary Care Provider] - Follow up as needed TRAVEL OUTSIDE OF THE [place] IN LAST 30 DAYS: No - HPI Notes: Patient is a 35-year-old female presents emergency department for evaluation of chest pain. She has had pain similar to this in the past. She was seen by her primary care provider, started on acid reflux medicine. This morning at about 10 AM the patient had Chick-ashutosh-A, a chicken breakfast biscuit and hash brown. Shortly afterwards she developed a squeezing pain in her substernal area that radiated into her epigastrium. She states it lasted about 10 minutes. She did feel slightly diaphoretic and nauseated with it. She states that she is had the pain intermittently since then. She states that she had an evaluation of her gallbladder with an ultrasound several months ago and was told that it was n ormal, so she did not really pursue it any further. She denies any fevers or chills. She again had nausea but no emesis. She denies any shortness of breath or near syncope. Occasionally she does have pain in her right shoulder when her pain is severe. She states she also had minimal pain last night after eating chili. Patient also complains of some dysuria. 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 She was just recently on antibiotics, stopped them yesterday. She believes that her urine has a foul odor. She has had what sounds like physiological white and clear vaginal discharge, but is in a monogamous relationship with her . She denies any history of STIs. No pelvic pain. Patient also has a history of tachycardia. She was on metoprolol 100 mg after an evaluation, was on this for some time but she became hypotensive. She was cut down to 25 mg. She recently saw her primary care provider, and at that visit her heart rate was in the high 140s. She was started on metoprolol 50 mg. Her heart rate now, between 105 and 135, s he states is not abnormal for her. She states she also believes that there is some anxiety that may be contributing to this at this time. - Related Data Allergies/Adverse Reactions: morphine [Morphine] Allergy (Intermediate, Verified 05/02/20 12:07) Hives Penicillins Allergy (Intermediate, Verified 05/02/20 12:07) Hives Past Medical History - General Information source: Patient - Social History Smoking Status: Never Smoker Family History: CAD, Malignancy Patient has homicidal ideation: No - Past Medical History Cardiac Medical History: Reports: Hx Hypercholesterolemia, Hx Hypertension Denies: Hx Atrial Fibrillation, Hx Congestive Heart Failure, Hx Coronary Artery Disease, Hx DVT, Hx Heart Attack, Hx Pulmonary Embolism Pulmonary Medical History: Denies: Hx Asthma, Hx Bronchitis, Hx COPD, Hx Pneumonia, Hx Sleep Apnea, Hx Tuberculosis Neurological Medical History: Denies: Hx Cerebrovascular Accident, Hx Seizures, Hx Parkinson's Disease Endocrine Medical History: Denies: Hx Diabetes Mellitus Type 1, Hx Diabetes Mellitus Type 2, Hx Hyperthyroidism, Hx Hypothyroidism Renal/ Medical History: Reports: Hx Kidney Stones, Hx Ovarian Cysts. Denies: Hx End Stage Renal Disease, Hx Peritoneal Dialysis GI Medical History: Reports: Hx Pancreatitis - acute (08/11/2017). Denies: Hx Cirrhosis, Hx Gastroesophageal Reflux Disease, Hx Hepatitis, Hx Ulcer Musculoskeletal Medical History: Reports Hx Arthritis - BACK, Denies Hx Multiple Sclerosis Psychiatric Medical History: Denies: Hx Bipolar Disorder, Hx Depression, Hx Schizophrenia Traumatic Medical History: Reports: Hx Fractures Infectious Medical History: Reports: Hx C-Diff. Denies: Hx Hepatitis, Hx MRSA Past Surgical History: Reports: Hx Gynecologic Surgery, Hx Kidney (Renal Surgery) - when child, Hx Orthopedic Surgery - left ankle, Other - Left ureteral stent and other corrective surgery.. Denies: Hx Cholecystectomy - Immunizations Immunizations up to date: No Hx Diphtheria, Pertussis, Tetanus Vaccination: No Review of Systems - Review of Systems Constitutional: See HPI EENT: No symptoms reported Cardiovascular: See HPI Respiratory: No symptoms reported Gastrointestinal: See HPI Genitourinary: See HPI Female Genitourinary: See HPI Musculoskeletal: No symptoms reported Neurological/Psychological: No symptoms reported Physical Exam - Vital signs Vitals: Temp Pulse Resp BP Pulse Ox 98.4 F 126 H 16 141/86 H 97 06/11/20 13:20 06/11/20 13:20 06/11/20 13:20 06/11/20 13:20 06/11/20 13:20 - Notes Notes: Vital signs reviewed, please refer to chart. Head is normocephalic, atraumatic. Pupils equal round, reactive to light. Neck is supple without meningismus. Heart is regular rate and rhythm. Lungs are clear to auscultation bilaterally. Abdomen is soft, mildly tender in the epigastrium and right upper quadrant without rebound or guarding, normoactive bowel sounds throughout. Extremities without cyanosis, clubbing. Posterior calves are nontender. Peripheral pulses are equal. Skin is warm and dry. Patient is awake, alert, neurological exam is nonfocal. Course - Re-evaluation Re-evalutation: 06/11/20 19:43 Patient presents to the emergency department for evaluation of chest pain. On exam she really more has epigastric and right upper quadrant pain. She had laboratory investigations as ordered through triage. She states she "felt dehydrated" so IV fluids and Tylenol were ordered. Patient has a very mild elevation in her LFTs, but this is not new. She has a normal alk phos, normal bilirubin. Imaging in the past has confirmed a fatty liver, and I do believe that is the only reason for her mild liver enzyme elevations. Otherwise, I do suspect that biliary colic is the etiology of this patient's pain. Her pain seems to be exacerbated by fatty and greasy foods. She has referral into her right shoulder. She does not have any signs of obstruction or active infection at this time. I strongly encouraged her to have further evaluation as an outpatient, including repeat ultrasound and possible HIDA scan for evaluation of gallbladder function. She was amenable to this plan. Otherwise, she is given dietary instructions, such as avoiding fatty and greasy foods, which may help manage her symptoms as an outpatient. She voiced understanding. Otherwise, the patient does have persistent tachycardia. Currently her heart rate is 103. She has no personal risk factors for DVT or PE. She denies any family history of DVT or PE at this time. She has no history of cancer, no recent surgeries, no prolonged immobilization. She is not in any sort of hormone replacement. She is a non-smoker. She has had a negative CTA in the past. Her symptoms are not consistent with a pulmonary embolus and I am not inclined to evaluate with a CT angiogram at this time. She will be handled symptomatically. I am still awaiting her urinalysis. Pending an unremarkable urinalysis and lipase, which is still pending, the patient will be discharged with biliary colic instruct ions. 06/11/20 20:55 Lipase unremarkable. Second troponin negative. We will give her instructions on biliary colic and close follow-up. She is to return to the ED with worsening. - Vital Signs Vital signs: Temp Pulse Resp BP Pulse Ox 98.4 F 126 H 25 H 116/78 100 06/11/20 13:20 06/11/20 13:20 06/11/20 20:01 06/11/20 20:01 06/11/20 20:01 - Laboratory Results Result Diagrams: 06/11/20 14:14 06/11/20 14:14 Laboratory Results Interpreted: 06/11/20 06/11/20 14:14 14:14 Chloride 108 H Glucose 129 H AST 58 H ALT 68 H Creatine Kinase 183 H Total Protein 8.3 H Urine Blood SMALL H Critical Laboratory Results Reviewed: No Critical Results - Radiology Results Critical Radiology Results Reviewed: No Critical Results Discharge - Discharge Clinical Impression: Upper abdominal pain, Biliary colic, Sinus tachycardia Condition: Stable Disposition: HOME, SELF-CARE Instructions: Chest Pain of Unclear Cause ([facility]), Gallbladder Disease ([facility]), Low-Fat Diet ([facility]) Additional Instructions: Your findings today are most consistent with biliary colic, or gallbladder dysfunction. Your urinalysis failed to reveal any signs of infection. Please avoid fatty and greasy foods. Follow-up with your primary care provider. You may require a repeat ultrasound or a HIDA scan. If you develop fever, increased pain, yellowing of the skin or eyes, or any other new or concerning symptoms, please return immediately to the emergency department for evaluation. Referrals: SONIA KULKARNI MD [Primary Care Provider] - Follow up as needed
[2020-06-11 19:56] LABS: APPEARANCE,URINE CLEAR; BILIRUBIN,URINE NEGATIVE (NEGATIVE); COLOR,URINE YELLOW; GLUCOSE, URINE NEGATIVE (NEGATIVE); KETONES,URINE NEGATIVE (NEGATIVE); LEUKOCYTE ESTERASE,URINE NEGATIVE (NEGATIVE); NITRITE,URINE NEGATIVE (NEGATIVE); PROTEIN,URINE NEGATIVE (NEGATIVE); URINE SPECIFIC GRAVITY 1.011; UROBILINOGEN,URINE NEGATIVE mg/dL (<2.0)
[2020-06-11 20:42] VITALS: BP 116/78
== END 2020-06-11 21:34 | disposition home or self-care (01) ==
LOC: ER 12:54
DX: K80.50 Calculus of bile duct without cholangitis or cholecystitis without obstruction (principal); R00.0 Tachycardia, unspecified; R07.9 Chest pain, unspecified; R10.13 Epigastric pain; R10.10 Upper abdominal pain, unspecified; E78.00 Pure hypercholesterolemia, unspecified; I10 Essential (primary) hypertension; Z87.442 Personal history of urinary calculi
CPT/HCPCS: 93005; 99285; 96360; 36415; 82553; 82550; 83690; 85025; 81025; 80053; 81001; 84484; 71045; 93010; J7030

== ENCOUNTER 2020-06-16 18:37 | Emergency (ER) | payer BC ==
--- NOTE | 2020-06-16 20:15 | ER Document Report ---
ED Medical Screen (RME) - General Chief Complaint: Chest Pain > 30 Stated Complaint: CHEST PAIN, SHORTNESS OF BREATH, NAUSEA Time Seen by Provider: 06/16/20 20:02 Primary Care Provider: ERROL SIMMONS NP-C [Primary Care Provider] - Follow up as needed Mode of Arrival: Ambulatory Information source: Patient Notes: 35-year-old female presents to ED for complaint of very fast pulse. She states she has a history of palpitations. But today she is having chest pain the left side of her chest going up into her left neck. She states it started yesterday. She states she is on metoprolol for the tachycardia. She does have a history of cluster high blood pressure and tachycardia. She states she did have a surgery for as a child for kidney reflux and she has had surgeries on her ankle for fractured ankle. States she does not smoke drink or use any drugs. She is alert oriented respirations regular nonlabored speaking in full sentences. We will get chest pain protocol as well as urine test. She will be seen by another provider. I have greeted and performed a rapid initial assessment of this patient. A comprehensive ED assessment and evaluation of the patient, analysis of test results and completion of medical decision making process will be conducted by an additional ED providers. TRAVEL OUTSIDE OF THE [place] IN LAST 30 DAYS: No - Related Data Allergies/Adverse Reactions: morphine [Morphine] Allergy (Intermediate, Verified 05/02/20 12:07) Hives Penicillins Allergy (Intermediate, Verified 05/02/20 12:07) Hives Past Medical History - Social History Family history: Reviewed & Not Pertinent - Past Medical History Cardiac Medical History: Reports: Hx Hypercholesterolemia, Hx Hypertension Denies: Hx Atrial Fibrillation, Hx Congestive Heart Failure, Hx Coronary Artery Disease, Hx DVT, Hx Heart Attack, Hx Pulmonary Embolism Pulmonary Medical History: Denies: Hx Asthma, Hx Bronchitis, Hx COPD, Hx Pneumonia, Hx Sleep Apnea, Hx Tuberculosis Neurological Medical History: Denies: Hx Cerebrovascular Accident, Hx Seizures, Hx Parkinson's Disease Endocrine Medical History: Denies: Hx Diabetes Mellitus Type 1, Hx Diabetes Mellitus Type 2, Hx Hyperthyroidism, Hx Hypothyroidism Renal/ Medical History: Reports: Hx Kidney Stones, Hx Ovarian Cysts. Denies: Hx End Stage Renal Disease, Hx Peritoneal Dialysis GI Medical History: Reports: Hx Pancreatitis - acute (08/11/2017). Denies: Hx Cirrhosis, Hx Gastroesophageal Reflux Disease, Hx Hepatitis, Hx Ulcer Musculoskeltal Medical History: Reports Hx Arthritis - BACK, Denies Hx Multiple Sclerosis Psychiatric Medical History: Denies: Hx Bipolar Disorder, Hx Depression, Hx Schizophrenia Traumatic Medical History: Reports: Hx Fractures Infectious Medical History: Reports: Hx C-Diff. Denies: Hx Hepatitis, Hx MRSA Past Surgical History: Reports: Hx Gynecologic Surgery, Hx Kidney (Renal Surgery) - when child, Hx Orthopedic Surgery - left ankle, Other - Left ureteral stent and other corrective surgery.. Denies: Hx Cholecystectomy - Immunizations Immunizations up to date: No Hx Diphtheria, Pertussis, Tetanus Vaccination: No Physical Exam - Vital signs Vitals: Temp Pulse Resp BP Pulse Ox 98.2 F 130 H 20 167/98 H 100 06/16/20 20:07 06/16/20 20:07 06/16/20 20:07 06/16/20 20:07 06/16/20 20:07 Course - Vital Signs Vital signs: Temp Pulse Resp BP Pulse Ox 98.2 F 130 H 20 167/98 H 100 06/16/20 20:07 06/16/20 20:07 06/16/20 20:07 06/16/20 20:07 06/16/20 20:07 Doctor's Discharge - Discharge Referrals: ERROL SIMMONS NP-C [Primary Care Provider] - Follow up as needed
--- NOTE | 2020-06-16 21:20 | RADIOLOGY REPORT (SQ) ---
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 Comparison: Chest radiograph performed 06/11/2020 Findings: The cardiomediastinal silhouette is normal in size. No pneumothorax is seen. No acute airspace opacities are seen. No discrete pleural effusion is apparent. Impression: No acute airspace opacities are seen.
--- NOTE | 2020-06-16 21:22 | EKG REPORT ---
SEVERITY:- BORDERLINE ECG - SINUS TACHYCARDIA : Confirmed by: Anthony Ku MD 16-Jun-2020 21:21:12
[2020-06-16 22:01] LABS: ABSOLUTE EOSINOPHILS # (AUTO) 0.1 10^3/uL (0.0-0.6); ABSOLUTE LYMPHOCYTES (AUTO) 2.1 10^3/uL (0.5-4.7); ABSOLUTE MONOCYTES (AUTO) 0.5 10^3/uL (0.1-1.4); ABSOLUTE NEUT (AUTO) 5.8 10^3/uL (1.7-8.2); BASOPHILS % (AUTO) 0.4 % (0-2); EOSINOPHILS % (AUTO) 0.7 % (0-6); HEMATOCRIT 42.6 % (36.0-47.0); HEMOGLOBIN 15.1 g/dL (12.0-15.5); LYMPHOCYTES % (AUTO) 25.2 % (13-45); MEAN CORPUSCULAR HEMOGLOBIN 31.1 pg (27.0-33.4); MEAN CORPUSCULAR HGB CONC 35.4 g/dL (32.0-36.0); MEAN CORPUSCULAR VOLUME 88 fl (80-97); MONOCYTES % (AUTO) 5.4 % (3-13); PLATELET COUNT 330 10^3/uL (150-450); RED BLOOD COUNT 4.85 10^6/uL (3.72-5.28); RED CELL DISTRIBUTION WIDTH 12.8 % (11.5-14.0); SEGMENTED NEUTROPHILS % (AUTO) 68.3 % (42-78); TOTAL CELLS COUNTED % (AUTO) 100 %; WHITE BLOOD COUNT 8.5 10^3/uL (4.0-10.5)
[2020-06-16] MEDS ORDERED: NORMAL SALINE 1000 ML 1,000 ML IV ONE (22:04)
[2020-06-16 22:14] LABS: APPEARANCE,URINE SLIGHTLY-CLOUDY; BILIRUBIN,URINE NEGATIVE (NEGATIVE); COLOR,URINE YELLOW; GLUCOSE, URINE NEGATIVE (NEGATIVE); KETONES,URINE NEGATIVE (NEGATIVE); LEUKOCYTE ESTERASE,URINE LARGE (NEGATIVE); NITRITE,URINE NEGATIVE (NEGATIVE); PROTEIN,URINE 30 mg/dL (NEGATIVE); URINE SPECIFIC GRAVITY 1.006; UROBILINOGEN,URINE NEGATIVE mg/dL (<2.0)
--- NOTE | 2020-06-16 23:29 | ER Document Report ---
ED General - General Chief Complaint: Chest Pain > 30 Stated Complaint: CHEST PAIN, SHORTNESS OF BREATH, NAUSEA Time Seen by Provider: 06/16/20 20:02 Primary Care Provider: ERROL SIMMONS NP-C [Primary Care Provider] - Follow up as needed Mode of Arrival: Ambulatory Notes: 35-year-old woman presents to the emergency department with a complaint of pain in the right epigastric region. She has had ongoing symptoms for about 1 week. Seen by her primary physician and put on acid blocking medications. She is taking omeprazole and Pepcid, the patient states that the symptoms not improving. She was also seen in the emergency department approximately 1 week ago patient states that she was told that she had likely gallbladder disease. She is scheduled for an outpatient ultrasound next week. Complains of nausea, increased pain with eating and episodes of soft stools. She denies fever, s hortness of breath, or palpitations. TRAVEL OUTSIDE OF THE [place] IN LAST 30 DAYS: No - Related Data Allergies/Adverse Reactions: morphine [Morphine] Allergy (Intermediate, Verified 05/02/20 12:07) Hives Penicillins Allergy (Intermediate, Verified 05/02/20 12:07) Hives Home Medications: bp med. reflux med Past Medical History - General Information source: Patient - Social History Smoking Status: Unknown if Ever Smoked Chew tobacco use (# tins/day): No Frequency of alcohol use: None Drug Abuse: None Family History: CAD, Malignancy - Past Medical History Cardiac Medical History: Reports: Hx Hypercholesterolemia, Hx Hypertension Denies: Hx Atrial Fibrillation, Hx Congestive Heart Failure, Hx Coronary Artery Disease, Hx DVT, Hx Heart Attack, Hx Pulmonary Embolism Pulmonary Medical History: Denies: Hx Asthma, Hx Bronchitis, Hx COPD, Hx Pneumonia, Hx Sleep Apnea, Hx Tuberculosis Neurological Medical History: Denies: Hx Cerebrovascular Accident, Hx Seizures, Hx Parkinson's Disease Endocrine Medical History: Denies: Hx Diabetes Mellitus Type 1, Hx Diabetes Mellitus Type 2, Hx Hyperthyroidism, Hx Hypothyroidism Renal/ Medical History: Reports: Hx Kidney Stones, Hx Ovarian Cysts. Denies: Hx End Stage Renal Disease, Hx Peritoneal Dialysis GI Medical History: Reports: Hx Pancreatitis - acute (08/11/2017). Denies: Hx Cirrhosis, Hx Gastroesophageal Reflux Disease, Hx Hepatitis, Hx Ulcer Musculoskeletal Medical History: Reports Hx Arthritis - BACK, Denies Hx Multiple Sclerosis Psychiatric Medical History: Denies: Hx Bipolar Disorder, Hx Depression, Hx Schizophrenia Traumatic Medical History: Reports: Hx Fractures Infectious Medical History: Reports: Hx C-Diff. Denies: Hx Hepatitis, Hx MRSA Past Surgical History: Reports: Hx Gynecologic Surgery, Hx Kidney (Renal Surgery) - when child, Hx Orthopedic Surgery - left ankle, Other - Left ureteral stent and other corrective surgery.. Denies: Hx Cholecystectomy - Immunizations Immunizations up to date: No Hx Diphtheria, Pertussis, Tetanus Vaccination: No Review of Systems - Review of Systems Notes: Constitutional: Negative for fever. HENT: Negative for sore throat. Eyes: Negative for visual changes. Cardiovascular: Negative for chest pain. Respiratory: Negative for shortness of breath. Gastrointestinal: + Right upper quadrant abdominal tenderness Genitourinary: Negative for dysuria. Musculoskeletal: Negative for back pain. Skin: Negative for rash. Neurological: Negative for headaches, weakness or numbness. 10 point ROS negative except as marked above and in HPI. Physical Exam - Vital signs Vitals: Temp Pulse Resp BP Pulse Ox 98.2 F 130 H 20 167/98 H 100 06/16/20 20:07 06/16/20 20:07 06/16/20 20:07 06/16/20 20:07 06/16/20 20:07 - Notes Notes: PHYSICAL EXAMINATION: Physical Exam: General: Well-nourished well-developed overweight 35-year-old female in no acute distress HEENT: NC/AT, pupils equal round and reactive to light, MM moist,nares clear, oropharynx clear, airway patent Neck: supple, no adenopathy, no masses. Good range of motion Lungs: clear, no wheezing, no rales no rhonchi CVS: Regular rate and rhythm no murmur gallop or rub Abdomen: Soft, active, tenderness right upper quadrant, no masses, no hepatosplenomegaly Ext: No edema, clubbing or cyanosis. Neuro: Alert and responsive, moving all 4 extremities on command, cranial nerves intact, no focal findings Skin: Intact no open lesions, no rash Course - Re-evaluation Re-evalutation: 06/17/20 01:24 Patient is scheduled for outpatient ultrasound on to evaluate her gallbladder. She was given Toradol and Zofran here in the emergency department with relief of her symptoms. I have explained to patient that this could be gallbladder colic we will give her a prescription for Bentyl and Zofran to use a s an outpatient. She is to keep the appointment on for the ultrasound and follow-up based on those findings. Patient is in agreement with this plan and is now ready for discharge. - Vital Signs Vital signs: Temp Pulse Resp BP Pulse Ox 98.2 F 130 H 23 H 134/83 H 99 06/16/20 21:57 06/16/20 20:07 06/16/20 23:01 06/16/20 23:00 06/16/20 23:01 - Laboratory Results Result Diagrams: 06/16/20 21:45 06/16/20 21:45 Laboratory Results Interpreted: 06/16/20 06/16/20 18:50 21:45 Glucose 120 H AST 65 H ALT 86 H Total Protein 8.9 H Albumin 5.2 H Urine Protein 30 H Urine Blood LARGE H Ur Leukocyte Esterase LARGE H 06/17/20 01:24 I have reviewed laboratory data and used this information for the treatment decisions regarding the patient. Critical Laboratory Results Reviewed: No Critical Results - Radiology Results Critical Radiology Results Reviewed: No Critical Results - EKG Interpretation by Wy Rate: Tachycardia - EKG interpreted by Dr. Ash: Normal sinus rhythm, rate 125, W[place] interval 132 ms QT interval 312 ms, normal axis, no acute ST or T wave abnormalities, no ischemic findings, compared to EKG dated 06/11/2020, no significant interval changes. Interpretation: Sinus tachycardia, otherwise normal Discharge - Discharge Clinical Impression: Right upper quadrant abdominal pain Condition: Good Disposition: HOME, SELF-CARE Instructions: Toradol Injection ([facility]), Antispasmodics ([facility]), Antinausea Medication ([facility]), Abdominal Pain ([facility]) Additional Instructions: You were seen in the emergency department tonight with right upper quadrant abdominal pain. A prescription for antispasmodic and medications for nausea are prescribed tonight. Please keep your appointment for the ultrasound on for further evaluation of your abdominal pain and your gallbladder. If your symptoms are worsening or if you have other concerns prior to you may return to the emergency department for further evaluation and treatment HOME CARE INSTRUCTIONS & INFORMATION: Thank you for choosing us for your medical needs. We hope you're satisfied with the care you received. After you leave, you must properly care for your problem and, at the same time, observe its progress. Any condition can change. Some illnesses can change rapidly over hours or days. If your condition worsens, return to the Emergency Department or see your physician promptly. ABOUT YOUR X-RAYS AND EKG'S: If you had an EKG or X-rays taken, they have been read by the Emergency Physician. The X-rays and EKG's will also be read by a Radiologist or Car Usher within 24 hours. If discrepancies are noted, you will be notified by telephone. Please be certain the ED has a correct telephone number & address where you can be reached. Also, realize that some fractures or abnormalities do not show up on initial X-rays. If your symptoms continue, see your physician. ABOUT YOUR LABORATORY TEST: If you had laboratory tests, the results have been reviewed by the Emergency Physician. Some test results (for example cultures) may not be available for several days. You will be contacted if any test result shows you need additional treatment. Please be certain the ED has a correct telephone number and address where you can be reached. ABOUT YOUR MEDICATIONS: You will receive instructions on how to take your medicine on the prescription label you receive. Additional information may be provided by the Pharmacy. If you have questions afterwards, call the ED for clarification or further instructions. Some prescribed medications may cause drowsiness. Do not perform tasks such as driving a car or operating machinery without consulting your Pharmacist. If you feel you need a refill of pain medication, your condition will need re-evaluation. Please do not call for a refill of any medication. ABOUT YOUR SIGNATURE: Signature of this document acknowledges to followin. Understanding that you received emergency treatment and that you may be released before al medical problems are known or treated. Please be certain the ED has a correct phone number & address where you can be reached. 2. Acknowledgement that you will arrange for follow-up care as recommended. 3. Authorization for the Emergency Physician to provide information to your follow-up Physician in order to maximize your care. AT ANY TIME, IF YOUR SYMPTOMS CHANGE SIGNIFICANTLY OR WORSEN OR YOU DEVELOP NEW SYMPTOMS, RETURN TO THE EMERGENCY DEPARTMENT IMMEDIATELY FOR RE-EVALUATION. OUR GOAL IS TO PROVIDE EXCELLENT MEDICAL CARE! WE HOPE THAT WE HAVE MET YOUR EXPECTATIONS DURING YOUR EMERGENCY DEPARTMENT VISIT AND THAT YOU FEEL YOU HAVE RECEIVED EXCELLENT CARE! Prescriptions: Dicyclomine HCl [Bentyl 10 mg Capsule] 1 cap PO TID PRN #30 cap PRN Reason: For Pain Ondansetron [Zofran Odt 4 mg Tablet] 1 - 2 tab PO Q4H PRN #10 tab.rapdis PRN Reason: For Nausea/Vomiting Referrals: ERROL SIMMONS ASSOCIATE JUVENILE COURT JUDGE-C [Primary Care Provider] - Follow up as needed
[2020-06-16] MEDS ORDERED: KETOROLAC TROMETHAMINE INJ/PF 30 MG/1 ML SDV IV ONE (23:32)
[2020-06-16] MEDS ORDERED: ONDANSETRON HCL INJ/PF 4 MG/2 ML SDV IV ONE (23:32)
[2020-06-16 23:44] LABS: ALBUMIN 5.2 g/dL (3.5-5.0); ALKALINE PHOSPHATASE 69 U/L (38-126); ANION GAP 13 (5-19); ASPARTATE AMINO TRANSFERASE 65 U/L (14-36); BILIRUBIN,DIRECT 0.2 mg/dL (0.0-0.4); BILIRUBIN,TOTAL 0.4 mg/dL (0.2-1.3); BLOOD UREA NITROGEN 9 mg/dL (7-20); CALCIUM 10.2 mg/dL (8.4-10.2); CARBON DIOXIDE 23 mmol/L (22-30); CHLORIDE 107 mmol/L (98-107); GLUCOSE 120 mg/dL (75-110); POTASSIUM 3.9 mmol/L (3.6-5.0); TOTAL PROTEIN 8.9 g/dL (6.3-8.2)
[2020-06-17 01:49] VITALS: BP 122/71
== END 2020-06-17 01:51 | disposition home or self-care (01) ==
LOC: ER 18:37
DX: R10.11 Right upper quadrant pain (principal); R07.9 Chest pain, unspecified; R06.02 Shortness of breath; R11.0 Nausea; R10.13 Epigastric pain; Z79.899 Other long term (current) drug therapy; Z88.0 Allergy status to penicillin; Z88.8 Allergy status to other drugs, medicaments and biological substances; I10 Essential (primary) hypertension
CPT/HCPCS: 93005; 99285; 96361; 96374; 96375; 36415; 83690; 84443; 84703; 85025; 80053; 81001; 84484; 71046; 93010; J1885; J2405; J7030

== ENCOUNTER → 2020-06-20 | Outpatient (CLI) | payer BC, MEDICAID ==
--- NOTE | 2020-06-20 08:58 | WOMENS IMAGING REPORT ---
EXAM DESCRIPTION: U/S ABDOMEN LIMITED IMAGES COMPLETED DATE/TIME: 06/20/2020 8:37 am REASON FOR STUDY: R10.11 RIGHT UPPER QUADRANT PAIN R10.11 RIGHT UPPER QUADRANT PAIN COMPARISON: 05/02/2020 TECHNIQUE: Dynamic and static grayscale images acquired of the abdomen and recorded on PACS. Additio nal selected color Doppler and spectral images recorded. LIMITATIONS: None. FINDINGS: PANCREAS: Visualized portions the pancreas are normal in appearance. LIVER: Increased echotexture consistent with steatosis. No focal lesions. LIVER VASCULATURE: Normal directional flow of the main portal vein and hepatic veins. GALLBLADDER: No stones. Normal wall thickness. No pericholecystic fluid. ULTRASOUND-DETECTED LAWRENCE'S SIGN: Negative. INTRAHEPATIC DUCTS AND COMMON DUCT: CBD and intrahepatic ducts normal caliber. No filling defects. INFERIOR VENA CAVA: Normal flow. AORTA: No aneurysm. RIGHT KIDNEY: Normal size. Normal echogenicity. No solid or suspicious masses. No hydronephrosis. No calcifications. PERITONEAL AND RIGHT PLEURAL SPACE: No ascites or effusions. OTHER: No other significant findings. IMPRESSION: Hepatic steatosis. Study is limited by liver echogenicity and body habitus. TECHNICAL DOCUMENTATION: JOB ID: [id number] 2010 [employer]- All Rights Reserved Reading location - IP/workstation name: [email or web address]
== END ==
LOC: WI 07:49
PROVIDERS: ATTEND Nurse Practitioner Adult Health
DX: K76.0 Fatty (change of) liver, not elsewhere classified (principal); R10.11 Right upper quadrant pain
CPT/HCPCS: 76705

== ENCOUNTER 2020-07-01 08:44 | Emergency (ER) | payer BC ==
--- NOTE | 2020-07-01 10:26 | ER Document Report ---
ED Neck/Back Problem - General Chief Complaint: Back Pain Stated Complaint: BACK PAIN AND BLOATED POSSIBLE BP ISSUES Time Seen by Provider: 07/01/20 10:24 Primary Care Provider: NILSA THORNTON MD [Primary Care Provider] - Follow up as needed Mode of Arrival: Ambulatory Information source: Patient Notes: 07/01/20 09:31 - Nursing Note by RADHAERIK [facility] Num: [id number] : 1985 Patient Age: 35 Pt arrives to ed room 47 with a steady gait. Pt states that she is here for bilateral lower back pain that started a week ago. Pt denies any urinary s/s. Pt does report a hx of kidney issues including a stent placed to the left kidney, but denies this feeling the same. Pt also reports that every night after dinner she gets upper chest pain and elevated BP, pt reports seeing her Conference Specialist, PCP and GI provider in the last week with multiple work ups being done including upper gi scope and colonoscopy, she states none of the providers found any abnormalities and told her this was food and obesity caused. pt is a&ox4 with e/u respirations. MY NOTES 35-year-old female with 2-week history of having sinus drainage and pain substernally from her mouth and throat to her epigastric area pointing to these areas. Last week she had a upper GI and she was evaluated by Dr. Thornton because of tachycardia. She reports when she eats or defecates she has fast heart rate and pains pointing to her epigastric area. Patient reports she was placed on Pepcid and was maintained on her metoprolol [address] 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 Patient's heart rate is 105 today with 131/82 blood pressure. She advises she has had multiple work-ups all with fatty liver. She denies any hemoptysis any melena any dysuria. She denies any . She denies any cough. She does admit to sinus drainage and phlegm. TRAVEL OUTSIDE OF THE [place] IN LAST 30 DAYS: No - HPI Where: Home Severity: Mild Pain Level: 1 Associated symptoms: Chest pain, Abdominal pain. denies: Chills, Fever, Inco ntinence, Like prior neck/back pain, Motor loss, Numbness/tingling, Radiation to arm, Radiation to chest, Radiation to leg, Sensory loss, Sweaty, Unable to urinate, Lower back pain Similar symptoms previously: Yes Recently seen / treated by doctor: Yes - By pipe threading machine operator GI specialist neurologist and PMD - Related Data Allergies/Adverse Reactions: morphine [Morphine] Allergy (Intermediate, Verified 05/02/20 12:07) Hives Penicillins Allergy (Intermediate, Verified 05/02/20 12:07) Hives Past Medical History - General Information source: Patient - Social History Smoking Status: Unknown if Ever Smoked Frequency of alcohol use: None Drug Abuse: None Lives with: Family Family History: CAD, Malignancy Patient has suicidal ideation: No Patient has homicidal ideation: No - Past Medical History Cardiac Medical History: Reports: Hx Hypercholesterolemia, Hx Hypertension Denies: Hx Atrial Fibrillation, Hx Congestive Heart Failure, Hx Coronary Artery Disease, Hx DVT, Hx Heart Attack, Hx Pulmonary Embolism Pulmonary Medical History: Denies: Hx Asthma, Hx Bronchitis, Hx COPD, Hx Pneumonia, Hx Sleep Apnea, Hx Tuberculosis Neurological Medical History: Denies: Hx Cerebrovascular Accident, Hx Seizures, Hx Parkinson's Disease Endocrine Medical History: Denies: Hx Diabetes Mellitus Type 1, Hx Diabetes Mellitus Type 2, Hx Hyperthyroidism, Hx Hypothyroidism Renal/ Medical History: Reports: Hx Kidney Stones, Hx Ovarian Cysts. Denies: Hx End Stage Renal Disease, Hx Peritoneal Dialysis GI Medical History: Reports: Hx Pancreatitis - acute (08/11/2017). Denies: Hx Cirrhosis, Hx Gastroesophageal Reflux Disease, Hx Hepatitis, Hx Ulcer Musculoskeletal Medical History: Reports Hx Arthritis - BACK, Denies Hx Multiple Sclerosis Psychiatric Medical History: Denies: Hx Bipolar Disorder, Hx Depression, Hx Schizophrenia Traumatic Medical History: Reports: Hx Fractures Infectious Medical History: Reports: Hx C-Diff. Denies: Hx Hepatitis, Hx MRSA Past Surgical History: Reports: Hx Gynecologic Surgery, Hx Kidney (Renal Surgery) - when child, Hx Orthopedic Surgery - left ankle, Other - Left ureteral stent and other corrective surgery.. Denies: Hx Cholecystectomy - Immunizations Immunizations up to date: No Hx Diphtheria, Pertussis, Tetanus Vaccination: No Review of Systems - Review of Systems Constitutional: See HPI, Recent illness EENT: No symptoms reported Cardiovascular: See HPI, Palpitations Respiratory: No symptoms reported Gastrointestinal: See HPI, Abdominal pain Genitourinary: No symptoms reported Female Genitourinary: No symptoms reported Musculoskeletal: No symptoms reported Skin: No symptoms reported Hematologic/Lymphatic: No symptoms reported Neurological/Psychological: No symptoms reported Physical Exam - Vital signs Vitals: Temp Pulse Resp BP Pulse Ox 98.3 F 105 H 16 131/82 H 98 07/01/20 09:13 07/01/20 09:13 07/01/20 09:13 07/01/20 09:13 07/01/20 09:13 Interpretation: Normal - General General appearance: Appears well, Alert - HEENT Head: Normocephalic, Atraumatic Eyes: Normal Pupils: PERRL - Respiratory Respiratory status: No respiratory distress Chest status: Nontender Breath sounds: Normal Chest palpation: Normal - Cardiovascular Rhythm: Regular Heart sounds: Normal auscultation Murmur: No - Abdominal Inspection: Normal Distension: No distension Bowel sounds: Normal Tenderness: Tender - epigastric pain on palpation Organomegaly: No organomegaly - Rectal Hemorrhoids: Other - deferred - Genitourinary Bimanuel exam: Other - deferred - Back Back: Normal, Nontender - Extremities General upper extremity: Normal inspection, Nontender, Normal color, Normal ROM, Normal temperature General lower extremity: Normal inspection, Nontender, Normal color, Normal ROM, Normal temperature, Normal weight bearing. No: Jonh's sign - Neurological Neuro grossly intact: Yes Cognition: Normal Orientation: AAOx4 Lee Coma Scale Eye Opening: Spontaneous Irvona Coma Scale Verbal: Oriented Lee Coma Scale Motor: Obeys Commands Irvona Coma Scale Total: 15 Speech: Normal Motor strength normal: LUE, RUE, LLE, RLE Sensory: Normal - Psychological Associated symptoms: Normal affect, Normal mood - Skin Skin Temperature: Warm Skin Moisture: Dry Skin Color: Normal Course - Vital Signs Vital signs: Temp Pulse Resp BP Pulse Ox 98.3 F 105 H 16 131/82 H 98 07/01/20 09:13 07/01/20 09:13 07/01/20 09:13 07/01/20 09:13 07/01/20 09:13 - Laboratory Results Result Diagrams: 07/01/20 11:30 07/01/20 11:30 Laboratory Results Interpreted: 07/01/20 07/01/20 11:30 11:30 Chloride 108 H AST 67 H ALT 103 H Ur Leukocyte Esterase MODERATE H Critical Laboratory Results Reviewed: Yes Attending or Supervising Physician who Reviewed Labs: CANDI JUÁREZ JR - Radiology Results Critical Radiology Results Reviewed: Yes Attending or Supervising Physician who Reviewed Radiology: CANDI JUÁREZ JR Discharge - Discharge Clinical Impression: Esophagitis, Vagal reaction UTI (urinary tract infection) Qualifiers: Urinary tract infection type: acute cystitis Hematuria presence: without hematuria Qualified Code(s): N30.00 - Acute cystitis without hematuria Sinusitis Qualifiers: Sinusitis location: unspecified location Chronicity: acute Recurrence: non- recurrent Qualified Code(s): J01.90 - Acute sinusitis, unspecified Condition: Stable Disposition: HOME, SELF-CARE Instructions: Cephalexin ([facility]), Urinary Tract Infection ([facility]) Additional Instructions: Follow-up with personal doctor; return to ER as needed; take medicines as directed; encourage fluids Prescriptions: Mupirocin [Bactroban 2% Ointment 22 gm] 1 applic NASL HSP PRN 5 Days #1 tube PRN Reason: Sucralfate [Carafate 1 gm Tablet] 1 gm PO ACHS #120 tablet Cephalexin Monohydrate [Keflex 500 mg Capsule] 500 mg PO TID 7 Days #21 capsule Referrals: NILSA THORNTON MD [Primary Care Provider] - Follow up as needed
--- NOTE | 2020-07-01 11:34 | RADIOLOGY REPORT (SQ) ---
EXAM DESCRIPTION: CHEST SINGLE VIEW IMAGES COMPLETED DATE/TIME: 07/01/2020 11:08 am REASON FOR STUDY: pain COMPARISON: 06/16/2020 EXAM PARAMETERS: NUMBER OF VIEWS: One view. TECHNIQUE: Single frontal radiographic view of the chest acquired. RADIATION DOSE: NA LIMITATIONS: None. FINDINGS: LUNGS AND PLEURA: No opacities, masses or pneumothorax. No pleural effusion. MEDIASTINUM AND HILAR STRUCTURES: No masses. Contour normal. HEART AND VASCULAR STRUCTURES: Heart normal in size. Normal vasculature. BONES: No acute findings. HARDWARE: None in the chest. OTHER: No other significant finding. IMPRESSION: NO ACUTE RADIOGRAPHIC FINDING IN THE CHEST. TECHNICAL DOCUMENTATION: JOB ID: [id number] 2010 [employer]- All Rights Reserved Reading location - IP/workstation name: [email or web address]
[2020-07-01 11:48] LABS: ABSOLUTE EOSINOPHILS # (AUTO) 0.1 10^3/uL (0.0-0.6); ABSOLUTE LYMPHOCYTES (AUTO) 1.7 10^3/uL (0.5-4.7); ABSOLUTE MONOCYTES (AUTO) 0.3 10^3/uL (0.1-1.4); ABSOLUTE NEUT (AUTO) 3.6 10^3/uL (1.7-8.2); BASOPHILS % (AUTO) 0.5 % (0-2); EOSINOPHILS % (AUTO) 1.2 % (0-6); HEMATOCRIT 40.7 % (36.0-47.0); LYMPHOCYTES % (AUTO) 30.2 % (13-45); MEAN CORPUSCULAR HEMOGLOBIN 30.1 pg (27.0-33.4); MEAN CORPUSCULAR HGB CONC 34.4 g/dL (32.0-36.0); MEAN CORPUSCULAR VOLUME 87 fl (80-97); MONOCYTES % (AUTO) 5.1 % (3-13); PLATELET COUNT 267 10^3/uL (150-450); RED BLOOD COUNT 4.66 10^6/uL (3.72-5.28); RED CELL DISTRIBUTION WIDTH 12.4 % (11.5-14.0); TOTAL CELLS COUNTED % (AUTO) 100 %; WHITE BLOOD COUNT 5.6 10^3/uL (4.0-10.5)
[2020-07-01 11:56] LABS: APPEARANCE,URINE CLOUDY; BILIRUBIN,URINE NEGATIVE (NEGATIVE); COLOR,URINE YELLOW; GLUCOSE, URINE NEGATIVE (NEGATIVE); KETONES,URINE NEGATIVE (NEGATIVE); LEUKOCYTE ESTERASE,URINE MODERATE (NEGATIVE); NITRITE,URINE NEGATIVE (NEGATIVE); PROTEIN,URINE NEGATIVE (NEGATIVE); URINE SPECIFIC GRAVITY 1.019; UROBILINOGEN,URINE NEGATIVE mg/dL (<2.0)
[2020-07-01 12:12] LABS: ALBUMIN 4.7 g/dL (3.5-5.0); ALKALINE PHOSPHATASE 74 U/L (38-126); ANION GAP 6 (5-19); ASPARTATE AMINO TRANSFERASE 67 U/L (14-36); BILIRUBIN,DIRECT 0.2 mg/dL (0.0-0.4); BILIRUBIN,TOTAL 0.6 mg/dL (0.2-1.3); BLOOD UREA NITROGEN 8 mg/dL (7-20); CALCIUM 9.9 mg/dL (8.4-10.2); CARBON DIOXIDE 27 mmol/L (22-30); CHLORIDE 108 mmol/L (98-107); GLUCOSE 103 mg/dL (75-110); POTASSIUM 4.3 mmol/L (3.6-5.0); TOTAL PROTEIN 7.9 g/dL (6.3-8.2)
[2020-07-01 13:13] VITALS: BP 115/69
== END 2020-07-01 13:16 | disposition home or self-care (01) ==
LOC: ER 08:44
DX: N30.00 Acute cystitis without hematuria (principal); K20.90 Esophagitis, unspecified without bleeding; R00.2 Palpitations; J01.90 Acute sinusitis, unspecified; M54.5 Low back pain; R07.9 Chest pain, unspecified; R10.13 Epigastric pain; I10 Essential (primary) hypertension; Z79.899 Other long term (current) drug therapy; Z20.822 Contact with and (suspected) exposure to COVID-19; Z88.6 Allergy status to analgesic agent; Z88.5 Allergy status to narcotic agent; Z88.0 Allergy status to penicillin
CPT/HCPCS: 99284; 36415; 83690; 84443; 85025; 81025; 80053; 81001; 85379; 71045; U0003; C9803; 87635

== ENCOUNTER 2020-07-05 19:35 | Emergency (ER) | payer BC ==
--- NOTE | 2020-07-05 19:52 | ER Document Report ---
ED Medical Screen (RME) - General Stated Complaint: SHORTNESS OF BREATH,DIZZINESS Time Seen by Provider: 07/05/20 19:44 Primary Care Provider: NILSA THORNTON MD [Primary Care Provider] - Follow up as needed Notes: Patient is a 35-year-old female presents emergency department with a chief complaint of shortness of breath. She was tested for COVID-19 here in the emergency department on the , which was negative. She states that she still feels the same. She was diagnosed with sinusitis and a urinary tract infection. She ended up having a syncopal episode that was witnessed at home. She was not doing anything in particular. States that she was sitting there. Exam: Sinus tachycardia. I have greeted and performed a rapid initial assessment of this patient. A comprehensive ED assessment and evaluation of the patient, analysis of test results and completion of medical decision making process will be conducted by an additional ED providers. TRAVEL OUTSIDE OF THE [place] IN LAST 30 DAYS: No - Related Data Allergies/Adverse Reactions: morphine [Morphine] Allergy (Intermediate, Verified 05/02/20 12:07) Hives Penicillins Allergy (Intermediate, Verified 05/02/20 12:07) Hives Past Medical History - Social History Family history: Reviewed & Not Pertinent - Past Medical History Cardiac Medical History: Reports: Hx Hypercholesterolemia, Hx Hypertension Denies: Hx Atrial Fibrillation, Hx Congestive Heart Failure, Hx Coronary Artery Disease, Hx DVT, Hx Heart Attack, Hx Pulmonary Embolism Pulmonary Medical History: Denies: Hx Asthma, Hx Bronchitis, Hx COPD, Hx Pneumonia, Hx Sleep Apnea, Hx Tuberculosis Neurological Medical History: Denies: Hx Cerebrovascular Accident, Hx Seizures, Hx Parkinson's Disease Endocrine Medical History: Denies: Hx Diabetes Mellitus Type 1, Hx Diabetes Mellitus Type 2, Hx Hyperthyroidism, Hx Hypothyroidism Renal/ Medical History: Reports: Hx Kidney Stones, Hx Ovarian Cysts. Denies: Hx End Stage Renal Disease, Hx Peritoneal Dialysis GI Medical History: Reports: Hx Pancreatitis - acute (08/11/2017). Denies: Hx Cirrhosis, Hx Gastroesophageal Reflux Disease, Hx Hepatitis, Hx Ulcer Musculoskeltal Medical History: Reports Hx Arthritis - BACK, Denies Hx Multiple Sclerosis Psychiatric Medical History: Denies: Hx Bipolar Disorder, Hx Depression, Hx Schizophrenia Traumatic Medical History: Reports: Hx Fractures Infectious Medical History: Reports: Hx C-Diff. Denies: Hx Hepatitis, Hx MRSA Past Surgical History: Reports: Hx Gynecologic Surgery, Hx Kidney (Renal Surgery) - when child, Hx Orthopedic Surgery - left ankle, Other - Left ureteral stent and other corrective surgery.. Denies: Hx Cholecystectomy - Immunizations Immunizations up to date: No Hx Diphtheria, Pertussis, Tetanus Vaccination: No Doctor's Discharge - Discharge Referrals: NILSA THORNTON MD [Primary Care Provider] - Follow up as needed
[2020-07-05 20:32] LABS: ABSOLUTE EOSINOPHILS # (AUTO) 0.1 10^3/uL (0.0-0.6); ABSOLUTE MONOCYTES (AUTO) 0.4 10^3/uL (0.1-1.4); ABSOLUTE NEUT (AUTO) 5.1 10^3/uL (1.7-8.2); BASOPHILS % (AUTO) 0.3 % (0-2); EOSINOPHILS % (AUTO) 1.3 % (0-6); HEMATOCRIT 43.9 % (36.0-47.0); HEMOGLOBIN 15.3 g/dL (12.0-15.5); LYMPHOCYTES % (AUTO) 26.6 % (13-45); MEAN CORPUSCULAR HEMOGLOBIN 30.7 pg (27.0-33.4); MEAN CORPUSCULAR HGB CONC 34.8 g/dL (32.0-36.0); MEAN CORPUSCULAR VOLUME 88 fl (80-97); MONOCYTES % (AUTO) 5.5 % (3-13); PLATELET COUNT 302 10^3/uL (150-450); RED BLOOD COUNT 4.97 10^6/uL (3.72-5.28); RED CELL DISTRIBUTION WIDTH 12.5 % (11.5-14.0); SEGMENTED NEUTROPHILS % (AUTO) 66.3 % (42-78); TOTAL CELLS COUNTED % (AUTO) 100 %; WHITE BLOOD COUNT 7.6 10^3/uL (4.0-10.5)
[2020-07-05 20:40] LABS: ALBUMIN 5.1 g/dL (3.5-5.0); ALKALINE PHOSPHATASE 75 U/L (38-126); ANION GAP 11 (5-19); ASPARTATE AMINO TRANSFERASE 99 U/L (14-36); BILIRUBIN,DIRECT 0.2 mg/dL (0.0-0.4); BILIRUBIN,TOTAL 0.5 mg/dL (0.2-1.3); BLOOD UREA NITROGEN 6 mg/dL (7-20); CALCIUM 10.3 mg/dL (8.4-10.2); CARBON DIOXIDE 27 mmol/L (22-30); CHLORIDE 104 mmol/L (98-107); CREATINE KINASE 100 U/L (30-135); GLUCOSE 100 mg/dL (75-110); POTASSIUM 3.9 mmol/L (3.6-5.0); TOTAL PROTEIN 8.7 g/dL (6.3-8.2)
[2020-07-05 20:45] LABS: APPEARANCE,URINE CLEAR; BILIRUBIN,URINE NEGATIVE (NEGATIVE); COLOR,URINE YELLOW; GLUCOSE, URINE NEGATIVE (NEGATIVE); KETONES,URINE TRACE mg/dL (NEGATIVE); LEUKOCYTE ESTERASE,URINE NEGATIVE (NEGATIVE); NITRITE,URINE NEGATIVE (NEGATIVE); PROTEIN,URINE NEGATIVE (NEGATIVE); URINE SPECIFIC GRAVITY 1.009; UROBILINOGEN,URINE NEGATIVE mg/dL (<2.0)
--- NOTE | 2020-07-05 21:19 | RADIOLOGY REPORT (SQ) ---
EXAM DESCRIPTION: XR CHEST 2 VIEWS COMPLETED DATE/TME: 07/05/2020 20:47 CLINICAL HISTORY: 35 years, Female, chest pain; shortness of breath Comparison: July 01, 2020 FINDINGS: No focal lung consolidation. No pleural effusion. No pneumothorax. Cardiac and mediastinal silhouette is unremarkable. No acute osseous abnormality. Soft tissues are unremarkable. IMPRESSION: No acute findings. No focal lung consolidation. copyright 2010 [employer]- All Rights Reserved
[2020-07-05] MEDS ORDERED: NORMAL SALINE 1000 ML 1,000 ML IV ONE (22:56)
[2020-07-05] MEDS ORDERED: ONDANSETRON HCL INJ/PF 4 MG/2 ML SDV IV ONE (23:04)
--- NOTE | 2020-07-05 23:04 | ER Document Report ---
ED General - General Chief Complaint: Shortness Of Breath Stated Complaint: SHORTNESS OF BREATH,DIZZINESS Time Seen by Provider: 07/05/20 19:44 Primary Care Provider: NILSA THORNTON MD [Primary Care Provider] - Follow up as needed TRAVEL OUTSIDE OF THE [place] IN LAST 30 DAYS: No - HPI Notes: Patient is a 35-year-old female with a past medical history of tachycardia and hypertension who presents with multiple complaints. Patient states that she was here in the ER on Wednesday and was tested for Covid and this was negative. Also given an antibiotic for UTI. She thinks that the antibiotic has made her feel queasy so she has stopped taking it. She complains of some pain in her chest that goes down her left arm. She also mentions of a tight headache at the top of her head. She is concerned because her blood pressure goes up at night. She states it was up to 150 systolic. She saw her PCP who upped her metoprolol to 75 mg. States she has nausea. She feels like she is unable to keep down much food. She is not vomiting. No diarrhea. She states that she thinks she had a syncopal episode today while sitting on the couch. She thinks she was unconscious for about 1 minute. - Related Data Allergies/Adverse Reactions: morphine [Morphine] Allergy (Intermediate, Verified 05/02/20 12:07) Hives Penicillins Allergy (Intermediate, Verified 05/02/20 12:07) Hives Home Medications: METOPROLOL. CHOLESTEROL MED. FISH OIL. ANTIBIOTIC Past Medical History - General Information source: Patient - Social History Smoking Status: Never Smoker Chew tobacco use (# tins/day): No Frequency of alcohol use: None Drug Abuse: None Family History: CAD, Malignancy Patient has homicidal ideation: No - Past Medical History Cardiac Medical History: Reports: Hx Hypercholesterolemia, Hx Hypertension Denies: Hx Atrial Fibrillation, Hx Congestive Heart Failure, Hx Coronary Artery Disease, Hx DVT, Hx Heart Attack, Hx Pulmonary Embolism Pulmonary Medical History: Denies: Hx Asthma, Hx Bronchitis, Hx COPD, Hx Pneumonia, Hx Sleep Apnea, Hx Tuberculosis Neurological Medical History: Denies: Hx Cerebrovascular Accident, Hx Seizures, Hx Parkinson's Disease Endocrine Medical History: Denies: Hx Diabetes Mellitus Type 1, Hx Diabetes Mellitus Type 2, Hx Hyperthyroidism, Hx Hypothyroidism Renal/ Medical History: Reports: Hx Kidney Stones, Hx Ovarian Cysts. Denies: Hx End Stage Renal Disease, Hx Peritoneal Dialysis GI Medical History: Reports: Hx Pancreatitis - acute (08/11/2017). Denies: Hx Cirrhosis, Hx Gastroesophageal Reflux Disease, Hx Hepatitis, Hx Ulcer Musculoskeletal Medical History: Reports Hx Arthritis - BACK, Denies Hx Multiple Sclerosis Psychiatric Medical History: Denies: Hx Bipolar Disorder, Hx Depression, Hx Schizophrenia Traumatic Medical History: Reports: Hx Fractures Infectious Medical History: Reports: Hx C-Diff. Denies: Hx Hepatitis, Hx MRSA Past Surgical History: Reports: Hx Gynecologic Surgery, Hx Kidney (Renal Surgery) - when child, Hx Orthopedic Surgery - left ankle, Other - Left ureteral stent and other corrective surgery.. Denies: Hx Cholecystectomy - Immunizations Immunizations up to date: No Hx Diphtheria, Pertussis, Tetanus Vaccination: No Review of Systems - Review of Systems Notes: CONSTITUTIONAL: No fever, fatigue or weight loss. SKIN: No rash. HENT: No congestion, ear pain, or sore throat. CARDIOVASCULAR: No edema. Positive for chest pain. RESPIRATORY: No cough. Positive for shortness of breath. Positive for nasal congestion. GASTROINTESTINAL: No abdominal pain,vomiting, bloody stools or diarrhea. Positive for nausea. GENITOURINARY: No dysuria. MUSCULOSKELETAL: No joint pain or swelling. LYMPHATIC: No swollen glands. NEUROLOGIC: No seizures. No focal weakness or sensory changes. Positive for headache. HEMATOLOGIC: No unusual bruising or bleeding. PSYCHIATRIC: No depression or anxiety. Physical Exam - Vital signs Vitals: Temp Pulse Resp BP Pulse Ox 98.3 F 113 H 18 155/96 H 100 07/05/20 19:51 07/05/20 19:51 07/05/20 19:51 07/05/20 19:51 07/05/20 19:51 - General General appearance: Appears well In distress: None Notes: VITAL SIGNS: Normotensive. Tachycardic to the low 100s. GENERAL: No acute distress, non-toxic appearance. HEAD: Normal with no signs of head trauma. EYES: PERRLA, EOMI, conjunctiva normal, no discharge. EARS: Hearing grossly intact. NOSE: Normal. THROAT: Oropharynx is normal. NECK: Normal range of motion, supple, no JVD. CHEST: Clear breath sounds bilaterally. No wheezes, rales, or rhonchi. CARDIAC: Regular rate and rhythm. S1 and S2, without murmurs, gallops, or rubs. VASCULAR: No Edema. ABDOMEN: Normal and soft with no tenderness, no masses or pulsatile masses. MUSCULOSKELETAL: Good range of motion of all major joints. Extremities without clubbing, cyanosis or edema. NEUROLOGICAL: Alert and oriented x 3. No focal sensory or strength deficits. Speech normal. Follows commands appropriately. PSYCHIATRIC: Normal Affect, judgement and mood. SKIN: Normal appearance with no rashes or lesions. Course - Re-evaluation Re-evalutation: 07/05/20 23:03 Patient appears well on exam. She is breathing easy on room air. She has multiple vague complaints. She is tachycardic and states that she has a history of this and her astronomy teacher attributed to being obese. She states she has lost weight. She is going back to her astronomy teacher this week for a follow-up appointment. Patient does mention that her mother of a PE. She is denying any leg swelling or recent car rides or plane rides. I will test a D-dimer as she is tachycardic even though she says this is chronic. Patient states that she has not been drinking enough water. We will hydrate her and give her some nausea medicine and reassess. She has no evidence of pneumonia. Her lab work is unremarkable. Her troponin is normal. EKG is unremarkable. On reassessment, patient is resting comfortably. Her heart rate is in the 90s. She states she feels much better. Her D-dimer was negative. Patient was told to follow-up with her PCP. I instructed her to stay hydrated. She was given strict return precautions. 07/05/20 23:05 07/06/20 02:11 - Vital Signs Vital signs: Temp Pulse Resp BP Pulse Ox 98 F 113 H 17 109/78 99 07/06/20 01:13 07/05/20 19:51 07/06/20 01:13 07/06/20 01:13 07/06/20 01:13 - Laboratory Results Result Diagrams: 07/05/20 20:10 07/05/20 20:10 Laboratory Results Interpreted: 07/05/20 07/05/20 20:10 20:10 BUN 6 L Calcium 10.3 H AST 99 H ALT 150 H Total Protein 8.7 H Albumin 5.1 H Urine Ketones TRACE H Critical Laboratory Results Reviewed: No Critical Results - Radiology Results Critical Radiology Results Reviewed: No Critical Results - EKG Interpretation by Me EKG shows normal: Sinus rhythm Rate: Tachycardia Rhythm: NSR When compared to previous EKG there are: No significant change Additional EKG results interpreted by me: 07/05/20 23:06 Is tachycardia at a rate of 116. QTc 478. No acute ST changes. EKG is similar to previous. Discharge - Discharge Clinical Impression: Nausea, Tachycardia Syncope Qualifiers: Syncope type: unspecified Qualified Code(s): R55 - Syncope and collapse Condition: Stable Disposition: HOME, SELF-CARE Instructions: Syncopal Episode ([facility]), Viral Syndrome ([facility]) Additional Instructions: Your work-up today is reassuring. Please follow-up with your PCP. Please make sure you are staying hydrated. Return to the ER immediately for any fever, vomiting, any worsening symptoms. Referrals: NILSA THORNTON MD [Primary Care Provider] - Follow up as needed
--- NOTE | 2020-07-06 00:25 | EKG REPORT ---
SEVERITY:- ABNORMAL ECG - SINUS TACHYCARDIA BORDERLINE PROLONGED QT INTERVAL NONSPECIFIC ST-T CHANGES- INFERIOR LEADS : Confirmed by: Carlos Finley MD 06-Jul-2020 00:24:51
[2020-07-06 01:23] VITALS: BP 109/78
== END 2020-07-06 01:23 | disposition home or self-care (01) ==
LOC: ER 19:35
DX: R55 Syncope and collapse (principal); R11.0 Nausea; R00.0 Tachycardia, unspecified; I10 Essential (primary) hypertension; R07.9 Chest pain, unspecified; M79.602 Pain in left arm; R06.02 Shortness of breath; R09.81 Nasal congestion; R51.9 Headache, unspecified; E78.00 Pure hypercholesterolemia, unspecified; Z79.899 Other long term (current) drug therapy; Z88.6 Allergy status to analgesic agent; Z88.5 Allergy status to narcotic agent; Z88.0 Allergy status to penicillin
CPT/HCPCS: 93005; 99285; 96361; 96374; 36415; 82550; 85025; 80053; 81001; 84484; 85379; 71046; 93010; J2405; J7030

== ENCOUNTER → 2020-07-08 | Outpatient (CLI) | payer BC ==
--- OUTSIDE RECORDS SUMMARY | 2020-07-11 12:18 | XMS REPORT ---
:1985 Author Organization [facility] Address [address] [place] [address] Care Team Providers Name Role Phone [facility] Primary Care Physician Unavailable Chip MEJIA Attending Clinician Unavailable MD Tim Rich Attending Clinician Unavailable MD Tim Rich Attending Clinician Unavailable Bhavesh Attending Clinician Unavailable Jorge Alberto Attending Clinician Unavailable Mahogany Attending Clinician Unavailable Giselle MEJIA, Pavel Unavailable Boucher Unavailable Unavailable Allergies, Adverse Reactions, Alerts Allergy Name Allergy Status Severity Reaction(s) Onset Inactive Treat ing Comments Type Date Date Clinician LATEX Drug Active U 2016- allergy 2-16 00:00: 00 morphine Drug Active throat allergy swelling Morphine Morphine Active Derivatives Derivatives Penicillins Penicillins Active penicillins Drug Active throat allergy swelling Morphine Allergy to Active Itching substance Penicillins Allergy to Active Itching substance Morphine Morphine Active Derivatives Derivatives Penicillins Penicillins Active Latex Latex Active Penicillin g Allergy to Active Hives substance Medications Ordered Filled Start Stop Current Ordering Indication Dosage Frequency Signature Comments Components Medication Medication Date Date Medication? Clinician (SIG) Name Name Pantoprazol Yes Pantoprazo e Sodium 40 1-23 le Sodium MG Oral 00:00: 40 MG Oral Tablet 00 Tablet Delayed Delayed Release Release Quantity: 30 Refills: 0 Start : 1Active Sucralfate Yes Sucralfate 1 GM Oral 1-18 1 GM Oral Tablet 00:00: Tablet 00 Quantity: 120 Refills: 0 Start : 1Active Mupirocin 2 Yes Mupirocin % External 1-18 2 % Ointment 00:00: External 00 Ointment Quantity: 22 Refills: 0 Start : 1Active Ondansetron Yes Ondansetro 4 MG Oral 1-04 n 4 MG Tablet 00:00: Oral Disintegrat 00 Tablet ing Disintegra ting Quantity: 10 Refills: 0 Start : 17-Jun-2020 Active Dicyclomine Yes Dicyclomin HCl - 10 MG -04 e HCl - 10 Oral 00:00: MG Oral Capsule 00 Capsule Quantity: 30 Refills: 0 Start : 17-Jun-2020 Active diclofenac 2019-06 2020- Yes 50mg 50 mg = 1 potassium 2- 12-29 tab(s), 50 mg oral 00:46: 00:46 PO, BID, tablet 00 :00 with food, X 7 day(s), # 14 tab(s), 0 Refill(s), Pharmacy: [facility], 97.6, kg, 06/03/20 22:22:00 EST, Weight Diclofenac 2019-06 Yes Diclofenac Sodium 50 08-05 Sodium 50 MG Oral 00:00: MG Oral Tablet 00 Tablet Delayed Delayed Release Release Quantity: 14 Refills: 0 Start : 0Active Fish Oil 2019-06 Yes 1000mg 1,000 mg = 1000 mg 221 1 cap(s), oral 22:38: PO, BID, 0 capsule 00 Refill(s) metoprolol 2019-06 Yes 50mg 50 mg = 1 succinate -21 cap(s), 50 mg oral 22:37: PO, Daily, capsule, 00 0 extended Refill(s) release Metoprolol 2019-06 Yes Metoprolol Succinate 2-16 Succinate ER 50 MG 00:00: ER 50 MG Oral Tablet 00 Oral Extended Tablet Release 24 Extended Hour Release 24 Hour Quantity: 30 Refills: 0 Start : 0Active Cephalexin 2019-06 No Berto Q0.5D Cephalexin 500 MG Oral 06-15 Chip MEJIA 500 MG Capsule 00:00: Oral 00 Capsule TAKE 1 CAPSULE TWICE DAILY Quantity: 14 Refills: 0 Berto Saunders MD Start : 15-Apr-2020 Active Solifenacin 2019-06 No Berto Solifenaci Succinate 5 06-15 Chip MEJIA n MG Oral 00:00: Succinate Tablet 00 5 MG Oral Tablet One tablet by mouth daily Quantity: 30 Refills: 3 Berto Saunders MD Start : 15-Apr-2020 Active Solifenacin 2019-06 Yes Berto Solifenaci Succinate 5 06-15 Chip MEJIA n MG Oral 00:00: Succinate Tablet 00 5 MG Oral Tablet One tablet by mouth daily Quantity: 30 Refills: 3 Berto Saunders MD Start : 15-Apr-2020 Active Meloxicam 2020-0 Yes Meloxicam 7.5 MG Oral 9-28 7.5 MG Tablet 00:00: Oral 00 Tablet Quantity: 30 Refills: 0 Start : 0Active Latanoprost 2020-0 Yes Latanopros 0.005 % 9-25 t 0.005 % Ophthalmic 00:00: Ophthalmic Solution 00 Solution Quantity: 8 Refills: 0 Start : 0Active Metoprolol 2020-0 No 0 Metoprolol Succinate 7-14 Succinate ER 25 MG 00:00: ER 25 MG Oral Tablet 00 Oral Extended Tablet Release 24 Extended Hour Release 24 Hour Quantity: 30 Refills: 0 ,,, Start : 0Active Omeprazole 2020-0 Yes Omeprazole 40 MG Oral 7-14 40 MG Oral Capsule 00:00: Capsule Delayed 00 Delayed Release Release Quantity: 30 Refills: 0 Start : 0Active Azelastine 2019-0 Yes Azelastine HCl - 0.05 6-26 HCl - 0.05 % 00:00: % Ophthalmic 00 Ophthalmic Solution Solution Quantity: 6 Refills: 0 Start : 0Active Rosuvastati 2019-0 Yes Rosuvastat n Calcium 6-19 in Calcium 40 MG Oral 00:00: 40 MG Oral Tablet 00 Tablet Quantity: 90 Refills: 0 Start : 0Active Vascepa 1 2020-0 Yes Vascepa 1 GM Oral 6-19 GM Oral Capsule 00:00: Capsule 00 Quantity: 120 Refills: 0 Start : 0Active traMADol 2020-0 Yes traMADol HCl - 50 MG 5-27 HCl - 50 Oral Tablet 00:00: MG Oral 00 Tablet Quantity: 20 Refills: 0 Start : 0Active Humira Pen 2020-0 Yes Humira Pen 40 MG/0.4ML 4-21 40 Subcutaneou 00:00: MG/0.4ML s 00 Subcutaneo Pen-injecto us r Kit Pen-inject or Kit Quantity: 4 Refills: 0 Start : 0Active Minocycline 2020-0 Yes Minocyclin HCl - 100 4-21 e HCl - MG Oral 00:00: 100 MG Capsule 00 Oral Capsule Quantity: 60 Refills: 0 Start : 0Active Rosuvastati 2017-06 Yes Rosuvastat n Calcium 0-30 in Calcium 40 MG Oral 15:25: 40 MG Oral Tablet - 18 Tablet - Historical Historical Medication Medication at bedtime Active Metoprolol 2017-06 Yes 1tablet QD Metoprolol Succinate 0-30 Succinate ER 100 MG 15:25: ER 100 MG Oral Tablet 00 Oral Extended Tablet Release 24 Extended Hour - Release 24 Historical Hour - Medication Historical Medication 1 tablet daily Active Nexplanon Yes Nexplanon 68 MG 4-25 68 MG Subcutaneou 00:00: Subcutaneo s Implant - 00 us Implant Historical - Medication Historical Medication Started 8 Active Unknown BP 2016-06 No Unknown BP Med - 06-14 Med - Historical 15:39: Historical Medication 25 Medication Inactive Doxycycline 2016- No Adrian Zhao 1Tab Doxycycli n Hyclate 100 02-22 Giselle e Hyclate MG Oral 00:00: 00:00 MD 100 MG Tablet 00 :00 Oral Tablet 1 Tab BID for 7 days Quantity: 14 Refills: 0 Ordered : 7 Adrian Desai MD Started 7 Ended 7 Inactive Valtrex 500 2016- No Adrian Zhao 1Tab Valtrex MG Oral 02-22 Giselle 500 MG Tablet 00:00: 00:00 Oral 00 :00 Tablet 1 Tab BID for 5 days Quantity: 10 Refills: 0 Ordered : 7 Adrian Desai MD Started 7 Ended 7 Inactive Ibuprofen 2016- No Bree Cullent TID Ibuprofen 800 MG Oral 02-10 Will [employer] 800 MG Tablet 00:00: 00:00 Oral 00 :00 Tablet 1 (one) Tablet Tablet three times daily for 10 days Quantity: 30 Refills: 0 Ordered : 21-Feb-2016 Bree oSlis CMA Started 6 Ended 21-Feb-2016 Inactive + 2015- No QD + Iron Oral 01-09- Iron Oral Tablet - 14:33: 00:00 Tablet - Historical 36 :00 Historical Medication Medication daily Ended 16 Discontinu ed Minastrin 2016-0 2017- No Yvette 1Tablet QD Minastrin 24 Fe 07-03 Boucher _Chewab 24 Fe 1-20 MG-MCG(24) 00:00: 00:00 le MG-MCG(24) Oral Tablet 00 :00 Oral Chewable Tablet Chewable 1 (one) Tablet Chewable Tablet Chewable daily for 28 days Quantity: 1 Refills: 12 Ordered : 7 Yvette Boucher Started 16 Ended 7 Discontinu ed cetirizine No 1 Q1D cetirizine 10 mg 10 mg tablet Take tablet 1 tablet Take 1 every day tablet by oral every day route. by oral route. omeprazole No omeprazole 20 mg 20 mg capsule,del capsule,de ayed layed release release ondansetron No 2 BID ondansetro 4 mg n 4 mg disintegrat disintegra ing tablet ting Place [address] 2 twice a day tablets by twice a translingua day by l route as translingu needed. al route as needed. tamsulosin No tamsulosin 0.4 mg 0.4 mg capsule capsule triamcinolo No triamcinol ne one acetonide acetonide 0.1 % 0.1 % topical topical cream APPLY cream A THIN APPLY A LAYER TO THIN LAYER THE TO THE AFFECTED AFFECTED AREA(S) BY AREA(S) BY TOPICAL TOPICAL ROUTE 2 ROUTE 2 TIMES PER TIMES PER DAY DAY Tylenol No 2 Q8H Tylenol Arthritis Arthritis Pain 650 mg Pain 650 tablet,exte mg nded tablet,ext release ended Take 2 release tablets Take 2 every 8 tablets hours by every 8 oral route hours by as needed. oral route as needed. minocycline No 1capsul Q1D minocyclin 100 mg e(s) e 100 mg capsule capsule Take 1 Take 1 capsule capsule every day every day by oral by oral route. route. Vascepa 1 No 2capsul BID Vascepa 1 gram e(s) gram capsule capsule TAKE 2 TAKE 2 CAPSULES BY CAPSULES MOUTH 2 BY MOUTH 2 TIMES A DAY TIMES A FOR 30 DAYS DAY FOR 30 DAYS Humira(CF) No 40mg Q1W Humira(CF) Pen 40 Pen 40 mg/0.4 mL mg/0.4 mL subcutaneou subcutaneo s kit us kit Inject 1 Inject 1 pen/syringe pen/syring subcutaneou e sly every subcutaneo week usly every week ketoconazol No 1applic Q1D ketoconazo e 2 % ation(s le 2 % shampoo ) shampoo Apply 1 Apply 1 application applicatio every day n every by topical day by route as topical directed route as for 10 directed days. for 10 days. azelastine No azelastine 0.05 % eye 0.05 % eye drops drops INSTILL 1 INSTILL 1 DROP INTO DROP INTO AFFECTED AFFECTED EYE(S) BY EYE(S) BY OPHTHALMIC OPHTHALMIC ROUTE 2 ROUTE 2 TIMES PER TIMES PER DAY DAY Colace 100 No 2capsul Q1D Colace 100 mg capsule e(s) mg capsule Take 2 Take 2 capsules capsules every day every day by oral by oral route at route at bedtime for bedtime 30 days. for 30 days. hydrocortis No 1suppos BID hydrocorti one acetate itor(y/ sone 25 mg ies) acetate 25 rectal mg rectal suppository suppositor Insert 1 y Insert 1 suppository suppositor twice a day y twice a by rectal day by route for rectal 14 days. route for 14 days. omeprazole No 1capsul Q1D omeprazole 40 mg e(s) 40 mg capsule,del capsule,de ayed layed release release Take 1 Take 1 capsule capsule every day every day by oral by oral route for route for 30 days. 30 days. azithromyci No azithromyc n 250 mg in 250 mg tablet TAKE tablet 2 TABLETS TAKE 2 (500 MG) BY TABLETS ORAL ROUTE (500 MG) ONCE DAILY BY ORAL FOR 1 DAY ROUTE ONCE THEN 1 DAILY FOR TABLET (250 1 DAY THEN MG) BY ORAL 1 TABLET ROUTE ONCE (250 MG) DAILY FOR 4 BY ORAL DAYS ROUTE ONCE DAILY FOR 4 DAYS benzonatate No 1capsul TID benzonatat 200 mg e(s) e 200 mg capsule capsule Take 1 Take 1 capsule 3 capsule 3 times a day times a by oral day by route as oral route needed. as needed. fluticasone No 2spray( Q1D fluticason propionate s) e 50 propionate mcg/actuati 50 on nasal mcg/actuat spray,suspe ion nasal nsion [place] spray,susp 2 sprays ension every day [place] 2 by sprays intranasal every day route for by 30 days. intranasal route for 30 days. oxymetazoli No 2spray( BID oxymetazol ne 0.05 % s) ine 0.05 % nasal spray nasal [place] 2 spray sprays [place] 2 twice a day sprays by twice a intranasal day by route as intranasal needed. route as needed. solifenacin No 1 Q1D solifenaci 5 mg tablet n 5 mg Take 1 tablet tablet Take 1 every day tablet by oral every day route as by oral directed. route as directed. famotidine No 1 Q1D famotidine 20 mg 20 mg tablet Take tablet 1 tablet Take 1 every day tablet by oral every day route at by oral bedtime for route at 30 days. bedtime for 30 days. metoprolol No 1 Q1D metoprolol succinate succinate ER 50 mg ER 50 mg tablet,exte tablet,ext nded ended release 24 release 24 hr Take 1 hr Take 1 tablet tablet every day every day by oral by oral route for route for 30 days. 30 days. diclofenac No diclofenac sodium 50 sodium 50 mg mg tablet,sammie tablet,del yed release ayed release dicyclomine No 1capsul TID dicyclomin 10 mg e(s) e 10 mg capsule capsule Take 1 Take 1 capsule 3 capsule 3 times a day times a by oral day by route as oral route needed. as needed. metoprolol No 1 Q1D metoprolol succinate succinate ER 25 mg ER 25 mg tablet,exte tablet,ext nded ended release 24 release 24 hr Take 1 hr Take 1 tablet tablet every day every day by oral by oral route for route for 90 days. 90 days. Clotrimazol No 5g Q1D Clotrimazo e 3 Day 2 % le 3 Day 2 vaginal % vaginal cream cream Insert 5 g Insert 5 g every day every day by vaginal by vaginal route at route at bedtime for bedtime 3 days. for 3 days. nitrofurant No 1capsul Q12H nitrofuran oin e(s) toin monohydrate monohydrat /macrocryst e/macrocry als 100 mg stals 100 capsule mg capsule Take 1 Take 1 capsule capsule every 12 every 12 hours by hours by oral route oral route for 5 days. for 5 days. meloxicam No 1 Q1D meloxicam 7.5 mg 7.5 mg tablet Take tablet 1 tablet Take 1 every day tablet by oral every day route as by oral needed for route as 30 days. needed for 30 days. fluconazole No fluconazol 150 mg e 150 mg tablet Take tablet 1 tablet po Take 1 q 72 hours tablet po q 72 hours sulfamethox No 1 Q12H sulfametho azole 800 xazole 800 mg-trimetho mg-trimeth prim 160 mg oprim 160 tablet Take mg tablet 1 tablet Take 1 every 12 tablet hours by every 12 oral route hours by for 3 days. oral route for 3 days. cephalexin No 1capsul BID cephalexin 500 mg e(s) 500 mg capsule capsule Take 1 Take 1 capsule capsule twice a day twice a by oral day by route as oral route directed. as directed. metoprolol No 1 Q1D metoprolol succinate succinate ER 100 mg ER 100 mg tablet,exte tablet,ext nded ended release 24 release 24 hr Take 1 hr Take 1 tablet tablet every day every day by oral by oral route for route for 30 days. 30 days. rosuvastati No 1 Q1D rosuvastat n 40 mg in 40 mg tablet Take tablet 1 tablet Take 1 every day tablet by oral every day route at by oral bedtime for route at 30 days. bedtime for 30 days. tizanidine No 1 Q6H tizanidine 4 mg tablet 4 mg Take 1 tablet tablet Take 1 every 6 tablet hours by every 6 oral route hours by for 30 oral route days. for 30 days. 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 00:00: 00 Hyperlipide Hyperlipide Problem Active alysa alysa 10-04 00:00: 00 Essential Essential Problem Active hypertensio Hypertensio 23 n n 00:00: 00 Seasonal Seasonal Problem Active allergic Allergic 4-23 rhinitis Rhinitis 00:00: 00 Arthritis Arthritis Problem Active 10-04 00:00: 00 Tachycardia Tachycardia Problem Active 10-04 00:00: 00 Not on file Not on file [id number] ENCOUNTER ENCOUNTER Problem Active ROMAN Desai GYNECOLOGIC GYNECOLOGIC AL AL EXAMINATION EXAMINATION ENCOUNTER ENCOUNTER Problem Active Boucher, FOR INITIAL FOR INITIAL Lorriann e PRESCRIPTIO PRESCRIPTIO N OF N OF CONTRACEPTI CONTRACEPTI VES VES ENDOMETRITI ENDOMETRITI Problem Active Boucher, S FOLLOWING S FOLLOWING Lorriann e ABORTIVE ABORTIVE FOLLICULITI FOLLICULITI Problem Active Boucher, S S Lorrianne GENITAL GENITAL Problem Active Boucher, HERPES HERPES Lorrianne SIMPLEX (Renamed from GENITAL HERPES SIMPLEX) PAPILLOMATO PAPILLOMATO Problem Active Boucher, SIS SIS Lorrianne UTERINE UTERINE Problem Active Boucher, 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 At risk of At risk for Problem suspend P roblem infection infection(C ed ad ded (finding) onfirmed)2 aut omatic ally by system based on initiati o n of the At Risk for Infectio n Plan of Care. At risk for At risk for Problem suspend Problem injury injury(Conf ed adde d (finding) irmed)3 automa tic ally by system based on initiati o n of the At Risk for Injury plan of Care. Deficient Deficient Problem suspend Prob buster knowledge knowledge(C ed ad ded (finding) onfirmed)4 aut omatic ally by system based on initiati o n of the Knowledg e Deficit Plan of Care. At risk for Fall Problem suspend Prob buster falls risk(Confir ed adde d (finding) med)5 automa tic ally by system based on initiati o n of the Fall Ris k Plan of Care. Hydronephro Hydronephro Problem Active sis sis Ureteral Ureteral Problem Active stricture stricture Flank pain Flank pain Problem Active Acute UTI Acute UTI Problem Active PELVIC PAIN PELVIC PAIN Problem Resolve 2017-03-09 Nasra claytonon, IN FEMALE IN FEMALE d 00:00:00 Adrian Zhao Procedures Procedure Date / Time Performed Performing Clinician Deviken e Urine Culture 2020-07-10 00:00:00 US-Renal ULS Complete w/ Bladder 2020-07-10 00:00:00 US, gallbladder 2020-06-13 00:00:00 ELECTROCARDIOGRAM COMPLETE 2020-05-29 00:00:00 XR, chest, 2 view 2020-05-29 00:00:00 Urine Culture 2020-04-15 00:00:00 ELECTROCARDIOGRAM COMPLETE 2020-02-07 00:00:00 XR, chest, 2 view 2020-02-07 00:00:00 ELECTROCARDIOGRAM COMPLETE 2019-12-08 00:00:00 ELECTROCARDIOGRAM COMPLETE 2019-09-06 00:00:00 XR, chest, 2 view 2019-06-19 00:00:00 XR, cervical spine 2018-06-24 00:00:00 OFFICE/OUTPATIENT VISIT EST 2017-09-22 16:15:00 OFFICE/OUTPATIENT VISIT EST 2017-08-18 13:30:00 OFFICE/OUTPATIENT VISIT EST 2017-08-09 08:45:00 OFFICE/OUTPATIENT VISIT EST 2017-05-29 12:45:00 No Known Diagnostic Studies History 2017-02-22 00:00:00 Monisha Boucher DILATION AND CURETTAGE 2015-12-09 00:00:00 CATHETER, URETERAL 2015-06-18 00:00:00 Ankle/Foot Surgery 2015-06-14 00:00:00 History of Kidney Surgery Colonoscopy Yvette Boucher DIAGNOSTIC LAPAROSCOPY ([id number]) Yvette Boucher Mammogram, Screening Yvette Boucher Pap Smear Carol Ann Chandler Stent removal Stent placement Extraction of permanent tooth ANKLE ARTHROSCOPY/SURGERY Results Test Description Test Time Test Comments Text Results Atomic Results Result Comments SARS-CoV-2 RNA Resp Ql CLAYTON+probe 2020-07-03 00:00:00 Test Item Value Reference Range Comments SARS-CoV-2 RNA Resp Ql CLAYTON+probe Not detected [facility] Case ID: (test code = 04099-3) [id number] CBC W Auto Differential panel - [id number] 10:11:00 Test Item Value Reference Range Comments WBC (test code = WBC) 4.3 K/uL 4.1-10.9 lym% (test code = lym%) 56.5 % 10.0-58.5 lym# (test code = lym#) 2.4 % 0.6-4.1 mxd# (test code = mxd#) 0.8 % 0.0-1.8 mxd% (test code = mxd%) 19.7 % 0.1-24.0 gran (test code = gran) 1.0 % 2.0-7.8 gran% (test code = gran%) 23.8 % 37.0-92.0 RBC (test code = RBC) 4.50 M/uL 4.20-6.30 HGB (test code = HGB) 13.4 g/dL 14.1-18.1 HCT (test code = HCT) 42.6 % 34.5-53.7 MCV (test code = MCV) 94.7 fL 80.0-97.0 MCH (test code = MCH) 29.8 pg 26.0-32.0 MCHC (test code = MCHC) 31.5 g/dL 31.0-36.0 RDW (test code = RDW) 12.9 % 11.5-14.5 plt (test code = plt) 302 K/uL 140-440 MPV (test code = MPV) 6.2 fL 0.0-99.8 Comprehensive metabolic 2000 panel - Serum or [id number] 00:00:00 Test Item Value Reference Range Comments Glucose [Mass/volume] in Serum or Plasma 94 mg/dL 65-99 (test code = 2345-7) Urea nitrogen [Mass/volume] in Serum or 8 mg/dL 6-20 Plasma (test code = 3094-0) Creatinine [Mass/volume] in Serum or Plasma 0.75 mg/dL 0.57 -1.00 (test code = 2160-0) Glomerular filtration rate/1.73 sq 105 mL/min/1.73 >59 M.predicted among non-blacks [Volume Rate/Area] in Serum, Plasma or Blood by Creatinine-based formula (CKD-EPI) (test code = 16389-4) Glomerular filtration rate/1.73 sq 121 mL/min/1.73 >59 M.predicted among blacks [Volume Rate/Area] in Serum, Plasma or Blood by Creatinine-based formula (CKD-EPI) (test code = 21708-0) Urea nitrogen/Creatinine [Mass Ratio] in 11 - Serum or Plasma (test code = 3097-3) Sodium [Moles/volume] in Serum or Plasma 144 mmol/L 134-144 (test code = 2951-2) Potassium [Moles/volume] in Serum or Plasma 4.4 mmol/L 3.5- 5.2 (test code = 2823-3) Chloride [Moles/volume] in Serum or Plasma 109 mmol/L 96-10 6 (test code = 2075-0) Carbon dioxide, total [Moles/volume] in 20 mmol/L 20-29 Serum or Plasma (test code = 2027-9) Calcium [Mass/volume] in Serum or Plasma 9.7 mg/dL 8.7-10. 2 (test code = 49231-9) Protein [Mass/volume] in Serum or Plasma 7.7 g/dL 6.0-8.5 (test code = 2885-2) Albumin [Mass/volume] in Serum or Plasma 4.8 g/dL 3.8-4.8 (test code = 1751-7) Globulin [Mass/volume] in Serum by 2.9 g/dL 1.5-4.5 calculation (test code = 03336-5) Albumin/Globulin [Mass Ratio] in Serum or 1.7 1.2-2. 2 Plasma (test code = 1759-0) Bilirubin.total [Mass/volume] in Serum or 0.4 mg/dL 0.0-1. 2 Plasma (test code = 1975-2) Alkaline phosphatase [Enzymatic 61 IU/L 39-117 activity/volume] in Serum or Plasma (test code = 6768-6) Aspartate aminotransferase [Enzymatic 59 IU/L 0-40 activity/volume] in Serum or Plasma (test code = 1920-8) lipid panel, [id number] 10:11:24 Test Item Value Reference Range Comments TC (<200 mg/dL) (test code = TC (<200 mg/dL)) 139 mg/dL <2 00 mg/dL HDL (40-60 mg/dL) (test code = HDL (40-60 mg/dL)) 33 mg/dL 40-60 mg/dL trig (<150 mg/dL) (test code = trig (<150 mg/dL)) 244 mg/dL <150 mg/dL LDL (<100 mg/dL) (test code = LDL (<100 mg/dL)) 57 mg/dL <100 non-HDL (<130 mg/dL) (test code = non-HDL (<130 106 mg/dL <130 mg/dL mg/dL)) TC/HDL ratio (4.5 or less) (test code = TC/HDL 1.7 mg/dL 4 .5 or less ratio (4.5 or less)) 10yr CHD risk (test code = 10yr CHD risk) % test code: 470789 (test code = test code: 353834) lipid panel, [id number] 10:11:24 Test Item Value Reference Range Comments TC (<200 mg/dL) (test code = TC (<200 mg/dL)) 139 mg/dL <2 00 mg/dL HDL (40-60 mg/dL) (test code = HDL (40-60 mg/dL)) 33 mg/dL 40-60 mg/dL trig (<150 mg/dL) (test code = trig (<150 mg/dL)) 244 mg/dL <150 mg/dL LDL (<100 mg/dL) (test code = LDL (<100 mg/dL)) 57 mg/dL <100 non-HDL (<130 mg/dL) (test code = non-HDL (<130 106 mg/dL <130 mg/dL mg/dL)) TC/HDL ratio (4.5 or less) (test code = TC/HDL 1.7 mg/dL 4 .5 or less ratio (4.5 or less)) 10yr CHD risk (test code = 10yr CHD risk) % test code: 186989 (test code = test code: 523327) visual [id number] 09:54:00 Test Item Value Reference Range Comments R Eye Uncorrected (test code = R Eye Uncorrected) 20/25 L Eye Uncorrected (test code = L Eye Uncorrected) 20/25 visual [id number] 09:54:00 Test Item Value Reference Range Comments R Eye Uncorrected (test code = R Eye Uncorrected) 20/25 L Eye Uncorrected (test code = L Eye Uncorrected) 20/25 WBC,Neutro Percent,Lymph Percent,[place] Percent,Eos Percent,Basophil Percent,Neut Absolute,Lymphs [id number] 22:42:00 Test Item Value Reference Range Comments WBC (test code = WBC) 9.8 1 4.8-10.8 Neutro Percent (test code = Neutro Percent) 47.3 % 34.6 -71.4 Lymph Percent (test code = Lymph Percent) 43.5 % 19.6-5 2.7 [place] Percent (test code = [place] Percent) 6.8 % 2.4-11.8 Eos Percent (test code = Eos Percent) 2.0 % 0-7.8 Basophil Percent (test code = Basophil Percent) 0.2 % 0-1.8 Neut Absolute (test code = Neut Absolute) 4.6 1 1.8-7. 3 Lymphs Absolute (test code = Lymphs Absolute) 4.3 1 1. 5-4.0 [place] Absolute (test code = [place] Absolute) 0.7 1 0.2-1. 0 Eos Absolute (EOSA) (test code = Eos Absolute 0.2 1 0- 0.7 (EOSA)) Baso Absolute (BASOA) (test code = Baso Absolute 0.0 1 0.0-0.2 (BASOA)) RBC (test code = RBC) 4.65 1 4.20-5.40 Hgb (test code = Hgb) 14.1 1 12.0-16.0 Hct (test code = Hct) 42.6 % 38.0-47.0 MCV (MCV) (test code = MCV (MCV)) 91.6 fL 80-94 MCH (HCH) (test code = MCH (HCH)) 30.3 pg 27-34 MCHC (MCHC) (test code = MCHC (MCHC)) 33.1 % 31.5-36.0 RDW (RDW) (test code = RDW (RDW)) 11.8 % 11.5-14.5 Platelet (test code = Platelet) 296 1 130-400 MPV (test code = MPV) 9.8 fL 7.4-10.4 Glucose Lvl,BUN,Creatinine,Bili Total,Alk Phos,AST,ALT,Total Protein,Albumin Lvl,Globulin,Albumin/[id number] 22:42:00 Test Item Value Reference Range Comments Glucose Lvl (test code = Glucose Lvl) 119 mg/dL 74-106 BUN (test code = BUN) 9 mg/dL 9-23 Creatinine (test code = Creatinine) 0.79 mg/dL 0.55-1.02 Bili Total (test code = Bili Total) 0.3 mg/dL 0.2-1.2 Alk Phos (test code = Alk Phos) 64 1 46-116 AST (test code = AST) 49 1 15-34 ALT (test code = ALT) 73 1 10-49 Total Protein (test code = Total Protein) 7.7 1 5.7-8. 2 Albumin Lvl (test code = Albumin Lvl) 4.4 1 3.4-5.0 Globulin (test code = Globulin) 3.3 1 1.5-4.5 Albumin/Globulin Ratio (test code = 1.3 1.1-1.8 Albumin/Globulin Ratio) Calcium Lvl (test code = Calcium Lvl) 9.9 mg/dL 8.7-10.4 Sodium Lvl (test code = Sodium Lvl) 141 mmol/L 136-145 Potassium Lvl (test code = Potassium Lvl) 3.9 mmol/L 3.4-5. 1 Chloride (test code = Chloride) 107 mmol/L 98-107 CO2 (test code = CO2) 24.0 mmol/L 20-31 Anion Gap (test code = Anion Gap) 10 4-18 Calc Osmol (test code = Calc Osmol) 281 1 BUN/CR Ratio (test code = BUN/CR Ratio) 11 GFR Non (test code = GFR Non >60.00 ) GFR (test code = GFR >60.00 [place]) HCG in [id number] 22:25:00 Test Item Value Reference Range Comments HCG in Urine (test code = HCG in Urine) NEGATIVE UA Spec Grav,UA Color,UA Appear,UA Glucose,UA Bili,UA Ketones,UA Blood,UA pH,UA Protein,UA [id number] 22:25:00 Test Item Value Reference Range Comments UA Spec Grav (test code = UA Spec Grav) 1.023 1.001-1. 030 UA Color (test code = UA Color) LT YELLOW UA Appear (test code = UA Appear) CLEAR UA Glucose (test code = UA Glucose) NEGATIVE UA Bili (test code = UA Bili) NEGATIVE UA Ketones (test code = UA Ketones) NEGATIVE UA Blood (test code = UA Blood) NEGATIVE UA pH (test code = UA pH) 6.5 5.0-9.0 UA Protein (test code = UA Protein) NEGATIVE 0-30 UA Urobilinogen (test code = UA Urobilinogen) <2.0 0. 0-2.0 UA Nitrite (test code = UA Nitrite) NEGATIVE UA Leuk Est (test code = UA Leuk Est) 75 UA RBC (test code = UA RBC) 2 1 UA WBC (test code = UA WBC) 4 1 UA Bacteria (test code = UA Bacteria) TRACE UA Mucous (test code = UA Mucous) TRACE UA Squamous Epithelial (test code = UA Squamous MODERATE Epithelial) EKG [id number] 10:28:20 Test Item Value Reference Range Comments Rate & Rhythm (test code = Rate & Rhythm) 141 QRS (test code = QRS) 80 ME Interval (test code = ME Interval) 140 QRS Duration (test code = QRS Duration) 80 QT Interval (test code = QT Interval) 288 EKG [id number] 10:28:20 Test Item Value Reference Range Comments Rate & Rhythm (test code = Rate & Rhythm) 141 QRS (test code = QRS) 80 ME Interval (test code = ME Interval) 140 QRS Duration (test code = QRS Duration) 80 QT Interval (test code = QT Interval) 288 Urinalysis macro (dipstick) panel - [id number] 09:49:00 Test Item Value Reference Range Comments glucose (test code = glucose) negative negative bilirubin (test code = bilirubin) negative negative ketones (test code = ketones) negative negative specific gravity (test code = specific gravity) 1.020 1.001-1.035 blood (test code = blood) trace-lysed negative pH (test code = pH) 6.0 5.0-9.0 protein (test code = protein) negative negative urobilinogen (test code = urobilinogen) 0.2 eu/dL negative nitrates (test code = nitrates) negative negative leukocytes (test code = leukocytes) trace negative sent for culture (test code = sent for culture) CPT multistix (test code = CPT multistix) yes 44576 CPT uriscreen accutest (test code = CPT 98907 uriscreen accutest) Urinalysis macro (dipstick) panel - [id number] 09:49:00 Test Item Value Reference Range Comments glucose (test code = glucose) negative negative bilirubin (test code = bilirubin) negative negative ketones (test code = ketones) negative negative specific gravity (test code = specific gravity) 1.020 1.001-1.035 blood (test code = blood) trace-lysed negative pH (test code = pH) 6.0 5.0-9.0 protein (test code = protein) negative negative urobilinogen (test code = urobilinogen) 0.2 eu/dL negative nitrates (test code = nitrates) negative negative leukocytes (test code = leukocytes) trace negative sent for culture (test code = sent for culture) CPT multistix (test code = CPT multistix) yes 53112 CPT uriscreen accutest (test code = CPT 57708 uriscreen accutest) Urinalysis macro (dipstick) panel - [id number] 09:49:00 Test Item Value Reference Range Comments glucose (test code = glucose) negative negative bilirubin (test code = bilirubin) negative negative ketones (test code = ketones) negative negative specific gravity (test code = specific gravity) 1.020 1.001-1.035 blood (test code = blood) trace-lysed negative pH (test code = pH) 6.0 5.0-9.0 protein (test code = protein) negative negative urobilinogen (test code = urobilinogen) 0.2 eu/dL negative nitrates (test code = nitrates) negative negative leukocytes (test code = leukocytes) trace negative sent for culture (test code = sent for culture) CPT multistix (test code = CPT multistix) yes 38891 CPT uriscreen accutest (test code = CPT 49273 uriscreen accutest) CBC W Auto Differential panel - [id number] 09:45:00 Test Item Value Reference Range Comments WBC (test code = WBC) 6.5 K/uL 4.1-10.9 lym% (test code = lym%) 45.6 % 10.0-58.5 lym# (test code = lym#) 3.0 % 0.6-4.1 mxd# (test code = mxd#) 0.9 % 0.0-1.8 mxd% (test code = mxd%) 14.2 % 0.1-24.0 gran (test code = gran) 2.6 % 2.0-7.8 gran% (test code = gran%) 40.2 % 37.0-92.0 RBC (test code = RBC) 4.71 M/uL 4.20-6.30 HGB (test code = HGB) 14.0 g/dL 14.1-18.1 HCT (test code = HCT) 44.5 % 34.5-53.7 MCV (test code = MCV) 94.4 fL 80.0-97.0 MCH (test code = MCH) 29.7 pg 26.0-32.0 MCHC (test code = MCHC) 31.5 g/dL 31.0-36.0 RDW (test code = RDW) 13.8 % 11.5-14.5 plt (test code = plt) 320 K/uL 140-440 MPV (test code = MPV) 7.1 fL 0.0-99.8 CBC W Auto Differential panel - [id number] 09:45:00 Test Item Value Reference Range Comments WBC (test code = WBC) 6.5 K/uL 4.1-10.9 lym% (test code = lym%) 45.6 % 10.0-58.5 lym# (test code = lym#) 3.0 % 0.6-4.1 mxd# (test code = mxd#) 0.9 % 0.0-1.8 mxd% (test code = mxd%) 14.2 % 0.1-24.0 gran (test code = gran) 2.6 % 2.0-7.8 gran% (test code = gran%) 40.2 % 37.0-92.0 RBC (test code = RBC) 4.71 M/uL 4.20-6.30 HGB (test code = HGB) 14.0 g/dL 14.1-18.1 HCT (test code = HCT) 44.5 % 34.5-53.7 MCV (test code = MCV) 94.4 fL 80.0-97.0 MCH (test code = MCH) 29.7 pg 26.0-32.0 MCHC (test code = MCHC) 31.5 g/dL 31.0-36.0 RDW (test code = RDW) 13.8 % 11.5-14.5 plt (test code = plt) 320 K/uL 140-440 MPV (test code = MPV) 7.1 fL 0.0-99.8 CBC W Auto Differential panel - [id number] 09:45:00 Test Item Value Reference Range Comments WBC (test code = WBC) 6.5 K/uL 4.1-10.9 lym% (test code = lym%) 45.6 % 10.0-58.5 lym# (test code = lym#) 3.0 % 0.6-4.1 mxd# (test code = mxd#) 0.9 % 0.0-1.8 mxd% (test code = mxd%) 14.2 % 0.1-24.0 gran (test code = gran) 2.6 % 2.0-7.8 gran% (test code = gran%) 40.2 % 37.0-92.0 RBC (test code = RBC) 4.71 M/uL 4.20-6.30 HGB (test code = HGB) 14.0 g/dL 14.1-18.1 HCT (test code = HCT) 44.5 % 34.5-53.7 MCV (test code = MCV) 94.4 fL 80.0-97.0 MCH (test code = MCH) 29.7 pg 26.0-32.0 MCHC (test code = MCHC) 31.5 g/dL 31.0-36.0 RDW (test code = RDW) 13.8 % 11.5-14.5 plt (test code = plt) 320 K/uL 140-440 MPV (test code = MPV) 7.1 fL 0.0-99.8 SARS-CoV-2 RNA Resp Ql CLAYTON+[id number] 00:00:00 Test Item Value Reference Range Comments SARS-CoV-2 RNA Resp Ql Not detected [place] [facility] Case CLAYTON+probe (test code = ID: [id number]) CBC W Auto Differential panel - [id number] 10:22:00 Test Item Value Reference Range Comments WBC (test code = WBC) 6.1 K/uL 4.1-10.9 lym% (test code = lym%) 36.8 % 10.0-58.5 lym# (test code = lym#) 2.2 % 0.6-4.1 mxd# (test code = mxd#) 0.7 % 0.0-1.8 mxd% (test code = mxd%) 10.9 % 0.1-24.0 gran (test code = gran) 3.2 % 2.0-7.8 gran% (test code = gran%) 52.3 % 37.0-92.0 RBC (test code = RBC) 4.83 M/uL 4.20-6.30 HGB (test code = HGB) 14.9 g/dL 14.1-18.1 HCT (test code = HCT) 44.7 % 34.5-53.7 MCV (test code = MCV) 92.5 fL 80.0-97.0 MCH (test code = MCH) 30.8 pg 26.0-32.0 MCHC (test code = MCHC) 33.3 g/dL 31.0-36.0 RDW (test code = RDW) 13.5 % 11.5-14.5 plt (test code = plt) 329 K/uL 140-440 MPV (test code = MPV) 7.1 fL 0.0-99.8 Urine [id number] 13:22:00 Test Item Value Reference Range Comments 48 Hour Report (test Microbiology results Montchanin Count[04/17/2020 code = 48 Hour Report) 11:29 AM SB] 15,000 cfu/mlResult[04/17/2020 11:29 AM SB] Mix ed culture, suggest misael of contamination. P lease resubmit if nece ssary. [id number] 13:10:00 Test Item Value Reference Range Comments Urine Color (test code = Urine Color) LT. YELLOW Yellow Urine Clarity (test code = Urine Clarity) CLEAR Clear Urine Glucose (test code = Urine Glucose) 500 mg/dL Negati ve Urine Ketones (test code = Urine Ketones) NEGATIVE Negati ve Urine Bilirubin (test code = Urine Bilirubin) NEGATIVE Ne gative Urine Specific [place] (test code = Urine 1.020 1.010- 1.030 Specific [place]) Urine Blood (test code = Urine Blood) LARGE Negative Urine pH (test code = Urine pH) 6.0 5.0-8.0 Urine Protein (test code = Urine Protein) NEGATIVE Negati ve Urine Urobilinogen (test code = Urine 0.2 Eu/dl 0.2 Urobilinogen) Urine Nitrites (test code = Urine Nitrites) NEGATIVE Nega tive Urine Leukocytes (test code = Urine Leukocytes) TRACE Negative URINE MICROSCOPIC= 20 WBC, 3-5 RBC, 6-10 EPIS, MOD BACTERIA. ASHpregnancy test, [id number] 11:32:00 Test Item Value Reference Range Comments HCG (test code = HCG) negative Urinalysis macro (dipstick) panel - [id number] 10:56:00 Test Item Value Reference Range Comments glucose (test code = glucose) negative negative bilirubin (test code = bilirubin) negative negative ketones (test code = ketones) negative negative specific gravity (test code = specific gravity) 1.020 1.001-1.035 blood (test code = blood) trace negative pH (test code = pH) 6.5 5.0-9.0 protein (test code = protein) negative negative urobilinogen (test code = urobilinogen) 0.2 eu/dL negative nitrates (test code = nitrates) negative negative leukocytes (test code = leukocytes) moderate negative sent for culture (test code = sent for culture) CPT multistix (test code = CPT multistix) 20556 CPT uriscreen accutest (test code = CPT uriscreen 04644 accutest) Urinalysis macro (dipstick) panel - [id number] 10:56:00 Test Item Value Reference Range Comments glucose (test code = glucose) negative negative bilirubin (test code = bilirubin) negative negative ketones (test code = ketones) negative negative specific gravity (test code = specific gravity) 1.020 1.001-1.035 blood (test code = blood) trace negative pH (test code = pH) 6.5 5.0-9.0 protein (test code = protein) negative negative urobilinogen (test code = urobilinogen) 0.2 eu/dL negative nitrates (test code = nitrates) negative negative leukocytes (test code = leukocytes) moderate negative sent for culture (test code = sent for culture) CPT multistix (test code = CPT multistix) 68941 CPT uriscreen accutest (test code = CPT uriscreen 77864 accutest) CBC W Auto Differential panel - [id number] 10:55:00 Test Item Value Reference Range Comments WBC (test code = WBC) 7.1 K/uL 4.1-10.9 lym% (test code = lym%) 41.5 % 10.0-58.5 lym# (test code = lym#) 2.9 % 0.6-4.1 mxd# (test code = mxd#) 0.5 % 0.0-1.8 mxd% (test code = mxd%) 6.9 % 0.1-24.0 gran (test code = gran) 3.7 % 2.0-7.8 gran% (test code = gran%) 51.6 % 37.0-92.0 RBC (test code = RBC) 4.83 M/uL 4.20-6.30 HGB (test code = HGB) 14.5 g/dL 14.1-18.1 HCT (test code = HCT) 45.0 % 34.5-53.7 MCV (test code = MCV) 93.2 fL 80.0-97.0 MCH (test code = MCH) 30.0 pg 26.0-32.0 MCHC (test code = MCHC) 32.2 g/dL 31.0-36.0 RDW (test code = RDW) 13.0 % 11.5-14.5 plt (test code = plt) 332 K/uL 140-440 MPV (test code = MPV) 6.6 fL 0.0-99.8 CBC W Auto Differential panel - [id number] 10:55:00 Test Item Value Reference Range Comments WBC (test code = WBC) 7.1 K/uL 4.1-10.9 lym% (test code = lym%) 41.5 % 10.0-58.5 lym# (test code = lym#) 2.9 % 0.6-4.1 mxd# (test code = mxd#) 0.5 % 0.0-1.8 mxd% (test code = mxd%) 6.9 % 0.1-24.0 gran (test code = gran) 3.7 % 2.0-7.8 gran% (test code = gran%) 51.6 % 37.0-92.0 RBC (test code = RBC) 4.83 M/uL 4.20-6.30 HGB (test code = HGB) 14.5 g/dL 14.1-18.1 HCT (test code = HCT) 45.0 % 34.5-53.7 MCV (test code = MCV) 93.2 fL 80.0-97.0 MCH (test code = MCH) 30.0 pg 26.0-32.0 MCHC (test code = MCHC) 32.2 g/dL 31.0-36.0 RDW (test code = RDW) 13.0 % 11.5-14.5 plt (test code = plt) 332 K/uL 140-440 MPV (test code = MPV) 6.6 fL 0.0-99.8 test, [id number] 09:22:00 Test Item Value Reference Range Comments HCG (test code = HCG) negative Urinalysis macro (dipstick) panel - [id number] 09:09:35 Test Item Value Reference Range Comments glucose (test code = glucose) Negative negative bilirubin (test code = bilirubin) Negative negative ketones (test code = ketones) Negative negative specific gravity (test code = specific gravity) >=1.030 1.001-1.035 blood (test code = blood) trace negative pH (test code = pH) 5.5 5.0-9.0 protein (test code = protein) Negative negative urobilinogen (test code = urobilinogen) 0.2 eu/dL negative nitrates (test code = nitrates) Positive negative leukocytes (test code = leukocytes) small negative sent for culture (test code = sent for culture) yes CPT multistix (test code = CPT multistix) 85363 CPT uriscreen accutest (test code = CPT uriscreen 04499 accutest) Urinalysis macro (dipstick) panel - [id number] 09:09:35 Test Item Value Reference Range Comments glucose (test code = glucose) Negative negative bilirubin (test code = bilirubin) Negative negative ketones (test code = ketones) Negative negative specific gravity (test code = specific gravity) >=1.030 1.001-1.035 blood (test code = blood) trace negative pH (test code = pH) 5.5 5.0-9.0 protein (test code = protein) Negative negative urobilinogen (test code = urobilinogen) 0.2 eu/dL negative nitrates (test code = nitrates) Positive negative leukocytes (test code = leukocytes) small negative sent for culture (test code = sent for culture) yes CPT multistix (test code = CPT multistix) 42400 CPT uriscreen accutest (test code = CPT uriscreen 17713 accutest) SARS-CoV-2 RNA Resp Ql CLAYTON+[id number] 00:00:00 Test Item Value Reference Range Comments SARS-CoV-2 RNA Resp Ql Not detected [place] [facility] Case CLAYTON+probe (test code = ID: [id number]) Comprehensive metabolic 2000 panel - Serum or [id number] 00:00:00 Test Item Value Reference Range Comments Glucose [Mass/volume] in Serum or Plasma 137 mg/dL 65-99 (test code = 2345-7) Urea nitrogen [Mass/volume] in Serum or 7 mg/dL 6-20 Plasma (test code = 3094-0) Creatinine [Mass/volume] in Serum or Plasma 0.65 mg/dL 0.57 -1.00 (test code = 2160-0) Glomerular filtration rate/1.73 sq 118 mL/min/1.73 >59 M.predicted among non-blacks [Volume Rate/Area] in Serum, Plasma or Blood by Creatinine-based formula (CKD-EPI) (test code = 65590-2) Glomerular filtration rate/1.73 sq 136 mL/min/1.73 >59 M.predicted among blacks [Volume Rate/Area] in Serum, Plasma or Blood by Creatinine-based formula (CKD-EPI) (test code = 86386-8) Urea nitrogen/Creatinine [Mass Ratio] in 11 - Serum or Plasma (test code = 3097-3) Sodium [Moles/volume] in Serum or Plasma 142 mmol/L 134-144 (test code = 2951-2) Potassium [Moles/volume] in Serum or Plasma 4.3 mmol/L 3.5- 5.2 (test code = 2823-3) Chloride [Moles/volume] in Serum or Plasma 103 mmol/L 96-10 6 (test code = 2075-0) Carbon dioxide, total [Moles/volume] in 21 mmol/L 20-29 Serum or Plasma (test code = 2027-9) Calcium [Mass/volume] in Serum or Plasma 9.9 mg/dL 8.7-10. 2 (test code = 78929-0) Protein [Mass/volume] in Serum or Plasma 7.5 g/dL 6.0-8.5 (test code = 2885-2) Albumin [Mass/volume] in Serum or Plasma 4.9 g/dL 3.8-4.8 (test code = 1751-7) Globulin [Mass/volume] in Serum by 2.6 g/dL 1.5-4.5 calculation (test code = 47714-5) Albumin/Globulin [Mass Ratio] in Serum or 1.9 1.2-2. 2 Plasma (test code = 1759-0) Bilirubin.total [Mass/volume] in Serum or 0.2 mg/dL 0.0-1. 2 Plasma (test code = 1975-2) Alkaline phosphatase [Enzymatic 67 IU/L 39-117 activity/volume] in Serum or Plasma (test code = 6768-6) Aspartate aminotransferase [Enzymatic 83 IU/L 0-40 activity/volume] in Serum or Plasma (test code = 1920-8) Amylase and triacylglycerol lipase panel - Serum or [id number] 00:00:00 Test Item Value Reference Range Comments Amylase [Enzymatic activity/volume] in Serum or 26 U/L 31-110 Plasma (test code = 1798-8) Lipase [Enzymatic activity/volume] in Serum or Plasma 23 U/L 14-72 (test code = 3040-3) Urinalysis macro (dipstick) panel - [id number] 14:20:00 Test Item Value Reference Range Comments glucose (test code = glucose) Negative negative bilirubin (test code = bilirubin) Negative negative ketones (test code = ketones) Negative negative specific gravity (test code = specific gravity) 1.025 1.001-1.035 blood (test code = blood) Negative negative pH (test code = pH) 7.5 5.0-9.0 protein (test code = protein) Negative negative urobilinogen (test code = urobilinogen) 0.2 eu/dL negative nitrates (test code = nitrates) Negative negative leukocytes (test code = leukocytes) Negative negative sent for culture (test code = sent for culture) CPT multistix (test code = CPT multistix) 65504 CPT uriscreen accutest (test code = CPT uriscreen 25767 accutest) Urinalysis macro (dipstick) panel - [id number] 14:20:00 Test Item Value Reference Range Comments glucose (test code = glucose) Negative negative bilirubin (test code = bilirubin) Negative negative ketones (test code = ketones) Negative negative specific gravity (test code = specific gravity) 1.025 1.001-1.035 blood (test code = blood) Negative negative pH (test code = pH) 7.5 5.0-9.0 protein (test code = protein) Negative negative urobilinogen (test code = urobilinogen) 0.2 eu/dL negative nitrates (test code = nitrates) Negative negative leukocytes (test code = leukocytes) Negative negative sent for culture (test code = sent for culture) CPT multistix (test code = CPT multistix) 97247 CPT uriscreen accutest (test code = CPT uriscreen 69764 accutest) test, [id number] 14:19:30 Test Item Value Reference Range Comments HCG (test code = HCG) negative test, [id number] 14:19:30 Test Item Value Reference Range Comments HCG (test code = HCG) negative EKG [id number] 14:11:32 Test Item Value Reference Range Comments Rate & Rhythm (test code = Rate & Rhythm) 140 QRS (test code = QRS) 76 ME Interval (test code = ME Interval) 128 QRS Duration (test code = QRS Duration) 76 QT Interval (test code = QT Interval) 430 EKG [id number] 14:11:32 Test Item Value Reference Range Comments Rate & Rhythm (test code = Rate & Rhythm) 140 QRS (test code = QRS) 76 ME Interval (test code = ME Interval) 128 QRS Duration (test code = QRS Duration) 76 QT Interval (test code = QT Interval) 430 2018-nCoV RNA XXX CLAYTON+bsgor-[id number] 00:00:00 Test Item Value Reference Range Comments 2019-nCoV RNA XXX Not detected [facility] Case CLAYTON+probe-Imp (test code = ID: [id number]) test, [id number] 16:14:00 Test Item Value Reference Range Comments HCG (test code = HCG) negative rapid strep group A, [id number] 16:04:00 Test Item Value Reference Range Comments Strep (test code = Strep) negative CBC W Auto Differential panel - [id number] 14:23:00 Test Item Value Reference Range Comments WBC (test code = WBC) 5.1 K/uL 4.1-10.9 lym% (test code = lym%) 49.4 % 10.0-58.5 lym# (test code = lym#) 2.5 % 0.6-4.1 mxd# (test code = mxd#) 1.0 % 0.0-1.8 mxd% (test code = mxd%) 19.6 % 0.1-24.0 gran (test code = gran) 1.6 % 2.0-7.8 gran% (test code = gran%) 31.0 % 37.0-92.0 RBC (test code = RBC) 4.95 M/uL 4.20-6.30 HGB (test code = HGB) 15.0 g/dL 14.1-18.1 HCT (test code = HCT) 45.9 % 34.5-53.7 MCV (test code = MCV) 92.8 fL 80.0-97.0 MCH (test code = MCH) 30.3 pg 26.0-32.0 MCHC (test code = MCHC) 32.7 g/dL 31.0-36.0 RDW (test code = RDW) 13.3 % 11.5-14.5 plt (test code = plt) 288 K/uL 140-440 MPV (test code = MPV) 7.0 fL 0.0-99.8 CBC W Auto Differential panel - [id number] 14:43:00 Test Item Value Reference Range Comments WBC (test code = WBC) 10.6 K/uL 4.1-10.9 lym% (test code = lym%) 27.3 % 10.0-58.5 lym# (test code = lym#) 2.9 % 0.6-4.1 mxd# (test code = mxd#) 2.1 % 0.0-1.8 mxd% (test code = mxd%) 19.7 % 0.1-24.0 gran (test code = gran) 5.6 % 2.0-7.8 gran% (test code = gran%) 53.0 % 37.0-92.0 RBC (test code = RBC) 4.86 M/uL 4.20-6.30 HGB (test code = HGB) 14.7 g/dL 14.1-18.1 HCT (test code = HCT) 44.4 % 34.5-53.7 MCV (test code = MCV) 91.3 fL 80.0-97.0 MCH (test code = MCH) 30.2 pg 26.0-32.0 MCHC (test code = MCHC) 33.1 g/dL 31.0-36.0 RDW (test code = RDW) 13.7 % 11.5-14.5 plt (test code = plt) 309 K/uL 140-440 MPV (test code = MPV) 7.1 fL 0.0-99.8 Urinalysis macro (dipstick) panel - [id number] 14:43:00 Test Item Value Reference Range Comments glucose (test code = glucose) negative bilirubin (test code = bilirubin) negative ketones (test code = ketones) negative specific gravity (test code = specific gravity) 1.001-1.035 blood (test code = blood) negative pH (test code = pH) 5.0-9.0 protein (test code = protein) negative urobilinogen (test code = urobilinogen) negative nitrates (test code = nitrates) negative leukocytes (test code = leukocytes) negative sent for culture (test code = sent for culture) no CPT multistix (test code = CPT multistix) >49842 CPT uriscreen accutest (test code = CPT uriscreen negative >13092 accutest) CBC W Auto Differential panel - [id number] 14:43:00 Test Item Value Reference Range Comments WBC (test code = WBC) 10.6 K/uL 4.1-10.9 lym% (test code = lym%) 27.3 % 10.0-58.5 lym# (test code = lym#) 2.9 % 0.6-4.1 mxd# (test code = mxd#) 2.1 % 0.0-1.8 mxd% (test code = mxd%) 19.7 % 0.1-24.0 gran (test code = gran) 5.6 % 2.0-7.8 gran% (test code = gran%) 53.0 % 37.0-92.0 RBC (test code = RBC) 4.86 M/uL 4.20-6.30 HGB (test code = HGB) 14.7 g/dL 14.1-18.1 HCT (test code = HCT) 44.4 % 34.5-53.7 MCV (test code = MCV) 91.3 fL 80.0-97.0 MCH (test code = MCH) 30.2 pg 26.0-32.0 MCHC (test code = MCHC) 33.1 g/dL 31.0-36.0 RDW (test code = RDW) 13.7 % 11.5-14.5 plt (test code = plt) 309 K/uL 140-440 MPV (test code = MPV) 7.1 fL 0.0-99.8 Urinalysis macro (dipstick) panel - [id number] 14:43:00 Test Item Value Reference Range Comments glucose (test code = glucose) negative bilirubin (test code = bilirubin) negative ketones (test code = ketones) negative specific gravity (test code = specific gravity) 1.001-1.035 blood (test code = blood) negative pH (test code = pH) 5.0-9.0 protein (test code = protein) negative urobilinogen (test code = urobilinogen) negative nitrates (test code = nitrates) negative leukocytes (test code = leukocytes) negative sent for culture (test code = sent for culture) no CPT multistix (test code = CPT multistix) >74046 CPT uriscreen accutest (test code = CPT uriscreen negative >16013 accutest) Comprehensive metabolic 2000 panel - Serum or [id number] 00:00:00 Test Item Value Reference Range Comments calcium (test code = calcium) 10.3 mg/dL 8.4-10.2 glucose (test code = glucose) 94 mg/dL 75-110 blood urea nitrogen (test code = blood urea 11 mg/dL 7-20 nitrogen) creatinine result (test code = creatinine 0.64 mg/dL 0.52-1 .25 result) eGFR,non (test code = eGFR,non > 60 >60 ) eGFR, (test code = eGFR, > 60 >60 [place]) potassium (test code = potassium) 4.3 mmol/L 3.6-5.0 chloride (test code = chloride) 106 mmol/L 98-107 carbon dioxide (test code = carbon dioxide) 25 mmol/L 22-3 0 sodium (test code = sodium) 143.9 mmol/L 137-145 anion gap (test code = anion gap) 13 5-19 albumin (test code = albumin) 5.1 g/dL 3.5-5.0 aspartate amino transferase (test code = 29 U/L 14-36 aspartate amino transferase) alkaline phosphatase (test code = alkaline 73 U/L 38-12 6 phosphatase) alanine aminotransferase (test code = alanine 35 U/L <3 5 aminotransferase) bilirubin,total (test code = bilirubin,total) 0.4 mg/dL 0. 2-1.3 bilirubin,direct (test code = bilirubin,direct) 0.1 mg/dL 0.0-0.4 total protein (test code = total protein) 8.5 g/dL 6.3-8. 2 Amylase [Enzymatic activity/volume] in Serum or [id number] 00:00:00 Test Item Value Reference Range Comments amylase (test code = amylase) 42 U/L 30-110 eGFR, (test code = eGFR, > 60 >60 [place]) potassium (test code = potassium) 4.3 mmol/L 3.6-5.0 chloride (test code = chloride) 106 mmol/L 98-107 carbon dioxide (test code = carbon dioxide) 25 mmol/L 22-3 0 sodium (test code = sodium) 143.9 mmol/L 137-145 anion gap (test code = anion gap) 13 5-19 albumin (test code = albumin) 5.1 g/dL 3.5-5.0 aspartate amino transferase (test code = 29 U/L 14-36 aspartate amino transferase) alkaline phosphatase (test code = alkaline 73 U/L 38-12 6 phosphatase) alanine aminotransferase (test code = alanine 35 U/L <3 5 aminotransferase) bilirubin,total (test code = bilirubin,total) 0.4 mg/dL 0. 2-1.3 bilirubin,direct (test code = bilirubin,direct) 0.1 mg/dL 0.0-0.4 total protein (test code = total protein) 8.5 g/dL 6.3-8. 2 Lipase [Enzymatic activity/volume] in Serum or [id number] 00:00:00 Test Item Value Reference Range Comments lipase (test code = lipase) 54.0 U/L 23-300 eGFR, (test code = eGFR, > 60 >60 hungarian) potassium (test code = potassium) 4.3 mmol/L 3.6-5.0 chloride (test code = chloride) 106 mmol/L 98-107 carbon dioxide (test code = carbon dioxide) 25 mmol/L 22-3 0 sodium (test code = sodium) 143.9 mmol/L 137-145 anion gap (test code = anion gap) 13 5-19 albumin (test code = albumin) 5.1 g/dL 3.5-5.0 aspartate amino transferase (test code = 29 U/L 14-36 aspartate amino transferase) alkaline phosphatase (test code = alkaline 73 U/L 38-12 6 phosphatase) alanine aminotransferase (test code = alanine 35 U/L <3 5 aminotransferase) bilirubin,total (test code = bilirubin,total) 0.4 mg/dL 0. 2-1.3 bilirubin,direct (test code = bilirubin,direct) 0.1 mg/dL 0.0-0.4 total protein (test code = total protein) 8.5 g/dL 6.3-8. 2 lipid panel, [id number] 15:36:00 Test Item Value Reference Range Comments TC (<200 mg/dL) (test code = TC (<200 mg/dL)) 157 mg/dL <2 00 mg/dL HDL (40-60 mg/dL) (test code = HDL (40-60 mg/dL)) 30 mg/dL 40-60 mg/dL trig (<150 mg/dL) (test code = trig (<150 mg/dL)) 321 mg/dL <150 mg/dL LDL (<100 mg/dL) (test code = LDL (<100 mg/dL)) 63 mg/dL <100 non-HDL (<130 mg/dL) (test code = non-HDL (<130 127 mg/dL <130 mg/dL mg/dL)) TC/HDL ratio (4.5 or less) (test code = TC/HDL 5.2 mg/dL 4 .5 or less ratio (4.5 or less)) 10yr CHD risk (test code = 10yr CHD risk) % test code: 797822 (test code = test code: 545585) CBC W Auto Differential panel - [id number] 15:36:00 Test Item Value Reference Range Comments WBC (test code = WBC) 7.7 K/uL 4.1-10.9 lym% (test code = lym%) 33.8 % 10.0-58.5 lym# (test code = lym#) 2.6 % 0.6-4.1 mxd# (test code = mxd#) 0.6 % 0.0-1.8 mxd% (test code = mxd%) 7.2 % 0.1-24.0 gran (test code = gran) 4.5 % 2.0-7.8 gran% (test code = gran%) 59.0 % 37.0-92.0 RBC (test code = RBC) 4.74 M/uL 4.20-6.30 HGB (test code = HGB) 14.2 g/dL 14.1-18.1 HCT (test code = HCT) 43.2 % 34.5-53.7 MCV (test code = MCV) 91.2 fL 80.0-97.0 MCH (test code = MCH) 30.0 pg 26.0-32.0 MCHC (test code = MCHC) 32.9 g/dL 31.0-36.0 RDW (test code = RDW) 13.2 % 11.5-14.5 plt (test code = plt) 353 K/uL 140-440 MPV (test code = MPV) 7.0 fL 0.0-99.8 Urine \S\2017-10-06 08:30:00 Test Item Value Reference Range Comments Urine (test code = URINEPREG) negative N/A Urine \S\2017-09-22 16:15:00 Test Item Value Reference Range Comments Urine (test code = URINEPREG) negative N/A Hemoglobin A1C\S\2017-08-18 13:30:00 Test Item Value Reference Range Comments HgbA1C, Fingerstick (test code = 4548-4) 5.3 % 4-5.6 CMP with Estimated [id number] 10:11:00 Test Item Value Reference Range Comments Potassium (test code = 623307) 4.6 mmol/L 3.5-5.3 Alkaline Phosphatase (test code = 412281) 70 U/L 33-115 Est GFR, NonAfrican Argentine (test code = 216848) >89 mL/min >=60 Total Protein (test code = 093758) 7.3 g/dL 6.1-8.1 BUN (test code = 592708) 10 mg/dL 7-25 AST/SGOT (test code = 457637) 33 U/L 10-30 ALT/SGPT (test code = 309764) 42 U/L 6-29 Albumin (test code = 853756) 4.5 g/dL 3.6-5.1 Creatinine (test code = 069408) 0.69 mg/dL 0.50-1.10 Est GFR, (test code = 534118) >89 mL/min > =60 CO2 (test code = 495712) 25 mmol/L 20-31 Sodium (test code = 508025) 141 mmol/L 135-146 Bilirubin, Total (test code = 148061) 0.4 mg/dL 0.2-1.2 Chloride (test code = 710469) 105 mmol/L 98-110 Glucose (test code = 837530) 94 mg/dL 65-99 Calcium (test code = 433463) 9.9 mg/dL 8.6-10.2 Gamma Glutamyl Transferase (GGT)2017-08-09 10:11:00 Test Item Value Reference Range Comments Gamma GT (GGT) (test code = 950295) 37 U/L 7-51 CBC NO Diff (Complete Blood Count)2017-08-09 10:11:00 Test Item Value Reference Range Comments MPV (test code = 954821) 9.4 fL 7.5-12.5 Hemoglobin (test code = 416983) 13.6 g/dL 11.7-15.5 MCH (test code = 956982) 30.2 pg 27.0-33.0 RDW (test code = 579526) 13.4 % 11.0-15.0 MCHC (test code = 720076) 33.2 g/dL 32.0-36.0 RBC (test code = 613533) 4.51 MIL/uL 3.80-5.10 MCV (test code = 553218) 90.9 fL 80.0-100.0 Platelet Count (test code = 189960) 311 K/uL 140-400 WBC (test code = 658503) 6.5 K/uL 3.8-10.8 Hematocrit (test code = 449876) 41.0 % 35.0-45.0 Acute Hepatitis Panel (Refl)2017-08-09 10:11:00 Test Item Value Reference Range Comments Hepatitis C Antibody (test code = 537717) NEGATIVE NEGATI VE Hepatitis B Surface Antigen (test code = NEGATIVE NEGATIV E 864652) Hepatitis B Core Ab, IgM (test code = 865575) NON REACTIVE NO N REACTIVE Hepatitis A Antibody, IgM (test code = 221980) NON REACTIVE N ON REACTIVE HSV Culture and [id number] 00:00:00 Test Item Value Reference Range Comments HSV Culture/Type (test code = Comment Ne gative No Herpes simplex virus 5859-4) isolated. PERFORMED BY: [email or web address] [id number] Clinical Information: SRC:VA Vaginal SRC:VA Vagi nalHSV Culture and [id number] 00:00:00 Test Item Value Reference Range Comments HSV Culture/Type (test code = Comment Ne gative No Herpes simplex virus 5859-4) isolated. PERFORMED BY: [email or web address] [id number] Clinical Information: SRC:UK Unknown SRC:UK Unkn ownCulture, Urine 2017-01-15 14:22:00 Test Item Value Reference Range Comments FINAL REPORT (test code = external and internal FR) genitalia,are considered shellie colonizers.No further testing performed. CCT (test code = CCT) 10,000-50,000 CFU/mL Wet Prep by Molecular [id number] 17:17:00 Test Item Value Reference Range Comments Trichomonas vaginalis (test code = 170181) NEG Negat misael Marguerite species (test code = 285788) NEG Negative Gardnerella vaginalis (test code = 452440) NEG Negat misael C. trachomatis/N.gonorrhoeae [id number] 17:17:00 Test Item Value Reference Range Comments Chlamydia trachomatis RNA (test code = 416956) NOT DETECTED Neisseria gonorrhoeae RNA (test code = 408384) NOT DETECTED hCG,Beta Subunit, Qnt, [id number] 00:00:00 Test Item Value Reference Range Comments hCG,Beta 260 m[iU]/mL Female (Non-preg nant) 0 - 5 Subunit,Qnt,Serum (test (Postmen opausal) 0 - 8 . Female code = 98805-3) () Weeks of Gestation 3 6 - 71 4 10 - 75 0 5 217 - 7138 6 158 - 74109 7 2169 -205163 8 60562 -253340 9 04347 -857279 10 40436 -853293 12 35791 -916234 14 13526 - 38844 15 31836 - 55116 16 7525 - 68495 17 4780 - 38447 18 2475 - 19448 Caroline ECLIA meth odology PERFORMED BY: [facility] [id number] CNT, COMPL CBC W/AUTO DIFF WBC (84667)2015-12-19 00:00:00 Test Item Value Reference Range Comments MPV (test code = 776-5) 7.3 fL 7.8-11.0 sht BLOOD COUNT, PLATELET, AUTOMATED (test code = 388 x10^3uL 15 0-400 777-3) RDW (RED CELL DISTRIBUTION WIDTH) (test code = 10.6 % 1 1.6-13.7 788-0) MCHC (MEAN CORPUSCULAR HEMOGLOBIN CONCENTRATI 35.1 g/dL 33 .0-37.0 (test code = 786-4) MCH (MEAN CORPUSCULAR HEMOGLOBIN) (test code = 31.0 pg 2 7.0-37.0 785-6) MCV (MEAN CORPUSCULAR VOLUME) (test code = 88.3 fL 80.0- 99.9 787-2) HCT (HEMATOCRIT) (test code = 4544-3) 38.9 % 35.0-60.0 HGB (HEMOGLOBIN) (test code = 718-7) 13.7 g/dL 11.0-18.0 RBC (test code = 789-8) 4.40 x10^6uL 4.00-6.00 GRANULOCYTE % (test code = 770-8) 5.9 x10^3uL 1.4-6.5 MONOCYTES (test code = 5905-5) 0.6 x10^3uL 0.1-0.6 LYMPHOCYTE % (test code = 736-9) 30.7 % 20.5-51.1 GRANULOCYTE # (test code = 751-8) 63.2 % 42.2-75.2 MONOCYTE # (test code = 742-7) 6.1 % 1.7-9.3 WBC (test code = 6690-2) 9.3 x10^3uL 4.5-10.5 Assessments Condition Name Status Diagnosis Date Treating Clinici an Hematochezia Active 2020-06-19 10:04:40 Diarrhea Active 2020-06-19 11:12:28 Elevated liver enzymes level Active 2020-06-19 11:15:05 Tachycardia Active 2020-06-19 11:21:04 Adult health examination Active 2020-06-13 09:30:03 Active or passive immunization Active 2020-06-13 09:30: 03 Screening for malignant neoplasm of 2020-06-13 0 9:30:03 cervix Mental health screening assessment 2020-06-13 09 :30:03 Essential hypertension Active 2020-06-13 10:10:31 Right upper quadrant pain Active 2020-06-13 10:21:50 Atypical chest pain Active 2020-05-29 09:21:08 Gastroesophageal reflux disease Active 2020-05-29 10:40 :16 Tachycardia Active 2020-05-29 10:43:28 Urinary tract infectious disease Active 2020-05-29 10:4 7:52 Bleeding from nose Active 2020-04-19 10:08:52 Administration of influenza vaccine 2020-04-19 1 1:01:47 Urinary tract infectious disease 2020-04-10 10:2 4:12 Administration of influenza vaccine 2020-04-10 1 1:07:56 Candidiasis of vagina 2020-04-10 11:24:51 Trying to conceive 2020-04-10 11:27:36 Essential hypertension 2020-03-11 14:35:30 Hyperlipidemia 2020-03-11 14:43:02 Sprain of right ankle Active 2020-03-11 15:00:42 Urinary tract infectious disease 2020-02-21 09:0 0:44 Candidiasis of vagina Active 2020-02-21 09:00:50 Right upper quadrant pain 2020-02-07 14:23:59 Nausea 2020-02-07 14:04:03 Sinus tachycardia 2020-02-07 14:11:55 Intermittent fever 2020-02-07 14:14:46 Essential hypertension 2019-12-08 08:19:58 Hyperlipidemia Active 2019-12-08 08:19:59 Seasonal allergic rhinitis 2019-12-08 08:20:17 Itching of eye 2019-12-08 08:54:51 Urinary tract infectious disease 2019-10-06 11:2 4:39 Essential hypertension 2019-09-06 15:27:39 Hyperlipidemia 2019-09-06 15:27:41 Acute upper respiratory infection 2019-06-19 14: 17:26 Seasonal allergic rhinitis 2019-06-19 15:44:46 Menstrual period late Active 2019-06-19 16:35:48 Adult health examination 2019-06-06 14:36:03 Immunization Active 2019-06-06 14:36:03 Screening for malignant neoplasm of Active 2019-06-06 1 4:36:03 cervix Obese Active 2019-06-06 15:43:44 Allergic conjunctivitis Active 2019-06-06 15:46:11 Gastroesophageal reflux disease without 15:49:54 esophagitis Disorder of vision Active 2019-06-06 15:52:59 Internal hemorrhoids Active 2019-06-06 15:56:21 Chronic idiopathic constipation Active 2019-06-06 15:56 :31 Abdominal pain Active 2019-05-17 14:26:24 Essential hypertension Active 2019-03-22 15:07:21 Hyperlipidemia Active 2019-03-22 15:07:23 Influenza vaccination Active 2019-03-22 16:09:21 Trying to conceive Active 2019-03-22 16:20:36 Essential hypertension Active 2018-12-14 14:54:46 Hyperlipidemia Active 2018-12-14 14:54:49 Essential hypertension Active 2018-09-14 15:43:42 Hyperlipidemia Active 2018-09-14 15:43:44 Body mass index 30+ - obesity Active 2018-09-14 16:35:2 6 Neck pain Active 2018-06-24 09:44:33 Cervical radiculitis Active 2018-06-24 10:02:24 Adult health examination Active 2018-05-17 15:50:30 Immunization Active 2018-05-17 15:50:30 Screening for malignant neoplasm of Active 2018-05-17 1 5:50:30 cervix HIV screening Active 2018-05-17 16:53:17 Abnormal weight gain Active 2018-05-17 16:54:27 ENCOUNTER FOR GYNECOLOGICAL EXAMINATION Active Hyperlipidemia, unspecified Active Allergic rhinitis, unspecified Active Chronic maxillary sinusitis Active Body mass index (BMI) 38.0-38.9, adult Active Essential (primary) hypertension Active Other obesity due to excess calories Active Encounter for oth general cnsl and Active advice on contraception Pure hyperglyceridemia Active Essential (primary) hypertension Active Insomnia, unspecified Active Abnormal levels of other serum enzymes Active Body mass index (BMI) 38.0-38.9, adult Active Acute sinusitis, unspecified Active Oth bacterial agents as the cause of Active diseases classd elswhr Impacted cerumen, bilateral Active Body mass index (BMI) 37.0-37.9, adult Active FOLLICULITIS Active PAPILLOMATOSIS Active GENITAL HERPES (Renamed from GENITAL Active HERPES SIMPLEX) PELVIC PAIN IN FEMALE Active PELVIC PAIN IN FEMALE Active GENITAL HERPES (Renamed from GENITAL Active HERPES SIMPLEX) PELVIC PAIN IN FEMALE Active PELVIC PAIN IN FEMALE Active UTERINE ANOMALY Active ENDOMETRITIS FOLLOWING ABORTIVE Active ENCOUNTER FOR INITIAL PRESCRIPTION OF Active CONTRACEPTIVES ENDOMETRITIS FOLLOWING ABORTIVE Active Unspecified Diagnosis Active Encounters Start End Encounter Admission Attending Care Care Encounter Date/Time Date/Time Type Type Clinicians Facility Department ID 2020-07-10 2020-07-10 MARILEE ValenciaMISHEL [id number] 11:15:00 13:31:55 ; Berto Saunders MD 2020-06-19 2020-06-19 Ira Mixon _2020 0 00:00:00 00:00:00 BONNY Mcclain: Sarah Smith [address] [facility], [place] [address], Ph. 2020-06-13 2020-06-13 Ira Mixon _2019 1 00:00:00 00:00:00 DUANE McclainP: Sarah Smith 231 [address] [facility] [place] [address], Ph. 2020-06-03 2020-06-04 E 1 LaylaAda dethia ON LICENSE OF [facility] 20 [id number] 22:20:19 01:12:00 Haydee Rich 2020-05-29 2020-05-29 Outpatient [facility] [id number] 00:00:00 00:00:00 2020-05-29 2020-05-29 Ira Mixon _2019 1 00:00:00 00:00:00 DUANE McclainP: Sarah Smith [address] [facility], [place] [address], Ph. 2020-04-19 2020-04-19 Ira Mixon _2019 1 00:00:00 00:00:00 BONNY Mcclain: Sarah Smith 106 [address] [facility], [place] [address], Ph. 2020-04-15 2020-04-15 [facility] DUKE SaundersTAlejandro CETW [id number] 13:15:00 13:15:00 ; Berto Saunders MD 2020-04-10 2020-04-10 Ira Mixon _2019 1 00:00:00 00:00:00 BONNY Mcclain: Sarah Smith 028 [address] [facility] [place] [address], Ph. 2020-03-11 2020-03-11 Zane Oral [facility] _2019 0 00:00:00 00:00:00 [facility] 928 [facility]any Medical Medical MD: [address] [place] [address], Ph. 2020-02-21 2020-02-21 Ira [facility] Oral _2019 0 00:00:00 00:00:00 DUANE McclainP: [facility] 9[address] [facility], [place] [address], Ph. 2020-02-07 2020-02-07 Ira [facility] _2019 0 00:00:00 00:00:00 King WIREWORKER: [facility] [address] [facility], [place] [address], Ph. 2019-12-08 2019-12-08 Ira [facility] [id number] 0 00:00:00 00:00:00 Johny [facility] [address] [facility], [place] [address], Ph. 2019-10-27 2019-10-27 Outpatient [facility] [id number]_ 00:00:00 00:00:00 [id number] 2019-10-06 [facility] _2019 0 00:00:00 00:00:00 Johny [facility] [address] [facility], [place] [address], Ph. 2019-09-06 2019-09-06 [facility] _2019 0 00:00:00 00:00:00 [facility] 325 Jovany Medical Medical MD: [address] [place] [address], Ph. 2019-06-19 2019-06-19 [facility] [id number] 0 00:00:00 00:00:00 [facility] 106 J[facility]any Medical Medical MD: [address] [place] [address], Ph. 2019-06-06 2019-06-06 [facility] [id number] 1 00:00:00 00:00:00 [facility] [address] [place], Medical Medical MD: [address] [place] [address], Ph. 2019-05-17 2019-05-17 [facility] _2018 1 00:00:00 00:00:00 [facility] [address] [facility] Medical MD: [address] [place] [address], Ph. 2019-03-22 2019-03-22 [facility] [id number] 1 00:00:00 00:00:00 [facility] [address] [facility] [facility] Medical Medical MD: [address] [place] [address], Ph. 2018-12-14 2018-12-14 [facility] _2018 0 00:00:00 00:00:00 [facility] [address] [facility] [facility] Medical Medical MD: [address] [place] [address], Ph. 2018-09-14 2018-09-14 [facility] _2018 0 00:00:00 00:00:00 [facility] [address] [facility] [facility] Medical Medical MD: [address] [place] [address], Ph. 2018-06-24 2018-06-24 Ryan Webber [id number] 00:00:00 00:00:00 Thuan Mendez Surgical Surgical 0111 MD Eliseo: Associates [facility] [address] [place] [address], [address], [place] [address], Ph. 2018-06-02 2018-06-02 MARILEE Valencia CET [id number] 14:30:00 14:30:00 ; Berto Saunders MD 2018-05-17 2018-05-17 [facility] _2018 1 00:00:00 00:00:00 Sergei [facility] Jayde Milton Medical : [address] [place] [address], Ph. 2018-04-12 2018-05-09 [facility] [id number] 15:09:26 09:50:09 Visit [facility] 2017-09-22 2017-09-22 Outpatient Bundle, [facility] 0B [id number] 16:15:00 16:15:00 Eleanor Children [id number] s [id number] and [address] [facility] [place] 2017-08-18 2017-08-18 Outpatient Jorge Alberto, [facility] CF [id number] 13:30:00 13:30:00 Maura Children [id number] s [id number] and [facility] [place] 2017-08-09 2017-08-09 Outpatient Bundle, [facility] A2 [id number] 08:45:00 08:45:00 Eleanor Children [id number] s [id number] and [id number] [facility] [place] 2017-05-29 2017-05-29 Outpatient Vides, [facility] [id number] 12:45:00 12:45:00 Stephanie Children [id number] s [id number] and D30 [facility] [place] 2017-04-14 2017-04-14 [facility] [id number] 15:34:37 15:34:37 Visit [facility] 2017-03-09 2017-03-09 [facility] [id number] 15:37:24 15:37:24 Visit [facility] 2017-02-22 2017-02-22 [facility] [id number] 11:13:45 11:13:45 Visit [facility] 2016-02-20 2016-02-20 [facility] [id number] 16:13:24 16:13:24 Visit [facility] 2016-02-11 2016-02-11 [facility] [id number] 13:55:29 13:55:29 Visit [facility] Women's 2016-01-10 2016-01-10 [facility] [id number] 14:28:17 14:28:17 Visit [facility]om[facility] Women[facility] 2015-12-19 2015-12-19 [facility] [id number] 15:46:24 15:46:24 Visit [facility] Women's 2015-12-19 2015-12-19 [facility] [id number] 14:55:35 14:55:35 Visit [facility] 2015-12-18 2015-12-18 [facility] [id number] 10:44:49 10:44:49 Summary [facility] Women's Family History Family Member Diagnosis Comments Start Date Stop Date Unspecified FAMILY HX OF BLOOD CLOTS Mother. Brother. Unspecified Lung Cancer Mother. AGE 36 Mother Family history of pulmonary embolism Mother Family history of Father Family history of heart disease Immunizations Ordered Filled Immunization Date Status Comments Refus al Reason Immunization Name Name Influenza, 2020-04-10 Completed injectable, MDCK, 13:42:32 quadrivalent Influenza, 2019-06-22 Completed injectable, MDCK, 00:00:00 preservative free, quadrivalent Influenza, Unknown Completed injectable, MDCK, preservative free, quadrivalent Payers Payer Name Policy Type Policy Number Effective Date Expiration D ate [facility] OT Plan of Treatment Planned Activity Planned Date Details Comments Future Scheduled Test [code = ] Future Scheduled Test [code = ] Future Scheduled Test [code = ] Future Scheduled Test [code = ] Future Scheduled Test [code = ] Future Scheduled Test [code = ] Future Scheduled Test [code = ] Future Scheduled Test [code = ] Future Scheduled Test [code = ] Future Scheduled Test [code = ] Future Scheduled Test [code = ] Future Scheduled Test [code = ] Future Appointment 2020-09-10 09:45:00 Zane Manzo, [address]; [place] [address] Future Appointment 2020-09-10 00:00:00 Zane Manzo [email or web address]; [place] [address] Social History Social Habit Start Date Stop Date Comments Tobacco Use Alcohol Use Drug Use Primary Control Method Sexual Activity Smoking Status Start Date Stop Date Never smoked tobacco (finding) Unknown If Ever Smoked Social History Observation Description Sex Female Vital Signs Vital Name Observation Time Observation Value Comments BP Diastolic 2020-06-19 00:00:00 92 mm[Hg] Height 2020-06-19 00:00:00 63 [in_i] BMI (Body Mass Index) 2020-06-19 00:00:00 36.7 kg/m2 BP Systolic 2020-06-19 00:00:00 141 mm[Hg] Body Weight 2020-06-19 00:00:00 207.2 [lb_av] BP Diastolic 2020-06-13 00:00:00 82 mm[Hg] Height 2020-06-13 00:00:00 63 [in_i] BMI (Body Mass Index) 2020-06-13 00:00:00 37.4 kg/m2 BP Systolic 2020-06-13 00:00:00 124 mm[Hg] Body Weight 2020-06-13 00:00:00 211 [lb_av] BP Diastolic 2020-05-29 00:00:00 97 mm[Hg] Height 2020-05-29 00:00:00 63 [in_i] BMI (Body Mass Index) 2020-05-29 00:00:00 37.7 kg/m2 BP Systolic 2020-05-29 00:00:00 159 mm[Hg] Body Weight 2020-05-29 00:00:00 212.8 [lb_av] BP Diastolic 2020-04-19 00:00:00 87 mm[Hg] Height 2020-04-19 00:00:00 63 [in_i] BMI (Body Mass Index) 2020-04-19 00:00:00 38.3 kg/m2 BP Systolic 2020-04-19 00:00:00 130 mm[Hg] Body Weight 2020-04-19 00:00:00 216 [lb_av] BP Diastolic 2020-04-10 00:00:00 87 mm[Hg] Height 2020-04-10 00:00:00 63 [in_i] BMI (Body Mass Index) 2020-04-10 00:00:00 38.1 kg/m2 BP Systolic 2020-04-10 00:00:00 140 mm[Hg] Body Weight 2020-04-10 00:00:00 215 [lb_av] BP Diastolic 2020-03-11 00:00:00 93 mm[Hg] Height 2020-03-11 00:00:00 63 [in_i] BMI (Body Mass Index) 2020-03-11 00:00:00 38.2 kg/m2 BP Systolic 2020-03-11 00:00:00 128 mm[Hg] Body Weight 2020-03-11 00:00:00 215.8 [lb_av] BP Diastolic 2020-02-21 00:00:00 94 mm[Hg] Height 2020-02-21 00:00:00 63 [in_i] BMI (Body Mass Index) 2020-02-21 00:00:00 38.4 kg/m2 BP Systolic 2020-02-21 00:00:00 133 mm[Hg] Body Weight 2020-02-21 00:00:00 217 [lb_av] BP Diastolic 2020-02-07 00:00:00 90 mm[Hg] Height 2020-02-07 00:00:00 63 [in_i] BMI (Body Mass Index) 2020-02-07 00:00:00 38.2 kg/m2 BP Systolic 2020-02-07 00:00:00 148 mm[Hg] Body Weight 2020-02-07 00:00:00 215.8 [lb_av] BP Diastolic 2019-12-08 00:00:00 79 mm[Hg] Height 2019-12-08 00:00:00 63 [in_i] BMI (Body Mass Index) 2019-12-08 00:00:00 39.5 kg/m2 BP Systolic 2019-12-08 00:00:00 115 mm[Hg] Body Weight 2019-12-08 00:00:00 222.8 [lb_av] BP Diastolic 2019-10-06 00:00:00 85 mm[Hg] Height 2019-10-06 00:00:00 63 [in_i] BMI (Body Mass Index) 2019-10-06 00:00:00 39.3 kg/m2 BP Systolic 2019-10-06 00:00:00 128 mm[Hg] Body Weight 2019-10-06 00:00:00 222 [lb_av] BP Diastolic 2019-09-06 00:00:00 79 mm[Hg] Height 2019-09-06 00:00:00 63 [in_i] BMI (Body Mass Index) 2019-09-06 00:00:00 39.9 kg/m2 BP Systolic 2019-09-06 00:00:00 114 mm[Hg] Body Weight 2019-09-06 00:00:00 225 [lb_av] BP Diastolic 2019-06-19 00:00:00 85 mm[Hg] Height 2019-06-19 00:00:00 63 [in_i] BMI (Body Mass Index) 2019-06-19 00:00:00 40 kg/m2 BP Systolic 2019-06-19 00:00:00 126 mm[Hg] Body Weight 2019-06-19 00:00:00 225.8 [lb_av] BP Diastolic 2019-06-06 00:00:00 79 mm[Hg] Height 2019-06-06 00:00:00 63 [in_i] BMI (Body Mass Index) 2019-06-06 00:00:00 39.7 kg/m2 BP Systolic 2019-06-06 00:00:00 129 mm[Hg] Body Weight 2019-06-06 00:00:00 224.2 [lb_av] BP Diastolic 2019-05-17 00:00:00 92 mm[Hg] Height 2019-05-17 00:00:00 63 [in_i] BMI (Body Mass Index) 2019-05-17 00:00:00 39.8 kg/m2 BP Systolic 2019-05-17 00:00:00 134 mm[Hg] Body Weight 2019-05-17 00:00:00 224.6 [lb_av] BP Diastolic 2019-03-22 00:00:00 83 mm[Hg] Height 2019-03-22 00:00:00 63 [in_i] BMI (Body Mass Index) 2019-03-22 00:00:00 39.4 kg/m2 BP Systolic 2019-03-22 00:00:00 123 mm[Hg] Body Weight 2019-03-22 00:00:00 222.6 [lb_av] BP Diastolic 2018-12-14 00:00:00 81 mm[Hg] Height 2018-12-14 00:00:00 63 [in_i] BMI (Body Mass Index) 2018-12-14 00:00:00 39 kg/m2 BP Systolic 2018-12-14 00:00:00 115 mm[Hg] Body Weight 2018-12-14 00:00:00 220 [lb_av] BP Diastolic 2018-09-14 00:00:00 83 mm[Hg] Height 2018-09-14 00:00:00 63 [in_i] BMI (Body Mass Index) 2018-09-14 00:00:00 39.5 kg/m2 BP Systolic 2018-09-14 00:00:00 118 mm[Hg] Body Weight 2018-09-14 00:00:00 222.8 [lb_av] BP Diastolic 2018-06-24 00:00:00 84 mm[Hg] Height 2018-06-24 00:00:00 63 [in_i] BMI (Body Mass Index) 2018-06-24 00:00:00 39.1 kg/m2 BP Systolic 2018-06-24 00:00:00 141 mm[Hg] Body Weight 2018-06-24 00:00:00 221 [lb_av] BP Diastolic 2018-05-17 00:00:00 83 mm[Hg] Height 2018-05-17 00:00:00 63 [in_i] BMI (Body Mass Index) 2018-05-17 00:00:00 39.7 kg/m2 BP Systolic 2018-05-17 00:00:00 124 mm[Hg] Body Weight 2018-05-17 00:00:00 224 [lb_av] BP Systolic 2018-04-12 15:22:59 124 mm[Hg] BP Diastolic 2018-04-12 15:22:59 78 mm[Hg] Weight 2018-04-12 15:22:59 223 [lb_av] Height 2018-04-12 15:22:59 64 [in_us] Body Mass Index 2018-04-12 15:22:59 38.28 kg/m2 Calculated BP Systolic 2017-04-14 15:38:56 120 mm[Hg] Patient Posi tion: Sitting; Cuff Location: Left A rm; Cuff Size: Stand suzanna BP Diastolic 2017-04-14 15:38:56 80 mm[Hg] Patient Posi tion: Sitting; Cuff Location: Left A rm; Cuff Size: Stand suzanna Weight 2017-04-14 15:38:56 220.375 [lb_av] Height 2017-04-14 15:38:56 64 [in_us] Body Mass Index 2017-04-14 15:38:56 37.83 kg/m2 Calculated BP Systolic 2017-03-09 15:40:31 110 mm[Hg] Patient Posi tion: Sitting; Cuff Location: Right Arm; Cuff Size: Stand suzanna BP Diastolic 2017-03-09 15:40:31 80 mm[Hg] Patient Posi tion: Sitting; Cuff Location: Right Arm; Cuff Size: Stand suzanna Weight 2017-03-09 15:40:31 218 [lb_av] Height 2017-03-09 15:40:31 64 [in_us] Body Mass Index 2017-03-09 15:40:31 37.42 kg/m2 Calculated BP Systolic 2017-02-22 11:13:49 136 mm[Hg] BP Diastolic 2017-02-22 11:13:49 82 mm[Hg] Weight 2017-02-22 11:13:49 218 [lb_av] Height 2017-02-22 11:13:49 64 [in_us] Body Mass Index 2017-02-22 11:13:49 37.42 kg/m2 Calculated BP Systolic 2016-02-20 16:19:56 126 mm[Hg] Patient Posi tion: Sitting; Cuff Location: Left A rm; Cuff Size: Stand suzanna BP Diastolic 2016-02-20 16:19:56 82 mm[Hg] Patient Posi tion: Sitting; Cuff Location: Left A rm; Cuff Size: Stand suzanna Weight 2016-02-20 16:19:56 208.125 [lb_av] Height 2016-02-20 16:19:56 64 [in_us] Body Mass Index 2016-02-20 16:19:56 35.72 kg/m2 Calculated BP Systolic 2016-02-11 14:03:43 140 mm[Hg] Patient Posi tion: Sitting; Cuff Location: Left A rm; Cuff Size: Stand suzanna BP Diastolic 2016-02-11 14:03:43 100 mm[Hg] Patient Posi tion: Sitting; Cuff Location: Left A rm; Cuff Size: Stand suzanna Weight 2016-02-11 14:03:43 207.25 [lb_av] Height 2016-02-11 14:03:43 64 [in_us] Body Mass Index 2016-02-11 14:03:43 35.57 kg/m2 Calculated Temperature 2016-01-10 14:28:21 97.8 [degF] BP Systolic 2016-01-10 14:28:21 120 mm[Hg] BP Diastolic 2016-01-10 14:28:21 80 mm[Hg] Weight 2016-01-10 14:28:21 207 [lb_av] Height 2016-01-10 14:28:21 64 [in_us] Body Mass Index 2016-01-10 14:28:21 35.53 kg/m2 Calculated Temperature 2015-12-19 15:50:42 98.6 [degF] Method: Oral Pulse 2015-12-19 15:50:42 106 /min Pattern: Reg ular Respiration Rate 2015-12-19 15:50:42 14 /min BP Systolic 2015-12-19 15:50:42 136 mm[Hg] Patient Posi tion: Sitting; Cuff Location: Right Arm BP Diastolic 2015-12-19 15:50:42 92 mm[Hg] Patient Posi tion: Sitting; Cuff Location: Right Arm Weight 2015-12-19 15:50:42 211 [lb_av] Height 2015-12-19 15:50:42 64 [in_us] Body Mass Index 2015-12-19 15:50:42 36.22 kg/m2 Calculated Systolic blood pressure 2020-07-10 11:28:00 128 mm[Hg] Diastolic blood pressure 2020-07-10 11:28:00 92 mm[Hg] Body height 2020-07-10 11:28:00 63 [in_us] Weight 2020-07-10 11:28:00 210 [lb_av] Body mass index (BMI) 2020-07-10 11:28:00 37.2 kg/m2 [Ratio] Heart Rate Monitored 2020-06-04 01:05:00 94 /min Systolic Blood Pressure 2020-06-04 01:05:00 112 mm[Hg] Diastolic Blood Pressure 2020-06-04 01:05:00 58 mm[Hg] Respiratory Rate 2020-06-04 01:05:00 16 /min Temperature Oral 2020-06-04 01:00:00 36.7 [place] Respiratory Rate 2020-06-04 00:00:00 16 /min Heart Rate Monitored 2020-06-04 00:00:00 103 /min Systolic Blood Pressure 2020-06-04 00:00:00 121 mm[Hg] Diastolic Blood Pressure 2020-06-04 00:00:00 68 mm[Hg] Temperature Oral 2020-06-03 22:20:00 37 [place] Peripheral Pulse Rate 2020-06-03 22:20:00 110 /min Respiratory Rate 2020-06-03 22:20:00 16 /min Systolic Blood Pressure 2020-06-03 22:20:00 161 mm[Hg] Diastolic Blood Pressure 2020-06-03 22:20:00 90 mm[Hg] Systolic blood pressure 2020-04-15 13:14:00 138 mm[Hg] Loca tion: RUE; Position: Sittin g Diastolic blood pressure 2020-04-15 13:14:00 90 mm[Hg] Loc ation: RUE; Position: Sittin g Body height 2020-04-15 13:14:00 63 [in_us] Weight 2020-04-15 13:14:00 210 [lb_av] Body mass index (BMI) 2020-04-15 13:14:00 37.2 kg/m2 [Ratio] Heart Rate 2020-04-15 13:14:00 130 /min Location: R Radial; Hospital Discharge Instructions NameDatesDetailsInstructions not documentedPatient Qgwpccent06/22/2020 00:52:08DYSURIA, Uncertain Cause (Adult)Dysuria with Uncertain Cause (Adult)The urethra is the tube that allows urine to pass out of the body. In a woman, the urethra is theopening above the vagina. In men, the urethra is the opening on the tip of the penis. Dysuria is thefeeling of pain or burning in the urethra when passing urine.Dysuria can be caused by anything that irritates or inflames the urethra. An infection or chemical irritation can cause this reaction. A blad radha infection is the most common cause of dysuria in adults. A urine test can diagnose this. A bladder infection needs antibiotic treatment.Soaps, lotions, colognes and feminine hygiene products can cause dysuria. So can? control jellies, creams, and foams. It will go away 1 to 3 days after usingthese irritants.Sexually transmitted diseases (STDs) such as chlamydia or gonorrhea can cause dysuria. Your healthcare provider may take a culture sample. Your provider may start you on antibiotic medicine before the culture test returns.In women who have gone through menopause, dysuria can be from dryness in the lining of the urethra. This can be treated with hormones. Dysuria becomes long- term (chronic) when it lasts for weeks or months. You may need to see?a specialist (urologist)?to diagnose andtreat chronic dysuria.Home careThese home care tips may help: Don't use any chemicals or products?that you think may be causing your symptoms. If you were given a prescription medicine, take as di rected. Be sure to take it until it is all used up. If a culture was taken, don't have?sex until you have been told that it is negative. This means you don't have an?infection. Then follow your healthcare provider's advice to treat your condition.If a culture was done and it is positive: Both you and your sexual partner may need to be treated. This is true even if your partner has no symptoms. Contact your healthcare provider or go to an urgent care clinic or the public health department shellie looked at and treated. Don't have sex until both you and your partner(s) have finished all antibiotics and your healthcare provider says you are no longer contagious. Learn about and use safe sex practices. The safest sex is with a partner who has tested negative and only has sex with you. Condoms can prevent STDs from spreading, but they aren't a guarantee.Follow-up careFollow up with your healthcare provider, or?as advised. If a culture was taken, you may call as directed for?the results.If you have an STD, follow up with your provider or the public health department for a complete STD screening, including HIV testing. For more information, contact CDC-INFO at 828-929-9499.When to seekmedical adviceCall your healthcare provider right away if?any of these occur: You aren't better?after 3 days of treatment Fever of 100.4?F (38?C) or higher, or as directed by your healthcare provider Back or belly pain that gets worse You can't?urinate because of pain New discharge fromthe urethra, vagina, or penis Painful sores on the penis Rash or joint pain Painful lumps (lymph nodes) in the groin Testicle pain or swelling of the scrotum? [employer]. [address] [place] [address]. All rights reserved. This information is not intended as a substitute for professional medical care. Always follow your healthcare professional's instructions.06/04/2020 00:52:08FLANK PAIN, Uncertain CauseFlank Pain, Uncertain CauseThe flank is the areabetween your upper abdomen and your back. Pain there is often caused by a problem with your kidneys.It might be a kidney infection or a kidney stone. Other causes of flank pain include spinal arthritis, a pinched nerve from a back injury, or a back muscle strain or spasm.The cause of your flank pain is not certain. You may need other tests.Home careFollow these tips when caring for yourself at home: You may use acetaminophen or ibuprofen to control pain, unless your health care provider prescribed another medicine. If you have chronic liver or kidney disease, talk with your provider before taking these medicines. Also talk with your provider first if youve ever had a stomach ulcer or GI bleeding. If the pain is coming from your muscles, you may get relief with ice or heat. During the first 2 days after the injury, put an ice pack on the painful area for 20 minutes every 2 to 4 hours. This will reduce swelling and pain. A hot shower, hot bath, or heating pad works well for a muscle spasm. You can start with ice, then switch to heat after 2 days. You might find that alternating ice andheat works well. Use the method that feels the best to you.Follow-up careFollow up with your healthcare provider if your symptoms dont get better over the next few days.When to seek medical adviceCall your healthcare provider right away?if any of these happen: Repeated vomiting Fever of 100.4?F (38?C) or higher, or as directed by your health care provider Flank pain that gets worse Pain that spreads to the front of your belly (abdomen) Dizziness, weakness, or fainting Blood in your urine Burning feeling when you urinate or the need to urinate often Pain in one of your legs that gets worse Numbness or weakness in a leg? [employer]. [address] [place] [id number]. All rights reserved. This information is not intended as a substitute for professional medical care. Always follow your healthcare professional's instructions.1. Atypical chest pain electrocardiogram CBC w/ auto diff XR, chest, 2 view 2. Gastroesophageal reflux disease famotidine 20 mg tablet gastroesophageal reflux disease (GERD): care in structions 3. Tachycardia metoprolol succinate ER 50 mg tablet,extended release 24 hr palpitations: care instructions 4. Urinary tract infectious disease urinalysis, dipstick culture, urine urinary tract infection in women: care instructions Discussion Note Patient verbalized understanding and agreement with recommended care plan. All questions and concerns were addressed and answered adequately. Follow up visit will address ape NameDatesDetailsInstructions not documented1. Right upper quadrant pain CMP, serum or plasma CBC w/ auto diff amylase + lipase, serum urinalysis, dipstick 2. Nausea nausea and vomiting: care instructions test, urine 3. Sinus tachycardia electrocardiogram palpitations: care instructions 4. Intermittent fever XR, chest, 2 view Discussion Note Patient verbalized understanding and agreement with recommended care plan. All questions and concerns were addressed and answered adequately. Follow up visit will address athritis, tachycardia1. Essential hypertension CMP, serum or plasma lipid panel, blood electrocardiogram high blood pressure: care instructions low sodium diet (2,000 milligram): care instructions dash diet: care instructions 2. Hyperlipidemia high cholesterol: care instructions 3. Seasonal allergic rhinitis 4. Itching of eye azelastine 0.05 % eye drops seasonal allergies: care instructions Discussion Note Patient verbalized understanding and agreement with recommended care plan. All questions and concerns were addressed and answered adequately. Follow up visit will address arthritis, tachycardia1. Essential hypertension electrocardiogram metoprolol succinate ER 100 mg tablet,extended release 24 hr dash diet: care instructions low sodium diet (2,000 milligram): care instructions high blood pressure: care instructions 2. Hyperlipidemia high cholesterol: care instructions lipid panel, blood rosuvastatin 40 mg tablet Discussion Note Patient verbalized understanding and agreement with recommended care plan. All questions and concerns were addressed and answered ad equately. Follow up visit will address htn, hld, allergy1. Abdominal pain CBC w/ auto diff urinalysis, dipstick CMP, serum or plasma amylase+ lipase, serum Discussion Note Patient verbalized understanding and agreement with recommended careplan. All questions and concerns were addressed and answered adequately. Follow up visit will address ape Patient educational handouts: No information available.1. Essential hypertension low sodium diet (2,000 milligram): care instructions dash diet: care instructions high blood pressure: care instructions 2. Hyperlipidemia high cholesterol: care instructions lipid panel, blood hepatic function panel, serum 3. Trying to conceive learning about future and diabetes learning about future when you are overweight learning about planning for future with DHA and Folic Acid 400 mcg-32.5 mg chewable tablet 4. Influenza vaccination influenza (flu) vaccine (inactivated or recombinant):what you need to know Discussion Note Patient verbalized understanding and agreement with recommended care plan. All questions and concerns were addressed and answered adequately. Follow up visit will address ape1. Essential hypertension CMP, serum or plasma lipid panel, blood CBC w/ auto diff low sodium diet (2,000 milligram): care instructions dash diet: care instructions high blood pressure: care instructions metoprolol succinate ER 100 mg tablet,extended release 24 hr 2. Hyperlipidemia high cholesterol: care instructions Vascepa 1 gram capsule rosuvastatin 40 mg tablet Discussion Note Patient verbalized understanding and agreement with recommended care plan. All questions and concerns were addressed and answered adequately. Follow up visit will address htn, hld1. Essential hypertension high blood pressure: care instructions learning about high blood pressure CMP, serum or plasma CBC w/ auto diff 2. Hyperlipidemia high cholesterol: care instructions lipid panel, blood 3. 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 All questions and concerns were addressed and answered adequately. Follow up visit will address htn, hld, wgt mgt1. Neck pain XR, cervical spine neck pain: care instructions 2. Cervical radiculitis Medrol ([place]) 4 mg tablets in a dose pack tizanidine 4 mg tablet Discussion Note: None recorded.1. Adult health examination well visit, ages 18 to 50: care instructions eating healthy foods: care instructions walking for exercise: care instructions preventing falls: care instructions 2. Immunization immunization: what you need to know pneumococcal polysaccharide vaccine: what you need to know Tdap (tetanus, diphtheria, pertussis) vaccine: what you need to know inf luenza (flu) vaccine (inactivated or recombinant): what you need to know 3. Screening for malignant neoplasm of cervix learning about Pap tests human papillomavirus (HPV): care instructions 4. HIV screening HIV (1+2) Ab screen, serum HIV testing: care instructions 5. Abnormal weight gain abnormal weight gain: care instructions starting a weight loss plan: care instructions Discussion Note Patient verbalized understanding and agreement with recommended care plan. All questionsand concerns were addressed and answered adequately. Follow up visit will address htn, hldNo Instruction Information Available
== END ==
LOC: SP 09:05
PROVIDERS: ATTEND Internal Medicine
DX: I10 Essential (primary) hypertension (principal); R07.9 Chest pain, unspecified; I25.9 Chronic ischemic heart disease, unspecified